=== PATIENT | female | born 2000 | race Two or more races ===

== ENCOUNTER 2024-04-24 22:55 | Emergency (ER) | payer OTHER, SELFPAY ==
[2024-04-24 23:00] VITALS: BMI 22.6
[2024-04-24 23:08] VITALS: BP 106/73; PULSE 102; RESP 16; TEMP 37.4; O2SAT 96
--- NOTE | 2024-04-24 23:41 | PD.EDRME ---
Rapid Medical Screening Exam COUNT INCLUDES THE [facility] Arrival date/time: 04/24/24 22:55 24F with history of SLE (on chronic oral steroids) presents to ED with 1 day of sudden GRAY. Patient had a brain MRI 3 weeks ago that showed sinusitis. A 7 day course of Augmentin did not relieve symptoms. Patient also has tender nodules on scalp. Separately, patient notes she had red/bloody stool today (patient took a picture). Patient denies dysuria, vaginal bleeding, and URI symptoms. Chief Complaint: Headache Vital signs: Vital Signs Temperature 99.4 F 04/24/24 23:08 Pulse Rate 102 H 04/24/24 23:08 Respiratory Rate 16 04/24/24 23:08 Blood Pressure 106/73 04/24/24 23:08 Pulse Oximetry (%) 96 04/24/24 23:08 Oxygen Delivery Method Room Air 04/24/24 23:08
--- NOTE | 2024-04-25 00:06 | PD.EDHA ---
ED Headache RME/HPI General Chief Complaint: Headache Stated Complaint: Headache, blurry vision, blood in stool, flank howard Arrival date/time: 04/24/24 22:55 RME / HPI RME / HPI Narrative: 04/24/24 22:55 24F with history of SLE (on chronic oral steroids) presents to ED with 1 day of sudden GRAY. Patient had a brain MRI 3 weeks ago that showed sinusitis. A 7 day course of Augmentin did not relieve symptoms. Patient also has tender nodules on scalp. Separately, patient notes she had red/bloody stool today (patient took a picture). Patient denies dysuria, vaginal bleeding, and URI symptoms. -------- Dr. Garcia?s Main ED Evaluation: 24yo female with a history of SLE presents to the ED for a chief complaint of a headache. Patient states she's had a headache for the last 4 months, reporting she's been seen by her PCP. She states she's been given medications for migraines without any alleviation of symptoms. She states she was given medication for a sinus infection 3 weeks ago that did improve her symptoms, but states her headache returned, so she came in for evaluation. She denies any N/V or any other associated symptoms. No known allergies. Related Data Home Medications ?Medication ?Instructions ?Recorded ?Confirmed prenat.vits,lolly,[id number]-absrv 1 tab PO QDAY 04/25/22 05/21/22 ferrous sulfate 325 mg (65 mg 325 mg PO QDAY 05/04/22 05/21/22 iron) tablet (iron) Previous Rx's ?Medication ?Instructions ?Recorded docusate sodium 100 mg capsule 100 mg PO BID #60 caps 05/22/22 (Colace) ibuprofen 600 mg tablet 600 mg PO Q6H PRN pain #90 tabs 05/22/22 lanolin 50 % topical ointment 1 applic topical TID PRN skin 05/22/22 irritation #15 tubes Allergies Allergy/AdvReac Type Severity Reaction Status Date / Time No Known Allergies Allergy Verified 05/21/22 23:17 Review of Systems Review of Systems Systems Reviewed: All systems reviewed, normal except as documented Past Medical History Past Medical History NEUROLOGIC: Negative Neurological Disorders or Seizures CARDIAC: Positive Cardiac Disorders and Angina; Negative Congestive Heart Failure RESPIRATORY: Negative Chronic Obstructive Pulmonary Disease (COPD), Tuberculosis or Sleep Apnea GASTROINTESTINAL: Negative Gastrointestinal Disorders or Hepatitis GENITOURINARY: Negative Genitourinary Disorders or Renal Disease REPRODUCTIVE: Positive Previous Pregnancies MUSCULOSKELETAL: Positive Musculoskeletal Disorders and Arthritis ENDOCRINE: Positive Endocrine Disorders and Systemic Lupus Erythematosus; Negative Diabetes Mellitus Type 1 or Diabetes Mellitus Type 2 HEMATOLOGIC: Positive Blood Disorders, Anemia and Clotting Problems OTHER HISTORY: Positive Hospitalization, Autoimmune Disease and Chicken Pox; Negative Shingles, Falls, Blood Transfusions, Blood Transfusion Reaction, Anesthesia Reactions, Chemotherapy, Radiation Therapy, MRSA, Measles, Mumps or Cancer Family History FAMILY HISTORY: Negative Family Neurologic Problems, Family Psychiatric Problems, Family Respiratory Disorders, Family Cardiac Disorders, Family Gastrointestinal Problems, Family Cancer, Family Surgery or Family Anesthesia Reaction Surgical History SURGICAL: Negative Section Social History SMOKING STATUS: Never smoker SUBSTANCE USE: does not use ED Exam Narrative Physical exam: GENERAL APPEARANCE: alert and oriented x 4, well-developed, well-nourished, no acute distress VITALS: All vitals were reviewed and the pulse ox is 96% on room air, which is normal according to my interpretation. HEENT: Normocephalic, atraumatic; pupils equal, round, reactive to light; EOMI; mucous membranes pink, moist; oropharynx clear; tenderness on palpation to the upper face NECK: Supple LUNGS: CTABL; no wheezes, no rales, no rhonchi HEART: Regular rate, regular rhythm; normal S1, S2; no murmurs ABDOMEN: non distended; normal BS; soft, no tenderness, no guarding, no rebound; no masses, no organomegaly, no hernia BACK: no CVA tenderness EXTREMITIES: atraumatic; no edema NEUROLOGIC: awake; alert and oriented x4; cranial nerves II-XII grossly intact; no focal sensory or motor deficits PSYCHIATRIC: appropriate mood and affect SKIN: warm, dry, normal color; no rashes Course Quality Measures none Orders Category Date Time Status Bedside COVID-19 Antigen Test NOW Care 04/24/24 23:10 Completed Bedside Influenza A&B Antigen Test NOW Care 04/24/24 23:10 Completed CBC Stat Lab 04/24/24 23:41 Completed CMP [Comprehensive Metabolic Panel] Stat Lab 04/24/24 23:41 Completed DiphenhydrAMINE [Benadryl] Med 04/25/24 00:06 Discontinued 25 mg PO X1 ONE Ketorolac Inj [Toradol Inj] Med 04/25/24 00:06 Discontinued 30 mg IM X1 ONE Metoclopramide [Reglan] Med 04/25/24 00:06 Discontinued 10 mg PO X1 ONE Reevaluation(s) Reevaluation #1: Patient states she feels significantly better and is requesting to be discharged home. Time: 01:45 Vital Signs Vital signs: Vital Signs Temperature 99.4 F 04/24/24 23:08 Pulse Rate 102 H 04/24/24 23:08 Respiratory Rate 16 04/24/24 23:08 Blood Pressure 106/73 04/24/24 23:08 Pulse Oximetry (%) 96 04/24/24 23:08 Oxygen Delivery Method Room Air 04/24/24 23:08 Headache MDM Narrative MDM Narrative:: Scribe Attestation: 04/25/24 Idalia Nix am scribing for and in the presence of Dr. Garcia. Patient data External records reviewed:: [facility] previous records (Per chart review, patient was seen here on 07/24/22 for palpitations.) Clinical information provided by:: patient Social determinants that could affect healthcare access:: none Patient has the following chronic illnesses:: lupus How is presenting disease/condition affected by chronic disease/condition?: uneffected by Evaluation data The following diagnostics were reviewed and interpreted by me:: lab results Lab and/or radiology exams considered but not ordered:: none Interpretation Summary: Bedside COVID and Influenza are negative. Medications / Prescriptions Medications or Prescriptions considered but not ordered:: none Medication administrations:: Medication Administration History Discontinued Medications Diphenhydramine HCl (Diphenhydramine 25 Mg Capsule) 25 mg PO X1 ONE Stop: 04/25/24 00:07 Last Admin: 04/25/24 00:13 Dose: 25 mg Documented By: CVL Ketorolac Tromethamine (Ketorolac Inj 60 Mg/2 Ml Vial) 30 mg IM X1 ONE Stop: 04/25/24 00:07 Last Admin: 04/25/24 00:14 Dose: 30 mg Documented By: CVL Metoclopramide HCl (Metoclopramide 5 Mg Tablet) 10 mg PO X1 ONE Stop: 04/25/24 00:07 Last Admin: 04/25/24 00:13 Dose: 10 mg Documented By: CVL see above Consultations Consultation(s) initiated? (list below): No Diagnosis Differential diagnosis headache: migraine, tension headache, sinusitis and other (cluster headache) Most likely diagnosis given after review of the tests above:: see below Admission Indicated Admission indicated?: not indicated Explain why admission is indicated or not indicated:: No criteria for admission. Admission Request Was there a request for admission?: No Disposition Plan Disposition Plan: Discharge Discharge Attestation Discharge Attestation: The patient and all family members were given an opportunity to ask questions and understood the discharge instructions. Discharge instructions specifically effects, indications for sooner follow up or return to the emergency department, and the expected course of current diagnosis. Patient condition: Stable Discharge Plan Plan Patient Disposition: HOME (Self Care) Disposition Comment: Stable for discharge Patient condition on transfer: Stable Prescriptions/Referrals Prescriptions/Med Rec: No Action prenat.vits,lolly,[id number]-invrr Tablet 1 tab PO QDAY ferrous sulfate [iron] 325 mg (65 mg iron) Tablet 325 mg PO QDAY docusate sodium [Colace] 100 mg capsule 100 mg PO BID Qty: 60 0RF ibuprofen 600 mg tablet 600 mg PO Q6H PRN (Reason: pain) Qty: 90 0RF lanolin 50 % ointment 1 applic topical TID PRN (Reason: skin irritation) Qty: 15 0RF Referrals: [facility] [Outside] - In 1 week Problem List Clinical Impression: Headache Patient/Caregiver Discharge Instructions Discharge Activity: activity as tolerated Education Materials: Self-Care for Headaches Additional Instructions: Please return to the emergency department if you have any worsening or any further medical problems. Otherwise you should follow-up with your primary care doctor within the next several days. Print Language: Ivorian Stand Alone Forms: Rizwana Award Info., Patient Portal Info Letter
[2024-04-25] MEDS: METOCLOPRAMIDE 5 MG TABLET 10 MG PO (00:13)
[2024-04-25] MEDS: DiphenhydrAMINE 25 MG CAPSULE PO (00:13)
[2024-04-25] MEDS: KETOROLAC INJ 60 MG/2 ML VIAL 30 MG IM (00:14)
[2024-04-25 00:40] LABS: Basophils % (Auto) 0 % (0-2.5); Eosinophils # (Auto) 0.1 Thou/mm3 (0.0-0.5); Eosinophils % (Auto) 2 % (0-10); Hematocrit 35.2 % (36.0-46.0); Hemoglobin 11.2 g/dL (12.0-16.0); Immature Granulocytes % (Auto) 1 % (0-0); Immature Granulocytes Auto 0.03 Thou/mm3 (0.00-0.00); Lymphocytes # (Auto) 0.5 Thou/mm3 (1.0-4.8); Lymphocytes % (Auto) 17 % (10-50); Mean Corpuscular HGB Conc 31.8 g/dl (31.0-37.0); Mean Corpuscular Hemoglobin 24.3 pg (25.0-35.0); Mean Corpuscular Volume 77 fL (80-100); Monocytes # (Auto) 0.1 Thou/mm3 (0.0-0.8); Monocytes % (Auto) 3 % (0-12); Neutrophils # (Auto) 2.2 Thou/mm3 (1.8-7.7); Neutrophils % (Auto) 78 % (37-80); Nucleated Red Blood Cell % 0 /100 WBC (0); Platelet Count 186 Thou/mm3 (140-440); RDW Standard Deviation 50.5 fL (36.4-46.3)
[2024-04-25 00:50] LABS: White Blood Count 2.9 Thou/mm3 (3.6-11.0)
[2024-04-25 00:56] LABS: Alanine Aminotransferase 40 U/L (10-49); Albumin, Serum 3.8 gm/dL (3.5-5.0); Albumin/Globulin Ratio 1.1 (1.2-2.2); Alkaline Phosphatase 73 U/L (46-116); Anion Gap 7 (7-16); Aspartate Amino Transferase 48 U/L (0-34); BUN/Creatinine Ratio 18 Ratio (12-20); Bilirubin,Total 0.3 mg/dL (0.3-1.2); Blood Urea Nitrogen 11 mg/dL (9-23); Calcium 9.1 mg/dL (8.3-10.6); Calcium (Corrected) 9.3 mg/dL (8.5-10.1); Chloride 109 mMol/L (98-107); Creatinine (Component) 0.6 mg/dL (0.6-1.3); Estimated Creatinine Clearance 99.5 mL/min (>60); Globulin 3.5 gm/dL (2.3-3.5); Glucose 83 mg/dL (74-106); Osmolality,Calculated 281 (275-295); Potassium 3.9 mMol/L (3.4-5.1); Sodium 142 mMol/L (136-145); Total Protein 7.3 gm/dL (5.7-8.2); eGFR > 60 See Note
[2024-04-25 01:16] VITALS: BP 110/70; PULSE 98; RESP 16; TEMP 37.4; O2SAT 96
== END 2024-04-25 01:57 | disposition home or self-care (01) ==
PROVIDERS: Physician Assistant; Emergency Provider Emergency Medicine
DX: R51.9 Headache, unspecified (principal)
CPT/HCPCS: 36415; 80053; 81001; 81025; 85025; 85610; 85730; 87400; 87811; 96372; 99283; 99284; J1885; A9270

== ENCOUNTER 2024-04-30 11:33 | Emergency (ER) | payer OTHER, SELFPAY ==
[2024-04-30 11:50] VITALS: BP 112/76; PULSE 115; RESP 16; TEMP 37.4; O2SAT 98; BMI 22.6
[2024-04-30] MEDS: DEXAMETHASONE SOD PHOS INJ 10 MG/ML VIAL IM (12:07)
[2024-04-30] MEDS: DiphenhydrAMINE 25 MG CAPSULE PO (12:08)
--- NOTE | 2024-04-30 13:38 | PD.EDRME ---
Rapid Medical Screening Exam RME Arrival date/time: 04/30/24 11:33 24 year-old female presents emergency department today with complaints of rash patient ports history of lupus reports rash ongoing x 1 week Chief Complaint: Allergic Reaction Time Seen by Provider: 04/30/24 11:35 Vital signs: Vital Signs Temperature 99.4 F 04/30/24 11:50 Pulse Rate 115 H 04/30/24 11:50 Respiratory Rate 16 04/30/24 11:50 Blood Pressure 112/76 04/30/24 11:50 Pulse Oximetry (%) 98 04/30/24 11:50 Oxygen Delivery Method Room Air 04/30/24 11:50
[2024-04-30 14:01] LABS: Basophils % (Auto) 0 % (0-2.5); Eosinophils # (Auto) 0.1 Thou/mm3 (0.0-0.5); Eosinophils % (Auto) 3 % (0-10); Hematocrit 33.7 % (36.0-46.0); Hemoglobin 10.4 g/dL (12.0-16.0); Immature Granulocytes % (Auto) 0 % (0-0); Immature Granulocytes Auto 0.01 Thou/mm3 (0.00-0.00); Lymphocytes # (Auto) 0.3 Thou/mm3 (1.0-4.8); Lymphocytes % (Auto) 8 % (10-50); Mean Corpuscular HGB Conc 30.9 g/dl (31.0-37.0); Mean Corpuscular Hemoglobin 24.1 pg (25.0-35.0); Mean Corpuscular Volume 78 fL (80-100); Monocytes # (Auto) 0.1 Thou/mm3 (0.0-0.8); Monocytes % (Auto) 3 % (0-12); Neutrophils # (Auto) 3.2 Thou/mm3 (1.8-7.7); Neutrophils % (Auto) 85 % (37-80); Nucleated Red Blood Cell % 0 /100 WBC (0); Platelet Count 148 Thou/mm3 (140-440); RDW Standard Deviation 53.1 fL (36.4-46.3); Red Blood Count 4.31 Miln/mm3 (4.00-5.20); White Blood Count 3.7 Thou/mm3 (3.6-11.0)
--- NOTE | 2024-04-30 14:12 | EKG_ITS ---
[facility] Test Date: 2024-04-30 Pat Name: MEHUL ZAMAN Department: Room: - Gender: Female Cereal Maker: : 2000 Requested By: Carloz Hargrove (CATHY) Order Number: [id number] Reading MD: Carloz Hargrove (BORING MACHINE OPERATOR VERTICAL) Measurements Intervals [place] Rate: 104 P: 58 MA: 139 QRS: 98 QRSD: 74 T: 69 QT: 306 QTc: 403 Interpretive Statements SINUS TACHYCARDIA BORDERLINE RIGHT AXIS DEVIATION [QRS AXIS > 90] LOW QRS VOLTAGE IN PRECORDIAL LEADS [QRS DEFLECTION < 1.0 mV IN CHEST LEADS] POSSIBLE RIGHT VENTRICULAR CONDUCTION DELAY [RSR (QR) IN V1/V2] ABNORMAL RHYTHM ECG Compared to ECG 07/23/2022 23:51:28 Low QRS voltage now present T-wave abnormality no longer present /store/S0/[id number]
[2024-04-30 14:20] LABS: Sed Rate (ESR) 48 mm/hr (0-20)
[2024-04-30 14:36] LABS: Alanine Aminotransferase 46 U/L (10-49); Albumin, Serum 3.6 gm/dL (3.5-5.0); Albumin/Globulin Ratio 1.1 (1.2-2.2); Anion Gap 7 (7-16); Aspartate Amino Transferase 71 U/L (0-34); BUN/Creatinine Ratio 17 Ratio (12-20); Bilirubin,Total 0.3 mg/dL (0.3-1.2); Blood Urea Nitrogen 10 mg/dL (9-23); C-Reactive Protein 4.1 mg/dL (0.0-0.9); Calcium 8.6 mg/dL (8.3-10.6); Calcium (Corrected) 8.9 mg/dL (8.5-10.1); Carbon Dioxide 26.1 mMol/L (20.0-31.0); Chloride 106 mMol/L (98-107); Creatinine (Component) 0.6 mg/dL (0.6-1.3); Estimated Creatinine Clearance 99.5 mL/min (>60); Globulin 3.3 gm/dL (2.3-3.5); Glucose 103 mg/dL (74-106); Osmolality,Calculated 276 (275-295); Potassium 3.8 mMol/L (3.4-5.1); Sodium 139 mMol/L (136-145); Total Protein 6.9 gm/dL (5.7-8.2); eGFR > 60 See Note
[2024-04-30 14:47] LABS: Alkaline Phosphatase 73 U/L (46-116)
[2024-04-30 14:54] LABS: Troponin I < 0.020 ng/mL (0.0-0.045)
[2024-04-30 15:04] LABS: HCG,Qualitative Serum Negative
[2024-04-30 15:16] VITALS: BP 113/88; PULSE 105; RESP 18; TEMP 37.4; O2SAT 100
[2024-04-30 15:43] LABS: Path Review Blood Smear Sent to Pathologist
--- NOTE | 2024-04-30 16:04 | PD.EDADULT ---
ED General RME/HPI General Chief complaint: Allergic Reaction Stated complaint: RASH, FACIAL SWELLING, CHEST PAIN Time Seen by Provider: 04/30/24 11:35 Arrival date/time: 04/30/24 11:33 CC: Rash HPI patient has an itchy rash going on for the last week it started in the upper anterior chest and spread to the back. Patient also stating of some mild fatigue but denies any shortness of breath difficulty breathing chest pain fever nausea vomiting or diarrhea. Patient has a significant history of lupus and Sjogrens syndrome. Patient is 8 months . Her child currently has RSV and is recovering. Patient has no other complaints patient takes steroids daily. RME / HPI RME / HPI narrative: 04/30/24 11:33 24 year-old female presents emergency department today with complaints of rash patient ports history of lupus reports rash ongoing x 1 week Related Data Home Medications ?Medication ?Instructions ?Recorded ?Confirmed prenat.vits,lolly,wya-bmzv-yrbel 1 tab PO QDAY 04/25/22 05/21/22 ferrous sulfate 325 mg (65 mg 325 mg PO QDAY 05/04/22 05/21/22 iron) tablet (iron) Previous Rx's ?Medication ?Instructions ?Recorded docusate sodium 100 mg capsule 100 mg PO BID #60 caps 05/22/22 (Colace) ibuprofen 600 mg tablet 600 mg PO Q6H PRN pain #90 tabs 05/22/22 lanolin 50 % topical ointment 1 applic topical TID PRN skin 05/22/22 irritation #15 tubes Allergies Allergy/AdvReac Type Severity Reaction Status Date / Time No Known Allergies Allergy Verified 05/21/22 23:17 Review of Systems Review of Systems Narrative Review of Systems: GEN: No fever, no chills, no weight loss EYES: No discharge, no visual changes, no pain HEENT: No ear pain, no congestion, no sore throat PULM: No shortness of breath, no cough, no congestion CV: No chest pain, no dyspnea on exertion, no palpitations GI: No nausea, no vomiting, no diarrhea, no pain, no constipation : No frequency, no urgency, no dysuria MUSC/SKEL: No joint pain, no back pain SKIN: + rash PSYCH: No hallucinations, no depression HEME/LYMPH: No easy bleeding or bruising tendencies NEURO: No weakness, no headache ED Exam Narrative Physical exam: [General: In mild discomfort but not in any acute distress Head normocephalic HEENT: Face, the patient has facial edema secondary to long-term steroid use, eyes pupils are PERRLA EOMs are within acceptable limits Neck is supple nontender Chest equal chest rise nontender to palpation Respiratory: Clear to auscultation no wheezes crackles or rubs CV: Rate rhythm is regular no murmurs rubs or clicks Abdomen is distended secondary to body habitus soft nontender no masses positive bowel sounds all 4 quadrants Back: No CVA tenderness no spinous process tenderness from cervical spine thoracic and lumbar spine Skin: Widespread irregular pattern of a macular rash no specific set pattern involving the anterior chest upper back and the upper arms no face or scalp involvement there was some dimpling of the skin on the fingertips of both hands. Patient also complained of mild tenderness with palpation of the fingertips. No papular hive or urticaria Type lesions. Extremities: Moving all extremity against resistance cap refill less than 2 seconds neurosensory intact Neuro: Awake alert oriented x3 Glascow coma 15 no focal deficits] Course Course Course Narrative: Patient's case, laboratory results and the patient itself was discussed with and observed by Dr. Goncalves, who agrees this is a noncritical rash however needs to follow-up aggressively with student financial services counselor Dr. Calabrese in [place]. Quality Measures none Orders Category Date Time Status EKG (ED ONLY) *Do not use* NOW Care 04/30/24 14:12 Completed EKG (ED Only) Stat Exams 04/30/24 14:12 Draft CBC Stat Lab 04/30/24 13:43 Completed CMP [Comprehensive Metabolic Panel] Stat Lab 04/30/24 13:43 Completed CRP [C-Reactive Protein] Stat Lab 04/30/24 13:43 Completed ESR [Sed Rate (ESR)] Stat Lab 04/30/24 13:43 Completed HCG,Qualitative Serum Stat Lab 04/30/24 13:43 Completed Path Review Blood Smear Stat Lab 04/30/24 13:43 Completed Troponin I Stat Lab 04/30/24 13:43 Completed Dexamethasone Inj [Decadron Inj] Med 04/30/24 12:01 Discontinued 10 mg IM X1 ONE DiphenhydrAMINE [Benadryl] Med 04/30/24 12:01 Discontinued 25 mg PO X1 ONE Vital Signs Vital signs: Vital Signs Temperature 99.4 F 04/30/24 11:50 Pulse Rate 115 H 04/30/24 11:50 Respiratory Rate 16 04/30/24 11:50 Blood Pressure 112/76 04/30/24 11:50 Pulse Oximetry (%) 98 04/30/24 11:50 Oxygen Delivery Method Room Air 04/30/24 11:50 MDM Patient data External records reviewed:: [facility] previous records Clinical information provided by:: patient Social determinants that could affect healthcare access:: none Patient has the following chronic illnesses:: Lupus, sjogrens syndrome How is presenting disease/condition affected by chronic disease/condition?: exacerbated by Evaluation data The following diagnostics were reviewed and interpreted by me:: lab results, radiology exam(s) and EKG tracing(s) Lab and/or radiology exams considered but not ordered:: CBC shows no leukocytosis and improving anemia of 10.4 and 33.7 platelets are normal CMP shows no significant electrolyte imbalances renal impairment transaminitis or T. bili elevation C-reactive protein of 4.1 hCG is negative EKG performed at 1417 shows ventricular rate of 104 MI interval 139 QRS of 74 QTc of 366 is sinus tachycardia. Interpretation Summary: There is no acute finding in the laboratory results that indicate an emergent or immediate intervention however however the rash may be a symptom of a rheumatologic event, the patient needs to follow-up promptly with Dr. Calabrese, her student financial services counselor, in [place]. Medications Medications considered but not ordered:: None Medication administrations:: Medication Administration History Discontinued Medications Dexamethasone Sodium Phosphate (Dexamethasone Sod Phos Inj 10 Mg/Ml Vial) 10 mg IM X1 ONE Stop: 04/30/24 12:02 Last Admin: 04/30/24 12:07 Dose: 10 mg Documented By: OA Diphenhydramine HCl (Diphenhydramine 25 Mg Capsule) 25 mg PO X1 ONE Stop: 04/30/24 12:02 Last Admin: 04/30/24 12:08 Dose: 25 mg Documented By: OA None Consultations Consultation(s) initiated? (list below): No Diagnosis Differential Diagnosis ED Complaint MDM: ITP, PPT, urticaria Most likely diagnosis given after review of the tests above:: Rash with itch Admission Indicated Admission indicated?: not indicated Explain why admission is indicated or not indicated:: Stable for outpatient follow-up Admission Request Was there a request for admission?: No Disposition Plan Disposition Plan: Discharge Discharge Attestation Discharge Attestation: The patient and all family members were given an opportunity to ask questions and understood the discharge instructions. Discharge instructions specifically effects, indications for sooner follow up or return to the emergency department, and the expected course of current diagnosis. Patient condition: Stable Medical Decision Making Differential Diagnosis Differential Diagnosis: ITP, PPT, urticaria Lab Data 04/30/24 13:43 04/30/24 13:43 Labs: Lab Results 04/30/24 Range/Units 13:43 WBC 3.7 (3.6-11.0) Thou/mm3 RBC 4.31 (4.00-5.20) Miln/mm3 Hgb 10.4 L (12.0-16.0) g/dL Hct 33.7 L (36.0-46.0) % MCV 78 L (80-100) fL MCH 24.1 L (25.0-35.0) pg MCHC 30.9 L (31.0-37.0) g/dl RDW Std Deviation 53.1 H (36.4-46.3) fL Plt Count 148 D (140-440) Thou/mm3 Neut % (Auto) 85 H (37-80) % Lymph % (Auto) 8 L (10-50) % [place] % (Auto) 3 (0-12) % Eos % (Auto) 3 (0-10) % Baso % (Auto) 0 (0-2.5) % Neut # (Auto) 3.2 (1.8-7.7) Thou/mm3 Lymph # (Auto) 0.3 L (1.0-4.8) Thou/mm3 [place] # (Auto) 0.1 (0.0-0.8) Thou/mm3 Eos # (Auto) 0.1 (0.0-0.5) Thou/mm3 Baso # (Auto) 0.0 (0.0-0.2) Thou/mm3 Immature Gran # (Auto) 0.01 H (0.00-0.00) Thou/mm3 Absolute Nucleated RBC 0.00 (0.00-0.00) Thou/mm3 Immature Gran % 0 (0-0) % Nucleated RBC % 0 (0) /100 WBC Smear Path Review Sent to Pathologist ESR 48 H (0-20) mm/hr Sodium 139 (136-145) mMol/L Potassium 3.8 (3.4-5.1) mMol/L Chloride 106 (98-107) mMol/L Carbon Dioxide 26.1 (20.0-31.0) mMol/L Anion Gap 7 (7-16) BUN 10 (9-23) mg/dL Creatinine 0.6 (0.6-1.3) mg/dL Estim Creat Clear Calc 99.5 (>60) mL/min eGFR > 60 (60 - ) See Note BUN/Creatinine Ratio 17 (12-20) Ratio Glucose 103 (74-106) mg/dL Calculated Osmolality 276 (275-295) Calcium 8.6 (8.3-10.6) mg/dL Corrected Calcium 8.9 (8.5-10.1) mg/dL Total Bilirubin 0.3 (0.3-1.2) mg/dL AST 71 H (0-34) U/L ALT 46 (10-49) U/L Alkaline Phosphatase 73 (46-116) U/L Troponin I < 0.020 (0.0-0.045) ng/mL C-Reactive Prot, Quant 4.1 H (0.0-0.9) mg/dL Total Protein 6.9 (5.7-8.2) gm/dL Albumin 3.6 (3.5-5.0) gm/dL Globulin 3.3 (2.3-3.5) gm/dL Albumin/Globulin Ratio 1.1 L (1.2-2.2) HCG, Qual Negative Discharge Plan Plan Patient Disposition: HOME (Self Care) Patient condition on transfer: Stable Prescriptions/Referrals Prescriptions/Med Rec: No Action prenat.vits,lolly,[id number]-pdoxs Tablet 1 tab PO QDAY ferrous sulfate [iron] 325 mg (65 mg iron) Tablet 325 mg PO QDAY docusate sodium [Colace] 100 mg capsule 100 mg PO BID Qty: 60 0RF ibuprofen 600 mg tablet 600 mg PO Q6H PRN (Reason: pain) Qty: 90 0RF lanolin 50 % ointment 1 applic topical TID PRN (Reason: skin irritation) Qty: 15 0RF Referrals: No Primary/Family,Physician [Primary Care Provider] - In 1 week Narinder Montgomery MD [Physician] - In 1 week Problem List Clinical Impression: Rash Patient/Caregiver Discharge Instructions Other Activity Instructions:: Follow-up with your student financial services counselor, Dr. Calabrese, in the next 48 hours if there is a progressive worsening and you are unable to get a hold of Dr. Calabrese please return to the emergency room for reevaluation. Education Materials: ED Viral Rash, Exanthem (Child) Print Language: Estonian Stand Alone Forms: Rizwana Award Info., Work/School Release, Patient Portal Info Letter PA/PLASTIC FIXTURE BUILDER Supervising Physician PA/PLASTIC FIXTURE BUILDER Supervising Physician: Aristides Bansal ENP
== END 2024-04-30 16:27 | disposition home or self-care (01) ==
PROVIDERS: Nurse Practitioner Primary Care; Emergency Provider Emergency Medicine
DX: R21 Rash and other nonspecific skin eruption (principal); M35.00 Sjogren syndrome, unspecified
CPT/HCPCS: 36415; 80053; 84484; 84703; 85025; 85652; 86140; 93005; 96372; 99283; J1100; A9270

== ENCOUNTER 2024-05-08 12:08 | Emergency (ER) | payer MEDICAID, SELFPAY ==
[2024-05-08] VITALS (10 sets, daily range): BP systolic 96–122; BP diastolic 64–84; PULSE 104–260; RESP 14–20; TEMP 36.8–38.4; O2SAT 98–100; BMI 22.8
--- NOTE | 2024-05-08 12:23 | EKG_ITS ---
[facility] Test Date: 2024-05-08 Pat Name: SAHARA CORMIER Department: Room: - Gender: Female Shaft Tender: : 2000 Requested By: Carloz Hargrove (CATHY) Order Number: [id number] Reading MD: Carloz Hargrove (SALMON GILLNET VESSEL OPERATOR) Measurements Intervals [place] Rate: 242 P: DE: QRS: 133 QRSD: 160 T: 0 QT: 158 QTc: 317 Interpretive Statements UNCERTAIN REGULAR RHYTHM INTRAVENTRICULAR CONDUCTION DELAY [130+ ms QRS DURATION] POSSIBLE RIGHT VENTRICULAR HYPERTROPHY [SOME/ALL OF: PROMINENT R IN V1, LATE TRANSITION, RAD, SHAUN, SSS] CRITICAL TEST RESULT Compared to ECG 08/23/2017 09:20:18 Intraventricular conduction delay now present Sinus bradycardia no longer present Incomplete right bundle-branch block no longer present T-wave abnormality no longer present /store/S0/[id number]
--- NOTE | 2024-05-08 12:33 | EDNOTE_ITS ---
ED General RME/HPI General Chief complaint: Arrhythmia/Palpitations Stated complaint: palpitations, fever, sob, left eye pain Time Seen by Provider: 05/08/24 12:32 Arrival date/time: 05/08/24 12:08 RME / HPI RME / HPI narrative: Patient comes in saying for 2 hours she had her heart going fast. She is from [place] visiting a portable. 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 She states she has lupus is had a fever in the last day also lanes of face or eye pain. She is followed by Dr. [place] swing manager in [place]. Related Data Previous Rx's ?Medication ?Instructions ?Recorded ibuprofen 400 mg tablet 400 mg PO QID PRN pain #30 t abs 08/23/17 Allergies Allergy/AdvReac Type Severity Reaction Status Date / Time No Known Allergies Allergy Verified 08/22/17 23:16 Review of Systems Review of Systems Narrative Review of Systems: Constitutional: see hpi, +fevers, facial pain. Eyes: DENIES; Loss of vision Head/Ear/Nose: DENIES; Loss of hearing Throat: DENIES; Dysphagia Cardiovascular: see hpi +palpitations DENIES; Chest pain, dyspnea or syncope Respiratory: DENIES; Shortness of breath Gastrointestinal: DENIES; Rectal bleeding or melena. Genitourinary: DENIES; Dysuria (painful or difficult urination) Musculoskeletal: DENIES; Arthralgia (pain in a joint),; Skin: DENIES; Rash Neurological: DENIES; Loss of function or movement Psychiatric: DENIES; recent major life stressor, emotional problem, illicit drug use or abuse Endocrinology: DENIES; Weight change Hematologic/Lymphatic: DENIES; Abnormal bruising Allergic/Immunologic: DENIES; Urticaria (hives) Past Medical History Past Medical History CARDIAC: Negative Congestive Heart Failure RESPIRATORY: Negative Chronic Obstructive Pulmonary Disease (COPD) GENITOURINARY: Negative Renal Disease ENDOCRINE: Negative Diabetes Mellitus Type 1 or Diabetes Mellitus Type 2 Social History SMOKING STATUS: Never smoker ED Exam Narrative Physical exam: Physical Exam: General: The vital signs were reviewed. Patient is put on the monitor soon after arrival her heart rate is 246 narrow complex tachycardia. The patient is non-toxic, in no apparent distress and appears healthy with a patent airway, no respiratory distress and has no apparent circulatory problems. Head & Scalp: Normocephalic, atraumatic. Face: Appears normal and is without lesions, deformity. Ears: Left external pinna appears normal. Right external pinna appears normal. Eyes: The sclera is anicteric. No obvious photophobia. The Left and Right Orbit/Lid/Conjunctiva appears normal without swelling, discoloration or injection. Nose: The nose is without deformity, discharge or tenderness; Throat: Appears normal. The mucous membranes are pink and moist without exudates, redness or mass seen. The tongue appears normal. Neck: The neck is supple and no apparent mass or adenopathy. Chest: The chest wall is normal in size and symmetry and has no chest wall tenderness or crepitus. The patient displays normal ventilator effort without retractions, accessory muscle use and has adequate air movement bilaterally with no wheezes and no rales. Cardiovascular: Patient has a rapid heart rate of 260 on the monitor narrow complex no murmurs heard. Gastrointestinal: The abdomen appears normal. No obvious hernias or mass. The abdomen is soft and benign, non-distended, with no pain, no guarding and no rebound tenderness. Bowel sounds are present and normal sounding. No CVA tenderness. Genitourinary: Back/Spine: Normal inspection nontender Extremities/Musculoskeletal/lymphatic: The bilateral upper and lower extremities are warm. There is no evidence of arterial insufficiency. There is no evidence of venous insufficiency/edema. The patient spontaneously moves bilateral upper and lower extremities with no pain and no limitation of movement. There is no apparent, injury or trauma. Skin: The skin is warm, dry and intact. No rashes. No petechia. No purpura. No abnormal bruising. The color is appropriate with no cyanosis. Mental status/Psychiatric: Mental status is appropriate for age. The patient has no apparent delusions, visual hallucinations, no apparent audible hallucinations. The patient has no apparent suicidal thoughts/ideation and no apparent homicidal thoughts/ideation. Neurological: The patient is awake, alert, interactive, cordial, cooperative and is oriented to name and situation. The patient follows commands and answers historical question with no impairment. There is no visual disturbance apparent. The pupils are equal and reactive bilaterally with normal eye movements and no diplopia The bilateral upper and lower extremities have normal strength, normal range of motion and normal functioning. The gait, station and balance patient got up from the [facility] and made the transfer to the bed with minimal assistance. Course Quality Measures none Orders Category Date Time Status Bedside COVID-19 Antigen Test NOW Care 05/08/24 12:50 Active Bedside Influenza A&B Antigen Test NOW Care 05/08/24 12:50 Completed Clipper Machine NOW Care 05/08/24 12:23 Active EKG (ED ONLY) *Do not use* NOW Care 05/08/24 12:23 Completed Insert IV NOW Care 05/08/24 12:24 Active Miscellaneous Nursing Order NOW Care 05/08/24 12:39 Active EKG (ED Only) Stat Exams 05/08/24 12:23 Draft XR chest 1V portable Stat Exams 05/08/24 12:38 Completed B-Type Natriuretic Peptide Stat Lab 05/08/24 12:35 Completed Blood Culture (Lab) Stat Lab 05/08/24 12:50 Received CBC Stat Lab 05/08/24 12:35 Completed CRP [C-Reactive Protein] Stat Lab 05/08/24 12:35 Completed Comprehensive Metabolic Panel Stat Lab 05/08/24 12:35 Completed Drug Screen,Urine Stat Lab 05/08/24 13:40 Completed ESR [Sed Rate (ESR)] Stat Lab 05/08/24 12:35 Completed Free T4 (Free Thyroxine) Stat Lab 05/08/24 12:35 Completed HCG,Qualitative Serum Stat Lab 05/08/24 12:35 Completed Magnesium Stat Lab 05/08/24 12:35 Completed Partial Thromboplastin Time Stat Lab 05/08/24 13:45 Completed Prothrombin Time with INR Stat Lab 05/08/24 13:45 Completed RSV [Respiratory Syncytial Virus Ag] Stat Lab 05/08/24 13:41 Completed Strep A Rapid Stat Lab 05/08/24 13:46 Completed TSH [Thyroid Stimulating Hormone] Stat Lab 05/08/24 12:35 Completed Troponin I Stat Lab 05/08/24 12:35 Completed UA [Urinalysis] Stat Lab 05/08/24 13:40 Completed Urinalysis Stat Lab 05/08/24 13:46 Ordered VBG [Venous Blood Gas] Stat Lab 05/08/24 12:35 Completed Acetaminophen Tab [Tylenol Tab] Med 05/08/24 13:20 Discontinued 1,000 mg PO X1 ONE Adenosine 6mg Inj [Adenocard Inj] Med 05/08/24 12:24 Discontinued 12 mg IVP X1 ONE Adenosine 6mg Inj [Adenocard Inj] Med 05/08/24 12:23 Discontinued 6 mg IVP X1 ONE Metoprolol Tartrate Inj [Lopressor Inj] Med 05/08/24 12:59 Discontinued 2 mg IVP X1 ONE Metoprolol Tartrate Inj [Lopressor Inj] Med 05/08/24 13:01 Discontinued 2.5 mg IVP X1 ONE Metoprolol Tartrate Inj [Lopressor Inj] Med 05/08/24 12:53 Discontinued 5 mg .ROUTE .STK-MED ONE Vital Signs Vital signs: Vital Signs Temperature 99.2 F 05/08/24 12:23 Pulse Rate 260 H 05/08/24 12:23 Respiratory Rate 20 05/08/24 12:23 Blood Pressure 122/84 05/08/24 12:23 Pulse Oximetry (%) 100 05/08/24 12:23 Oxygen Delivery Method Room Air 05/08/24 12:23 Pulse ox is 100% on room air which is adequate. [facility] Patient data External records reviewed:: [facility] previous records (I reviewed ED visit on 08/23/17) Clinical information provided by:: patient Social determinants that could affect healthcare access:: none Patient has the following chronic illnesses:: svt, lupus How is presenting disease/condition affected by chronic disease/condition?: e xacerbated by Evaluation data The following diagnostics were reviewed and interpreted by me:: lab results, radiology exam(s) and EKG tracing(s) Lab and/or radiology exams considered but not ordered:: none Interpretation Summary: Ordering Physician: Gokul Burton MD Date of Service: 05/08/24 Procedure(s): XR chest 1V portable Accession Number(s): [id number] cc: Gokul Burton MD; Bj Rebolledo MD~ Examination: AP chest single view Technique one AP portable semiupright chest single view Exam date and time: May 08, 2024 1300 hours Comparison August 23, 2017 INDICATIONS: Fever leukocytosis today. FINDINGS: Normal heart size Lungs are clear. The osseous structures are intact IMPRESSION: No active disease Dictated By: Bj Rebolledo MD Signed By: <Electronically signed by Bj Rebolledo MD in [place]> 05/08/24 1320 Medications Medications considered but not ordered:: none Medication administrations:: Medication Administration History Discontinued Medications Acetaminophen (Acetaminophen 325 Mg Tablet) 1,000 mg PO X1 ONE Stop: 05/08/24 13:21 Last Admin: 05/08/24 13:26 Dose: 1,000 mg Documented By: TM Adenosine (Adenosine Inj 3 Mg/Ml Vial) 6 mg IVP X1 ONE Stop: 05/08/24 12:24 Last Admin: 05/08/24 12:36 Dose: 6 mg Documented By: TM Adenosine (Adenosine Inj 3 Mg/Ml Vial) 12 mg IVP X1 ONE Stop: 05/08/24 12:25 Last Admin: 05/08/24 13:00 Dose: 6 mg Documented By: TM Comments: PER MD AT BEDSIDE Metoprolol Tartrate (Metoprolol Tartrate Inj 1 Mg/Ml Amp 5 Ml) 2 mg IVP X1 ONE Stop: 05/08/24 13:00 Metoprolol Tartrate (Metoprolol Tartrate Inj 1 Mg/Ml Amp 5 Ml) 2.5 mg IVP X1 ONE Stop: 05/08/24 13:02 Last Admin: 05/08/24 13:06 Dose: 2.5 mg Documented By: TM Metoprolol Tartrate (Metoprolol Tartrate Inj 1 Mg/Ml Amp 5 Ml) Confirm Administered Dose 5 mg .ROUTE .STK-MED ONE Stop: 05/08/24 12:54 Last Admin: 05/08/24 13:11 Dose: Not Given Documented By: TM Non-Admin Reason: Override Medication see above Consultations Consultation(s) initiated? (list below): No Diagnosis Differential Diagnosis ED Complaint MDM: svt, palpitations, afib, atrial flutter, wpw Most likely diagnosis given after review of the tests above:: Fever unknown origin SVT converted to sinus rhythm with adenosine and Lopressor. Admission Indicated Admission indicated?: not indicated Explain why admission is indicated or not indicated:: Patient's mental status and SVT are controlled Admission Request Was there a request for admission?: No Disposition Plan Disposition Plan: Discharge (Because patient has fever with unknown origin she is going of a close follow-up in 1 day with her swing manager in [place] where she lives. Her family will be taking her back today. She knows very clearly to return or see her doctor or go to her closest hospital if getting worse in any way Tylenol) Discharge Attestation Discharge Attestation: The patient and all family members were given an opportunity to ask questions and understood the discharge instructions. Discharge instructions specifically effects, indications for sooner follow up or return to the emergency department, and the expected course of current diagnosis. Patient condition: Stable Medical Decision Making MDM Narrative MDM Narrative: Patient is a 24-year-old with a history of SVT sees doctors in [place] also has lupus states she has a fever and some left orbit or face pain but no obvious swelling or redness. She also was here recently for allergic reaction but was registered under a different number evidently because her chart is not findable today. Today patient is in SVT at around 240 of 260 very narrow and rapid. She was verbally consented agreed to adenosine. We gave her 6 mg IV push in the left antecubital area and that she converted to sinus rhythm sinus tach of around 130 on the monitor post adenosine. Will work her up for her fever and rule out sepsis. EKG #1 twelve-lead reveals a heart rate of 242 narrow complex QRS there is no ST elevation [place]. EKG #2 reveals conversion of the SVT post adenosine 6 mg cardioversion to a sinus tach rate around 120 there is occasional PVC. There is no ST elevation [place]. Both these EKGs are interpreted by myself. About 1020 minutes after the first dose of adenosine the patient converted back into SVT again around 240. This time we gave another 6 mg adenosine followed by 2.5 mg of Lopressor note this patient is already on a beta-sven and did take her dose this morning. Patient been watched for the last 3 hours and her heart rate is been staying in a sinus tach trending around 105 at the latest recheck. Patient feels much better is tolerating this well. Patient was found to have a fever as she suspected. O2 sats have been in the 98 and 100%. Blood testing reveals a white count of 3.2 hemoglobin of 12.4 platelet count of 107,000. PT 11.6 INR 1.1 PTT 33.4 pH is 7.44 electrolytes are within normal limits BUN 10 creatinine 0.7 glucose was 100. Total bilirubin transaminase essentially negative troponin was negative C-reactive protein is elevated 2.8. Chest x-ray reveals no infiltrates no effusion normal heart size. Rechecked the patient for his patient is hungry she feels much better. Not certain what the source of her fever is. But her COVID and influenza were both negative. Patient feels better heart rates 103 fever and is unclear of the source. Urine came back negative. Patient ambulated the halls without difficulty. Vital signs are good she was advised at great length to follow-up with her swing manager tomorrow. She knows that we have a fever of unknown source. She is immunocompromise and clinically we did not find a source. It appears she has some viral illness that she is also complaining of some GI symptoms noted her abdomen is soft and benign. Differential Diagnosis Differential Diagnosis: svt, palpitations, afib, atrial flutter, wpw Lab Data 05/08/24 12:35 05/08/24 12:35 Labs: Lab Results 05/08/24 05/08/24 05/08/24 Range/Units 12:35 13:40 13:41 WBC 3.2 L (3.6-11.0) Thou/mm3 RBC 5.11 (4.00-5.20) Miln/mm3 Hgb 12.4 (12.0-16.0) g/dL Hct 38.8 (36.0-46.0) % MCV 76 L (80-100) fL MCH 24.3 L (25.0-35.0) pg MCHC 32.0 (31.0-37.0) g/dl RDW Std Deviation 54.7 H (36.4-46.3) fL Plt Count 107 L (140-440) Thou/mm3 Neut % (Auto) 71 (37-80) % Lymph % (Auto) 18 (10-50) % Sanders % (Auto) 3 (0-12) % Eos % (Auto) 7 (0-10) % Baso % (Auto) 0 (0-2.5) % Neut # (Auto) 2.3 (1.8-7.7) Thou/mm3 Lymph # (Auto) 0.6 L (1.0-4.8) Thou/mm3 Sanders # (Auto) 0.1 (0.0-0.8) Thou/mm3 Eos # (Auto) 0.2 (0.0-0.5) Thou/mm3 Baso # (Auto) 0.0 (0.0-0.2) Thou/mm3 Immature Gran # (Auto) 0.03 H (0.00-0.00) Thou/mm3 Absolute Nucleated RBC 0.00 (0.00-0.00) Thou/mm3 Immature Gran % 1 H (0-0) % Nucleated RBC % 0 (0) /100 WBC ESR 34 H (0-20) mm/hr PT (9.0-12.2) Seconds INR (0.9-1.3) APTT (22.0-36.0) Seconds VBG pH 7.44 (7.33-7.66) VBG pCO2 37 (36-56) mmHg VBG pO2 30 (15-58) mmHg VBG O2 Sat (Aung) 56 L (96-97) % VBG Base Excess 1 (-3-3) Sodium 137 (136-145) mMol/L Potassium 3.8 (3.4-5.1) mMol/L Chloride 106 (98-107) mMol/L Carbon Dioxide 22.6 (20.0-31.0) mMol/L Anion Gap 8 (7-16) BUN 10 (9-23) mg/dL Creatinine 0.7 (0.6-1.3) mg/dL Estim Creat Clear Calc 85.2 (>60) mL/min eGFR > 60 (60 - ) See Note BUN/Creatinine Ratio 14 (12-20) Ratio Glucose 100 (74-106) mg/dL Calculated Osmolality 272 L (275-295) Calcium 8.5 (8.3-10.6) mg/dL Corrected Calcium 8.7 (8.5-10.1) mg/dL Magnesium 1.9 (1.6-2.6) mg/dL Total Bilirubin 0.3 (0.3-1.2) mg/dL AST 54 H (0-34) U/L ALT 39 (10-49) U/L Alkaline Phosphatase 73 (46-116) U/L Troponin I < 0.020 (0.0-0.045) ng/mL C-Reactive Prot, Quant 2.8 H (0.0-0.9) mg/dL B-Natriuretic Peptide < 20 (0-100) pg/mL Total Protein 7.1 (5.7-8.2) gm/dL Albumin 3.7 (3.5-5.0) gm/dL Globulin 3.4 (2.3-3.5) gm/dL Albumin/Globulin Ratio 1.1 L (1.2-2.2) TSH 6.52 H (0.55-4.78) uIU/mL Free T4 1.21 (0.89-1.76) ng/dL HCG, Qual Negative Ur Collection Type Catheter Urine Color Lt-Yellow (Lt Yel-Yel) Urine Clarity Clear (Clear/Hazy) Urine pH 7.0 (5.0-7.0) Ur Specific [place] 1.008 (1.001-1.035) Urine Protein Negative (Neg - Trace) Urine Glucose (UA) Negative (Negative) Urine Ketones Negative (Negative) Urine Blood 1+ A (Negative) Urine Nitrite Negative (Negative) Urine Bilirubin Negative (Negative) Urine Urobilinogen (Auto) Negative (0.0-1.0) mg/dL Ur Leukocyte Esterase Negative (Negative) Urine RBC 5 H (0-3) /hpf Urine WBC 3 (0-5) /hpf Ur Squamous Epith Cells 3 (0-5) /hpf Urine Bacteria None (None) Urine Opiates Screen Negative (Negative) Urine Fentanyl Screen Negative (Negative) Ur Barbiturates Screen Negative (Negative) U Amphetamin/Meth Scrn Negative (Negative) U Benzodiazepines Scrn Negative (Negative) U Cocaine Metab Screen Negative (Negative) U Marijuana (THC) Screen Negative (Negative) RSV Rapid Negative (Negative) Group A Strep Rapid (Negative) 05/08/24 05/08/24 Range/Units 13:45 13:46 WBC (3.6-11.0) Thou/mm3 RBC (4.00-5.20) Miln/mm3 Hgb (12.0-16.0) g/dL Hct (36.0-46.0) % MCV (80-100) fL MCH (25.0-35.0) pg MCHC (31.0-37.0) g/dl RDW Std Deviation (36.4-46.3) fL Plt Count (140-440) Thou/mm3 Neut % (Auto) (37-80) % Lymph % (Auto) (10-50) % Sanders % (Auto) (0-12) % Eos % (Auto) (0-10) % Baso % (Auto) (0-2.5) % Neut # (Auto) (1.8-7.7) Thou/mm3 Lymph # (Auto) (1.0-4.8) Thou/mm3 Sanders # (Auto) (0.0-0.8) Thou/mm3 Eos # (Auto) (0.0-0.5) Thou/mm3 Baso # (Auto) (0.0-0.2) Thou/mm3 Immature Gran # (Auto) (0.00-0.00) Thou/mm3 Absolute Nucleated RBC (0.00-0.00) Thou/mm3 Immature Gran % (0-0) % Nucleated RBC % (0) /100 WBC ESR (0-20) mm/hr PT 11.6 (9.0-12.2) Seconds INR 1.1 (0.9-1.3) APTT 33.4 (22.0-36.0) Seconds VBG pH (7.33-7.66) VBG pCO2 (36-56) mmHg VBG pO2 (15-58) mmHg VBG O2 Sat (Aung) (96-97) % VBG Base Excess (-3-3) Sodium (136-145) mMol/L Potassium (3.4-5.1) mMol/L Chloride (98-107) mMol/L Carbon Dioxide (20.0-31.0) mMol/L Anion Gap (7-16) BUN (9-23) mg/dL Creatinine (0.6-1.3) mg/dL Estim Creat Clear Calc (>60) mL/min eGFR (60 - ) See Note BUN/Creatinine Ratio (12-20) Ratio Glucose (74-106) mg/dL Calculated Osmolality (275-295) Calcium (8.3-10.6) mg/dL Corrected Calcium (8.5-10.1) mg/dL Magnesium (1.6-2.6) mg/dL Total Bilirubin (0.3-1.2) mg/dL AST (0-34) U/L ALT (10-49) U/L Alkaline Phosphatase (46-116) U/L Troponin I (0.0-0.045) ng/mL C-Reactive Prot, Quant (0.0-0.9) mg/dL B-Natriuretic Peptide (0-100) pg/mL Total Protein (5.7-8.2) gm/dL Albumin (3.5-5.0) gm/dL Globulin (2.3-3.5) gm/dL Albumin/Globulin Ratio (1.2-2.2) TSH (0.55-4.78) uIU/mL Free T4 (0.89-1.76) ng/dL HCG, Qual Ur Collection Type Urine Color (Lt Yel-Yel) Urine Clarity (Clear/Hazy) Urine pH (5.0-7.0) Ur Specific [place] (1.001-1.035) Urine Protein (Neg - Trace) Urine Glucose (UA) (Negative) Urine Ketones (Negative) Urine Blood (Negative) Urine Nitrite (Negative) Urine Bilirubin (Negative) Urine Urobilinogen (Auto) (0.0-1.0) mg/dL Ur Leukocyte Esterase (Negative) Urine RBC (0-3) /hpf Urine WBC (0-5) /hpf Ur Squamous Epith Cells (0-5) /hpf Urine Bacteria (None) Urine Opiates Screen (Negative) Urine Fentanyl Screen (Negative) Ur Barbiturates Screen (Negative) U Amphetamin/Meth Scrn (Negative) U Benzodiazepines Scrn (Negative) U Cocaine Metab Screen (Negative) U Marijuana (THC) Screen (Negative) RSV Rapid (Negative) Group A Strep Rapid Negative (Negative) Discharge Plan Plan Patient Disposition: HOME (Self Care) Prescriptions/Referrals Prescriptions/Med Rec: No Action ibuprofen 400 mg tablet 400 mg PO QID PRN (Reason: pain) Qty: 30 0RF Problem List Clinical Impression: Sustained SVT, Fever, Lupus, FUO (fever of unknown origin) Patient/Caregiver Discharge Instructions Additional Instructions: As you know you presented to the emergency room with a supraventricular tachycardia with a heart rate of about 246. This converted with adenosine but unfortunately a second dose of adenosine was given and it converted again to a sinus tach and we followed this up with some Lopressor 2.5 mg and this seemed of controlled your heart rates we have not recurred in the last 4 to 6 hours. You also had a fever and we worked that up and did not find any source. We want you to see your swing manager tomorrow. Take the copies of the labs of your workup today. We know you live in [place] so if you are getting worse and you are in [place] go to your doctor's hospital to get reevaluated further. Today we found no bacterial source for your fever presume he have some virus. Your COVID and influenza both came back negative. You can use Tylenol for fever. No driving until you are cleared by your doctor. Print Language: Italian Stand Alone Forms: [employer] Award Info., Patient Portal Info Letter
[2024-05-08] MEDS: ADENOSINE INJ 3 MG/ML VIAL 6 MG IVP (12:36)
--- NOTE | 2024-05-08 12:38 | XR_ITS ---
Examination: AP chest single view Technique one AP portable semiupright chest single view Exam date and time: May 08, 2024 1300 hours Comparison August 23, 2017 INDICATIONS: Fever leukocytosis today. FINDINGS: Normal heart size Lungs are clear. The osseous structures are intact IMPRESSION: No active disease
[2024-05-08 12:48] LABS: Base Excess, Venous 1 (-3-3); O2 Saturation, Venous 56 % (96-97); PCO2, Venous 37 mmHg (36-56); PO2, Venous 30 mmHg (15-58); pH, Venous 7.44 (7.33-7.66)
[2024-05-08 12:52] LABS: Basophils % (Auto) 0 % (0-2.5); Eosinophils # (Auto) 0.2 Thou/mm3 (0.0-0.5); Eosinophils % (Auto) 7 % (0-10); Hematocrit 38.8 % (36.0-46.0); Hemoglobin 12.4 g/dL (12.0-16.0); Immature Granulocytes % (Auto) 1 % (0-0); Immature Granulocytes Auto 0.03 Thou/mm3 (0.00-0.00); Lymphocytes # (Auto) 0.6 Thou/mm3 (1.0-4.8); Lymphocytes % (Auto) 18 % (10-50); Mean Corpuscular Hemoglobin 24.3 pg (25.0-35.0); Mean Corpuscular Volume 76 fL (80-100); Monocytes # (Auto) 0.1 Thou/mm3 (0.0-0.8); Monocytes % (Auto) 3 % (0-12); Neutrophils # (Auto) 2.3 Thou/mm3 (1.8-7.7); Neutrophils % (Auto) 71 % (37-80); Nucleated Red Blood Cell % 0 /100 WBC (0); Platelet Count 107 Thou/mm3 (140-440); RDW Standard Deviation 54.7 fL (36.4-46.3); Red Blood Count 5.11 Miln/mm3 (4.00-5.20)
[2024-05-08] MEDS: ADENOSINE INJ 3 MG/ML VIAL 12 MG IVP (13:00)
[2024-05-08] MEDS: METOPROLOL TARTRATE INJ 1 MG/ML AMP 5 ML 2.5 MG IVP (13:06)
[2024-05-08 13:14] LABS: Alanine Aminotransferase 39 U/L (10-49); Albumin, Serum 3.7 gm/dL (3.5-5.0); Albumin/Globulin Ratio 1.1 (1.2-2.2); Alkaline Phosphatase 73 U/L (46-116); Anion Gap 8 (7-16); Aspartate Amino Transferase 54 U/L (0-34); B-Type Natriuretic Peptide < 20 pg/mL (0-100); BUN/Creatinine Ratio 14 Ratio (12-20); Bilirubin,Total 0.3 mg/dL (0.3-1.2); Blood Urea Nitrogen 10 mg/dL (9-23); C-Reactive Protein 2.8 mg/dL (0.0-0.9); Calcium 8.5 mg/dL (8.3-10.6); Calcium (Corrected) 8.7 mg/dL (8.5-10.1); Carbon Dioxide 22.6 mMol/L (20.0-31.0); Chloride 106 mMol/L (98-107); Creatinine (Component) 0.7 mg/dL (0.6-1.3); Estimated Creatinine Clearance 85.2 mL/min (>60); Free T4 (Free Thyroxine) 1.21 ng/dL (0.89-1.76); Globulin 3.4 gm/dL (2.3-3.5); Glucose 100 mg/dL (74-106); Magnesium 1.9 mg/dL (1.6-2.6); Osmolality,Calculated 272 (275-295); Potassium 3.8 mMol/L (3.4-5.1); Sodium 137 mMol/L (136-145); Thyroid Stimulating Hormone 6.52 uIU/mL (0.55-4.78); Total Protein 7.1 gm/dL (5.7-8.2); Troponin I < 0.020 ng/mL (0.0-0.045); White Blood Count 3.2 Thou/mm3 (3.6-11.0); eGFR > 60 See Note
[2024-05-08] MEDS: ACETAMINOPHEN 325 MG TABLET 1000 MG PO (13:26)
[2024-05-08 13:36] LABS: HCG,Qualitative Serum Negative
[2024-05-08 14:04] LABS: INR 1.1 (0.9-1.3); Partial Thromboplastin Time 33.4 Seconds (22.0-36.0); Prothrombin Time 11.6 Seconds (9.0-12.2)
[2024-05-08 14:10] LABS: Sed Rate (ESR) 34 mm/hr (0-20)
[2024-05-08 14:30] LABS: Respiratory Syncytial Virus Ag Negative (Negative)
[2024-05-08 14:30] LABS: Strep A Rapid Negative (Negative)
--- NOTE | 2024-05-08 17:25 | PC.NURSE ---
followed up w/lab regarding urine that was sent 4 hrs ago, per lab the order is under the account prior to the pts chart merge, they will attempt to run it under new chart/account number.
[2024-05-08 17:29] LABS: Collection Type, Urine Catheter
[2024-05-08 17:34] LABS: Bilirubin,Urine Negative (Negative); Blood,Urine 1+ (Negative); Clarity,Urine Clear (Clear/Hazy); Color,Urine Lt-Yellow (Lt Yel-Yel); Glucose, Urine Negative (Negative); Ketones,Urine Negative (Negative); Leukocyte Esterase,Urine Negative (Negative); Nitrite,Urine Negative (Negative); Protein,Urine Negative (Neg - Trace); RBC,Urine 5 /hpf (0-3); Specific Gravity,Urine 1.008 (1.001-1.035); Squamous Epithelial Cell,Urine 3 /hpf (0-5); Urobilinogen,Urine Negative mg/dL (0.0-1.0); WBC,Urine 3 /hpf (0-5)
--- NOTE | 2024-05-08 17:38 | PC.NURSE ---
Pt ambulated well w/steady gait, o2 remained unchanged.
[2024-05-08 17:41] LABS: Amphetamine/Methamp Scrn,U Negative (Negative); Barbiturate Screen,Urine Negative (Negative); Benzodiazepines Screen,Urine Negative (Negative); Benzoylecgonine Screen, Ur Negative (Negative); Fentanyl Screen,Urine Negative (Negative); Opiate Screen,Urine Negative (Negative); THC Screen,Urine Negative (Negative)
== END 2024-05-08 18:46 | disposition home or self-care (01) ==
PROVIDERS: Nurse Practitioner Primary Care; Emergency Provider Emergency Medicine
DX: I47.10 Supraventricular tachycardia, unspecified (principal); R50.9 Fever, unspecified
CPT/HCPCS: 36415; 71045; 80053; 80307; 81001; 82803; 83735; 83880; 84439; 84443; 84484; 84703; 85025; 85610; 85652; 85730; 86140; 87040; 87400; 87634; 87651; 87811; 93005; 96374; 96375; 99284; J0153; J3490; A9270

== ENCOUNTER 2024-05-30 | Emergency (ER) | payer MEDICAID, SELFPAY ==
[2024-05-30 00:02] VITALS: BMI 22.2
[2024-05-30 00:12] VITALS: BP 131/80; PULSE 89; RESP 18; TEMP 36.9; O2SAT 98
[2024-05-30] MEDS: cephALEXin 250 MG CAPSULE 500 MG PO (00:22)
[2024-05-30] MEDS: HYDROcodone/APAP 5/325 TABLET 1 TAB PO (01:00)
--- NOTE | 2024-05-30 03:35 | EDNOTE_ITS ---
ED Skin Abcess FB-RME/HPI General Chief complaint: Skin/Abscess/Foreign Body Stated complaint: LEFT THUMP PAIN Time Seen by Provider: 05/30/24 00:16 Arrival date/time: 05/30/24 00:00 24F with history of SLE presents to ED with L thumb pain and redness for 1 day w/o fall/trauma. Patient states she started on a new med called Benlysta. Limitations: no limitations Related Data Home Medications ?Medication ?Instructions ?Recorded ?Confirmed prenat.vits,lolly,[id number] 1 tab PO QDAY 04/25/22 05/21/22 ferrous sulfate 325 mg (65 mg 325 mg PO QDAY 05/04/22 05/21/22 iron) tablet (iron) Previous Rx's ?Medication ?Instructions ?Recorded ibuprofen 400 mg tablet 400 mg PO QID PRN pain #30 t abs 08/23/17 docusate sodium 100 mg capsule 100 mg PO BID #60 caps 05/22/22 (Colace) ibuprofen 600 mg tablet 600 mg PO Q6H PRN pain #90 t abs 05/22/22 lanolin 50 % topical ointment 1 applic topical TID PRN skin 05/22/22 irritation #15 tubes cephalexin 750 mg capsule 750 mg PO TID 7 days #21 cap s 05/30/24 Allergies Allergy/AdvReac Type Severity Reaction Status Date / Time No Known Allergies Allergy Verified 05/09/24 06:06 Review of Systems Review of Systems Systems Reviewed: All systems reviewed, normal except as documented Constitutional Constitutional: Reports system reviewed and no additional complaints, except as documented, Denies fever(s) and Denies headache(s) ENT Ears, Nose, Mouth, and Throat: Denies disequilibrium and Denies headache(s) Cardiovascular Cardiovascular: Reports system reviewed and no additional complaints, except as documented, Denies chest pain and Denies dyspnea Respiratory Respiratory: Reports system reviewed and no additional complaints, except as documented, Denies cough and Denies dyspnea Gastrointestinal Gastrointestinal: Reports system reviewed and no additional complaints, except as documented, Denies abdominal pain, Denies nausea and Denies vomiting Integumentary/Breasts Skin/Breast: Reports as per HPI and Reports skin pain Neurologic Neurologic: Reports system reviewed and no additional complaints, except as documented, Denies confusion, Denies disequilibrium and Denies headache(s) Psychiatric Psychiatric: Denies confusion Past Medical History Past Medical History NEUROLOGIC: Negative Neurological Disorders or Seizures CARDIAC: Positive Cardiac Disorders and Angina; Negative Congestive Heart Failure RESPIRATORY: Negative Chronic Obstructive Pulmonary Disease (COPD), Tuberculosis or Sleep Apnea GASTROINTESTINAL: Negative Gastrointestinal Disorders or Hepatitis GENITOURINARY: Negative Genitourinary Disorders or Renal Disease REPRODUCTIVE: Positive Previous Pregnancies MUSCULOSKELETAL: Positive Musculoskeletal Disorders and Arthritis ENDOCRINE: Positive Endocrine Disorders and Systemic Lupus Erythematosus; Negative Diabetes Mellitus Type 1 or Diabetes Mellitus Type 2 HEMATOLOGIC: Positive Blood Disorders, Anemia and Clotting Problems OTHER HISTORY: Positive Hospitalization, Autoimmune Disease and Chicken Pox; Negative Shingles, Falls, Blood Transfusions, Blood Transfusion Reaction, Anesthesia Reactions, Chemotherapy, Radiation Therapy, MRSA, Measles, Mumps or Cancer Family History FAMILY HISTORY: Negative Family Neurologic Problems, Family Psychiatric Problems, Family Respiratory Disorders, Family Cardiac Disorders, Family Gastrointestinal Problems, Family Cancer, Family Surgery or Family Anesthesia Reaction Surgical History SURGICAL: Negative Section Social History SMOKING STATUS: Never smoker ED Exam General Limitations: Present no limitations General appearance: Present alert and in no apparent distress Head Head exam: Present atraumatic Eye Eye exam: Present normal appearance, PERRL and EOMI ENT ENT exam: Present normal exam, normal oropharynx and mucous membranes moist Neck Neck exam: Present normal inspection, full ROM and trachea midline Chest Chest inspection: Present normal inspection and symmetric chest wall rise Respiratory Respiratory exam: Present normal lung sounds bilaterally Cardiovascular Cardiovascular exam: Present regular rate, normal rhythm and normal heart sounds Abdominal Exam Abdominal exam: Present soft and normal bowel sounds Extremities Exam Extremities exam: Present full ROM Expanded Upper Extremity Exam Hand exam: Present full ROM (L tip of thumb), tenderness and erythema Back Exam Back exam: Present normal inspection and full ROM Neurological Exam Neurological exam: Present alert, oriented X3 and CN II-XII intact Psychiatric Psychiatric exam: Present normal affect and normal mood Skin Skin exam: Present warm, dry, intact and normal color Course Quality Measures none Orders Category Date Time Status HYDROcodone*/APAP 5/325 [[place] 5/325] Med 05/30/24 00:26 Discontinued 1 tab PO X1 ONE cephALEXin [Keflex] Med 05/30/24 00:17 Discontinued 500 mg PO X1 ONE Vital Signs Vital signs: Vital Signs Temperature 98.5 F 05/30/24 00:12 Pulse Rate 89 05/30/24 00:12 Respiratory Rate 18 05/30/24 00:12 Blood Pressure 131/80 H 05/30/24 00:12 Pulse Oximetry (%) 98 05/30/24 00:12 Oxygen Delivery Method Room Air 05/30/24 00:12 O2 at 98% on RA and WNLs Skin / Abscess / Foreign Body MDM Narrative MDM Narrative:: 24F with history of SLE presents to ED with L thumb pain and redness for 1 day w/o fall/trauma. Patient states she started on a new med called Benlysta. Physical exam reveals small area of redness and tenderness on L tip of thumb. Patient also has a red on the rest of her hands, but patient states those have been there prior to starting this new med. No other rash on body. Patient is afebrile, calm, and alert. Likely cellulitis. Patient data External records reviewed:: [facility] previous records Clinical information provided by:: patient Social determinants that could affect healthcare access:: none Patient has the following chronic illnesses:: SLE How is presenting disease/condition affected by chronic disease/condition?: exacerbated by Evaluation data The following diagnostics were reviewed and interpreted by me:: other (specify) (none) Lab and/or radiology exams considered but not ordered:: not ordered Interpretation Summary: n/a Medications / Prescriptions Medications or Prescriptions considered but not ordered:: ordered Medication administrations:: Medication Administration History Discontinued Medications Hydrocodone Bitart/Acetaminophen (Hydrocodone/Apap 5/325 Tablet) 1 tab PO X1 ONE Stop: 05/30/24 00:27 Last Admin: 05/30/24 01:00 Dose: 1 tab Documented By: Cephalexin HCl (Cephalexin 250 Mg Capsule) 500 mg PO X1 ONE Stop: 05/30/24 00:18 Last Admin: 05/30/24 00:22 Dose: 500 mg Documented By: LISA above Consultations Consultation(s) initiated? (list below): No Diagnosis Skin/Abscess Differential Diagnosis: abscess of skin or subcutaneous tissue, viral exanthem, dermatophytosis, urticaria, herpes zoster, allergic reaction to drug, cellulitis, eczema, insect bites, impetigo, contact dermatitis and other (SJS/TENS) Most likely diagnosis given after review of the tests above:: cellulitis Admission Indicated Admission indicated?: not indicated Admission Request Was there a request for admission?: No Disposition Plan Disposition Plan: Discharge Discharge Attestation Discharge Attestation: The patient and all family members were given an opportunity to ask questions and understood the discharge instructions. Discharge instructions specifically effects, indications for sooner follow up or return to the emergency department, and the expected course of current diagnosis. Patient condition: Stable Discharge Plan Plan Patient Disposition: HOME (Self Care) Disposition Comment: Stable Prescriptions/Referrals Prescriptions/Med Rec: New cephalexin 750 mg capsule 750 mg PO TID 7 Days Qty: 21 0RF No Action ibuprofen 400 mg tablet 400 mg PO QID PRN (Reason: pain) Qty: 30 0RF prenat.vits,lolly,[id number] Tablet 1 tab PO QDAY ferrous sulfate [iron] 325 mg (65 mg iron) Tablet 325 mg PO QDAY docusate sodium [Colace] 100 mg capsule 100 mg PO BID Qty: 60 0RF ibuprofen 600 mg tablet 600 mg PO Q6H PRN (Reason: pain) Qty: 90 0RF lanolin 50 % ointment 1 applic topical TID PRN (Reason: skin irritation) Qty: 15 0RF Problem List Clinical Impression: Cellulitis Patient/Caregiver Discharge Instructions Education Materials: ED Cellulitis Additional Instructions: Please follow-up with PCP within 24-48 hours and return immediately if symptoms worsen. 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 Estrada
== END 2024-05-30 01:08 | disposition home or self-care (01) ==
LOC: SERX 00:59
PROVIDERS: Emergency Provider Emergency Medicine
DX: L03.012 Cellulitis of left finger (principal)
CPT/HCPCS: 99283; A9270

== ENCOUNTER 2024-05-31 20:21 | Emergency (ER) | payer MEDICAID, SELFPAY ==
[2024-05-31 20:32] VITALS: BP 106/74; PULSE 90; RESP 18; TEMP 36.8; O2SAT 100
--- NOTE | 2024-05-31 20:38 | EDNOTE_ITS ---
ED Skin Abcess FB-RME/HPI General Chief complaint: Skin/Abscess/Foreign Body Stated complaint: BUMPS ON BACK OF HEAD AND NECK Time Seen by Provider: 05/31/24 20:27 Arrival date/time: 05/31/24 20:21 24 year old female present to emergency room with c/o of bumps scalp and neck for a week. LOCATION: scalp, neck SEVERITY: Symptoms are described as being severe with limitations on activities of daily living QUALITY: Symptoms are described as being dull or achy CONTEXT: The patient is unable to identify any inciting events. DURATION/TIMING: The symptoms started approximately 7 day ago ASSOCIATED SYMPTOMS: The patient is unable to identify any other associated symptoms. MODIFYING FACTORS: The patient is unable to identify any alleviating or aggravating symptoms. PERTINENT ROS: denies IVDU, states no immunocompromising condition, denies any penetrating trauma, no fever, no unexplained nausea or vomiting, no headache, no chest pain REVIEW OF SYSTEMS: See History of Present Illness - with the exception of those mentioned in the history of present illness, all other systems reviewed and reported as negative GENERAL: In general the patient is awake, interactive, in an emergency department gurney. HEAD/EYES/EARS/NOSE/THROAT: + flanky, oil, tender, will fill abscess like lesion. no discharge. normo-cephalic, atraumatic, mucus membranes are moist, anicteric, palpebral conjunctiva is pink, trachea is midline. CARDIOVASCULAR: regular rate and regular rhythm, no murmurs, heart sounds are n ot distant, strong pulses in all four extremities that are equal and symmetric bilateral upper and lower extremities, normal capillary refill. CHEST/PULMONARY: normal chest rise and fall, good air movement, clear to auscultation bilaterally, normal inspiratory to expiratory ratios without evidence of respiratory distress. NECK: No midline/Paraspinal tenderness, no step off ROM/Strenght intact No K ernig and bruzinski sign. No trauma ABDOMEN: soft, not tender, no masses appreciated BACK: normal range of motion without pain. NEUROLOGICAL: cranio-facial features are symmetric, moves all four extremities equally without obvious limitations or weakness. EXTREMITY: no tenderness to palpation over the long bones or large joints of the bilateral upper and lower extremities, no joint swelling, no joint erythema, no signs of trauma, no unilateral leg swelling and no peripheral edema. SKIN: warm, dry, well-perfused, no jaundice, no rash, no telangiectasias or petechia. PSYCH: calm, cooperative, no evidence of psychosis or agitation Related Data Home Medications ?Medication ?Instructions ?Recorded ?Confirmed prenat.vits,lolly,[id number] 1 tab PO QDAY 04/25/22 05/21/22 ferrous sulfate 325 mg (65 mg 325 mg PO QDAY 05/04/22 05/21/22 iron) tablet (iron) Previous Rx's ?Medication ?Instructions ?Recorded ibuprofen 400 mg tablet 400 mg PO QID PRN pain #30 t abs 08/23/17 docusate sodium 100 mg capsule 100 mg PO BID #60 caps 05/22/22 (Colace) ibuprofen 600 mg tablet 600 mg PO Q6H PRN pain #90 t abs 05/22/22 lanolin 50 % topical ointment 1 applic topical TID PRN skin 05/22/22 irritation #15 tubes cephalexin 750 mg capsule 750 mg PO TID 7 days #21 cap s 05/30/24 cephalexin 500 mg capsule 500 mg PO Q8H 7 days #21 cap s 05/31/24 ketoconazole 2 % shampoo 1 applic topical Q14D #120 m L 05/31/24 Allergies Allergy/AdvReac Type Severity Reaction Status Date / Time No Known Allergies Allergy Verified 05/09/24 06:06 Course Course Course Narrative: exam consisted Scalp:?Dandruff, itching, redness, and greasy scales.?with secondary bacteria infection, pus filled tender abscess scattered in scalp, neck region rx: keflex 500mg tid for 7 days, ketoconazole daily for 14 days, then maintenance 1-2 times a week avoid scratching and rubbing area Quality Measures none Vital Signs Vital signs: Vital Signs Temperature 98.3 F 05/31/24 20:32 Pulse Rate 90 05/31/24 20:32 Respiratory Rate 18 05/31/24 20:32 Blood Pressure 106/74 05/31/24 20:32 Pulse Oximetry (%) 100 05/31/24 20:32 Oxygen Delivery Method Room Air 05/31/24 20:32 Skin / Abscess / Foreign Body Patient data External records reviewed:: [facility] previous records Clinical information provided by:: patient Social determinants that could affect healthcare access:: none Patient has the following chronic illnesses:: as stated in chart How is presenting disease/condition affected by chronic disease/condition?: exacerbated by Evaluation data The following diagnostics were reviewed and interpreted by me:: other (specify) (n/a ) Lab and/or radiology exams considered but not ordered:: n/a Interpretation Summary: n/a Medications / Prescriptions Medications or Prescriptions considered but not ordered:: n/a Medication administrations:: n/a Consultations Consultation(s) initiated? (list below): No Diagnosis Skin/Abscess Differential Diagnosis: abscess of skin or subcutaneous tissue, cellulitis, eczema, contact dermatitis and other (seborrheic dermatitis ) Most likely diagnosis given after review of the tests above:: seborrheic dermatitis secondary to abscess Admission Indicated Admission indicated?: not indicated Admission Request Was there a request for admission?: No Disposition Plan Disposition Plan: Discharge Discharge Attestation Discharge Attestation: The patient and all family members were given an opportunity to ask questions and understood the discharge instructions. Discharge instructions specifically effects, indications for sooner follow up or return to the emergency department, and the expected course of current diagnosis. Patient condition: Stable Discharge Plan Plan Patient Disposition: HOME (Self Care) Health Concerns: Follow with PMD as directed Return to ED if sx worsen Prescriptions/Referrals Prescriptions/Med Rec: New ketoconazole 2 % shampoo 1 applic topical Q14D Qty: 120 2RF cephalexin 500 mg capsule 500 mg PO Q8H 7 Days Qty: 21 0RF No Action ibuprofen 400 mg tablet 400 mg PO QID PRN (Reason: pain) Qty: 30 0RF prenat.vits,lolly,[id number] Tablet 1 tab PO QDAY cephalexin 750 mg capsule 750 mg PO TID 7 Days Qty: 21 0RF ferrous sulfate [iron] 325 mg (65 mg iron) Tablet 325 mg PO QDAY docusate sodium [Colace] 100 mg capsule 100 mg PO BID Qty: 60 0RF ibuprofen 600 mg tablet 600 mg PO Q6H PRN (Reason: pain) Qty: 90 0RF lanolin 50 % ointment 1 applic topical TID PRN (Reason: skin irritation) Qty: 15 0RF Problem List Clinical Impression: Acute seborrheic dermatitis Patient/Caregiver Discharge Instructions Education Materials: Understanding Seborrheic Dermatitis Print Language: Thai Stand Alone Forms: [employer] Award Info., Patient Portal Info Letter
[2024-05-31] MEDS: IBUPROFEN TAB 400 MG TABLET 800 MG PO (21:38)
== END 2024-05-31 21:59 | disposition home or self-care (01) ==
LOC: SERX 20:59
PROVIDERS: Emergency Provider Emergency Medicine
DX: L21.9 Seborrheic dermatitis, unspecified (principal)
CPT/HCPCS: 99282; A9270

== ENCOUNTER 2024-07-13 12:14 | Emergency (ER) | payer OTHER, SELFPAY ==
[2024-07-13 12:29] VITALS: BP 115/77; PULSE 89; RESP 17; TEMP 36.7; O2SAT 99
--- NOTE | 2024-07-13 12:29 | XR_ITS ---
Examination: CT brain head without contrast. 2-D sagittal coronal reconstructions Date and time of exam:July 13, 2024 1239 hrs. Indications: Onset right-sided facial numbness today CTDI: vol (mGy):42.5 DLP: (mGycm):774 Technique: Multiple CT axial sections of the brain have been obtained, 5 mm slice thickness. Contrast has not been administered. 2-D sagittal, coronal reconstructions have been obtained Low dose protocols were performed. One or more of the following dose reduction techniques were used; automated exposure control, adjustment of the mA and/or KV according to patient size, use of iterative reconstruction technique. Findings: No significant ventricular enlargement. Intra-axial or extra-axial hemorrhage density is not seen. No mass effect or midline shift Basal cisterns are not remarkable. Fourth ventricle is midline. Cranial vault intact. Impression: Negative for acute hemorrhage, mass effect or midline shift As clinically warranted, elective MRI brain without contrast follow-up would best assess for demyelinating disease
--- NOTE | 2024-07-13 12:29 | XR_ITS ---
Examination: CT abdomen and pelvis without contrast. Coronal 3-D reconstructions. Sagittal 2-D reconstructions. Date and time of exam:July 13, 2024 1347 hrs. Indications: Abdominal pain flank pain today CTDI: vol (mGy): 5.5 DLP: (mGycm): 270 Technique: Axial images of the abdomen have been obtained, 3 mm slice thickness Intravenous contrast material has not been administered. Low dose protocols were performed. One or more of the following dose reduction techniques were used; automated exposure control, adjustment of the mA and/or KV according to patient size, use of iterative reconstruction technique. Findings: Trace pericardial fluid Fatty infiltration throughout Mild splenomegaly the liver no focal liver or splenic lesions Absent gallbladder No extrahepatic biliary tract dilatation No pancreatic mass 2 mm right renal calculus No hydronephrosis or ureteral calculi Aorta normal size Absent appendix No bowel obstruction Urinary bladder wall thickening up to 8 mm No pelvic mass Osseous structures intact Impression: 2 mm nonobstructing right renal calculus Cystitis pattern
--- NOTE | 2024-07-13 12:31 | PD.EDRME ---
Rapid Medical Screening Exam RME Arrival date/time: 07/13/24 12:14 24-year-old female with a history of lupus presents to the emergency room with a chief complaint of right sided facial numbness that began this morning. Patient also states that she is having bilateral flank pain. I have greeted and performed a focused initial assessment of this patient. A comprehensive ED assessment and evaluation of the patient, analysis of all test results, and completion of the medical decision making process will be conducted by additional ED providers. Chief Complaint: Headache Time Seen by Provider: 07/13/24 12:22 Vital signs: Vital Signs Temperature 98.0 F 07/13/24 12:29 Pulse Rate 89 07/13/24 12:29 Respiratory Rate 17 07/13/24 12:29 Blood Pressure 115/77 07/13/24 12:29 Pulse Oximetry (%) 99 07/13/24 12:29 Oxygen Delivery Method Room Air 07/13/24 12:29 Vital signs reviewed by provider: Yes
--- NOTE | 2024-07-13 12:36 | PD.EDRME ---
Rapid Medical Screening Exam RME Arrival date/time: 07/13/24 12:14 07/13/24 12:14 24-year-old female with a history of lupus presents to the emergency room with a chief complaint of right sided facial numbness that began this morning. Patient also states that she is having bilateral flank pain. I have greeted and performed a focused initial assessment of this patient. A comprehensive ED assessment and evaluation of the patient, analysis of all test results, and completion of the medical decision making process will be conducted by additional ED providers. Chief Complaint: Headache Time Seen by Provider: 07/13/24 12:22 Vital signs: Vital Signs Temperature 98.0 F 07/13/24 12:29 Pulse Rate 89 07/13/24 12:29 Respiratory Rate 17 07/13/24 12:29 Blood Pressure 115/77 07/13/24 12:29 Pulse Oximetry (%) 99 07/13/24 12:29 Oxygen Delivery Method Room Air 07/13/24 12:29 RME Narrative: 07/13/24 12:14 24-year-old female with a history of lupus presents to the emergency room with a chief complaint of right sided facial numbness that began this morning. Patient also states that she is having bilateral flank pain. I have greeted and performed a focused initial assessment of this patient. A comprehensive ED assessment and evaluation of the patient, analysis of all test results, and completion of the medical decision making process will be conducted by additional ED providers.
[2024-07-13 13:12] LABS: Basophils % (Auto) 0 % (0-2.5); Eosinophils % (Auto) 0 % (0-10); Hematocrit 33.3 % (36.0-46.0); Hemoglobin 10.8 g/dL (12.0-16.0); Immature Granulocytes % (Auto) 1 % (0-0); Immature Granulocytes Auto 0.02 Thou/mm3 (0.00-0.00); Lymphocytes # (Auto) 0.5 Thou/mm3 (1.0-4.8); Lymphocytes % (Auto) 12 % (10-50); Mean Corpuscular HGB Conc 32.4 g/dl (31.0-37.0); Mean Corpuscular Hemoglobin 26.9 pg (25.0-35.0); Mean Corpuscular Volume 83 fL (80-100); Monocytes # (Auto) 0.2 Thou/mm3 (0.0-0.8); Monocytes % (Auto) 4 % (0-12); Neutrophils # (Auto) 3.3 Thou/mm3 (1.8-7.7); Neutrophils % (Auto) 83 % (37-80); Nucleated Red Blood Cell % 0 /100 WBC (0); Platelet Count 162 Thou/mm3 (140-440); RDW Standard Deviation 55.9 fL (36.4-46.3); Red Blood Count 4.02 Miln/mm3 (4.00-5.20); White Blood Count 3.9 Thou/mm3 (3.6-11.0)
--- NOTE | 2024-07-13 13:12 | EDNOTE_ITS ---
ED Headache RME/HPI General Chief Complaint: Headache Stated Complaint: HEADACHE X 4 DAYS, FACE FEELS SWOLLEN Time Seen by Provider: 07/13/24 12:22 Arrival date/time: 07/13/24 12:14 Limitations: no limitations RME / HPI RME / HPI Narrative: 07/13/24 12:14 24-year-old female with a history of lupus presents to the emergency room with a chief complaint of right sided facial numbness that began this morning. Patient also states that she is having bilateral flank pain. I have greeted and performed a focused initial assessment of this patient. A comprehensive ED assessment and evaluation of the patient, analysis of all test results, and completion of the medical decision making process will be conducted by additional ED providers. DR. ELMORE MAIN ED EVALUATION: 24 year old female with past medical history significant for lupus, on 20 mg of pregnisone for the last 3 years, presents to the Emergency Department with complaints of right sided headache, right eye pain, right ear congestion feel something in there , generalized weakness, and subjective fevers. Patient also reported bilateral flank pain. No cough or other symptoms reported at this time. She states she has history of prediabetes but is not taking any medications for that. No history of kidney stones. No dental problems. Denies any hypertension history. Family history is significant for diabetes, father. Patient denies any tobacco, alcohol, or substance use. Related Data Home Medications ?Medication ?Instructions ?Recorded ?Confirmed prenat.vits,lolly,[id number] 1 tab PO QDAY 04/25/22 05/21/22 ferrous sulfate 325 mg (65 mg 325 mg PO QDAY 05/04/22 05/21/22 iron) tablet (iron) Previous Rx's ?Medication ?Instructions ?Recorded ibuprofen 400 mg tablet 400 mg PO QID PRN pain #30 t abs 08/23/17 docusate sodium 100 mg capsule 100 mg PO BID #60 caps 05/22/22 (Colace) ibuprofen 600 mg tablet 600 mg PO Q6H PRN pain #90 t abs 05/22/22 lanolin 50 % topical ointment 1 applic topical TID PRN skin 05/22/22 irritation #15 tubes ketoconazole 2 % shampoo 1 applic topical Q14D #120 m L 05/31/24 Allergies Allergy/AdvReac Type Severity Reaction Status Date / Time No Known Allergies Allergy Verified 07/13/24 12:17 Review of Systems Review of Systems Systems Reviewed: All systems reviewed, normal except as documented Past Medical History Past Medical History CARDIAC: Positive Cardiac Disorders and Angina REPRODUCTIVE: Positive Previous Pregnancies MUSCULOSKELETAL: Positive Musculoskeletal Disorders and Arthritis ENDOCRINE: Positive Endocrine Disorders and Systemic Lupus Erythematosus HEMATOLOGIC: Positive Blood Disorders, Anemia and Clotting Problems OTHER HISTORY: Positive Hospitalization, Autoimmune Disease and Chicken Pox Social History SMOKING STATUS: Never smoker SUBSTANCE USE: does not use ALCOHOL: Never ED Exam General Limitations: Present no limitations General appearance: Present alert and in no apparent distress Head Head exam: Present atraumatic, normocephalic and other (cushingoid appearance, asymmetrical the right cheek has more edema then left cheek) Eye Eye exam: Present normal appearance, PERRL and EOMI ENT ENT exam: Present normal exam, normal oropharynx, mucous membranes moist, TM's normal bilaterally and normal external ear exam Neck Neck exam: Present normal inspection, full ROM and trachea midline Chest Chest inspection: Present normal inspection and symmetric chest wall rise Respiratory Respiratory exam: Present normal lung sounds bilaterally Cardiovascular Cardiovascular exam: Present regular rate, normal rhythm and normal heart sounds Abdominal Exam Abdominal exam: Present soft and normal bowel sounds Extremities Exam Extremities exam: Present normal inspection and full ROM Back Exam Back exam: Present normal inspection and full ROM Neurological Exam Neurological exam: Present alert, oriented X3 and CN II-XII intact Psychiatric Psychiatric exam: Present normal affect and normal mood Skin Skin exam: Present warm, dry, intact and normal color Course Quality Measures none Orders Category Date Time Status Bedside COVID-19 Antigen Test NOW Care 07/13/24 14:50 Active Bedside Influenza A&B Antigen Test NOW Care 07/13/24 13:[address] abdomen pelvis wo con Stat Exams 07/13/24 12:[address] head/brain wo con Stat Exams 07/13/24 12:29 Completed CBC Stat Lab 07/13/24 12:54 Completed CMP [Comprehensive Metabolic Panel] Stat Lab 07/13/24 12:54 Completed CRP [C-Reactive Protein] Stat Lab 07/13/24 12:54 Completed ESR [Sed Rate (ESR)] Stat Lab 07/13/24 12:54 Completed HCG Qualitative,Urine Stat Lab 07/13/24 13:03 Completed Lipase Stat Lab 07/13/24 12:54 Completed UA [Urinalysis] Stat Lab 07/13/24 13:03 Completed Urine Culture Stat Lab 07/13/24 13:03 Received Morphine Inj Med 07/13/24 13:17 Discontinued 4 mg IVP X1 ONE Ondansetron Inj [Zofran Inj] Med 07/13/24 13:17 Discontinued 4 mg IV X1 ONE Sodium Chloride 0.9% 500 ml [Ns] 500 ml Med 07/13/24 13:17 Discontinued IV 999 mls/hr Reevaluation(s) Reevaluation #1: Patient remains clinically stable throughout the emergency department visit. Re- assessment at the time of disposition demonstrates that the patient is in no acute distress. We reviewed all the results, analysis, and treatment plans. Patient is amenable to discharge. Strict return precautions were outlined. Patient was discharged in stable condition. Time: 15:14 Vital Signs Vital signs: Vital Signs Temperature 98.0 F 07/13/24 12:29 Pulse Rate 89 07/13/24 12:29 Respiratory Rate 17 07/13/24 12:29 Blood Pressure 115/77 07/13/24 12:29 Pulse Oximetry (%) 99 07/13/24 12:29 Oxygen Delivery Method Room Air 07/13/24 12:29 Headache MDM Narrative MDM Narrative:: I, Sindhu Farley, am scribing for and in the presence of Dr. Elmore. Patient has hematuria, but no infection. I discussed with patient and she is on her menstrual period. Patient data External records reviewed:: [facility] previous records (Reviewed last ED visit dated 05/31/24, discharged with the following: Acute seborrheic dermatitis) Clinical information provided by:: patient Social determinants that could affect healthcare access:: none Patient has the following chronic illnesses:: Lupus, on 20 mg of pregnisone for the last 3 years. She states she has history of prediabetes but is not taking any medications for that. No history of kidney stones. No dental problems. Denies any hypertension history. Family history is significant for diabetes, father. How is presenting disease/condition affected by chronic disease/condition?: exacerbated by Evaluation data The following diagnostics were reviewed and interpreted by me:: lab results and radiology exam(s) Lab and/or radiology exams considered but not ordered:: none Interpretation Summary: See above under MDM narrative. RADIOLOGY Procedure(s): CT head/brain wo con Accession Number(s): [id number] cc: Jean Marie Ahumada; Bj Rebolledo MD; NO PRIMARY/FAMILY,PHYSICIAN~ Examination: CT brain head without contrast. 2-D sagittal coronal reconstructions Date and time of exam:July 13, 2024 1239 hrs. Indications: Onset right-sided facial numbness today CTDI: vol (mGy):42.5 DLP: (mGycm):774 Technique: Multiple CT axial sections of the brain have been obtained, 5 mm slice thickness. Contrast has not been administered. 2-D sagittal, coronal reconstructions have been obtained Low dose protocols were performed. One or more of the following dose reduction techniques were used; automated exposure control, adjustment of the mA and/or KV according to patient size, use of iterative reconstruction technique. Findings: No significant ventricular enlargement. Intra-axial or extra-axial hemorrhage density is not seen. No mass effect or midline shift Basal cisterns are not remarkable. Fourth ventricle is midline. Cranial vault intact. Impression: Negative for acute hemorrhage, mass effect or midline shift As clinically warranted, elective MRI brain without contrast follow-up would best assess for demyelinating disease Dictated By: Bj Rebolledo MD Procedure(s): CT abdomen pelvis wo con Accession Number(s): [id number] cc: Jean Marie Ahumada; Bj Rebolledo MD; NO PRIMARY/FAMILY,PHYSICIAN~ Examination: CT abdomen and pelvis without contrast. Coronal 3-D reconstructions. Sagittal 2-D reconstructions. Date and time of exam:July 13, 2024 1347 hrs. Indications: Abdominal pain flank pain today CTDI: vol (mGy): 5.5 DLP: (mGycm): 270 Technique: Axial images of the abdomen have been obtained, 3 mm slice thickness Intravenous contrast material has not been administered. Low dose protocols were performed. One or more of the following dose reduction techniques were used; automated exposure control, adjustment of the mA and/or KV according to patient size, use of iterative reconstruction technique. Findings: Trace pericardial fluid Fatty infiltration throughout Mild splenomegaly the liver no focal liver or splenic lesions Absent gallbladder No extrahepatic biliary tract dilatation No pancreatic mass 2 mm right renal calculus No hydronephrosis or ureteral calculi Aorta normal size Absent appendix No bowel obstruction Urinary bladder wall thickening up to 8 mm No pelvic mass Osseous structures intact Impression: 2 mm nonobstructing right renal calculus Cystitis pattern Dictated By: Bj Rebolledo MD Medications / Prescriptions Medications or Prescriptions considered but not ordered:: none Medication administrations:: Medication Administration History Discontinued Medications Sodium Chloride (Ns) 500 mls @ 999 mls/hr IV .Q31M ONE Stop: 07/13/24 13:47 Last Admin: 07/13/24 14:01 Dose: 999 mls/hr Documented By: OLENA Morphine Sulfate (Morphine Sulf Inj 10 Mg/Ml Vial) 4 mg IVP X1 ONE Stop: 07/13/24 13:18 Last Admin: 07/13/24 13:59 Dose: 4 mg Documented By: OLENA Ondansetron HCl (Ondansetron Inj 2 Mg/Ml Inj 2 Ml) 4 mg IV X1 ONE; Protocol Stop: 07/13/24 13:18 Last Admin: 07/13/24 14:00 Dose: 4 mg Documented By: OLENA see above if any Consultations Consultation(s) initiated? (list below): No Diagnosis Differential diagnosis headache: migraine and other (lupus, kidney stone, UTI) Most likely diagnosis given after review of the tests above:: Headache Lupus Hematuria Admission Indicated Admission indicated?: not indicated Admission Request Was there a request for admission?: No Disposition Plan Disposition Plan: Discharge Discharge Attestation Discharge Attestation: The patient and all family members were given an opportunity to ask questions and understood the discharge instructions. Discharge instructions specifically effects, indications for sooner follow up or return to the emergency department, and the expected course of current diagnosis. Patient condition: Stable Discharge Plan Plan Patient Disposition: HOME (Self Care) Patient condition on transfer: Stable Prescriptions/Referrals Prescriptions/Med Rec: No Action ibuprofen 400 mg tablet 400 mg PO QID PRN (Reason: pain) Qty: 30 0RF prenat.vits,lolly,[id number] Tablet 1 tab PO QDAY ferrous sulfate [iron] 325 mg (65 mg iron) Tablet 325 mg PO QDAY docusate sodium [Colace] 100 mg capsule 100 mg PO BID Qty: 60 0RF ibuprofen 600 mg tablet 600 mg PO Q6H PRN (Reason: pain) Qty: 90 0RF lanolin 50 % ointment 1 applic topical TID PRN (Reason: skin irritation) Qty: 15 0RF ketoconazole 2 % shampoo 1 applic topical Q14D Qty: 120 2RF Referrals: No Primary/Family,Physician [Primary Care Provider] - In 1 week Problem List Clinical Impression: Headache, Lupus, Hematuria Patient/Caregiver Discharge Instructions Print Language: Georgian Stand Alone Forms: [employer] Award Info., Patient Portal Info Letter
[2024-07-13 13:17] LABS: Collection Type, Urine Clean Catch
[2024-07-13 13:22] LABS: Bilirubin,Urine Negative (Negative); Blood,Urine 2+ (Negative); Color,Urine Lt-Yellow (Lt Yel-Yel); Glucose, Urine Negative (Negative); Ketones,Urine Negative (Negative); Leukocyte Esterase,Urine Negative (Negative); Nitrite,Urine Negative (Negative); PH,Urine 6.5 (5.0-7.0); Protein,Urine Trace (Neg - Trace); RBC,Urine 282 /hpf (0-3); Specific Gravity,Urine 1.019 (1.001-1.035); Squamous Epithelial Cell,Urine 2 /hpf (0-5); Urobilinogen,Urine Negative mg/dL (0.0-1.0); WBC,Urine 4 /hpf (0-5)
[2024-07-13 13:24] LABS: HCG Qualitative,Urine Negative
[2024-07-13 13:25] LABS: Alanine Aminotransferase 109 U/L (10-49); Albumin/Globulin Ratio 1.4 (1.2-2.2); Alkaline Phosphatase 100 U/L (46-116); Anion Gap 7 (7-16); Aspartate Amino Transferase 117 U/L (0-34); BUN/Creatinine Ratio 32 Ratio (12-20); Bilirubin,Total 0.3 mg/dL (0.3-1.2); Blood Urea Nitrogen 19 mg/dL (9-23); C-Reactive Protein < 0.5 mg/dL (0.0-0.9); Calcium 8.5 mg/dL (8.3-10.6); Calcium (Corrected) 8.5 mg/dL (8.5-10.1); Carbon Dioxide 27.1 mMol/L (20.0-31.0); Chloride 110 mMol/L (98-107); Creatinine (Component) 0.6 mg/dL (0.6-1.3); Globulin 2.9 gm/dL (2.3-3.5); Glucose 88 mg/dL (74-106); Lipase 30 U/L (12-53); Osmolality,Calculated 288 (275-295); Potassium 3.1 mMol/L (3.4-5.1); Sodium 144 mMol/L (136-145); Total Protein 6.9 gm/dL (5.7-8.2); eGFR > 60 See Note
[2024-07-13 13:26] LABS: Clarity,Urine Hazy (Clear/Hazy)
[2024-07-13 13:35] LABS: Sed Rate (ESR) 28 mm/hr (0-20)
[2024-07-13] MEDS: MORPHINE SULF INJ 10 MG/ML VIAL 4 MG IVP (13:59)
[2024-07-13] MEDS: ONDANSETRON INJ 2 MG/ML INJ 2 ML 4 MG IV (14:00)
[2024-07-13] MEDS: SODIUM CHLORIDE 0.9% 500 ML 500 ML 999 ML IV (14:01)
[2024-07-13 14:15] VITALS: BP 114/83; PULSE 98; RESP 19; TEMP 36.8; O2SAT 98
[2024-07-13] MEDS: POTASSIUM CHLORIDE 20 mEq TABCR 40 MEQ PO (15:21)
[2024-07-13 15:39] VITALS: BP 116/72; PULSE 89; RESP 16; TEMP 37; O2SAT 100
[2024-07-13 16:00] VITALS: BP 112/76; PULSE 97; RESP 17; TEMP 36.7; O2SAT 99
== END 2024-07-13 15:39 | disposition home or self-care (01) ==
PROVIDERS: Nurse Practitioner Family; Emergency Provider Family Medicine
DX: R51.9 Headache, unspecified (principal); M32.9 Systemic lupus erythematosus, unspecified; R31.9 Hematuria, unspecified
CPT/HCPCS: 36415; 70450; 74176; 80053; 81001; 81025; 83690; 85025; 85652; 86140; 87086; 87400; 87811; 96361; 96374; 96375; 99284; J2270; J2405; J7040; A9270

== ENCOUNTER 2024-07-13 23:52 | Emergency (ER) | payer OTHER, SELFPAY ==
[2024-07-13 23:54] VITALS: PULSE 263; RESP 22; O2SAT 81
[2024-07-13 23:57] VITALS: BP 137/80; PULSE 143; RESP 20; TEMP 37.9; O2SAT 99
--- NOTE | 2024-07-13 23:58 | PC.NURSE ---
UPON ARRIVAL TO ER PATIENT WENT BACK INTO SVT 270'S, PT DID VAGAL MANEUVERS AND WAS ABLE TO SELF CONVERT.
--- NOTE | 2024-07-13 23:59 | XR_ITS ---
Examination: AP chest single view TECHNIQUE: AP portable upright chest single view. Examination time: July 14, 2024 0009 hours INDICATIONS: Shortness of breath today. FINDINGS: Normal heart size. Lungs are clear. Osseous structures are intact. IMPRESSION: No active disease
--- NOTE | 2024-07-13 23:59 | EDNOTE_ITS ---
ED Arrhythmia Palp. RME/HPI General Chief Complaint: Chest Pain Stated Complaint: CHEST PAIN Time Seen by Provider: 07/14/24 00:05 Arrival date/time: 07/13/24 23:52 RME / HPI RME / HPI narrative: This section includes all my notes and documentations, including HPI, PE, and ED course. Rolando Lozada MD HPI: 24 y/o female with Hx of SVT and Lupus Erythematosus BIBA from home presents to ED c/o SVT x approximately 1 hour ago. No chest pain. History of SVT. Takes propranolol 20 mg every morning. SVT converted by EMS with adenosine 6 mg. No other complaints. ROS: All negative except as documented in HPI. Physical Exam: General: Alert and oriented. 100.2 ?F temperature noted. Eyes: Conjunctivae and lids clear. ENT: No nasal congestion. Pharynx normal. TM normal bilaterally. Neck: Supple. Heart: Severe tachycardia noted (~200 bpm). Lungs: No respiratory distress. Good air movement. No rhonchi, wheezing, rales. Abdomen: Soft and nontender. Normal bowel sounds. No distension. No rebound or guarding. Back: No CVA tenderness. Skin: Warm and dry. Neuro: Alert and oriented X 3. I reviewed EMS notes. I reviewed all diagnostic test results. My interpretation of the EKG: SVT (298 bpm) with no ST-T changes. Rolando Lozada MD My interpretation of the chest x-ray is NAD. My review of the Chest CTA report is no PE. Blood tests and urine tests unremarkable except D-dimer 1180. COVID/influenza/strep/RSV negative. At this point, diagnoses include SVT. Treatment here included adenosine 12 mg IV. SVT converted to sinus rhythm. Metoprolol 2.5 mg IV given to prevent more SVT. For possible sepsis, IV fluid and Tylenol and Toradol and Rocephin given. When patient complained of severe headache, she was given two Tylenol #3. Significant improvement noted. I discussed the case with our hospitalist. About the presentation and exam and diagnostics and treatments here. And need of further care in the hospital. Declined to accept the patient, saying converted SVT does not meet criteria for admission. Based on my best medical judgment, made decision no further evaluation or treatment indicated at this time. Patient understands and agrees to the discharge instructions customized and printed, see below. Discharge Instructions from Dr. Lozada printed for you: 1. Fortunately, we were able to convert your SVT. 2. And after extensive evaluation, there is no other life-threatening condition. Such as heart attack or pulmonary embolism (blood clots in your lungs). 3. And your initial temperature was 100.2 ?F. After extensive evaluation, we did not find any infection. 4. To help prevent future SVT, increase your propranolol from 20 mg once daily to 20 mg twice daily (about 12 hours apart). Until cleared by a doctor taking care of you. Hold propranolol if SBP (higher BP number) < 110 or heart rate < 65. 5. See a private doctor on 07/15/2024 for recheck and further care. Ask to review all test results and official radiology reports, to make sure you receive all necessary follow-ups and monitoring. To make sure there is no serious underlying heart condition, ask to help you get more tests for your heart that cannot be done here in the ER. Such as Holter Mo nitor (cardiac monitoring at home from a day to even a month), heart stress test (on treadmill or with medication), echocardiogram (imaging of your heart structures), heart catherization (checking for blockages in your heart arteries), and a referral to see a Asset Protection Professional. 6. Seek immediate medical care with worsening or with any concerns. Rolando Lozada MD Related Data Home Medications ?Medication ?Instructions ?Recorded ?Confirmed prenat.vits,lolly,[id number]-nuoh-frheo 1 tab PO QDAY 04/25/22 05/21/22 ferrous sulfate 325 mg (65 mg 325 mg PO QDAY 05/04/22 05/21/22 iron) tablet (iron) Previous Rx's ?Medication ?Instructions ?Recorded ibuprofen 400 mg tablet 400 mg PO QID PRN pain #30 t abs 08/23/17 docusate sodium 100 mg capsule 100 mg PO BID #60 caps 05/22/22 (Colace) ibuprofen 600 mg tablet 600 mg PO Q6H PRN pain #90 t abs 05/22/22 lanolin 50 % topical ointment 1 applic topical TID PRN skin 05/22/22 irritation #15 tubes ketoconazole 2 % shampoo 1 applic topical Q14D #120 m L 05/31/24 Allergies Allergy/AdvReac Type Severity Reaction Status Date / Time No Known Allergies Allergy Verified 07/13/24 12:17 Review of Systems Review of Systems Systems Reviewed: All systems reviewed, normal except as documented Past Medical History Past Medical History CARDIAC: Positive Cardiac Disorders (SVT), Cardiac Arrhythmia and Angina REPRODUCTIVE: Positive Previous Pregnancies MUSCULOSKELETAL: Positive Musculoskeletal Disorders and Arthritis ENDOCRINE: Positive Endocrine Disorders and Systemic Lupus Erythematosus HEMATOLOGIC: Positive Blood Disorders, Anemia and Clotting Problems OTHER HISTORY: Positive Hospitalization, Autoimmune Disease (LUPUS) and Chicken Pox ED Exam Narrative Physical exam: Refer to HPI above Course Course Course Narrative: CXR is ordered for determining the etiology of shortness of breath. Quality Measures none Orders Category Date Time Status Bedside COVID-19 Antigen Test NOW Care 07/13/24 23:59 Active Bedside Influenza A&B Antigen Test NOW Care 07/13/24 23:59 Active Saline [Insert IV] NOW Care 07/13/24 23:59 Active Straight [In and Out Catheter] X1 Care 07/13/24 23:59 Active Metoprolol Tartrate Inj [Lopressor Inj] Med 07/13/24 23:58 Once 2.5 mg IVP X1 ONE Vital Signs Vital signs: Vital Signs Temperature 100.2 F 07/13/24 23:57 Pulse Rate 143 H 07/13/24 23:57 Respiratory Rate 20 07/13/24 23:57 Blood Pressure 137/80 H 07/13/24 23:57 Pulse Oximetry (%) 99 07/13/24 23:57 Oxygen Delivery Method Room Air 07/13/24 23:57 Arrhythmia/Palpitations MDM Narrative MDM Narrative:: Scribe Attestation: Taniya Morelos am scribing for and in the presence of Dr. Lozada. Provider Notation: Although this document has been carefully reviewed, there may still be some phonetic and other typographical errors.? These errors are purely grammatical due to imperfections in the software program and should not be construed in any way to? compromise the substance of the patient's medical care during this visit. 24 y/o female with Hx of SVT and Lupus Erythematosus BIBA from home presents to Ed c/o SVT x approximately 1 hour ago. Patient data External records reviewed:: [facility] previous records (Prior ED records reviewed from 07/13/24. Patient was seen for Headache.) and EMS form Clinical information provided by:: patient and EMS Social determinants that could affect healthcare access:: none Patient has the following chronic illnesses:: SVT, Cardiac Arrhythmia, Angina, Arthritis, Systemic Lupus Erythematosus, Anemia and Clotting Problems How is presenting disease/condition affected by chronic disease/condition?: exacerbated by Evaluation data The following diagnostics were reviewed and interpreted by me:: lab results, radiology exam(s) and EKG tracing(s) (My interpretation of the EKG: SVT (298 bpm) with no ST-T changes. Rolando Lozada MD) Lab and/or radiology exams considered but not ordered:: None Interpretation Summary: I reviewed all diagnostic test results. My interpretation of the EKG: SVT (298 bpm) with no ST-T changes. Rolando Lozada MD My interpretation of the chest x-ray is NAD. My review of the Chest CTA report is no PE. Blood tests and urine tests unremarkable except D-dimer 1180. COVID/influenza/strep/RSV negative. Medications / Prescriptions Medications or Prescriptions considered but not ordered:: None Medication administrations:: Treatment here included adenosine 12 mg IV. SVT converted to sinus rhythm. Metoprolol 2.5 mg IV given to prevent more SVT. For possible sepsis, IV fluid and Tylenol and Toradol and Rocephin given. When patient complained of severe headache, she was given two Tylenol #3. Consultations Consultation(s) initiated? (list below): Yes Consultation #1 (Physician, Specialty, Details): I discussed the case with our hospitalist (Dr. Monsivais). About the presentation and exam and diagnostics and treatments here. And need of further care in the hospital. Declined to accept the patient, saying converted SVT does not meet criteria for admission. Diagnosis Differential diagnosis arrhythmia/palpitations: palpitations, anxiety, sinus tachycardia, artial fibrillation, artial flutter, ventricular premature beats, supraventricular tachycardia, ventricular tachycardia and WPW Most likely diagnosis given after review of the tests above:: SVT Admission Indicated Admission indicated?: not indicated Explain why admission is indicated or not indicated:: I discussed the case with our hospitalist (Dr. Monsivais). About the presentation and exam and diagnostics and treatments here. And need of further care in the hospital. Declined to accept the patient, saying converted SVT does not meet criteria for admission. Admission Request Was there a request for admission?: No Disposition Plan Disposition Plan: Discharge Discharge Attestation Discharge Attestation: The patient and all family members were given an opportunity to ask questions and understood the discharge instructions. Discharge instructions specifically effects, indications for sooner follow up or return to the emergency department, and the expected course of current diagnosis. Patient condition: Stable Discharge Plan Plan Patient Disposition: HOME (Self Care) Prescriptions/Referrals Prescriptions/Med Rec: No Action ibuprofen 400 mg tablet 400 mg PO QID PRN (Reason: pain) Qty: 30 0RF prenat.vits,lolly,[id number]-fufyg Tablet 1 tab PO QDAY ferrous sulfate [iron] 325 mg (65 mg iron) Tablet 325 mg PO QDAY docusate sodium [Colace] 100 mg capsule 100 mg PO BID Qty: 60 0RF ibuprofen 600 mg tablet 600 mg PO Q6H PRN (Reason: pain) Qty: 90 0RF lanolin 50 % ointment 1 applic topical TID PRN (Reason: skin irritation) Qty: 15 0RF ketoconazole 2 % shampoo 1 applic topical Q14D Qty: 120 2RF Referrals: No Primary/Family,Physician [Primary Care Provider] - In 1 week Problem List Clinical Impression: SVT (supraventricular tachycardia) Patient/Caregiver Discharge Instructions Discharge Activity: activity as tolerated Education Materials: ED About Arrhythmias Additional Instructions: Discharge Instructions from Dr. Lozada printed for you: 1. Fortunately, we were able to convert your SVT. 2. And after extensive evaluation, there is no other life-threatening condition. Such as heart attack or pulmonary embolism (blood clots in your lungs). 3. And your initial temperature was 100.2 ?F. After extensive evaluation, we did not find any infection. 4. To help prevent future SVT, increase your propranolol from 20 mg once daily to 20 mg twice daily (about 12 hours apart). Until cleared by a doctor taking care of you. Hold propranolol if SBP (higher BP number) < 110 or heart rate < 65. 5. See a private doctor on 07/15/2024 for recheck and further care. Ask to review all test results and official radiology reports, to make sure you receive all necessary follow-ups and monitoring. To make sure there is no serious underlying heart condition, ask to help you get more tests for your heart that cannot be done here in the ER. Such as Holter Monitor (cardiac monitoring at home from a day to even a month), heart stress test (on treadmill or with medication), echocardiogram (imaging of your heart structures), heart catherization (checking for blockages in your heart arteries), and a referral to see a Asset Protection Professional. 6. Seek immediate medical care with worsening or with any concerns. Print Language: Frisian Stand Alone Forms: [employer]iz[employer] Award Info., Patient Portal Info Letter
[2024-07-14] VITALS (8 sets, daily range): BP systolic 93–130; BP diastolic 64–71; PULSE 85–273; RESP 16–18; TEMP 36–37.1; O2SAT 98–100; BMI 21.6
--- NOTE | 2024-07-14 00:03 | PC.NURSE ---
PT WENT BACK INTO SVT, 12MG OF ADENOSINE GIVEN WITH POSITIVE EFFECT
[2024-07-14] MEDS: ADENOSINE INJ 3 MG/ML VIAL 12 MG IVP (00:04)
[2024-07-14] MEDS: SODIUM CHLORIDE 0.9% 1000 ML 1,000 ML 999 ML IV ×2 (00:09→03:40)
[2024-07-14] MEDS: METOPROLOL TARTRATE INJ 1 MG/ML AMP 5 ML 2.5 MG IVP (00:14)
[2024-07-14] MEDS: ACETAMINOPHEN IVPB 1,000 MG/100 ML VIAL 250 MG IV (00:17)
[2024-07-14] MEDS: cefTRIAXone/D5w 1gm IV premix 1 GM/50 ML BAG IV (00:21)
[2024-07-14 00:42] LABS: Basophils % (Auto) 0 % (0-2.5); Eosinophils % (Auto) 0 % (0-10); Hematocrit 35.7 % (36.0-46.0); Hemoglobin 11.8 g/dL (12.0-16.0); Immature Granulocytes % (Auto) 0 % (0-0); Immature Granulocytes Auto 0.01 Thou/mm3 (0.00-0.00); Lymphocytes # (Auto) 0.4 Thou/mm3 (1.0-4.8); Lymphocytes % (Auto) 8 % (10-50); Mean Corpuscular HGB Conc 33.1 g/dl (31.0-37.0); Mean Corpuscular Hemoglobin 26.9 pg (25.0-35.0); Mean Corpuscular Volume 82 fL (80-100); Monocytes # (Auto) 0.1 Thou/mm3 (0.0-0.8); Monocytes % (Auto) 3 % (0-12); Neutrophils # (Auto) 4.4 Thou/mm3 (1.8-7.7); Neutrophils % (Auto) 89 % (37-80); Nucleated Red Blood Cell % 0 /100 WBC (0); Platelet Count 177 Thou/mm3 (140-440); RDW Standard Deviation 55.2 fL (36.4-46.3); Red Blood Count 4.38 Miln/mm3 (4.00-5.20); White Blood Count 4.9 Thou/mm3 (3.6-11.0)
[2024-07-14 00:48] LABS: HCG,Qualitative Serum Negative
[2024-07-14 00:49] LABS: Partial Thromboplastin Time 23.9 Seconds (22.0-36.0); Prothrombin Time 10.8 Seconds (9.0-12.2)
[2024-07-14 00:50] LABS: Strep A Rapid Negative (Negative)
[2024-07-14 01:00] LABS: Sed Rate (ESR) 42 mm/hr (0-20)
[2024-07-14 01:09] LABS: Alanine Aminotransferase 135 U/L (10-49); Albumin, Serum 4.2 gm/dL (3.5-5.0); Albumin/Globulin Ratio 1.4 (1.2-2.2); Alcohol, Blood Medical < 3.0 mg/dL (0-10.0); Alkaline Phosphatase 108 U/L (46-116); Anion Gap 10 (7-16); Aspartate Amino Transferase 130 U/L (0-34); BUN/Creatinine Ratio 20 Ratio (12-20); Bilirubin,Direct 0.1 mg/dL (0.0-0.3); Bilirubin,Total 0.3 mg/dL (0.3-1.2); Blood Urea Nitrogen 14 mg/dL (9-23); C-Reactive Protein 1.2 mg/dL (0.0-0.9); Calcium 8.6 mg/dL (8.3-10.6); Calcium (Corrected) 8.6 mg/dL (8.5-10.1); Chloride 109 mMol/L (98-107); Creatinine (Component) 0.7 mg/dL (0.6-1.3); Estimated Creatinine Clearance 85.2 mL/min (>60); Free T4 (Free Thyroxine) 1.13 ng/dL (0.89-1.76); Globulin 3.1 gm/dL (2.3-3.5); Glucose 121 mg/dL (74-106); Magnesium 1.7 mg/dL (1.6-2.6); Osmolality,Calculated 284 (275-295); Potassium 4.1 mMol/L (3.4-5.1); Procalcitonin 0.09 ng/ml (0.0-0.49); Sodium 142 mMol/L (136-145); Thyroid Stimulating Hormone 5.68 uIU/mL (0.55-4.78); Total Protein 7.3 gm/dL (5.7-8.2); Troponin I < 0.020 ng/mL (0.0-0.045); eGFR > 60 See Note
[2024-07-14 01:10] LABS: Collection Type, Urine Clean Catch
[2024-07-14 01:15] LABS: Bilirubin,Urine Negative (Negative); Blood,Urine 1+ (Negative); Clarity,Urine Clear (Clear/Hazy); Color,Urine Colorless (Lt Yel-Yel); Culture Indicated,Urine Not Indicated; Glucose, Urine Negative (Negative); Ketones,Urine Negative (Negative); Leukocyte Esterase,Urine Negative (Negative); Nitrite,Urine Negative (Negative); PH,Urine 6.5 (5.0-7.0); Protein,Urine Negative (Neg - Trace); RBC,Urine 1 /hpf (0-3); Specific Gravity,Urine 1.008 (1.001-1.035); Squamous Epithelial Cell,Urine < 1 /hpf (0-5); Urobilinogen,Urine Negative mg/dL (0.0-1.0); WBC,Urine 1 /hpf (0-5)
[2024-07-14 01:20] LABS: B-Type Natriuretic Peptide < 20 pg/mL (0-100)
[2024-07-14 01:24] LABS: D-Dimer 1180 ng/mL (<600)
[2024-07-14 01:25] LABS: HCG Qualitative,Urine Negative
[2024-07-14 02:15] LABS: Amphetamine/Methamp Scrn,U Negative (Negative); Barbiturate Screen,Urine Negative (Negative); Benzodiazepines Screen,Urine Negative (Negative); Benzoylecgonine Screen, Ur Negative (Negative); Fentanyl Screen,Urine Negative (Negative); Opiate Screen,Urine Negative (Negative); THC Screen,Urine Negative (Negative)
--- NOTE | 2024-07-14 02:42 | XR_ITS ---
Examination: CTA chest with intravenous contrast 2-D reconstructions 3-D reconstructions, vascular Date and time of exam: July 14, 2024 0329 hours INDICATIONS: Onset chest pain shortness of breath today, supraventricular tachycardia CTDI: vol (mGy) 6.5 DLP: (mGycm) 197 Technique: Multiple axial sections of the thorax have been obtained. 3 mm slice thickness, from below the hemidiaphragms to above the apices of the lungs. Mediastinal and lung density settings have been obtained. 2-D sagittal and coronal reconstructions. 3-D angiographic renderings, 3-D volume renderings, 3D post processing, vascular maximum intensity projections obtained. Contrast administered is 100 cc Isovue 370. Low dose protocols were performed. One or more of the following dose reduction techniques were used; automated exposure control, adjustment of the mA and/or KV according to patient size, use of iterative reconstruction technique. Findings: No thoracic aortic aneurysm dilatation or dissection No pulmonary artery filling defects No paratracheal tracheobronchial or bronchopulmonary adenopathy No pneumonia or pulmonary edema or pleural disease No visualized liver or splenic lesion Absent gallbladder No pancreatic mass Kidneys partially visualized no hydronephrosis IMPRESSION: Negative for pulmonary artery emboli No pneumonia or pulmonary edema or pleural disease
[2024-07-14] MEDS: ACETAMINOPHEN w/COD 300-30 TABLET 2 TAB PO (03:40)
--- NOTE | 2024-07-14 04:04 | PRELIM_ITS ---
CT angiogram of the chest with intravenous contrast (axial sections with sagittal and coronal reformats) July 14, 2024 0329 hours Clinical History: SOB SVT Technique:Helical axial sections with sagittal and coronal reformats of the chest were obtained with intravenous contrast. Iterative reconstruction technique was employed to reduce patient radiation exposure. 3D/MIP reconstructed images were also provided. Findings: There is no filling defect within the pulmonary artery divisions to suggest pulmonary thromboembolism. The mediastinum demonstrates no evidence of mass or lymphadenopathy. The thoracic aorta is unremarkable. There is a small pericardial effusion. The lungs are clear. No evidence of pleural effusion or pneumothorax. The osseous structures are unremarkable. The gallbladder is surgically absent. There is thickening versus underdistention. Impression: No CT evidence of pulmonary thromboembolism or other acute intrathoracic pathology. Report Electronically Signed By: Guerda Dave 07/14/2024 4:03:16 AM [EST]
[2024-07-14 04:51] LABS: Troponin I < 0.020 ng/mL (0.0-0.045)
[2024-07-14] MEDS: LIDOCAINE/PRILOCAINE CR 5GM 5 GM TUBE TOP (05:36)
== END 2024-07-14 05:38 | disposition home or self-care (01) ==
PROVIDERS: Emergency Provider Emergency Medicine
DX: I47.10 Supraventricular tachycardia, unspecified (principal)
CPT/HCPCS: 36415; 36600; 71045; 71275; 80053; 80307; 80320; 81001; 81025; 82248; 82803; 83605; 83735; 83880; 84145; 84439; 84443; 84484; 84703; 85025; 85379; 85610; 85652; 85730; 86140; 87040; 87400; 87651; 87811; 93005; 96361; 96365; 96374; 99285; A4649; J0131; J0153; J0696; J3490; J7030; Q9967; A9270; G0480

== ENCOUNTER 2024-08-07 00:42 | Emergency (ER) | payer OTHER, SELFPAY ==
[2024-08-07 02:12] VITALS: BP 116/79; PULSE 82; RESP 16; TEMP 37.3; O2SAT 100
[2024-08-07 02:16] VITALS: BMI 21.9
--- NOTE | 2024-08-07 02:33 | XR_ITS ---
Examination: CT brain head without contrast. 2-D sagittal coronal reconstructions Date and time of exam:August 07, 2024 0400 hours INDICATIONS: Headaches nausea paresthesias in the toes beginning one week ago CTDI: vol (mGy):42.3 DLP: (mGycm):759 Technique: Multiple CT axial sections of the brain have been obtained, 5 mm slice thickness. Contrast has not been administered. 2-D sagittal, coronal reconstructions have been obtained Low dose protocols were performed. One or more of the following dose reduction techniques were used; automated exposure control, adjustment of the mA and/or KV according to patient size, use of iterative reconstruction technique. Findings: No significant ventricular enlargement. Intra-axial or extra-axial hemorrhage density is not seen. No mass effect or midline shift Basal cisterns are not remarkable. Fourth ventricle is midline. Cranial vault intact. Impression: Negative for acute hemorrhage, mass effect or midline shift
[2024-08-07] MEDS: METOCLOPRAMIDE 5 MG TABLET 10 MG PO (03:08)
[2024-08-07] MEDS: SUMAtriptan INJ 6 MG/0.5 ML VIAL SC (03:08)
[2024-08-07 03:19] LABS: Basophils % (Auto) 0 % (0-2.5); Eosinophils % (Auto) 0 % (0-10); Hematocrit 31.3 % (36.0-46.0); Hemoglobin 10.2 g/dL (12.0-16.0); Immature Granulocytes % (Auto) 1 % (0-0); Immature Granulocytes Auto 0.03 Thou/mm3 (0.00-0.00); Lymphocytes # (Auto) 0.5 Thou/mm3 (1.0-4.8); Lymphocytes % (Auto) 12 % (10-50); Mean Corpuscular HGB Conc 32.6 g/dl (31.0-37.0); Mean Corpuscular Volume 83 fL (80-100); Monocytes # (Auto) 0.4 Thou/mm3 (0.0-0.8); Monocytes % (Auto) 9 % (0-12); Neutrophils # (Auto) 3.4 Thou/mm3 (1.8-7.7); Neutrophils % (Auto) 79 % (37-80); Nucleated Red Blood Cell % 0 /100 WBC (0); Platelet Count 206 Thou/mm3 (140-440); RDW Standard Deviation 49.1 fL (36.4-46.3); Red Blood Count 3.78 Miln/mm3 (4.00-5.20); White Blood Count 4.3 Thou/mm3 (3.6-11.0)
[2024-08-07 03:46] LABS: Sed Rate (ESR) 21 mm/hr (0-20)
[2024-08-07 03:52] LABS: Alanine Aminotransferase 39 U/L (10-49); Albumin, Serum 3.9 gm/dL (3.5-5.0); Albumin/Globulin Ratio 1.6 (1.2-2.2); Alkaline Phosphatase 59 U/L (46-116); Anion Gap 9 (7-16); Aspartate Amino Transferase 30 U/L (0-34); BUN/Creatinine Ratio 32 Ratio (12-20); Bilirubin,Total 0.3 mg/dL (0.3-1.2); Blood Urea Nitrogen 19 mg/dL (9-23); C-Reactive Protein 0.6 mg/dL (0.0-0.9); Calcium 8.5 mg/dL (8.3-10.6); Calcium (Corrected) 8.6 mg/dL (8.5-10.1); Carbon Dioxide 27.1 mMol/L (20.0-31.0); Chloride 109 mMol/L (98-107); Creatinine (Component) 0.6 mg/dL (0.6-1.3); Estimated Creatinine Clearance 104.7 mL/min (>60); Globulin 2.4 gm/dL (2.3-3.5); Glucose 86 mg/dL (74-106); Osmolality,Calculated 289 (275-295); Potassium 3.6 mMol/L (3.4-5.1); Sodium 145 mMol/L (136-145); Total Protein 6.3 gm/dL (5.7-8.2); eGFR > 60 See Note
--- NOTE | 2024-08-07 04:58 | PD.EDRME ---
Rapid Medical Screening Exam FORMERLY [facility], [facility] Arrival date/time: 08/07/24 00:42 24F with history of SLE presents to ED with 2 days of GRAY and 1 week of peripheral paresthesia. Patient takes 20-40 mg prednisone every day per weight loss physician instructions. Chief Complaint: Headache Time Seen by Provider: 08/07/24 02:33 Vital signs: Vital Signs Temperature 99.1 F 08/07/24 02:12 Pulse Rate 82 08/07/24 02:12 Respiratory Rate 16 08/07/24 02:12 Blood Pressure 116/79 08/07/24 02:12 Pulse Oximetry (%) 100 08/07/24 02:12 Oxygen Delivery Method Room Air 08/07/24 02:12
--- NOTE | 2024-08-07 05:26 | PC.NURSE ---
THIS NURSE SAW PATIENT WALK OUT OF ED LOBBY, ENTER PASSENGER SIDE OF CAR AND DRIVE OFF.
[2024-08-07 05:32] LABS: Collection Type, Urine Clean Catch; RBC,Urine 0 /hpf (0-3); WBC,Urine 0 /hpf (0-5)
[2024-08-07 06:07] LABS: Amphetamine/Methamp Scrn,U Negative (Negative); Barbiturate Screen,Urine Negative (Negative); Benzodiazepines Screen,Urine Negative (Negative); Benzoylecgonine Screen, Ur Negative (Negative); Fentanyl Screen,Urine Negative (Negative); Opiate Screen,Urine Negative (Negative); THC Screen,Urine Negative (Negative)
[2024-08-07 06:09] LABS: Bilirubin,Urine Negative (Negative); Blood,Urine Negative (Negative); Clarity,Urine Turbid (Clear/Hazy); Color,Urine Lt-Yellow (Lt Yel-Yel); Culture Indicated,Urine Not Indicated; Glucose, Urine Negative (Negative); Ketones,Urine Negative (Negative); Leukocyte Esterase,Urine Negative (Negative); Nitrite,Urine Negative (Negative); PH,Urine 6.5 (5.0-7.0); Protein,Urine Negative (Neg - Trace); Specific Gravity,Urine 1.023 (1.001-1.035); Squamous Epithelial Cell,Urine 4 /hpf (0-5); Urobilinogen,Urine Negative mg/dL (0.0-1.0)
[2024-08-07 06:10] LABS: HCG Qualitative,Urine Negative
== END 2024-08-07 05:22 | disposition left against medical advice (07) ==
LOC: SERX 04:32
PROVIDERS: Physician Assistant; Emergency Provider Emergency Medicine
DX: R51.9 Headache, unspecified (principal); Z53.29 Procedure and treatment not carried out because of patient's decision for other reasons; R20.2 Paresthesia of skin; M32.9 Systemic lupus erythematosus, unspecified
CPT/HCPCS: 36415; 70450; 80053; 80307; 81001; 81025; 85025; 85652; 86140; 96372; 99281; J3030; A9270

== ENCOUNTER 2024-08-29 01:09 | Emergency (ER) | payer OTHER, SELFPAY ==
[2024-08-29] VITALS (7 sets, daily range): BP systolic 101–131; BP diastolic 67–89; PULSE 104–130; RESP 18–22; TEMP 37.3–38.5; O2SAT 98–99; BMI 20.4
--- NOTE | 2024-08-29 02:14 | EKG_ITS ---
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
--- NOTE | 2024-08-29 02:14 | XR_ITS ---
Examination: AP chest single view TECHNIQUE: AP portable upright chest single view. Date and time: August 29, 2024, 0224 hours Comparison July 14, 2024 INDICATIONS: Chest pain fever today. FINDINGS: Normal heart size. Lungs are clear. Intact osseous structures. IMPRESSION: No active disease.
--- NOTE | 2024-08-29 02:25 | EDNOTE_ITS ---
ED General RME/HPI General Chief complaint: General Adult/Misc Complain Stated complaint: BODYACHES, FEVER Time Seen by Provider: 08/29/24 01:24 Arrival date/time: 08/29/24 01:09 RME / HPI RME / HPI narrative: Dr. Omer?s Main ED Evaluation: 24yo female with a history of lupus presents to the ED for a chief complaint of generalized body aches for the last 3 days. Patient reports associated nausea, headache, and sweating. She has been taking ibuprofen at home without relief. Patient denies any cough, V/D, constipation or any other associated symptoms. She denies being on any steroids. PSH includes appendectomy, cholecystectomy, and . NKA. Related Data Home Medications ?Medication ?Instructions ?Recorded ?Confirmed prenat.vits,lolly,ifs-hfce-vtdae 1 tab PO QDAY 04/25/22 05/21/22 ferrous sulfate 325 mg (65 mg 325 mg PO QDAY 05/04/22 05/21/22 iron) tablet (iron) Previous Rx's ?Medication ?Instructions ?Recorded ibuprofen 400 mg tablet 400 mg PO QID PRN pain #30 t abs 08/23/17 docusate sodium 100 mg capsule 100 mg PO BID #60 caps 05/22/22 (Colace) ibuprofen 600 mg tablet 600 mg PO Q6H PRN pain #90 t abs 05/22/22 lanolin 50 % topical ointment 1 applic topical TID PRN skin 05/22/22 irritation #15 tubes ketoconazole 2 % shampoo 1 applic topical Q14D #120 m L 05/31/24 Allergies Allergy/AdvReac Type Severity Reaction Status Date / Time No Known Allergies Allergy Verified 08/07/24 00:43 Review of Systems Review of Systems Systems Reviewed: All systems reviewed, normal except as documented ED Exam Narrative Physical exam: GENERAL APPEARANCE: alert and oriented x 4, well-developed, well-nourished, no acute distress VITALS: All vitals were reviewed and the pulse ox is 98% on room air, which is normal according to my interpretation. HEENT: Normocephalic, atraumatic; hi facies; pupils equal, round, reactive to light; EOMI; mucous membranes pink, moist; oropharynx clear NECK: Supple LUNGS: CTABL; no wheezes, no rales, no rhonchi HEART: Tachycardic, regular rhythm; normal S1, S2; no murmurs ABDOMEN: non distended; normal BS; soft, epigastric tenderness, no guarding, no rebound; no masses, no organomegaly, no hernia BACK: no CVA tenderness EXTREMITIES: atraumatic; no edema NEUROLOGIC: awake; alert and oriented x4; cranial nerves II-XII grossly intact; no focal sensory or motor deficits PSYCHIATRIC: appropriate mood and affect SKIN: warm, dry, normal color; no rashes Course Course Course Narrative: 0245: Sepsis alert initiated. Orders made at this time are congruent with ED Adult Sepsis Order List. Re-evaluation is to be completed. NS IVF started at 0235. 0412: Sepsis reassessment performed consisting of lab review, vitals, physical exam including auscultation of heart, lungs, and visual evaluation of capillary refills, mucosal membranes and extremities. Patient met SIRS criteria however lactic, WBC, and pro lolly are all within normal range. Reassessment complete, patient is not septic. Quality Measures Current suspected stage: ruled out Possible source: unknown Blood cultures ordered: yes Antibiotic ordered: No Pertinent labs: 08/29/24 02:35 Lactic Acid 1.3 mMol/L (0.4-2.0) Procalcitonin 0.05 ng/ml (0.0-0.49) sepsis Orders Category Date Time Status Bedside Influenza A&B Antigen Test NOW Care 08/29/24 02:13 Completed Supervisor Cigar Processing NOW Care 08/29/24 02:14 Active EKG (ED ONLY) *Do not use* NOW Care 08/29/24 02:14 Completed EKG (ED Only) Stat Exams 08/29/24 02:14 Draft XR chest 1V portable Stat Exams 08/29/24 02:14 Taken B-Type Natriuretic Peptide Stat Lab 08/29/24 02:35 Completed Blood Culture (Lab) Stat Lab 08/29/24 02:25 Received CBC Stat Lab 08/29/24 02:35 Completed COVID-19 Antigen (In-House) Stat Lab 08/29/24 02:44 Completed Comprehensive Metabolic Panel Stat Lab 08/29/24 02:35 Completed Lactate (Lactic Acid) Stat Lab 08/29/24 02:35 Completed Lipase Stat Lab 08/29/24 02:35 Completed Magnesium Stat Lab 08/29/24 02:35 Completed Procalcitonin Stat Lab 08/29/24 02:35 Completed Troponin I Stat Lab 08/29/24 02:35 Completed Urinalysis Stat Lab 08/29/24 03:38 Completed Urine Culture Stat Lab 08/29/24 03:38 Received Acetaminophen Tab [Tylenol ES Tab] Med 08/29/24 02:15 Discontinued 1,000 mg PO X1 ONE KCL 10% Liq UDC 15 ML Med 08/29/24 04:51 Discontinued 40 meq PO X1 ONE Sodium Chloride 0.9% 1000 ml [Ns] 1,000 ml Med 08/29/24 02:13 Discontinued IV 999 mls/hr Vital Signs Vital signs: Vital Signs Temperature 101 F H 08/29/24 02:05 Pulse Rate 130 H 08/29/24 02:05 Respiratory Rate 18 08/29/24 02:05 Blood Pressure 116/84 08/29/24 02:05 Pulse Oximetry (%) 98 08/29/24 02:05 Oxygen Delivery Method Room Air 08/29/24 02:05 Discharge Plan Plan Patient Disposition: HOME (Self Care) Prescriptions/Referrals Prescriptions/Med Rec: No Action ibuprofen 400 mg tablet 400 mg PO QID PRN (Reason: pain) Qty: 30 0RF prenat.vits,lolly,lkd-caed-lafon Tablet 1 tab PO QDAY ferrous sulfate [iron] 325 mg (65 mg iron) Tablet 325 mg PO QDAY docusate sodium [Colace] 100 mg capsule 100 mg PO BID Qty: 60 0RF ibuprofen 600 mg tablet 600 mg PO Q6H PRN (Reason: pain) Qty: 90 0RF lanolin 50 % ointment 1 applic topical TID PRN (Reason: skin irritation) Qty: 15 0RF ketoconazole 2 % shampoo 1 applic topical Q14D Qty: 120 2RF Referrals: No Primary/Family,Physician [Primary Care Provider] - In 1 week Problem List Clinical Impression: Fever, Body aches Patient/Caregiver Discharge Instructions Education Materials: ED Viral Syndrome (Adult) Print Language: Taiwanese Stand Alone Forms: [employer] Award Info., Patient Portal Info Letter MDM Narrative [facility] hospital course: Scribe Attestation: 08/29/24 - Idalia Morelos am scribing for and in the presence of Dr. Omer. Clinical Information Provided by patient Medical Records Reviewed [facility] (Per chart review, patient was seen here 5/11/25 for SVT.) Meds/Rx Considered, not Ordered None Labs/Rad/Tests considered, not Ordered None Chronic Illness/Social Conditions Add or document further as needed: History of lupus EKG EKG Interpretation narrative: EKG done at 0237, sinus tachycardia, rate of 126, normal axis, normal intervals, no acute ST or T wave changes, according to my interpretation. Lab Interpretation Labs: interpreted by me Lab(s) interpretation(s): CBC normal, Potassium 3.1, Lactic Acid normal, Troponin normal, BNP normal, Procalcitonin normal, UA negative for UTI, COVID/Influenza negative. Imaging Imaging interpretation: interpreted by me Provider imaging interpretation(s): CXR is negative for cardiomegaly, infiltrates, or pleural effusions, according to my interpretation. Medication Administration(s) Medication Administration History Discontinued Medications Acetaminophen (Acetaminophen 500 Mg Tablet) 1,000 mg PO X1 ONE Stop: 08/29/24 02:16 Last Admin: 08/29/24 02:38 Dose: 1,000 mg Documented By: SUMAN Sodium Chloride (Ns) 1,000 mls @ 999 mls/hr IV .Q1H1M ONE Stop: 08/29/24 03:13 Last Infusion: 08/29/24 03:42 Dose: Infused Documented By: Admin: 08/29/24 02:35 Dose: 999 mls/hr Documented By: SUMAN Potassium Chloride (Potassium Chloride 10% 20 Meq/15 Ml Udc) 40 meq PO X1 ONE Stop: 08/29/24 04:52 see above Diagnosis Differential diagnosis: viral syndrome, sepsis, bacteremia Most likely dx, and/or detailed dx discussion: fever, body aches Dispositon Disposition: Discharge Home
[2024-08-29] MEDS: SODIUM CHLORIDE 0.9% 1000 ML 1,000 ML 999 ML IV (02:35)
[2024-08-29] MEDS: ACETAMINOPHEN 500 MG TABLET 1000 MG PO (02:38)
[2024-08-29 02:43] LABS: Lactate (Lactic Acid) 1.3 mMol/L (0.4-2.0)
[2024-08-29 02:45] LABS: Basophils % (Auto) 0 % (0-2.5); Eosinophils % (Auto) 0 % (0-10); Hematocrit 34.9 % (36.0-46.0); Hemoglobin 11.6 g/dL (12.0-16.0); Immature Granulocytes % (Auto) 1 % (0-0); Immature Granulocytes Auto 0.02 Thou/mm3 (0.00-0.00); Lymphocytes # (Auto) 0.5 Thou/mm3 (1.0-4.8); Lymphocytes % (Auto) 12 % (10-50); Mean Corpuscular HGB Conc 33.2 g/dl (31.0-37.0); Mean Corpuscular Hemoglobin 27.2 pg (25.0-35.0); Mean Corpuscular Volume 82 fL (80-100); Monocytes # (Auto) 0.2 Thou/mm3 (0.0-0.8); Monocytes % (Auto) 4 % (0-12); Neutrophils # (Auto) 3.4 Thou/mm3 (1.8-7.7); Neutrophils % (Auto) 83 % (37-80); Nucleated Red Blood Cell % 0 /100 WBC (0); Platelet Count 197 Thou/mm3 (140-440); RDW Standard Deviation 46.2 fL (36.4-46.3); Red Blood Count 4.26 Miln/mm3 (4.00-5.20)
[2024-08-29 03:09] LABS: B-Type Natriuretic Peptide < 20 pg/mL (0-100)
[2024-08-29 03:14] LABS: Alanine Aminotransferase 36 U/L (10-49); Albumin, Serum 4.2 gm/dL (3.5-5.0); Albumin/Globulin Ratio 1.6 (1.2-2.2); Alkaline Phosphatase 59 U/L (46-116); Anion Gap 10 (7-16); Aspartate Amino Transferase 36 U/L (0-34); BUN/Creatinine Ratio 11 Ratio (12-20); Bilirubin,Total 0.3 mg/dL (0.3-1.2); Blood Urea Nitrogen 9 mg/dL (9-23); Calcium 8.8 mg/dL (8.3-10.6); Calcium (Corrected) 8.8 mg/dL (8.5-10.1); Carbon Dioxide 24.1 mMol/L (20.0-31.0); Chloride 105 mMol/L (98-107); Creatinine (Component) 0.8 mg/dL (0.6-1.3); Estimated Creatinine Clearance 74.6 mL/min (>60); Globulin 2.6 gm/dL (2.3-3.5); Glucose 94 mg/dL (74-106); Lipase 36 U/L (12-53); Osmolality,Calculated 276 (275-295); Potassium 3.1 mMol/L (3.4-5.1); Procalcitonin 0.05 ng/ml (0.0-0.49); Sodium 139 mMol/L (136-145); Total Protein 6.8 gm/dL (5.7-8.2); Troponin I < 0.020 ng/mL (0.0-0.045); eGFR > 60 See Note
[2024-08-29 03:32] LABS: COVID-19 Antigen (In-House) Negative (Negative)
[2024-08-29 03:46] LABS: Collection Type, Urine Clean Catch
[2024-08-29 03:50] LABS: Bilirubin,Urine Negative (Negative); Blood,Urine Negative (Negative); Clarity,Urine Clear (Clear/Hazy); Color,Urine Colorless (Lt Yel-Yel); Glucose, Urine Negative (Negative); Ketones,Urine Negative (Negative); Leukocyte Esterase,Urine Positive (Negative); Nitrite,Urine Negative (Negative); PH,Urine 6.5 (5.0-7.0); Protein,Urine Negative (Neg - Trace); RBC,Urine 2 /hpf (0-3); Specific Gravity,Urine 1.006 (1.001-1.035); Squamous Epithelial Cell,Urine 2 /hpf (0-5); Urobilinogen,Urine Negative mg/dL (0.0-1.0); WBC,Urine 5 /hpf (0-5)
[2024-08-29] MEDS: POTASSIUM CHLORIDE 10% 20 MEQ/15 ML UDC 40 MEQ PO (04:57)
== END 2024-08-29 05:10 | disposition home or self-care (01) ==
PROVIDERS: Emergency Provider Emergency Medicine
DX: R07.9 Chest pain, unspecified (principal); R50.9 Fever, unspecified
CPT/HCPCS: 36415; 71045; 80053; 81001; 83605; 83690; 83735; 83880; 84145; 84484; 85025; 87040; 87086; 87400; 87811; 93005; 96360; 99284; J7030; A9270

== ENCOUNTER 2024-09-30 14:34 | Inpatient (IN) | payer OTHER, SELFPAY ==
[2024-09-30] VITALS (13 sets, daily range): BP systolic 92–118; BP diastolic 60–76; PULSE 87–250; RESP 15–98; TEMP 36.5–39; O2SAT 97–99; BMI 22.6
--- NOTE | 2024-09-30 14:50 | EKG_ITS ---
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: : 2000 Requested By: ED Temporary Provider Order Number: [id number] Reading MD: ED Temporary Provider Measurements Intervals [place] Rate: 250 P: CT: QRS: 142 QRSD: 258 T: 0 QT: 253 QTc: 516 Interpretive Statements UNCERTAIN REGULAR RHYTHM RIGHT AXIS DEVIATION [QRS AXIS > 100] RIGHT BUNDLE BRANCH BLOCK [120+ ms QRS DURATION, UPRIGHT V1, 40+ ms S IN I/aVL/V4/V5/V6] CRITICAL TEST RESULT Compared to ECG 08/29/2024 02:37:20 Right-axis deviation now present Right bundle-branch block now present Sinus tachycardia no longer present Ventricular premature complex(es) no longer present /store/S0/[id number]/[id number].pdf
[2024-09-30] MEDS: ADENOSINE INJ 3 MG/ML VIAL 6 MG IVP ×2 (15:00→16:22)
--- NOTE | 2024-09-30 15:09 | EDNOTE_ITS ---
ED Arrhythmia Palp. RME/HPI General Chief Complaint: General Adult/Misc Complain Stated Complaint: PT FEELS LIKE HEART IS RACING; O2 SAT 94, HR 65 Time Seen by Provider: 09/30/24 14:51 Arrival date/time: 09/30/24 14:34 RME / HPI RME / HPI narrative: DR. OJEDA MAIN ED EVALUATION: 24-year-old female with past medical history of lupus, on prednisone 20 mg daily for the past 3 years, and history of prediabetes, presents to the Emergency Department with complaint of palpitations and chest pain. Patient was found to be in supraventricular tachycardia (SVT) with heart rate of 250 on arrival. She reports having had similar symptoms in the past. Denies tobacco, alcohol, or substance use. Family history is notable for diabetes (father). No other complaints at this time. Related Data Home Medications ?Medication ?Instructions ?Recorded ?Confirmed prenat.vits,lolly,zcn-[id number] 1 tab PO QDAY 04/25/22 05/21/22 ferrous sulfate 325 mg (65 mg 325 mg PO QDAY 05/04/22 05/21/22 iron) tablet (iron) Previous Rx's ?Medication ?Instructions ?Recorded ibuprofen 400 mg tablet 400 mg PO QID PRN pain #30 t abs 08/23/17 docusate sodium 100 mg capsule 100 mg PO BID #60 caps 05/22/22 (Colace) ibuprofen 600 mg tablet 600 mg PO Q6H PRN pain #90 t abs 05/22/22 lanolin 50 % topical ointment 1 applic topical TID PRN skin 05/22/22 irritation #15 tubes ketoconazole 2 % shampoo 1 applic topical Q14D #120 m L 05/31/24 Allergies Allergy/AdvReac Type Severity Reaction Status Date / Time No Known Allergies Allergy Verified 09/30/24 14:37 Review of Systems Review of Systems Systems Reviewed: All systems reviewed, normal except as documented Past Medical History Past Medical History CARDIAC: Positive Cardiac Arrhythmia (SVT) and Angina RESPIRATORY: Positive Asthma (SOB at baseline) REPRODUCTIVE: Positive Previous Pregnancies MUSCULOSKELETAL: Positive Musculoskeletal Disorders and Arthritis ENDOCRINE: Positive Endocrine Disorders and Systemic Lupus Erythematosus HEMATOLOGIC: Positive Blood Disorders, Anemia and Clotting Problems OTHER HISTORY: Positive Hospitalization, Autoimmune Disease (LUPUS, SJORENS) and Chicken Pox Surgical History SURGICAL: Positive Section Social History SMOKING STATUS: Never smoker SUBSTANCE USE: does not use ALCOHOL: Never ED Exam Narrative Physical exam: GENERAL APPEARANCE: alert and oriented x 4, well-developed, well-nourished VITALS: All vitals were reviewed and the pulse ox is 97% on room air, which is normal according to my interpretation. HEENT: Normocephalic, atraumatic; pupils equal, round, reactive to light; EOMI; mucous membranes pink, moist; oropharynx clear NECK: Supple LUNGS: CTABL; no wheezes, no rales, no rhonchi HEART: Fast rate, HR 250, regular rhythm; normal S1, S2; no murmurs ABDOMEN: non distended; normal BS; soft, no tenderness, no guarding, no rebound; no masses, no organomegaly, no hernia BACK: no CVA tenderness EXTREMITIES: atraumatic; no edema NEUROLOGIC: awake; alert and oriented x4; cranial nerves II-XII grossly intact; no focal sensory or motor deficits PSYCHIATRIC: appropriate mood and affectN: warm, dry, normal color; no rashes Course Course Course Narrative: Patient states a few days ago she had a syncopal episode and fell and hit her head on the ground. She did not seek medical evaluation at that time. 1800: Patient now complaining of increased headache and blurry vision. CT brain ordered. Quality Measures Current suspected stage: sepsis Possible source: unknown Blood cultures ordered: yes Antibiotic ordered: No Pertinent labs: 09/30/24 09/30/24 14:41 16:25 Lactic Acid 1.1 mMol/L (0.4-2.0) Procalcitonin Pending 1626: Sepsis alert initiated. Orders made at this time are congruent with ED Adult Sepsis Order List. Re-evaluation is to be completed. 1657: Fluids started. 1727: Sepsis reassessment performed consisting of lab review, vitals, physical exam including auscultation of heart, lungs, and visual evaluation of capillary refills, mucosal membranes and extremities. sepsis Orders Category Date Time Status EKG (ED ONLY) *Do not use* NOW Care 09/30/24 14:50 Completed EKG (ED Only) Stat Exams 09/30/24 14:50 Draft Adenosine 6mg Inj [Adenocard Inj] Med 09/30/24 14:51 Discontinued 12 mg IVP X1 ONE Adenosine 6mg Inj [Adenocard Inj] Med 09/30/24 14:51 Discontinued 6 mg IVP X1 ONE Vital Signs Vital signs: Vital Signs Temperature 99.6 F 09/30/24 14:56 Pulse Rate 248 H 09/30/24 14:56 Respiratory Rate 22 H 09/30/24 14:56 Pulse Oximetry (%) 97 09/30/24 14:56 Oxygen Delivery Method Room Air 09/30/24 14:56 PROCEDURES: Procedure Comment SVT Conversion Procedure Note #1 Time: 1501 hours Procedure: Adenosine administration for SVT conversion Indication: SVT with heart rate of 250 bpm, symptomatic with palpitations and chest pain Consent: Informed verbal consent obtained Pre-procedure status: Patient alert, oriented, in stable condition but tachycardic Medication: 6 mg adenosine IV push administered rapidly followed by 10 mL saline flush Response: Patient converted to normal sinus rhythm with heart rate in the 135, sinus tachycardia Complications: None SVT Conversion Procedure Note #2 Time: 1612 hours Procedure: Adenosine administration for SVT conversion Indication: SVT with heart rate in the 232 bpm, symptomatic with palpitations and chest pain Consent: Informed verbal consent obtained Pre-procedure status: Patient alert, oriented, in stable condition but tachycardic Medication: 12 mg adenosine IV push administered rapidly followed by 10 mL saline flush Response: Patient converted to normal sinus rhythm with heart rate in the 138, sinus tachycardia Complications: None SVT Conversion Procedure Note #3 Time: 1632 hours Procedure: Beta-sven (Metoprolol) administration for SVT conversion Indication: Recurrence of SVT with heart rate of 240 bpm, symptomatic Consent: Informed verbal consent obtained Pre-procedure status: Patient alert, oriented, tachycardic Medication: 5 mg metoprolol IV push Response: Heart rate decreased to 130s?140s with improvement in symptoms Complications: None SVT Conversion Procedure Note #4 Time: 1655 hours Procedure: Beta-sven (Metoprolol) administration for SVT conversion Indication: Recurrence of SVT with heart rate of 200's bpm, symptomatic Consent: Informed verbal consent obtained Pre-procedure status: Patient alert, oriented, tachycardic Medication: 5 mg metoprolol IV push Response: Heart rate decreased to 130s?140s with improvement in symptoms Complications: None Arrhythmia/Palpitations MDM Narrative MDM Narrative:: Sindhu Morelos am scribing for and in the presence of Dr. Ojeda. Patient data External records reviewed:: [facility] previous records Clinical information provided by:: patient Social determinants that could affect healthcare access:: none Patient has the following chronic illnesses:: PMHx of lupus, on prednisone 20 mg daily for the past 3 years, and history of prediabetes. Family history is notable for diabetes (father). How is presenting disease/condition affected by chronic disease/condition?: exacerbated by Evaluation data The following diagnostics were reviewed and interpreted by me:: lab results, radiology exam(s) and EKG tracing(s) Lab and/or radiology exams considered but not ordered:: none Interpretation Summary: EKG #1 My interpretation: EKG performed at 1451 hours, SVT, rate 250, no acute ischemic changes EKG #2 My interpretation: EKG performed at 1502 hours, sinus tachycardia, rate 135, occasional PVC's, no acute ischemic changes EKG #3 My interpretation: EKG performed at 1611 hours, SVT, rate 232, no acute ischemic changes EKG #4 My interpretation: EKG performed at 1615 hours, sinus tachycardia, rate 138, occasional PVC's, no acute ischemic changes EKG #5 My interpretation: EKG performed at 1616 hours, SVT, rate 248, no acute ischemic changes EKG #6 My interpretation: EKG performed at 1619 hours, sinus tachycardia, rate 134, occasional PVC's, no acute ischemic changes Medications / Prescriptions Medications or Prescriptions considered but not ordered:: none Medication administrations:: Medication Administration History Discontinued Medications Adenosine (Adenosine Inj 3 Mg/Ml Vial) 6 mg IVP X1 ONE Stop: 09/30/24 14:52 Last Admin: 09/30/24 15:00 Dose: 6 mg Documented By: GLENIS Adenosine (Adenosine Inj 3 Mg/Ml Vial) 12 mg IVP X1 ONE Stop: 09/30/24 14:52 Consultations Consultation(s) initiated? (list below): Yes Consultation #1 (Physician, Specialty, Details): Discussed test HPI, PMHx, lab, radiology results and/or management with resident working with the hospitalist. Will admit for further evaluation and management. Accepts patient for admission. Time: 17:20 Diagnosis Differential diagnosis arrhythmia/palpitations: palpitations, anxiety and other (paroxysmal supraventricular tachycardia, thyroid dysfunction, medication- induced arrhythmia) Most likely diagnosis given after review of the tests above:: SVT Fever Admission Indicated Admission indicated?: indicated Admission Request Was there a request for admission?: Yes Admission Attestation Admission request attestation: Discussed case with [] from Hospitalist service regarding admission. Discussed patients ED course, exam findings, labs, and radiology results. The Hospitalist [agrees,declines] to accept the patient for admission. Disposition Plan Disposition Plan: Admit Critical Care Time Critical Care Time Critical Care Time: Yes Total Critical Care Time (min.): 60 Attestation: The high probability of sudden, clinically significant deterioration in the patient?s condition required the highest level of my preparedness to intervene urgently. The services I provided to this patient were to treat and/or prevent clinically significant deterioration. Services included the following: chart data review, reviewing nursing notes and/or old charts, documentation time, healthcare economics consultant collaboration regarding findings and treatment options, medication orders and management, direct patient care, vital sign assessments and ordering, interpreting and reviewing diagnostic studies and lab tests. Aggregate critical care time includes only time during which I was engaged in work directly related to the patient?s care, as described above, whether at bedside or elsewhere in the Emergency Department. It did not include time spent performing other reported procedures or the services of residents, students, nurses or physician assistants. Discharge Plan Plan Patient Disposition: Admit Acute Care w/in Hospital Prescriptions/Referrals Prescriptions/Med Rec: No Action ibuprofen 400 mg tablet 400 mg PO QID PRN (Reason: pain) Qty: 30 0RF prenat.vits,lolly,aje-[id number] Tablet 1 tab PO QDAY ferrous sulfate [iron] 325 mg (65 mg iron) Tablet 325 mg PO QDAY docusate sodium [Colace] 100 mg capsule 100 mg PO BID Qty: 60 0RF ibuprofen 600 mg tablet 600 mg PO Q6H PRN (Reason: pain) Qty: 90 0RF lanolin 50 % ointment 1 applic topical TID PRN (Reason: skin irritation) Qty: 15 0RF ketoconazole 2 % shampoo 1 applic topical Q14D Qty: 120 2RF Referrals: No Primary/Family,Physician [Primary Care Provider] - In 1 week Problem List Clinical Impression: SVT (supraventricular tachycardia), Fever Patient/Caregiver Discharge Instructions Print Language: Barbadian Stand Alone Forms: [employer] Award Info., Patient Portal Info Letter
--- NOTE | 2024-09-30 15:38 | XR_ITS ---
Examination: AP chest single view TECHNIQUE: AP portable upright chest single view Date and time: September 30, 2024, 1604 hours, comparison August 29, 2024 INDICATIONS: Chest pain and weakness today. FINDINGS: Mild prominence left ventricle. Mild vascular congestion. No lobar pneumonia or pulmonary edema IMPRESSION: Mild prominence left ventricle. Mild vascular congestion
--- NOTE | 2024-09-30 16:10 | EKG_ITS ---
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: : 2000 Requested By: Lyndsey Azul Order Number: [id number] Reading MD: Lyndsey Azul Measurements Intervals [place] Rate: 232 P: ID: QRS: 51 QRSD: 101 T: 19 QT: 172 QTc: 338 Interpretive Statements SUPRAVENTRICULAR TACHYCARDIA INCOMPLETE RIGHT BUNDLE BRANCH BLOCK [90+ ms QRS DURATION, TERMINAL R IN V1/V2, 40+ ms S IN I/aVL/V4/V5/V6] NONSPECIFIC ST & T-WAVE ABNORMALITY CRITICAL TEST RESULT Compared to ECG 09/30/2024 14:51:35 Incomplete right bundle-branch block now present T-wave abnormality now present Right-axis deviation no longer present Right bundle-branch block no longer present /store/S0/[id number].pdf
[2024-09-30 16:13] LABS: Basophils # (Auto) 0.0 Thou/mm3 (0.0-0.2); Basophils % (Auto) 0 % (0-2.5); Eosinophils # (Auto) 0.1 Thou/mm3 (0.0-0.5); Eosinophils % (Auto) 1 % (0-10); Hematocrit 38.7 % (36.0-46.0); Hemoglobin 12.1 g/dL (12.0-16.0); Immature Granulocytes Auto 0.05 Thou/mm3 (0.00-0.00); Lymphocytes # (Auto) 1.1 Thou/mm3 (1.0-4.8); Lymphocytes % (Auto) 12 % (10-50); Mean Corpuscular HGB Conc 31.3 g/dl (31.0-37.0); Mean Corpuscular Hemoglobin 26.5 pg (25.0-35.0); Mean Corpuscular Volume 85 fL (80-100); Monocytes # (Auto) 0.5 Thou/mm3 (0.0-0.8); Monocytes % (Auto) 5 % (0-12); Neutrophils # (Auto) 7.9 Thou/mm3 (1.8-7.7); Neutrophils % (Auto) 82 % (37-80); Nucleated Red Blood Cell # 0.00 Thou/mm3 (0.00-0.00); Nucleated Red Blood Cell % 0 /100 WBC (0); Platelet Count 340 Thou/mm3 (140-440); RDW Standard Deviation 45.3 fL (36.4-46.3); Red Blood Count 4.57 Miln/mm3 (4.00-5.20); White Blood Count 9.6 Thou/mm3 (3.6-11.0)
[2024-09-30] MEDS: HYDROcodone/APAP 5/325 TABLET 1 TAB PO (16:23)
[2024-09-30] MEDS: ADENOSINE INJ 3 MG/ML VIAL 12 MG IVP (16:25)
--- NOTE | 2024-09-30 16:26 | EKG_ITS ---
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: : 2000 Requested By: Lyndsey Azul Order Number: [id number] Reading MD: Lyndsey Azul Measurements Intervals [place] Rate: 138 P: 68 MN: 139 QRS: 87 QRSD: 92 T: 35 QT: 275 QTc: 417 Interpretive Statements SINUS TACHYCARDIA WITH OCCASIONAL VENTRICULAR PREMATURE COMPLEXES WITH OCCASIONAL SUPRAVENTRICULAR PREMATURE COMPLEXES INDETERMINATE AXIS INCOMPLETE RIGHT BUNDLE BRANCH BLOCK [90+ ms QRS DURATION, TERMINAL R IN V1/V2, 40+ ms S IN I/aVL/V4/V5/V6] ABNORMAL RHYTHM ECG Compared to ECG 09/30/2024 16:11:54 Ventricular premature complex(es) now present Indeterminate axis now present Supraventricular tachycardia no longer present T-wave abnormality no longer present /store/S0/[id number]/[id number].pdf
--- NOTE | 2024-09-30 16:27 | EKG_ITS ---
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 Support Associate: : 2000 Requested By: Lyndsey Azul Order Number: [id number] Reading MD: Lyndsey Azul Measurements Intervals [place] Rate: 248 P: AR: QRS: 131 QRSD: 239 T: 0 QT: 234 QTc: 476 Interpretive Statements UNCERTAIN REGULAR RHYTHM RIGHT AXIS DEVIATION [QRS AXIS > 100] RIGHT BUNDLE BRANCH BLOCK [120+ ms QRS DURATION, UPRIGHT V1, 40+ ms S IN I/aVL/V4/V5/V6] SEPTAL MYOCARDIAL INFARCTION , PROBABLY OLD [40+ ms Q WAVE IN V1/V2] CRITICAL TEST RESULT Compared to ECG 09/30/2024 16:15:16 Right-axis deviation now present Right bundle-branch block now present Myocardial infarct finding now present Sinus tachycardia no longer present Ventricular premature complex(es) no longer present Indeterminate axis no longer present Incomplete right bundle-branch block no longer present /store/S0/[id number]/[id number].pdf
--- NOTE | 2024-09-30 16:27 | EKG_ITS ---
[facility] Test Date: 2024-09-30 Pat Name: MEHUL ZAMAN Department: Room: - Gender: Female Neon Glass Blower: : 2000 Requested By: Lyndsey Azul Order Number: [id number] Reading MD: Lnydsey Azul Measurements Intervals [place] Rate: 134 P: 66 [place]: 141 QRS: 52 QRSD: 94 T: 19 QT: 272 QTc: 407 Interpretive Statements SINUS TACHYCARDIA WITH OCCASIONAL ECTOPIC PREMATURE COMPLEXES INDETERMINATE AXIS LOW QRS VOLTAGE IN PRECORDIAL LEADS [QRS DEFLECTION < 1.0 mV IN CHEST LEADS] INCOMPLETE RIGHT BUNDLE BRANCH BLOCK [90+ ms QRS DURATION, TERMINAL R IN V1/V2, 40+ ms S IN I/aVL/V4/V5/V6] ABNORMAL RHYTHM ECG Compared to ECG 09/30/2024 16:16:23 Indeterminate axis now present Low QRS voltage now present Incomplete right bundle-branch block now present Right-axis deviation no longer present Right bundle-branch block no longer present Myocardial infarct finding no longer present /store/S0/[id number].pdf
[2024-09-30 16:32] LABS: Alanine Aminotransferase 13 U/L (10-49); Albumin, Serum 4.0 gm/dL (3.5-5.0); Albumin/Globulin Ratio 1.4 (1.2-2.2); Alkaline Phosphatase 63 U/L (46-116); Anion Gap 9 (7-16); Aspartate Amino Transferase 19 U/L (0-34); BUN/Creatinine Ratio 18 Ratio (12-20); Bilirubin,Total 0.4 mg/dL (0.3-1.2); Blood Urea Nitrogen 14 mg/dL (9-23); Calcium 8.9 mg/dL (8.3-10.6); Calcium (Corrected) 8.9 mg/dL (8.5-10.1); Carbon Dioxide 25.5 mMol/L (20.0-31.0); Chloride 106 mMol/L (98-107); Creatinine (Component) 0.8 mg/dL (0.6-1.3); Estimated Creatinine Clearance 74.6 mL/min (>60); Globulin 2.9 gm/dL (2.3-3.5); Glucose 116 mg/dL (74-106); Magnesium 1.6 mg/dL (1.6-2.6); Osmolality,Calculated 280 (275-295); Potassium 3.3 mMol/L (3.4-5.1); Sodium 140 mMol/L (136-145); Total Protein 6.9 gm/dL (5.7-8.2); Troponin I < 0.020 ng/mL (0.0-0.045); eGFR > 60 See Note
[2024-09-30] MEDS: METOPROLOL TARTRATE INJ 1 MG/ML AMP 5 ML 5 MG IVP ×2 (16:36→16:54)
[2024-09-30 16:38] LABS: B-Type Natriuretic Peptide 24 pg/mL (0-100)
[2024-09-30] MEDS: ACETAMINOPHEN 325 MG TABLET 650 MG PO (16:43)
[2024-09-30 16:45] LABS: Lactate (Lactic Acid) 1.1 mMol/L (0.4-2.0)
[2024-09-30 16:56] LABS: Collection Type, Urine Clean Catch
[2024-09-30] MEDS: SODIUM CHLORIDE 0.9% 1000 ML 1,000 ML 999 ML IV (16:57)
[2024-09-30 17:02] LABS: Bilirubin,Urine Negative (Negative); Blood,Urine Negative (Negative); Clarity,Urine Clear (Clear/Hazy); Color,Urine Colorless (Lt Yel-Yel); Glucose, Urine Negative (Negative); Ketones,Urine Negative (Negative); Leukocyte Esterase,Urine Negative (Negative); Nitrite,Urine Negative (Negative); PH,Urine 6.5 (5.0-7.0); Protein,Urine Negative (Neg - Trace); RBC,Urine 1 /hpf (0-3); Specific Gravity,Urine 1.008 (1.001-1.035); Squamous Epithelial Cell,Urine 5 /hpf (0-5); Urobilinogen,Urine Negative mg/dL (0.0-1.0); WBC,Urine 2 /hpf (0-5)
[2024-09-30] MEDS: POTASSIUM CHL 10 mEq IVPB 10 MEQ/100 ML BAG 100 MEQ IV ×3 (17:08→20:29)
[2024-09-30] MEDS: Magnesium Sulfate 2 GM Ivpb 2 GM/50 ML BAG IV (17:08)
[2024-09-30 17:15] LABS: Procalcitonin 0.07 ng/ml (0.0-0.49)
[2024-09-30 17:32] LABS: Sed Rate (ESR) 45 mm/hr (0-20)
[2024-09-30 17:34] LABS: C-Reactive Protein 2.0 mg/dL (0.0-0.9)
[2024-09-30 17:43] LABS: Alcohol, Urine Negative (Negative); Amphetamine/Methamp Scrn,U Negative (Negative); Barbiturate Screen,Urine Negative (Negative); Benzodiazepines Screen,Urine Negative (Negative); Benzoylecgonine Screen, Ur Negative (Negative); Fentanyl Screen,Urine Negative (Negative); Opiate Screen,Urine Negative (Negative); THC Screen,Urine Negative (Negative)
--- NOTE | 2024-09-30 17:59 | XR_ITS ---
Examination: CT brain head without contrast. 2-D sagittal coronal reconstructions Date and time of exam:September 30, 2024, 1818 hours Comparison August 07, 2024 INDICATIONS: Patient fell 2 days ago with injury to the head, head pain CTDI: vol (mGy):42.8 DLP: (mGycm):817 Technique: Multiple CT axial sections of the brain have been obtained, 5 mm slice thickness. Contrast has not been administered. 2-D sagittal, coronal reconstructions have been obtained Low dose protocols were performed. One or more of the following dose reduction techniques were used; automated exposure control, adjustment of the mA and/or KV according to patient size, use of iterative reconstruction technique. Findings: No significant ventricular enlargement. Intra-axial or extra-axial hemorrhage density is not seen. No mass effect or midline shift Basal cisterns are not remarkable. Fourth ventricle is midline. Cranial vault intact. Impression: Negative for acute hemorrhage, mass effect or midline shift
--- NOTE | 2024-09-30 18:04 | ECHO_ITS ---
Transthoracic Echo Report Ht (in): 59 Wt (lb): 112 Exam Location: Echo Lab Status: Emergency Control Analyst: Loly Medina Indications: Procedure Performed: BP: 108 / 67 HR: 68 MEASUREMENTS (Male / Female) Normal Values 2D ECHO LV Diastolic Diameter PLAX 4.9 cm 4.2 - 5.9 / 3.9 - 5.3 cm LV Systolic Diameter PLAX 3.3 cm IVS Diastolic Thickness 0.7 cm 0.6 - 1.0 / 0.6 - 0.9 cm LVPW Diastolic Thickness 0.8 cm 0.6 - 1.0 / 0.6 - 0.9 cm LV Relative Wall Thickness 0.3 LVOT Diameter 2.0 cm Aortic Root Diameter 2.2 cm LA Volume Index 29.3 cm?/m? 16 - 28 cm?/m? Ascending Aorta Diameter 2.6 cm M-MODE Aortic Root Diameter MM 2.3 cm LA Systolic Diameter MM 3.3 cm LA Ao Ratio MM 1.4 AV Cusp Separation MM 1.9 cm DOPPLER AV Peak Velocity 115.0 cm/s AV Peak Gradient 5.3 mmHg AV Mean Gradient 3.0 mmHg AV Velocity Time Integral 24.7 cm LVOT Peak Velocity 86.5 cm/s LVOT Peak Gradient 3.0 mmHg LVOT Velocity Time Integral 14.0 cm LVOT Cardiac Index 2046.2 cm?/min?m? AV Area Cont Eq vti 1.8 cm? AV Area Cont Eq pk 2.4 cm? MV Area PHT 7.9 cm? MR Peak Velocity 457.5 cm/s MR Peak Gradient 83.7 mmHg Mitral E Point Velocity 88.8 cm/s Mitral A Point Velocity 71.8 cm/s Mitral E to A Ratio 1.2 LV E' Lateral Velocity 11.0 cm/s Mitral E to LV E' Lateral Ratio 8.1 LV E' Septal Velocity 9.5 cm/s Mitral E to LV E' Septal Ratio 9.4 TR Peak Velocity 193.5 cm/s TR Peak Gradient 15.0 mmHg PV Peak Velocity 77.4 cm/s PV Peak Gradient 2.4 mmHg FINDINGS Left Ventricle Normal left ventricular size, wall thickness, systolic function with no obvious regional wall motion abnormalities. Normal left ventricular diastolic filling pattern for age. The ejection fraction is visually estimated at 55-60 %. Right Ventricle The right ventricle is normal in size and systolic function. Left Atrium The left atrium is normal by two-dimensional, color flow and Doppler imaging with no structural abnormalities, no thrombus formation present. Right Atrium The right atrium is normal by two-dimensional imaging, color flow and Doppler imaging with no structural abnormalities, no thrombus formation present. Atrial Septum The interatrial septum appears normal with no evidence of a shunt. Aorta The aorta is normal by two-dimensional, color flow and Doppler interrogation. Mitral Valve The mitral valve is normal by two-dimensional, color flow and Doppler interrogation. Moderate mitral regurgitation. Aortic Valve The aortic valve is trileaflet and normal by two-dimensional, color flow and Doppler interrogation. There is no significant aortic valve regurgitation. Tricuspid Valve The tricuspid valve is normal by two-dimensional, color flow and Doppler interrogation. There is mild tricuspid valve regurgitation. Pulmonic Valve The pulmonic valve is not well visualized. There is no significant pulmonic valve regurgitation. Vessels Inferior vena cava not well visualized. Pericardium The pericardium is normal by two-dimensional imaging. There is no significant pericardial effusion. CONCLUSIONS Indication: SVT Normal LV size and function. Normal LV diastolic function. Estimated EF at 55- 60 %. The RV is normal in size and systolic function. Mild TR and TR. IVC not well visualized. No pericadfial effusion. Landry Pickard (Electronically Signed) Final Date: 01 October 2024 23:29
--- NOTE | 2024-09-30 18:30 | ESHP_ITS ---
Documentation for date of: 09/30/24 Patient is a 24 year old female with a past medical history of previous SVTs, Lupus, and Sjrogens -follows with a shearing machine feeder in [facility], history of normocytic anemia, who presented to the emgerncy department with chief complain of chest palpiations which patient has had previous episodes requiring ER visit. Saturting well on room. Paitnet experienced shortness of breath, denied chest pain, or pressure. Denied sensation of skipped beats. Paitent previous DVT/PE. Denied alochol or drug use. Utox obtained, negative. Given SVT was presistant for 2 rounds of Adenoside and previous autoimmune disease, patinet would benefit from symptomatic SVT. K replaced by ER. Magnesium replaced. Given C-reactive protien and elevated ESR, concern for Lupus flare up. Reach out to rheumatoligst. SVT, consider Adenosine or Metoprolol Succinate scheudled starting 10/01/2024. Elevated Lactic Acid, bolusX 1. Pending echo. Cardiology consulted. If condition worsens, consider repeat cxr and or CTA given low suspicion of PE. HPI History of Present Illness History of present illness: Patient is a 24-year-old female with past medical history of lupus and Sjrogen's who presented to the ED on 09/30/2024 with fever and palpitations. Found to be in SVT, s/p adenosine and metoprolol. Endorses fever, chills, palpitations, and generalized pain throughout her whole body. Has chest pain but tender on palpation. Also reports diarrhea 2 weeks ago, now resolved. Denies sick contacts. Patient reports that she felt dizzy and fell in her shower yesterday, endorses loss of consciousness and hit her head. Regained consciousness within 5 minutes. Just started new infusion for lupus Saphnelo 4 weeks ago. Follows shearing machine feeder Dr. Calabrese in [place]. 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 Denies history of heart disease, renal disease, lung disease, and clots. ED Course: -Initial vitals were BP 114/74, HR 248, RR 22, temp 99.6 F, 97% on room air -Labs significant for WBC 9.6, Hgb 12.1, platelets 340, potassium 3.3, glucose 116, total CK 20, CRP 2.0, procal 0.07, Utox negative, UA negative. EKGs show SVT with HR 250, last EKG shows HR 134. BUN and creatinine within normal limits. -Imaging included CXR shows mild prominence of left ventricle and mild vascular congestion. -In the ED, patient was given tylenol x1, adenosine 6 mg x3, 1L NS, Ravenden 5 x1, metoprolol tart 5mg x2, magnesium 2g x1. -Patient was admitted for management of SVT, currently controlled with metoprolol. Review of Systems Review of systems otherwise negative except what is mentioned above. Past Medical History: as above Family History: not pertinent Surgical History: cholecystectomy, appendectomy, Social History: Denies history of smoking, denies current alcohol use, denies recreational drug use. Current Medications: prednisone 10 mg daily, gabapentin, hydrochloroquine, metoprolol, Saphnelo infusion; pending official med rec (Source: patient) Allergies: No known drug allergies Exam Vital Signs Temp Pulse Resp BP Pulse Ox O2 Del Method 100.1 F 105 H 24 H 92/60 98 Room Air 09/30/24 17:43 09/30/24 17:42 09/30/24 17:42 09/30/24 17:42 09/30/24 17:42 09/30/24 17:42 Narrative Exam Physical Exam General: Awake, in acute distress due to generalized pain. Conversational. Young female laying in position in bed. HEENT: Normocephalic, atraumatic, mucous membranes moist. Heart: Tachycardic. Regular rate and rhythm, normal S1 and S2, no murmurs appreciated. Lungs: Clear to auscultation with no wheezing or crackles. Abdomen: Soft, nondistended, positive bowel sounds. Diffusely tender. No guarding or rebound tenderness. Neurologic: Alert and oriented x3, no gross neurological deficit, and patient able to move all 4 extremities. Extremities: No edema. Diffuse tenderness in arms and legs. Skin: No rash or ecchymoses. Results: Labs 10/01/24 04:01 10/01/24 05:23 Labs: Short CBC 09/30/24 Range/Units 15:50 WBC 9.6 (3.6-11.0) Thou/mm3 Hgb 12.1 (12.0-16.0) g/dL Hct 38.7 (36.0-46.0) % Plt Count 340 D (140-440) Thou/mm3 BMP 09/30/24 15:50 Sodium 140 Potassium 3.3 L Chloride 106 Carbon Dioxide 25.5 BUN 14 Creatinine 0.8 Glucose 116 H Calcium 8.9 Cardiac Enzymes 09/30/24 Range/Units 15:50 Troponin I < 0.020 (0.0-0.045) ng/mL Liver Function 09/30/24 Range/Units 15:50 Total Bilirubin 0.4 (0.3-1.2) mg/dL AST 19 (0-34) U/L ALT 13 (10-49) U/L Alkaline Phosphatase 63 (46-116) U/L Albumin 4.0 (3.5-5.0) gm/dL Urine 09/30/24 Range/Units 16:50 Urine Color Colorless A (Lt Yel-Yel) Urine Clarity Clear (Clear/Hazy) Urine pH 6.5 (5.0-7.0) Ur Specific [place] 1.008 (1.001-1.035) Urine Protein Negative (Neg - Trace) Urine Glucose (UA) Negative (Negative) Quality Measures Quality Measures sepsis Current suspected stage: ruled out (does not meet sepsis criteria) Possible source: unknown Blood cultures ordered: yes Antibiotic ordered: Yes Medications Home Medications and Allergies Home Medications ?Medication ?Instructions ?Recorded ?Confirmed ?Type anifrolumab-fnia 300 mg/2 mL (150 300 mg IV .every 4 w eeks 10/01/24 10/01/24 History mg/mL) intravenous solution (Saphnelo) baclofen 10 mg tablet 10 mg PO TID 10/01/24 History hydroxychloroquine 200 mg tablet 200 mg PO .once daily 10/01/24 10/01/24 History prednisone 10 mg tablet 20 mg PO .once 10/01/2409/04 History Allergies Allergy/AdvReac Type Severity Reaction Status Date / Time No Known Allergies Allergy Verified 09/30/24 14:37 Visit Medications Acetaminophen (Acetaminophen 325 Mg Tablet) 650 mg PO Q6H PRN PRN Reason: Mild Pain 1-3 or Fever >100.3 Stop: 10/30/24 17:58 Hydrocodone Bitart/Acetaminophen (Hydrocodone/Apap 5/325 Tablet) 1 tab PO Q4HR PRN PRN Reason: PAIN SCALE 4-10(Mod-Sev Stop: 10/05/24 17:58 Heparin Sodium (Porcine) (Heparin Sod Inj 5000 Unit/Ml Vial) 5,000 unit SC Q12HR COUNT INCLUDES THE [facility] Stop: 10/14/24 20:59 Potassium Chloride (Kcl Ivpb) 10 meq in 100 mls @ 100 mls/hr IV Q1H YADIRA Stop: 09/30/24 21:01 Last Admin: 09/30/24 17:08 Dose: 100 mls/hr Magnesium Sulfate (Magnesium Sulfate Ivpb) 2 gm in 50 mls @ 25 mls/hr IV X1 ONE Stop: 09/30/24 19:02 Last Admin: 09/30/24 17:08 Dose: 25 mls/hr Metoprolol Succinate (Metoprolol Succinate Xl 25 Mg Tabcr) 25 mg PO QDAY COUNT INCLUDES THE [facility] Stop: 10/31/24 08:59 Metoprolol Tartrate (Metoprolol Tartrate Inj 1 Mg/Ml Amp 5 Ml) 5 mg IVP Q5M PRN PRN Reason: SUPRAVENTRICULAR TACHYCARDIA Ondansetron HCl (Ondansetron Inj 2 Mg/Ml Inj 2 Ml) 4 mg IVP Q6H PRN; Protocol PRN Reason: NAUSEA OR VOMITING Stop: 10/30/24 17:58 Pantoprazole Sodium (Pantoprazole Inj 40 Mg Vial) 40 mg IVP QDAY COUNT INCLUDES THE [facility] Stop: 10/30/24 18:14 Sennosides (Senna Tablet) 1 tab PO QDAY COUNT INCLUDES THE [facility]; Protocol Stop: 10/30/24 18:14 Discontinued Medications Acetaminophen (Acetaminophen 325 Mg Tablet) 650 mg PO X1 ONE Stop: 09/30/24 16:27 Last Admin: 09/30/24 16:43 Dose: 650 mg Hydrocodone Bitart/Acetaminophen (Hydrocodone/Apap 5/325 Tablet) 1 tab PO X1 ONE Stop: 09/30/24 15:40 Last Admin: 09/30/24 16:23 Dose: 1 tab Adenosine (Adenosine Inj 3 Mg/Ml Vial) 6 mg IVP X1 ONE Stop: 09/30/24 14:52 Last Admin: 09/30/24 15:00 Dose: 6 mg Adenosine (Adenosine Inj 3 Mg/Ml Vial) 12 mg IVP X1 ONE Stop: 09/30/24 14:52 Last Admin: 09/30/24 16:25 Dose: 12 mg Adenosine (Adenosine Inj 3 Mg/Ml Vial) 6 mg IVP X1 ONE Stop: 09/30/24 16:12 Last Admin: 09/30/24 16:22 Dose: 6 mg Sodium Chloride (Ns) 1,000 mls @ 999 mls/hr IV .Q1H1M ONE Stop: 09/30/24 17:55 Last Admin: 09/30/24 16:57 Dose: 999 mls/hr Metoprolol Tartrate (Metoprolol Tartrate Inj 1 Mg/Ml Amp 5 Ml) 5 mg IVP X1 ONE Stop: 09/30/24 16:33 Last Admin: 09/30/24 16:36 Dose: 5 mg Metoprolol Tartrate (Metoprolol Tartrate Inj 1 Mg/Ml Amp 5 Ml) 5 mg IVP X1 ONE Stop: 09/30/24 16:53 Last Admin: 09/30/24 16:54 Dose: 5 mg Assessment & Plan Plan Patient is a 24 year old female for past medical history of lupus and Sjrogen's who presented on 09/30 for fever and palpitations, admitted for SVT (now resolved, controlled on metoprolol). #SVT, improving #Symptomatic cardiac arrhythmia History of SVTs per patient, has palpitations but only lasts no more than an hour. Likely secondary to lupus. DDx: drug induced/toxin, pericarditis, rheumatoid heart disease S/p adenosine x3, rate now controlled on metoprolol XL 25mg. CXR 09/30 shows mild prominence of left ventricle with mild vascular congestion. Utox negative. Plan: - Continue metoprolol XL 25 mg daily -Adenosine first, but given it failed in ED to convert patient to sinus, consider metoprolol tartrate first. - IV metoprolol tartrate prn for sinus tachycardia - Pending home med rec - Will reach out to patient's punch machine operator tomorrow #Generalized pain #Fever #History of lupus Likely secondary to lupus flare. Of note, patient started new drug Sephlano, first infusion 4 weeks ago. No immediate allergic reaction during infusion. Utox negative. UA negative. CXR shows mild prominence of left ventricle with mild vascular congestion. No suspected source of infection at this time however will start antibiotics empirically. Meets 3/4 SIRS criteria (temp as high as 102, tachycardic, tachypnic), no end organ failure so does not meet sepsis criteria. Plan: - S/p Prednisone 40mg IVP X 1 - Consider restarting home dose methylprednisone 10 mg daily - Pending med rec - Started IV ceftriaxone 1g empirically - Ravenden 5 prn - Tylenol for pain and fever prn - Ordered echo to rule out pericarditis - Will reach out to patient's shearing machine feeder tomorrow #Presyncope #Dizziness #s/p unwitnessed fall Patient reports dizziness, followed by brief loss of consciousness and head trauma in her shower on 09/29. CT head negative for acute intracranial bleed. Possibly related to lupus or cardiac etiology as patient reported palpitations prior to episode. No history of seizures, less likely neurologic etiology. Plan: - Pending echo - Consider consulting cardiology depending on echo results - Consider consulting neurology for seizure work up #Hypotension Unclear etiology. No cardiac history. Concern for pericarditis or cardiac tamponade. - Started 1L LR - Pending echo as above #Electrolyte Abnormalities #Hypokalemia #Hypomagnesemia, improved Mg 1.6 on admission. - s/p Mg infusion in ED - recheck and replete as needed Health Maintenance Disposition: Further management of SVT, concern for lupus flare DVT prophylaxis: Heparin GI prophylaxis: Senna Diet: Cardiac CODE STATUS: FULL Patient plan of care was discussed with the resident, Dr. Ness, and attending physician, Dr. Cerda. Palak Black, PGY-1 - The patient's plan was discussed with attending Dr. Zaida Ness MD PGY2 Internal Medicine Attending Provider Attestation/Addendum I attest that I was physically present for the evaluation, physical examination, lab and imaging review of the patient with the residents. I discussed the case with the residents and agree with the findings and plans of care as documented above. After examination of the patient and review of the clinical data I feel that this patient needs admission to the hospital for further treatment/evaluation. Patient is a 24 years old female with past medical history of SLE and Sjogren syndrome who presented to the ED with complaint of palpitations. In the ED, patient was found to be in SVT, received multiple doses of adenosine, metoprolol. Despite medication, patient continued to go in and out of SVT's. She also had episode of fever in the ED. Rest of the vitals were within normal limits, saturating well on room air. Lab results showed potassium of 3.3, CRP 2.0, ESR 45. EKG showed SVT with heart rate of 250. Chest x-ray showed mild vascular congestion, urinalysis was negative for pyuria. Urine toxicology was also negative. We will admit the patient for management of recurrent SVT, we will continue with as needed IV metoprolol, metoprolol 25 p.o. daily. We will obtain cardiology consult and echocardiogram. Patient also complained of generalized pain throughout the body, which is different from her pain from SLE, she also had a elevated temperature, ESR and CRP is elevated, concerning for lupus flare. Patient received IV steroid, we will also start empiric antibiotic. Patient was also found to have soft blood pressure in the ED, received IV fluid bolus, we will continue with gentle IV hydration. She also received potassium and magnesium repletion, we will continue to monitor her electrolyte levels closely. Andra Cerda MD
[2024-09-30 18:57] LABS: Creatine Kinase 20 U/L (34-171)
[2024-09-30] MEDS: RINGERS LACTATED 1000 ML 1,000 ML 999 ML IV (19:07)
[2024-09-30] MEDS: cefTRIAXone/D5w 1gm IV premix 1 GM/50 ML BAG IV (19:35)
[2024-09-30] MEDS: RINGERS LACTATED 1000 ML 1,000 ML 80 ML IV (20:33)
[2024-09-30] MEDS: HEPARIN SOD INJ 5000 UNIT/ML VIAL SC (20:39)
[2024-09-30] MEDS: POTASSIUM CHL 10 mEq IVPB 10 MEQ/100 ML BAG 75 MEQ IV (22:12)
[2024-10-01] VITALS (10 sets, daily range): BP systolic 87–115; BP diastolic 55–68; PULSE 66–89; RESP 13–99; TEMP 36.2–36.7; O2SAT 97–100; BMI 24.0
[2024-10-01 04:55] LABS: Basophils # (Auto) 0.0 Thou/mm3 (0.0-0.2); Basophils % (Auto) 0 % (0-2.5); Eosinophils # (Auto) 0.0 Thou/mm3 (0.0-0.5); Eosinophils % (Auto) 0 % (0-10); Hematocrit 34.5 % (36.0-46.0); Hemoglobin 11.2 g/dL (12.0-16.0); Immature Granulocytes Auto 0.09 Thou/mm3 (0.00-0.00); Lymphocytes # (Auto) 0.7 Thou/mm3 (1.0-4.8); Lymphocytes % (Auto) 8 % (10-50); Mean Corpuscular HGB Conc 32.5 g/dl (31.0-37.0); Mean Corpuscular Hemoglobin 27.1 pg (25.0-35.0); Mean Corpuscular Volume 84 fL (80-100); Monocytes # (Auto) 0.2 Thou/mm3 (0.0-0.8); Monocytes % (Auto) 2 % (0-12); Neutrophils # (Auto) 6.8 Thou/mm3 (1.8-7.7); Neutrophils % (Auto) 88 % (37-80); Nucleated Red Blood Cell # 0.00 Thou/mm3 (0.00-0.00); Nucleated Red Blood Cell % 0 /100 WBC (0); Platelet Count 233 Thou/mm3 (140-440); RDW Standard Deviation 44.4 fL (36.4-46.3); Red Blood Count 4.13 Miln/mm3 (4.00-5.20); White Blood Count 7.7 Thou/mm3 (3.6-11.0)
[2024-10-01 05:54] LABS: Alanine Aminotransferase 12 U/L (10-49); Albumin, Serum 3.7 gm/dL (3.5-5.0); Albumin/Globulin Ratio 1.3 (1.2-2.2); Alkaline Phosphatase 58 U/L (46-116); Anion Gap 12 (7-16); Aspartate Amino Transferase 15 U/L (0-34); BUN/Creatinine Ratio 13 Ratio (12-20); Bilirubin,Total 0.3 mg/dL (0.3-1.2); Blood Urea Nitrogen 8 mg/dL (9-23); Calcium 8.9 mg/dL (8.3-10.6); Calcium (Corrected) 9.1 mg/dL (8.5-10.1); Carbon Dioxide 21.9 mMol/L (20.0-31.0); Cardiac Risk Estimate 3.0 RATIO (3.7-5.6); Chloride 107 mMol/L (98-107); Cholesterol 154 mg/dL (132-200); Creatinine (Component) 0.6 mg/dL (0.6-1.3); Estimated Creatinine Clearance 109.3 mL/min (>60); Globulin 2.9 gm/dL (2.3-3.5); Glucose 121 mg/dL (74-106); HDL Cholesterol 52 mg/dL (40-60); LDL Cholesterol,Calculated 88 mg/dL (0-130); Magnesium 2.0 mg/dL (1.6-2.6); Osmolality,Calculated 280 (275-295); Phosphorous 4.6 mg/dL (2.4-5.1); Potassium 4.6 mMol/L (3.4-5.1); Sodium 141 mMol/L (136-145); Thyroid Stimulating Hormone 1.83 uIU/mL (0.55-4.78); Total Protein 6.6 gm/dL (5.7-8.2); Triglycerides 69 mg/dL (30-150); eGFR > 60 See Note
[2024-10-01] MEDS: HEPARIN SOD INJ 5000 UNIT/ML VIAL SC ×2 (08:08→21:26)
[2024-10-01] MEDS: HYDROcodone/APAP 5/325 TABLET 1 TAB PO ×3 (08:22→23:01)
[2024-10-01] MEDS: METOPROLOL SUCCINATE XL 25 MG TABCR PO (08:22)
--- NOTE | 2024-10-01 09:42 | ESPR_ITS ---
Documentation for date of: 10/01/24 No overnight events. Patient continues to be rate controlled on Metoprolol 25 mg qday and currently rate controlled. Patient's MAP between 65-75. HR 66-89. Patient denied chest pain or shortness of breath. Primary team reached out to Dr. Calabrese patient's reumatologist, suggested ordering C3, C4, DNS ds antibody. Per [employer] sigma black belt engineer resume home medication of Mycophenolate 500 mg PO BID and Prednisone 5 mg once daily (patient currently being titrated down from 10 mg Prednisone). Tappering may have triggered flare up from Lupus. Follow up on lupus labs. Echo taken but not read, pending pericarditis rule out. Emilie Ness PGY-2 Subjective Subjective Interval history: No acute events overnight. Patient seen and examined at bedside this AM. Continues to have generalized pain below hips. Also endorses joint pains and chest pain, however does not radiate and is tender on palpation. Troponins were negative on admission. Labs and vitals were reviewed. Systolics were in the 90s to 100s overnight however maps are above 65. Afebrile and saturating well on room air. Heart rate 75 on metoprolol. WBC within normal limits, hemoglobin at baseline 11-12. Total CK is 20, CRP 2.0, BNP 24, TSH within normal limits, Pro-Enrique 0.07, low suspicion for infection. Head CT negative for acute bleed. Spoke to patient's [employer] black belt engineer Dr. Madera with continued health in [place]. Recommended restarting mycophenolate 500 mg twice daily, hydroxychloroquine 200 mg daily, and prednisone 10 mg. Also requested complement C3 and C4, urine protein creatinine ratio, dsDNA, ESR, and CRP. Patient has upcoming appointment on 10/16. Patient reports next infusion is scheduled for 10/03. Review of systems otherwise negative except what is mentioned above. Exam Vital Signs Temp Pulse Resp BP Pulse Ox O2 Del Method O2 Flow Rate 98.0 F 77 18 95/68 98 Room Air 0 10/01/24 08:00 10/01/24 08:50 10/01/24 08:50 10/01/24 08:22 10/01/24 08:00 10/01/24 08:00 09/30/24 19:38 Narrative Exam Physical Exam General: Awake, in mild acute distress due to pain in her legs. Conversational. Young female sitting up in bed. HEENT: Normocephalic, atraumatic, mucous membranes moist. Heart: Tachycardic. Regular rate and rhythm, normal S1 and S2, no murmurs appreciated. Lungs: Clear to auscultation with no wheezing or crackles. Abdomen: Soft, nondistended, positive bowel sounds. Tenderness in RUQ and lower quadrants. No guarding or rebound tenderness. Neurologic: Alert and oriented x3, no gross neurological deficit, and patient able to move all 4 extremities. Extremities: No edema. Diffuse tenderness in upper extremity joints and legs. Skin: No rash or ecchymoses. Objective Labs 10/02/24 04:06 10/02/24 04:06 Labs: Laboratory Results - last 24 hr 09/30/24 09/30/24 09/30/24 14:41 15:50 16:25 WBC 9.6 RBC 4.57 Hgb 12.1 Hct 38.7 MCV 85 MCH 26.5 MCHC 31.3 RDW Std Deviation 45.3 Plt Count 340 D Neut % (Auto) 82 H Lymph % (Auto) 12 [place] % (Auto) 5 Eos % (Auto) 1 Baso % (Auto) 0 Neut # (Auto) 7.9 H Lymph # (Auto) 1.1 [place] # (Auto) 0.5 Eos # (Auto) 0.1 Baso # (Auto) 0.0 Immature Gran # (Auto) 0.05 H Absolute Nucleated RBC 0.00 Immature Gran % 1 H Nucleated RBC % 0 ESR 45 H Sodium 140 Potassium 3.3 L Chloride 106 Carbon Dioxide 25.5 Anion Gap 9 BUN 14 Creatinine 0.8 Estim Creat Clear Calc 74.6 eGFR > 60 BUN/Creatinine Ratio 18 Glucose 116 H Calculated Osmolality 280 Lactic Acid 1.1 Calcium 8.9 Corrected Calcium 8.9 Phosphorus Magnesium 1.6 Total Bilirubin 0.4 AST 19 ALT 13 Alkaline Phosphatase 63 Total Creatine Kinase 20 L Troponin I < 0.020 C-Reactive Prot, Quant 2.0 H B-Natriuretic Peptide 24 Total Protein 6.9 Albumin 4.0 Globulin 2.9 Albumin/Globulin Ratio 1.4 Triglycerides Cholesterol LDL Cholesterol, Calc HDL Cholesterol Cholesterol/HDL Ratio Procalcitonin 0.07 TSH Ur Collection Type Urine Color Urine Clarity Urine pH Ur Specific [place] Urine Protein Urine Glucose (UA) Urine Ketones Urine Blood Urine Nitrite Urine Bilirubin Urine Urobilinogen (Auto) Ur Leukocyte Esterase Urine RBC Urine WBC Ur Squamous Epith Cells Urine Bacteria Urine Opiates Screen Urine Fentanyl Screen Ur Barbiturates Screen U Amphetamin/Meth Scrn U Benzodiazepines Scrn U Cocaine Metab Screen U Marijuana (THC) Screen Urine Alcohol 09/30/24 09/30/24 10/01/24 16:50 16:54 04:01 WBC 7.7 RBC 4.13 Hgb 11.2 L Hct 34.5 L MCV 84 MCH 27.1 MCHC 32.5 RDW Std Deviation 44.4 Plt Count 233 D Neut % (Auto) 88 H Lymph % (Auto) 8 L [place] % (Auto) 2 Eos % (Auto) 0 Baso % (Auto) 0 Neut # (Auto) 6.8 Lymph # (Auto) 0.7 L [place] # (Auto) 0.2 Eos # (Auto) 0.0 Baso # (Auto) 0.0 Immature Gran # (Auto) 0.09 H Absolute Nucleated RBC 0.00 Immature Gran % 1 H Nucleated RBC % 0 ESR Sodium Potassium Chloride Carbon Dioxide Anion Gap BUN Creatinine Estim Creat Clear Calc eGFR BUN/Creatinine Ratio Glucose Calculated Osmolality Lactic Acid Calcium Corrected Calcium Phosphorus Magnesium Total Bilirubin AST ALT Alkaline Phosphatase Total Creatine Kinase Troponin I C-Reactive Prot, Quant B-Natriuretic Peptide Total Protein Albumin Globulin Albumin/Globulin Ratio Triglycerides Cholesterol LDL Cholesterol, Calc HDL Cholesterol Cholesterol/HDL Ratio Procalcitonin TSH Ur Collection Type Clean Catch Urine Color Colorless A Urine Clarity Clear Urine pH 6.5 Ur Specific [place] 1.008 Urine Protein Negative Urine Glucose (UA) Negative Urine Ketones Negative Urine Blood Negative Urine Nitrite Negative Urine Bilirubin Negative Urine Urobilinogen (Auto) Negative Ur Leukocyte Esterase Negative Urine RBC 1 Urine WBC 2 Ur Squamous Epith Cells 5 Urine Bacteria None Urine Opiates Screen Negative Urine Fentanyl Screen Negative Ur Barbiturates Screen Negative U Amphetamin/Meth Scrn Negative U Benzodiazepines Scrn Negative U Cocaine Metab Screen Negative U Marijuana (THC) Screen Negative Urine Alcohol Negative 10/01/24 05:23 WBC RBC Hgb Hct MCV MCH MCHC RDW Std Deviation Plt Count Neut % (Auto) Lymph % (Auto) [place] % (Auto) Eos % (Auto) Baso % (Auto) Neut # (Auto) Lymph # (Auto) [place] # (Auto) Eos # (Auto) Baso # (Auto) Immature Gran # (Auto) Absolute Nucleated RBC Immature Gran % Nucleated RBC % ESR Sodium 141 Potassium 4.6 D Chloride 107 Carbon Dioxide 21.9 Anion Gap 12 BUN 8 L Creatinine 0.6 Estim Creat Clear Calc 109.3 eGFR > 60 BUN/Creatinine Ratio 13 Glucose 121 H Calculated Osmolality 280 Lactic Acid Calcium 8.9 Corrected Calcium 9.1 Phosphorus 4.6 Magnesium 2.0 Total Bilirubin 0.3 AST 15 ALT 12 Alkaline Phosphatase 58 Total Creatine Kinase Troponin I C-Reactive Prot, Quant B-Natriuretic Peptide Total Protein 6.6 Albumin 3.7 Globulin 2.9 Albumin/Globulin Ratio 1.3 Triglycerides 69 Cholesterol 154 LDL Cholesterol, Calc 88 HDL Cholesterol 52 Cholesterol/HDL Ratio 3.0 L Procalcitonin TSH 1.83 Ur Collection Type Urine Color Urine Clarity Urine pH Ur Specific [place] Urine Protein Urine Glucose (UA) Urine Ketones Urine Blood Urine Nitrite Urine Bilirubin Urine Urobilinogen (Auto) Ur Leukocyte Esterase Urine RBC Urine WBC Ur Squamous Epith Cells Urine Bacteria Urine Opiates Screen Urine Fentanyl Screen Ur Barbiturates Screen U Amphetamin/Meth Scrn U Benzodiazepines Scrn U Cocaine Metab Screen U Marijuana (THC) Screen Urine Alcohol Quality Measures Quality Measures sepsis Current suspected stage: ruled out Possible source: unknown Blood cultures ordered: yes Antibiotic ordered: No Assessment & Plan Assessment Current Active Medications: Generic Name Dose Route Start Last Admin Trade Name Freq PRN Reason Stop Dose Admin Acetaminophen 650 mg 09/30/24 17:59 Acetaminophen 325 Mg Tablet PO 10/30/24 17:58 Q6H PRN Mild Pain 1-3 or Fever >100.3 Hydrocodone Bitart/Acetaminophen 1 tab 09/30/24 17:59 10/01/24 08:22 Hydrocodone/Apap 5/325 Tablet PO 10/05/24 17:58 1 tab Q4HR PRN Administration PAIN SCALE 4-10(Mod-Sev Heparin Sodium (Porcine) 5,000 unit 09/30/24 21:00 10/01/24 08:08 Heparin Sod Inj 5000 Unit/Ml Vial SC 10/14/24 20:59 5,000 unit Q12HR YADIRA Administration Metoprolol Succinate 25 mg 10/01/24 09:00 Metoprolol Succinate Xl 25 Mg Tabcr PO 10/31/24 08:59 QDAY YADIRA Metoprolol Tartrate 5 mg 09/30/24 18:06 Metoprolol Tartrate Inj 1 Mg/Ml Amp 5 Ml IVP Q5M PRN SUPRAVENTRICULAR TACHYCARDIA Ondansetron HCl 4 mg 09/30/24 17:59 Ondansetron Inj 2 Mg/Ml Inj 2 Ml IVP 10/30/24 17:58 Q6H PRN NAUSEA OR VOMITING Protocol Pantoprazole Sodium 40 mg 09/30/24 18:15 10/01/24 08:07 Pantoprazole Inj 40 Mg Vial IVP 10/30/24 18:14 40 mg QDAY YADIRA Administration Sennosides 1 tab 09/30/24 18:15 10/01/24 08:08 Senna Tablet PO 10/30/24 18:14 1 tab QDAY YADIRA Administration Protocol Plan Patient is a 24 year old female for past medical history of lupus and Sjrogen's who presented on 09/30 for fever and palpitations, admitted for SVT (now resolved, controlled on metoprolol). #Lupus #Generalized pain #Fever Likely secondary to lupus flare. Of note, patient started new drug Sephlano, first infusion 4 weeks ago. No immediate allergic reaction during infusion. Utox negative. UA negative. CXR shows mild prominence of left ventricle with mild vascular congestion. No suspected source of infection at this time, no antibiotics needed at this time. Meets 3/4 SIRS criteria (temp as high as 102, tachycardic, tachypnic), no end organ failure so does not meet sepsis criteria. 10/01: Spoke to patient's [employer] sigma black belt engineer Dr. Madera at [facility] in [place], recommended restarting home medications and starting on baclofen for pain. Requested tests for complement C3, C4, dsDNA, urine protein creatinine ratio, ESR, and CRP. Has appointment coming up on 10/16. Plan: - S/p Prednisone 40mg IVP X 1 - Restart home dose methylprednisone 10 mg tomorrow - Restart home dose mycophenolate and hydrochloroquine - Start on gabapentin and baclofen per [employer] black belt engineer Dr. Madera's recommendation - Pending complement C3 and C4, dsDNA, and urine creatinine - [place] 5 prn - Tylenol for pain and fever prn - Pending echo to rule out pericarditis - Will reach out to patient's six sigma black belt engineer tomorrow #SVT, improved. #Symptomatic cardiac arrhythmia - improving History of SVTs per patient, has palpitations but only lasts no more than an hour. Likely secondary to lupus. DDx: drug induced/toxin, pericarditis, rheumatoid heart disease S/p adenosine x3, rate now controlled on metoprolol XL 25mg. CXR 09/30 shows mild prominence of left ventricle with mild vascular congestion. Utox negative. Plan: - Continue metoprolol XL 25 mg daily - IV metoprolol tartrate prn for sinus tachycardia - Will reach out to patient's calender let off operator #Presyncope #Dizziness #s/p unwitnessed fall Patient reports dizziness, followed by brief loss of consciousness and head trauma in her shower on 09/29. CT head negative for acute intracranial bleed. Possibly related to lupus or cardiac etiology as patient reported palpitations prior to episode. No history of seizures, less likely neurologic etiology. Plan: - Pending echo - Cardiology Dr. Pickard consulted, appreciate recommendation - Consider consulting neurology for seizure work up #Hypotension - improving Unclear etiology. No cardiac history. Concern for pericarditis or cardiac tamponade, however low concern due to lack of murmur/rub on exam. - Pending echo as above #Electrolyte Abnormalities #Hypokalemia #Hypomagnesemia, improved Mg 1.6 on admission. - s/p Mg infusion in ED - recheck and replete as needed Health Maintenance Disposition: Further management of SVT, concern for lupus flare DVT prophylaxis: Heparin GI prophylaxis: Senna Diet: Cardiac CODE STATUS: FULL Patient plan of care was discussed with the resident, Dr. Ness, and attending physician, Dr. Cerda. Palak Black, PGY-1 - The patient's plan was discussed with attending Dr. Zaida Ness MD PGY2 Internal Medicine Attending Provider Attestation/Addendum I attest that I was physically present for the evaluation, physical examination, lab and imaging review of the patient with the residents. I discussed the case with the residents and agree with the findings and plans of care as documented above. Andra Cerda MD
--- NOTE | 2024-10-01 12:10 | PC.SS ---
Follow up note: Pending Cardio recommendations. Pt will return home upon dc.
[2024-10-01 14:58] LABS: Band Neutrophils (Manual) 8 % (0-6); Lymphocytes (Manual) 8 % (20-44); Monocytes (Manual) 1 % (2-9); Neutrophils (Manual) 83 % (50-70)
[2024-10-01 15:00] LABS: Atypical Lymphs 2+
[2024-10-01] MEDS: BACLOFEN 10 MG TABLET PO ×2 (16:35→21:26)
[2024-10-01] MEDS: HYDROXYCHLOROQUINE 200 MG TABLET PO (17:22)
--- NOTE | 2024-10-01 20:02 | PD.RESCONSUL ---
HPI Data of Consult Requesting Physician: Andra Cerda MD Admitting Provider: Andra Cerda MD Attending Provider: Andra Cerda MD Primary Care Provider: Physician No Primary/Family Consult Narrative History of present illness: The patient is a 24-year-old female with significant past medical history of SLE (diagnosed at the age of 15 at [facility]) on saphnelo infusion once a month, Sjogren's syndrome, and SVT (1st episode at age 16) on metoprolol presented to ED on 09/30/2024 with chief complaint of palpitations. She admitted fever, chills, generalized body ache during the presentation, and superficial chest pain. She admitted diarrhea about 2 weeks ago, and has been having abdominal bloating but denied any sick contacts. 1 day before presentation, she had dizziness, and syncope and postural consciousness for about 5 minutes. She also hit her head. She denied any headache, SOB, orthopnea or PND, or leg swelling. She follows up with eligibility services representative Dr. Calabrese and entry tech at [place] for SVTs. She denied any history of hypertension, diabetes mellitus, hyperlipidemia, or CHF. During my evaluation, her vitals were stable, hemoglobin 11 point MCV 84, white count WNL, potassium 4.6, BUN 8, creatinine 0.6, magnesium 2.0, liver enzymes WNL, TG 69, total cholesterol 154, LDL 88, HDL 52, TSH 1.83, initial EKG revealed SVT with ventricular rate 250, followed by repeat EKG revealing sinus tachycardia with incomplete RBBB and low voltage in precordial leads. Head CT was negative for acute hemorrhage, midline shift or mass effect. Chest x-ray was significant for mild vascular congestion. In the ED, patient received adenosine 6 mg x 2, followed by 12 mg x 1, without cardioversion, after which metoprolol tartrate 5 mg IV x 2 was given, with conversion to sinus rhythm. PMH: As mentioned above SHX: Cholecystectomy, appendectomy, , Family history: Unremarkable Social history: Lives with her mother at [place], along with 3 children, is well supported by her boyfriend, denies tobacco, recreational drug or alcohol use. Medications: Prednisone 20 mg daily, gabapentin 300 mg 3 times daily, hydroxychloroquine 200 Mg daily, Saphnelo 300 Mg IV every 4 weeks, baclofen 10 Mg p.o. 3 times daily. Allergies: No known allergies Cardiology consultation was done for further management of SVT. cc:: cc: Andra Cerda MD Review of Systems Review of Systems Systems Reviewed: All systems reviewed, normal except as documented (Above) Exam Vital Signs Temp Pulse Resp BP Pulse Ox O2 Del Method O2 Flow Rate 97.5 F 72 14 94/66 97 Room Air 0 10/01/24 16:00 10/01/24 16:00 10/01/24 16:00 10/01/24 16:00 10/01/24 16:00 10/01/24 16:00 10/01/24 16:00 Narrative Exam General: No acute distress, Alert and Oriented x 3, hi faced HEENT: Moist mucous membranes, oropharynx clear Neck: Supple, No masses, No JVD CVS: S1S2 Regular rate and rhythm, No murmurs, rubs or gallops Lungs: Clear to auscultation with no accessory use, no wheeze no rhonchi Abd: Soft, NT/ND, +BS, no organomegaly Ext: No edema, warm and well perfused Skin: No rash Psych: Appropriate mood and affect Results Labs 10/01/24 04:01 10/01/24 05:23 Labs: Short CBC 10/01/24 Range/Units 04:01 WBC 7.7 (3.6-11.0) Thou/mm3 Hgb 11.2 L (12.0-16.0) g/dL Hct 34.5 L (36.0-46.0) % Plt Count 233 D (140-440) Thou/mm3 BMP 10/01/24 05:23 Sodium 141 Potassium 4.6 D Chloride 107 Carbon Dioxide 21.9 BUN 8 L Creatinine 0.6 Glucose 121 H Calcium 8.9 Liver Function 10/01/24 Range/Units 05:23 Total Bilirubin 0.3 (0.3-1.2) mg/dL AST 15 (0-34) U/L ALT 12 (10-49) U/L Alkaline Phosphatase 58 (46-116) U/L Albumin 3.7 (3.5-5.0) gm/dL Quality Measures Quality Measures sepsis Current suspected stage: ruled out Possible source: unknown Blood cultures ordered: yes Antibiotic ordered: No Medications Home Medications and Allergies Home Medications ?Medication ?Instructions ?Recorded ?Confirmed ?Type anifrolumab-fnia 300 mg/2 mL (150 300 mg IV .every 4 weeks 10/01/24 10/01/24 History mg/mL) intravenous solution (Saphnelo) baclofen 10 mg tablet 10 mg PO TID 10/01/24 10/01/24 History gabapentin 300 mg capsule 300 mg PO TID 10/01/24 10/01/24 History hydroxychloroquine 200 mg tablet 200 mg PO .once daily 10/01/24 10/01/24 History prednisone 10 mg tablet 20 mg PO .once 10/01/24 10/01/24 History Allergies Allergy/AdvReac Type Severity Reaction Status Date / Time No Known Allergies Allergy Verified 09/30/24 14:37 Visit Medications Acetaminophen (Acetaminophen 325 Mg Tablet) 650 mg PO Q6H PRN PRN Reason: Mild Pain 1-3 or Fever >100.3 Stop: 10/30/24 17:58 Hydrocodone Bitart/Acetaminophen (Hydrocodone/Apap 5/325 Tablet) 1 tab PO Q4HR PRN PRN Reason: PAIN SCALE 4-10(Mod-Sev Stop: 10/05/24 17:58 Last Admin: 10/01/24 16:35 Dose: 1 tab Baclofen (Baclofen 10 Mg Tablet) 10 mg PO TID [facility] Stop: 10/31/24 16:14 Last Admin: 10/01/24 16:35 Dose: 10 mg Gabapentin (Gabapentin 300 Mg Capsule) 300 mg PO TID [facility] Stop: 10/31/24 21:59 Heparin Sodium (Porcine) (Heparin Sod Inj 5000 Unit/Ml Vial) 5,000 unit SC Q12HR [facility] Stop: 10/14/24 20:59 Last Admin: 10/01/24 08:08 Dose: 5,000 unit Hydroxychloroquine Sulfate (Hydroxychloroquine 200 Mg Tablet) 200 mg PO QDAY [facility] Stop: 10/08/24 15:59 Last Admin: 10/01/24 17:22 Dose: 200 mg Metoprolol Succinate (Metoprolol Succinate Xl 25 Mg Tabcr) 25 mg PO QDAY [facility] Stop: 11/01/24 08:59 Metoprolol Tartrate (Metoprolol Tartrate Inj 1 Mg/Ml Amp 5 Ml) 5 mg IVP Q5M PRN PRN Reason: SUPRAVENTRICULAR TACHYCARDIA Mycophenolate Mofetil (Mycophenolate 250 Mg Capsule (Non-Formulary)) 500 mg PO BID [facility] Stop: 10/31/24 20:59 Ondansetron HCl (Ondansetron Inj 2 Mg/Ml Inj 2 Ml) 4 mg IVP Q6H PRN; Protocol PRN Reason: NAUSEA OR VOMITING Stop: 10/30/24 17:58 Pantoprazole Sodium (Pantoprazole Inj 40 Mg Vial) 40 mg IVP QDAY YADIRA Stop: 10/30/24 18:14 Last Admin: 10/01/24 08:07 Dose: 40 mg Prednisone (Prednisone 5 Mg Tablet) 5 mg PO QDAY [facility] Stop: 11/01/24 08:59 Sennosides (Senna Tablet) 1 tab PO QDAY [facility]; Protocol Stop: 10/30/24 18:14 Last Admin: 10/01/24 08:08 Dose: 1 tab Discontinued Medications Acetaminophen (Acetaminophen 325 Mg Tablet) 650 mg PO X1 ONE Stop: 09/30/24 16:27 Last Admin: 09/30/24 16:43 Dose: 650 mg Hydrocodone Bitart/Acetaminophen (Hydrocodone/Apap 5/325 Tablet) 1 tab PO X1 ONE Stop: 09/30/24 15:40 Last Admin: 09/30/24 16:23 Dose: 1 tab Adenosine (Adenosine Inj 3 Mg/Ml Vial) 6 mg IVP X1 ONE Stop: 09/30/24 14:52 Last Admin: 09/30/24 15:00 Dose: 6 mg Adenosine (Adenosine Inj 3 Mg/Ml Vial) 12 mg IVP X1 ONE Stop: 09/30/24 14:52 Last Admin: 09/30/24 16:25 Dose: 12 mg Adenosine (Adenosine Inj 3 Mg/Ml Vial) 6 mg IVP X1 ONE Stop: 09/30/24 16:12 Last Admin: 09/30/24 16:22 Dose: 6 mg Ferrous Sulfate (Ferrous Sulf 325 Mg Tablet) 325 mg PO QOD [facility] Stop: 10/31/24 16:29 Sodium Chloride (Ns) 1,000 mls @ 999 mls/hr IV .Q1H1M ONE Stop: 09/30/24 17:55 Last Infusion: 09/30/24 18:42 Dose: Infused Potassium Chloride (Kcl Ivpb) 10 meq in 100 mls @ 100 mls/hr IV Q1H YADIRA Stop: 09/30/24 21:01 Last Infusion: 09/30/24 23:34 Dose: Infused Magnesium Sulfate (Magnesium Sulfate Ivpb) 2 gm in 50 mls @ 25 mls/hr IV X1 ONE Stop: 09/30/24 19:02 Last Infusion: 09/30/24 19:32 Dose: Infused Ceftriaxone Sodium/Dextrose (Rocephin/D5w 1gm Iv Premix) 1 gm in 50 mls @ 100 mls/hr IV QDAY [facility] Stop: 10/07/24 18:54 Last Infusion: 09/30/24 20:26 Dose: Infused Lactated Ringer's (Lactated Ringers) 1,000 mls @ 999 mls/hr IV .Q1H1M ONE Stop: 09/30/24 19:56 Last Infusion: 09/30/24 20:42 Dose: Infused Lactated Ringer's (Lactated Ringers) 1,000 mls @ 80 mls/hr IV .[id number] ONE Stop: 10/01/24 07:29 Last Admin: 09/30/24 20:33 Dose: 80 mls/hr Methylprednisolone Sodium Succinate (Methylprednisolone Sod Succ 40 Mg Vial) 40 mg IVP X1 ONE Stop: 09/30/24 18:59 Last Admin: 09/30/24 19:28 Dose: 40 mg Metoprolol Succinate (Metoprolol Succinate Xl 25 Mg Tabcr) 25 mg PO QDAY [facility] Stop: 10/31/24 08:59 Last Admin: 10/01/24 08:22 Dose: 25 mg Metoprolol Succinate (Metoprolol Succinate Xl 25 Mg Tabcr) 25 mg PO QDAY [facility] Stop: 10/31/24 08:59 Last Admin: 10/01/24 11:44 Dose: Not Given Metoprolol Tartrate (Metoprolol Tartrate Inj 1 Mg/Ml Amp 5 Ml) 5 mg IVP X1 ONE Stop: 09/30/24 16:33 Last Admin: 09/30/24 16:36 Dose: 5 mg Metoprolol Tartrate (Metoprolol Tartrate Inj 1 Mg/Ml Amp 5 Ml) 5 mg IVP X1 ONE Stop: 09/30/24 16:53 Last Admin: 09/30/24 16:54 Dose: 5 mg Assessment & Plan Plan The patient is a 24-year-old female with significant past medical history of SLE on saphnelo infusion once a month,, Sjogren's syndrome, and SVT on metoprolol presented to ED on 09/30/2024 with chief complaint of palpitations. Cardiology consultation done for further management of SVT. #Syncope 2/2 #SVT, resolved Likely secondary to #SLE flareup #Unwitnessed fall 2/2 syncope The patient presented with palpitation, and was found to have SVT in EKG, and reported recently having diarrhea, presented with fever. The patient was being tapered down on a steroid by her eligibility services representative, and was currently getting 5 mg of daily prednisone. The patient is due for next Saphnelo infusion on October 03, 2024. Hemoglobin 11 point MCV 84, white count WNL, potassium 4.6, BUN 8, creatinine 0.6, magnesium 2.0, liver enzymes WNL, TG 69, total cholesterol 154, LDL 88, HDL 52, TSH 1.83, initial EKG revealed SVT with ventricular rate 250, followed by repeat EKG revealing sinus tachycardia with incomplete RBBB and low voltage in precordial leads. Head CT was negative for acute hemorrhage, midline shift or mass effect. Chest x-ray was significant for mild vascular congestion. - Telemetry monitoring to rule out any arrhythmias. - Metoprolol succinate 25 Mg daily, may titrate up as needed for rate control - Primary team ordered C3, C4 and double-stranded DNA, as recommended by patient's eligibility services representative - Recommended to keep magnesium and potassium greater than 2 and 4 at all the time respectively - TTE ordered, pending report. 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 Due to director long term care steroid use for more than 5 years. -Motor Grader Rough Grade is tappering down steroid -Recommended Dexa scan as outpt Rest of the management deferred to primary team. Thank you for cardiology consultation. We appreciate the opportunity to participate in this patient's care. Will continue to follow-up on this patient care. The patient's management plan was discussed with my attending physician MD Yevgeniy Mustafa MD, PGY3 Attending Provider Attestation/Addendum I have personally seen and examined the patient separately on the above date of service and discussed the plan of care with the resident. I reviewed the resident Dr. Yevgeniy Landeros consultation progress note and agree with the resident findings and plan in the note above and have also edited the documentation to reflect my findings and plan. Patient presented with SVT and possible syncope with the last fall. Patient with history of SVT previously and is on metoprolol XL at home. Patient diagnosed with a history of SLE at the age of 16 and has been in multiple medications including steroids for the last 5 years and also saphnelo injections. Patient does follow-up with her doctors in [place] as she was initially diagnosed with [facility]. She does have a eligibility services representative in [place] along with a entry tech. Patient had apparently has been having worsening abdominal pain and diarrhea initially after which she started feeling palpitations or SVT. Patient also has been taking low-dose prednisone as per the recommendations of her eligibility services representative. She already has wound VAC secondary to the prolonged prednisone use. Overall presentation appears to be possible COPD flare with unclear etiology could be a GI infection versus decreased prednisone dose. SVT mostly secondary to the inflammation from an SLE flare as indicated by the ESR and CRP. Primary team working up for SLE flareup. Patient will need aggressive treatment of the SLE for better control of the SVT. Patient already on metoprolol XL to 50 mg once daily and recommend to continue the same and keep potassium greater than 4 magnesium above 2.0 at all times. If required time patient blood pressure stable then metoprolol XL can be uptitrated as needed. Continue telemetry monitoring to rule out any Arrhythmias given history of syncope. Differentials include pericarditis secondary to the SLE and to rule out any Pericardial effusion and echo has been ordered to evaluate LV function fraction as well as diastolic function and regional wall motion abnormalities. Patient states that she had extensive workup performed by her entry tech in [place] and the patient recommended to follow-up with her entry tech and eligibility services representative as soon as she is discharged from the hospital. Landry Pickard M.D. Interventional Cardiology
[2024-10-01] MEDS: MYCOPHENOLATE 250 MG CAPSULE (NON-FORMULARY) 500 MG PO (21:26)
[2024-10-01] MEDS: GABAPENTIN 300 MG CAPSULE PO (21:26)
[2024-10-02] VITALS (9 sets, daily range): BP systolic 91–110; BP diastolic 64–76; PULSE 62–95; RESP 12–99; TEMP 35.9–36.9; O2SAT 94–98; BMI 23.4; BMI 23.3
[2024-10-02] MEDS: HYDROcodone/APAP 5/325 TABLET 1 TAB PO ×4 (03:52→23:32)
[2024-10-02 04:58] LABS: Basophils # (Auto) 0.0 Thou/mm3 (0.0-0.2); Basophils % (Auto) 0 % (0-2.5); Eosinophils # (Auto) 0.1 Thou/mm3 (0.0-0.5); Eosinophils % (Auto) 1 % (0-10); Hematocrit 36.2 % (36.0-46.0); Hemoglobin 11.1 g/dL (12.0-16.0); Immature Granulocytes Auto 0.03 Thou/mm3 (0.00-0.00); Lymphocytes # (Auto) 0.9 Thou/mm3 (1.0-4.8); Lymphocytes % (Auto) 15 % (10-50); Mean Corpuscular HGB Conc 30.7 g/dl (31.0-37.0); Mean Corpuscular Hemoglobin 26.3 pg (25.0-35.0); Mean Corpuscular Volume 86 fL (80-100); Monocytes # (Auto) 0.3 Thou/mm3 (0.0-0.8); Monocytes % (Auto) 4 % (0-12); Neutrophils # (Auto) 4.5 Thou/mm3 (1.8-7.7); Neutrophils % (Auto) 78 % (37-80); Nucleated Red Blood Cell # 0.00 Thou/mm3 (0.00-0.00); Nucleated Red Blood Cell % 0 /100 WBC (0); Platelet Count 232 Thou/mm3 (140-440); RDW Standard Deviation 45.6 fL (36.4-46.3); Red Blood Count 4.22 Miln/mm3 (4.00-5.20); White Blood Count 5.8 Thou/mm3 (3.6-11.0)
[2024-10-02] MEDS: GABAPENTIN 300 MG CAPSULE PO ×3 (05:41→21:12)
[2024-10-02] MEDS: BACLOFEN 10 MG TABLET PO ×3 (05:41→21:12)
[2024-10-02 05:54] LABS: Alanine Aminotransferase 10 U/L (10-49); Albumin, Serum 3.5 gm/dL (3.5-5.0); Albumin/Globulin Ratio 1.2 (1.2-2.2); Alkaline Phosphatase 52 U/L (46-116); Anion Gap 10 (7-16); Aspartate Amino Transferase 15 U/L (0-34); BUN/Creatinine Ratio 19 Ratio (12-20); Bilirubin,Total 0.2 mg/dL (0.3-1.2); Blood Urea Nitrogen 13 mg/dL (9-23); Calcium 8.7 mg/dL (8.3-10.6); Calcium (Corrected) 9.1 mg/dL (8.5-10.1); Carbon Dioxide 24.8 mMol/L (20.0-31.0); Chloride 106 mMol/L (98-107); Creatinine (Component) 0.7 mg/dL (0.6-1.3); Estimated Creatinine Clearance 93.7 mL/min (>60); Globulin 2.9 gm/dL (2.3-3.5); Glucose 82 mg/dL (74-106); Magnesium 1.6 mg/dL (1.6-2.6); Osmolality,Calculated 280 (275-295); Phosphorous 4.2 mg/dL (2.4-5.1); Potassium 4.0 mMol/L (3.4-5.1); Sodium 141 mMol/L (136-145); Total Protein 6.4 gm/dL (5.7-8.2); eGFR > 60 See Note
[2024-10-02] MEDS: PANTOPRAZOLE 40 MG TABLET PO (08:14)
[2024-10-02] MEDS: METOPROLOL SUCCINATE XL 25 MG TABCR PO (08:14)
[2024-10-02] MEDS: HYDROXYCHLOROQUINE 200 MG TABLET PO (08:14)
[2024-10-02] MEDS: MYCOPHENOLATE 250 MG CAPSULE (NON-FORMULARY) 500 MG PO ×2 (08:14→21:11)
[2024-10-02] MEDS: HEPARIN SOD INJ 5000 UNIT/ML VIAL SC ×2 (08:14→21:12)
[2024-10-02] MEDS: MAGNESIUM OXIDE 400 MG TABLET PO (08:14)
[2024-10-02] MEDS: Magnesium Sulfate 2 GM Ivpb 2 GM/50 ML BAG IV ×2 (08:15→10:05)
[2024-10-02 08:49] LABS: HCG Qualitative,Urine Negative
[2024-10-02 08:53] LABS: Creatinine,Random Urine 169 mg/dL (30-125)
--- NOTE | 2024-10-02 09:03 | PC.SS ---
Late note 10-02-24: SS met with patient regarding her d/c plan. Pt is alert/oriented. Pt was admitted for SVT. Pt confirmed demographic and contact information is correct on facesheet. Pt resides with her life partner. Pt ambulates independently without assistance or DME. Pt is ok with all ADLs. Patient?s pharmacy of choice is [facility] [address] Pt named her nailing machine feeder partner, Bobo Arango medical decision maker if she is unable. Patient?s choice is to return home upon d/c. Pt states she followed up with PCP 1 month ago. Pt states not diabetic and is not on dialysis. Life partner will provide transportation. D/C plan: Return home Next of Kin: Bobo Nba, lifer partner, phone# [phone] PCP: Dr. Roland Vega from [facility] Address: Correct on facesheet
--- NOTE | 2024-10-02 09:11 | PD.RESDS ---
Planned Discharge Date 10/02/24 DS: Providers Provider Date of admission: 09/30/24 18:08 Primary care physician: Physician No Primary/Family Admitting Provider: Andra Cerda MD Attending Provider on Admission: Landry Pickard MD Consults: 09/30/24 19:01 Consult to Cardiology Routine Comment: Consulting Provider: Landry Pickard Instructions: SVT (history of Lupus) Attending Provider on DC: RESIDENT Ludivina Discharging Provider: RESIDENT Ludivina Hospital Course Hospital Course Hospital course: The patient is a 24-year-old female with significant past medical history of SLE (diagnosed at the age of 15 at [facility]) on saphnelo infusion once a month, Sjogren's syndrome, and SVT (1st episode at age 16) on metoprolol presented to ED on 09/30/2024 with chief complaint of palpitations. She admitted fever, chills, generalized body ache during the presentation, and superficial chest pain. She admitted diarrhea about 2 weeks ago, and has been having abdominal bloating but denied any sick contacts. 1 day before presentation, she had dizziness, and syncope and postural consciousness for about 5 minutes. She also hit her head. She denied any headache, SOB, orthopnea or PND, or leg swelling. She follows up with winder contort operator Dr. Calabrese and oil developer at [place] for SVTs. She denied any history of hypertension, diabetes mellitus, hyperlipidemia, or CHF. During my evaluation, her vitals were stable, hemoglobin 11 point MCV 84, white count WNL, potassium 4.6, BUN 8, creatinine 0.6, magnesium 2.0, liver enzymes WNL, TG 69, total cholesterol 154, LDL 88, HDL 52, TSH 1.83, initial EKG revealed SVT with ventricular rate 250, followed by repeat EKG revealing sinus tachycardia with incomplete RBBB and low voltage in precordial leads. Head CT was negative for acute hemorrhage, midline shift or mass effect. Chest x-ray was significant for mild vascular congestion. In the ED, patient received adenosine 6 mg x 2, followed by 12 mg x 1, without cardioversion, after which metoprolol tartrate 5 mg IV x 2 was given, with conversion to sinus rhythm. PMH: As mentioned above SHX: Cholecystectomy, appendectomy, , Family history: Unremarkable Social history: Lives with her mother at [place], along with 3 children, is well supported by her boyfriend, denies tobacco, recreational drug or alcohol use. Medications: Prednisone 20 mg daily, gabapentin 300 mg 3 times daily, hydroxychloroquine 200 Mg daily, Saphnelo 300 Mg IV every 4 weeks, baclofen 10 Mg p.o. 3 times daily. Allergies: No known allergies Cardiology consultation was done for further management of SVT. Time Spent with Patient Time attestation: Total time spent providing and/or coordinating discharge services: Exam Vital Signs Temp Pulse Resp BP Pulse Ox O2 Del Method O2 Flow Rate 98.4 F 62 16 93/68 94 L Room Air 0 10/02/24 08:00 10/02/24 08:14 10/02/24 08:00 10/02/24 08:14 10/02/24 08:00 10/02/24 08:00 10/02/24 08:00 Discharge Plan Plan Patient Disposition: HOME (Self Care) Patient condition on transfer: Stable Care Plan Goals: Instructions: -Please continue to take Metoprolol XL 25 mg once daily for SVT -Please follow up with your oil developer in [place] within one week of discharge -Please follow up with your winder contort operator or primary care physician for your Double Strand DNA, C3, and C4 level ordered inpatient -Please have your primary physician order a DEXA scan given long standing history of steroid use. -Please continue your 10 mg prednisone once daily as recommended by your winder contort operator. -Please follow up with your winder contort operator, Dr. Calabrese, on 10/16/2024 for your Lupus -Please follow up with your primary care provider within one week of discharge -If your symptoms worsen,please seek immediate medical attention and return to your nearest emergency room -If you do not have a primary care provider, you may follow up at the [facility] at [address], [place] [address], Prescriptions/Referrals Prescriptions/Med Rec: New mycophenolate mofetil 250 mg Capsule 500 mg PO BID 30 Days Qty: 120 0RF metoprolol succinate 25 mg Tablet Extended Release 24 Hr 25 mg PO QDAY 30 Days Qty: 30 0RF prednisone 10 mg tablet 10 mg PO QDAY 30 Days Qty: 30 0RF Continued Saphnelo 300 mg/2 mL (150 mg/mL) solution 300 mg IV .every 4 weeks hydroxychloroquine 200 mg tablet 200 mg PO .once daily Patient Comments: TAKE 1 TABLET BY MOUTH EVERY DAY baclofen 10 mg tablet 10 mg PO TID gabapentin 300 mg capsule 300 mg PO TID Patient Comments: TAKE 1 CAPSULE BY MOUTH 3 TIMES A DAY. Discontinued prednisone 10 mg tablet 20 mg PO .once Patient Comments: TAKE 1 TABLET BY MOUTH EVERY DAY Referrals: Landry Pickard MD [Physician] - Patient/Caregiver Discharge Instructions Print Language: Peruvian Stand Alone Forms: [employer] Award Info., Patient Portal Info Letter
--- NOTE | 2024-10-02 11:13 | XR_ITS ---
Examination: Abdomen sonogram, complete Date and time of exam: October 02, 2024 1303 hours INDICATIONS: Generalized abdominal pain beginning one year ago. Technique: Multiple real-time grayscale transabdominal sonographic images of the abdomen have been obtained. Findings: Absent gallbladder Normal common bile duct 0.3 cm Pancreatic head 2.9 cm Aorta not enlarged. Liver 15.3 cm smooth contour no focal liver lesions Normal hepatopedal portal venous flow Patent IVC Right kidney 10.4 cm cortex 1.6 cm Left kidney 10.8 cm cortex 1.6 cm Spleen 8.8 cm IMPRESSION: Absent gallbladder Normal common bile duct Liver normal size no focal liver lesions
--- NOTE | 2024-10-02 11:15 | XR_ITS ---
Examination: Pelvic ultrasound, transabdominal, complete Technique: Transabdominal ultrasound of the pelvis performed using grayscale imaging Date and time of exam: October 02, 2024 1313 hours INDICATIONS: Pelvic pain beginning one year ago post FINDINGS: Uterus 7.7 cm endometrial stripe 0.6 cm Echogenic structure which may represent calcification in the cervix, 16 x 6 x 7 mm Right ovary 2.6 cm arterial flow Left ovary 2.5 cm arterial flow 19 mm follicular cyst IMPRESSION: Recommend transvaginal pelvic sonography follow-up to further assess calcified mass in the cervix 16 x 6 x 7 mm
[2024-10-02] MEDS: KETOROLAC INJ 30 MG/ML VIAL 15 MG IVP (13:32)
--- NOTE | 2024-10-02 14:36 | PD.RESPRO ---
Documentation for date of: 10/02/24 No overnight events. Patient examined at bedside. Metoprolol XL 25 mg qday rate controlled. STV resolved. Complaining of diffuse abdominal tenderness. Concern for menstrual cycle. BHCG Negative. Pelvic US noted calcified mass in the cervix 16 X 6 X 7 mm. Attempt made to contact OBGYN, possible consult. Paitnet may benefit form COMPUTER SYSTEMS ANALYST follow up. Keterolac X 1 administered. Emilie Ness PGY-2 Internal Medicine Subjective Subjective Interval history: No acute events overnight. Patient seen and examined at bedside this AM. Endorsing chills and worsening generalized pain. On exam had tenderness in her abdomen, ordered abdominal and pelvic ultrasound. Patient reports that she uses leftover oxycodone when she has similar pain. Gave ketorolac x 1 for pain. Reports that she noticed blood when she wipes, LMP 08/24, is likely from menstruation. Reports dysuria but UA was negative on admission and urine culture was negative, low concern for UTI. Pelvic ultrasound showed calcified mass in the cervix 16 x 6 x 7 mm and fibroid cyst on left ovary. Attempted to reach out to OB Dr. Naidu for consult, left voicemail and text message but did not receive reply. Will attempt again tomorrow, consult regarding transfer versus outpatient workup. Consider getting transvaginal ultrasound. Review of systems otherwise negative except what is mentioned above. Exam Vital Signs Temp Pulse Resp BP Pulse Ox O2 Del Method O2 Flow Rate 97.5 F 79 27 H 94/64 95 Room Air 0 10/02/24 12:10/02/24 12:10/02/24 12:10/02/24 12:10/02/24 12:10/02/24 12:10/02/24 12:00 Narrative Exam Physical Exam General: Awake, in mild acute distress due to pain in her legs and chills. Conversational. Young female sitting up in bed. HEENT: Normocephalic, atraumatic, mucous membranes moist. Heart: Tachycardic. Regular rate and rhythm, normal S1 and S2, no murmurs appreciated. Lungs: Clear to auscultation with no wheezing or crackles. Abdomen: Soft, nondistended, positive bowel sounds. Generalized tenderness across abdomen. No guarding or rebound tenderness. Neurologic: Alert and oriented x3, no gross neurological deficit, and patient able to move all 4 extremities. Extremities: No edema. Diffuse tenderness in upper extremity joints and legs. Skin: No rash or ecchymoses. Objective Labs 10/03/24 05:10 10/03/24 05:10 Labs: Laboratory Results - last 24 hr 10/01/24 10/01/24 10/02/24 04:01 05:23 04:06 WBC 5.8 RBC 4.22 Hgb 11.1 L Hct 36.2 MCV 86 MCH 26.3 MCHC 30.7 L RDW Std Deviation 45.6 Plt Count 232 Neut % (Auto) 78 Lymph % (Auto) 15 [place] % (Auto) 4 Eos % (Auto) 1 Baso % (Auto) 0 Neut # (Auto) 4.5 Lymph # (Auto) 0.9 L [place] # (Auto) 0.3 Eos # (Auto) 0.1 Baso # (Auto) 0.0 Immature Gran # (Auto) 0.03 H Absolute Nucleated RBC 0.00 Immature Gran % 1 H Neutrophils % (Manual) 83 H Monocytes % (Manual) 1 L Nucleated RBC % 0 Band Neutrophils 8 H Lymphocytes (Manual) 8 L Atypical Lymphocytes 2+ Sodium 141 141 Potassium 4.6 D 4.0 D Chloride 107 106 Carbon Dioxide 21.9 24.8 Anion Gap 12 10 BUN 8 L 13 Creatinine 0.6 0.7 Estim Creat Clear Calc 109.3 93.7 eGFR > 60 > 60 BUN/Creatinine Ratio 13 19 Glucose 121 H 82 Calculated Osmolality 280 280 Calcium 8.9 8.7 Corrected Calcium 9.1 9.1 Phosphorus 4.6 4.2 Magnesium 2.0 1.6 Total Bilirubin 0.3 0.2 L AST 15 15 ALT 12 10 Alkaline Phosphatase 58 52 Total Protein 6.6 6.4 Albumin 3.7 3.5 Globulin 2.9 2.9 Albumin/Globulin Ratio 1.3 1.2 Triglycerides 69 Cholesterol 154 LDL Cholesterol, Calc 88 HDL Cholesterol 52 Cholesterol/HDL Ratio 3.0 L TSH 1.83 Ur Random Creatinine Urine HCG, Qual 10/02/24 08:02 WBC RBC Hgb Hct MCV MCH MCHC RDW Std Deviation Plt Count Neut % (Auto) Lymph % (Auto) [place] % (Auto) Eos % (Auto) Baso % (Auto) Neut # (Auto) Lymph # (Auto) [place] # (Auto) Eos # (Auto) Baso # (Auto) Immature Gran # (Auto) Absolute Nucleated RBC Immature Gran % Neutrophils % (Manual) Monocytes % (Manual) Nucleated RBC % Band Neutrophils Lymphocytes (Manual) Atypical Lymphocytes Sodium Potassium Chloride Carbon Dioxide Anion Gap BUN Creatinine Estim Creat Clear Calc eGFR BUN/Creatinine Ratio Glucose Calculated Osmolality Calcium Corrected Calcium Phosphorus Magnesium Total Bilirubin AST ALT Alkaline Phosphatase Total Protein Albumin Globulin Albumin/Globulin Ratio Triglycerides Cholesterol LDL Cholesterol, Calc HDL Cholesterol Cholesterol/HDL Ratio TSH Ur Random Creatinine 169 H Urine HCG, Qual Negative Quality Measures Quality Measures sepsis Current suspected stage: ruled out Possible source: unknown Blood cultures ordered: yes Antibiotic ordered: No Assessment & Plan Assessment Current Active Medications: Generic Name Dose Route Start Last Admin Trade Name Freq PRN Reason Stop Dose Admin Acetaminophen 650 mg 09/30/24 17:59 Acetaminophen 325 Mg Tablet PO 10/30/24 17:58 Q6H PRN Mild Pain 1-3 or Fever >100.3 Hydrocodone Bitart/Acetaminophen 1 tab 09/30/24 17:59 10/02/24 08:14 Hydrocodone/Apap 5/325 Tablet PO 10/05/24 17:58 1 tab Q4HR PRN Administration PAIN SCALE 4-10(Mod-Sev Baclofen 10 mg 10/01/24 16:15 10/02/24 13:33 Baclofen 10 Mg Tablet PO 10/31/24 16:14 10 mg TID YADIRA Administration Gabapentin 300 mg 10/01/24 22:00 10/02/24 13:33 Gabapentin 300 Mg Capsule PO 10/31/24 21:59 300 mg TID YADIRA Administration Heparin Sodium (Porcine) 5,000 unit 09/30/24 21:00 10/02/24 08:14 Heparin Sod Inj 5000 Unit/Ml Vial SC 10/14/24 20:59 5,000 unit Q12HR YADIRA Administration Hydroxychloroquine Sulfate 200 mg 10/01/24 16:00 10/02/24 08:14 Hydroxychloroquine 200 Mg Tablet PO 10/08/24 15:59 200 mg QDAY YADIRA Administration Metoprolol Succinate 25 mg 10/02/24 09:00 10/02/24 08:14 Metoprolol Succinate Xl 25 Mg Tabcr PO 11/01/24 08:59 25 mg QDAY YADIRA Administration Metoprolol Tartrate 5 mg 09/30/24 18:06 Metoprolol Tartrate Inj 1 Mg/Ml Amp 5 Ml IVP Q5M PRN SUPRAVENTRICULAR TACHYCARDIA Mycophenolate Mofetil 500 mg 10/01/24 21:00 10/02/24 08:14 Mycophenolate 250 Mg Capsule (Non-Formulary) PO 10/31/24 20:59 500 mg BID YADIRA Administration Ondansetron HCl 4 mg 09/30/24 17:59 Ondansetron Inj 2 Mg/Ml Inj 2 Ml IVP 10/30/24 17:58 Q6H PRN NAUSEA OR VOMITING Protocol Pantoprazole Sodium 40 mg 10/02/24 09:00 10/02/24 08:14 Pantoprazole 40 Mg Tablet PO 11/01/24 08:59 40 mg QDAY YADIRA Administration Prednisone 10 mg 10/03/24 09:00 Prednisone 5 Mg Tablet PO 11/02/24 08:59 QDAY YADIRA Sennosides 1 tab 09/30/24 18:15 10/02/24 08:07 Senna Tablet PO 10/30/24 18:14 Not Given QDAY YADIRA Protocol Plan Patient is a 24 year old female for past medical history of lupus and Sjrogen's who presented on 09/30 for fever and palpitations, admitted for SVT (now resolved, controlled on metoprolol). #Cervical mass #Fibrotic cyst on left ovary Calcified cervical mass and left ovarian fibrotic cyst noted on pelvic US. DDX include teratoma versus calcified uterine fibroids versus osseous metaplasia. Reached out to OB Dr. Naidu regional company flatbed truck driver, left voice message and text message regarding possible consult. - Consider reaching out again to OB for outpatient management versus transfer #Lupus #Generalized pain #Fever Likely secondary to lupus flare. Of note, patient started new drug Sephlano, first infusion 4 weeks ago. No immediate allergic reaction during infusion. Utox negative. UA negative. CXR shows mild prominence of left ventricle with mild vascular congestion. No suspected source of infection at this time, no antibiotics needed at this time. Meets 3/4 SIRS criteria (temp as high as 102, tachycardic, tachypnic), no end organ failure so does not meet sepsis criteria. 10/01: Spoke to patient's cuff turner machine operator Dr. Madera at [facility] in [place], recommended restarting home medications and starting on baclofen for pain. Requested tests for complement C3, C4, dsDNA, urine protein creatinine ratio, ESR, and CRP. Has appointment coming up on 10/16. Echo 09/30 negative for pericarditis, EF 55 to 60%. No dysfunction noted. Plan: - Continue home dose methylprednisone 10 mg - Continue home dose mycophenolate and hydrochloroquine - Continue gabapentin and baclofen per cuff turner machine operator Dr. Madera's recommendation - Pending complement C3 and C4, dsDNA, and urine creatinine - [place] 5 prn - Tylenol for pain and fever prn #SVT, improved. #Symptomatic cardiac arrhythmia - improving History of SVTs per patient, has palpitations but only lasts no more than an hour. Likely secondary to lupus. DDx: drug induced/toxin, pericarditis, rheumatoid heart disease S/p adenosine x3, rate now controlled on metoprolol XL 25mg. CXR 09/30 shows mild prominence of left ventricle with mild vascular congestion. Utox negative. Plan: - Continue metoprolol XL 25 mg daily - IV metoprolol tartrate prn for sinus tachycardia - Will reach out to patient's sludge control operator #Presyncope #Dizziness #s/p unwitnessed fall Patient reports dizziness, followed by brief loss of consciousness and head trauma in her shower on 09/29. CT head negative for acute intracranial bleed. Possibly related to lupus or cardiac etiology as patient reported palpitations prior to episode. No history of seizures, less likely neurologic etiology. Echo 10/01 negative for pericarditis. Plan: - Cardiology Dr. Pickard consulted, appreciate recommendation - Consider consulting neurology for seizure work up #Hypotension - improving Unclear etiology. No cardiac history. Concern for pericarditis or cardiac tamponade, however low concern due to lack of murmur/rub on exam. Echo 10/01 negative for pericarditis. #Electrolyte Abnormalities #Hypokalemia #Hypomagnesemia, improved Mg 1.6 on admission. - s/p Mg infusion in ED - recheck and replete as needed Health Maintenance Disposition: Further management of SVT, concern for lupus flare DVT prophylaxis: Heparin GI prophylaxis: Senna Diet: Cardiac CODE STATUS: FULL Patient plan of care was discussed with the resident, Dr. Ness, and attending physician, Dr. Cerda. Palak Black, PGY-1 Attending Provider Attestation/Addendum I attest that I was physically present for the evaluation, physical examination, lab and imaging review of the patient with the residents. I discussed the case with the residents and agree with the findings and plans of care as documented above. Andra Cerda MD
--- NOTE | 2024-10-02 16:12 | PD.RESPRO ---
Documentation for date of: 10/02/24 Subjective Subjective Interval history: The patient was seen and examined at the bedside this morning. She reported doing well and was talking to her music cataloguer. She denied any palpitation or chest pain. monitoring engineer was revealing sinus rhythm Vitals stable with soft BP of 90's/60's HR in 70's CBC and CMP at baseline, with K fo 4.2 and Mg of 1.6. Was given 4g of MgSO4. Give additional 4 gm Magnesium sulfate. TTE revealed: Normal LV size and function. Normal LV diastolic function. Estimated EF at 55-60 %. The RV is normal in size and systolic function. Mild TR and TR. IVC not well visualized. No pericadfial effusion Recommended to continue on Metoprolol succinate 25mg daily and uptitrate it based on BP.. Pending complement C3 and C4, including dsDNA level. Continue treating underlying SLE. Exam Vital Signs Temp Pulse Resp BP Pulse Ox O2 Del Method O2 Flow Rate 97.5 F 79 27 H 94/64 95 Room Air 0 10/02/24 12:00 10/02/24 12:00 10/02/24 12:00 10/02/24 12:00 10/02/24 12:00 10/02/24 12:00 10/02/24 12:00 Narrative Exam General: No acute distress, Alert and Oriented x 3, hi faced HEENT: Moist mucous membranes, oropharynx clear Neck: Supple, No masses, No JVD CVS: S1S2 Regular rate and rhythm, No murmurs, rubs or gallops Lungs: Clear to auscultation with no accessory use, no wheeze no rhonchi Abd: Soft, NT/ND, +BS, no organomegaly Ext: No edema, warm and well perfused Skin: No rash Psych: Appropriate mood and affect Objective Labs 10/02/24 04:06 10/02/24 04:06 Labs: Laboratory Results - last 24 hr 10/02/24 10/02/24 04:06 08:02 WBC 5.8 RBC 4.22 Hgb 11.1 L Hct 36.2 MCV 86 MCH 26.3 MCHC 30.7 L RDW Std Deviation 45.6 Plt Count 232 Neut % (Auto) 78 Lymph % (Auto) 15 [place] % (Auto) 4 Eos % (Auto) 1 Baso % (Auto) 0 Neut # (Auto) 4.5 Lymph # (Auto) 0.9 L [place] # (Auto) 0.3 Eos # (Auto) 0.1 Baso # (Auto) 0.0 Immature Gran # (Auto) 0.03 H Absolute Nucleated RBC 0.00 Immature Gran % 1 H Nucleated RBC % 0 Sodium 141 Potassium 4.0 D Chloride 106 Carbon Dioxide 24.8 Anion Gap 10 BUN 13 Creatinine 0.7 Estim Creat Clear Calc 93.7 eGFR > 60 BUN/Creatinine Ratio 19 Glucose 82 Calculated Osmolality 280 Calcium 8.7 Corrected Calcium 9.1 Phosphorus 4.2 Magnesium 1.6 Total Bilirubin 0.2 L AST 15 ALT 10 Alkaline Phosphatase 52 Total Protein 6.4 Albumin 3.5 Globulin 2.9 Albumin/Globulin Ratio 1.2 Ur Random Creatinine 169 H Urine HCG, Qual Negative Quality Measures Quality Measures sepsis Current suspected stage: ruled out Possible source: unknown Blood cultures ordered: yes Antibiotic ordered: No Assessment & Plan Assessment Current Active Medications: Generic Name Dose Route Start Last Admin Trade Name Freq PRN Reason Stop Dose Admin Acetaminophen 650 mg 09/30/24 17:59 Acetaminophen 325 Mg Tablet PO 10/30/24 17:58 Q6H PRN Mild Pain 1-3 or Fever >100.3 Hydrocodone Bitart/Acetaminophen 1 tab 09/30/24 17:59 10/02/24 08:14 Hydrocodone/Apap 5/325 Tablet PO 10/05/24 17:58 1 tab Q4HR PRN Administration PAIN SCALE 4-10(Mod-Sev Baclofen 10 mg 10/01/24 16:15 10/02/24 13:33 Baclofen 10 Mg Tablet PO 10/31/24 16:14 10 mg TID YADIRA Administration Gabapentin 300 mg 10/01/24 22:00 10/02/24 13:33 Gabapentin 300 Mg Capsule PO 10/31/24 21:59 300 mg TID YADIRA Administration Heparin Sodium (Porcine) 5,000 unit 09/30/24 21:00 10/02/24 08:14 Heparin Sod Inj 5000 Unit/Ml Vial SC 10/14/24 20:59 5,000 unit Q12HR YADIRA Administration Hydroxychloroquine Sulfate 200 mg 10/01/24 16:00 10/02/24 08:14 Hydroxychloroquine 200 Mg Tablet PO 10/08/24 15:59 200 mg QDAY YADIRA Administration Metoprolol Succinate 25 mg 10/02/24 09:00 10/02/24 08:14 Metoprolol Succinate Xl 25 Mg Tabcr PO 11/01/24 08:59 25 mg QDAY YADIRA Administration Metoprolol Tartrate 5 mg 09/30/24 18:06 Metoprolol Tartrate Inj 1 Mg/Ml Amp 5 Ml IVP Q5M PRN SUPRAVENTRICULAR TACHYCARDIA Mycophenolate Mofetil 500 mg 10/01/24 21:00 10/02/24 08:14 Mycophenolate 250 Mg Capsule (Non-Formulary) PO 10/31/24 20:59 500 mg BID YADIRA Administration Ondansetron HCl 4 mg 09/30/24 17:59 Ondansetron Inj 2 Mg/Ml Inj 2 Ml IVP 10/30/24 17:58 Q6H PRN NAUSEA OR VOMITING Protocol Pantoprazole Sodium 40 mg 10/02/24 09:00 10/02/24 08:14 Pantoprazole 40 Mg Tablet PO 11/01/24 08:59 40 mg QDAY YADIRA Administration Prednisone 10 mg 10/03/24 09:00 Prednisone 5 Mg Tablet PO 11/02/24 08:59 QDAY YADIRA Sennosides 1 tab 09/30/24 18:15 10/02/24 08:07 Senna Tablet PO 10/30/24 18:14 Not Given QDAY YADIRA Protocol Plan The patient is a 24-year-old female with significant past medical history of SLE on saphnelo infusion once a month,, Sjogren's syndrome, and SVT on metoprolol presented to ED on 09/30/2024 with chief complaint of palpitations. Cardiology consultation done for further management of SVT. #Syncope 2/2 #SVT, resolved Likely secondary to #SLE flareup #Unwitnessed fall 2/2 syncope #Ruled out pericarditis/ pericardial effusion The patient presented with palpitation, and was found to have SVT in EKG, and reported recently having diarrhea, presented with fever. The patient was being tapered down on a steroid by her music cataloguer, and was currently getting 5 mg of daily prednisone. The patient is due for next Saphnelo infusion on October 03, 2024. Hemoglobin 11 point MCV 84, white count WNL, potassium 4.6, BUN 8, creatinine 0.6, magnesium 2.0, liver enzymes WNL, TG 69, total cholesterol 154, LDL 88, HDL 52, TSH 1.83, initial EKG revealed SVT with ventricular rate 250, followed by repeat EKG revealing sinus tachycardia with incomplete RBBB and low voltage in precordial leads. Head CT was negative for acute hemorrhage, midline shift or mass effect. Chest x-ray was significant for mild vascular congestion. TTE reaveled: Normal LV size and function. Normal LV diastolic function. Estimated EF at 55-60 %. The RV is normal in size and systolic function. Mild TR and TR. IVC not well visualized. No pericadial effusion - Telemetry monitoring to rule out any arrhythmias. 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 Due to jail steroid use for more than 5 years. -Bottle Washing Machine Operator is tappering down steroid -Recommended Dexa scan as outpt Rest of the management deferred to primary team. Thank you for cardiology consultation. We appreciate the opportunity to participate in this patient's care. Will continue to follow-up on this patient care. The patient's management plan was discussed with my attending physician MD Yevgeniy Mustafa MD, PGY3 Attending Provider Attestation/Addendum I have personally seen and examined the patient separately on the above date of service and discussed the plan of care with the resident. I reviewed the resident Dr. Yevgeniy Landeros consultation progress note and agree with the resident findings and plan in the note above and have also edited the documentation to reflect my findings and plan. Patient presented with SVT and possible syncope with the last fall. Patient with history of SVT previously and is on metoprolol XL at home. Patient diagnosed with a history of SLE at the age of 16 and has been in multiple medications including steroids for the last 5 years and also saphnelo injections. Patient does follow-up with her doctors in [place] as she was initially diagnosed at [facility]. She does have a music cataloguer in [place] along with a oiling machine operator. Patient had apparently has been having worsening abdominal pain and diarrhea initially after which she started feeling palpitations or SVT. Patient also has been taking low-dose prednisone as per the recommendations of her music cataloguer. She already has possible hi facies secondary to the prolonged prednisone use. Overall presentation appears to be possible COPD flare with unclear etiology could be a GI infection versus decreased prednisone dose. SVT mostly secondary to the inflammation from an SLE flare as indicated by the ESR and CRP. Primary team working up for SLE flareup. Patient will need aggressive treatment of the SLE for better control of the SVT. Patient already on metoprolol XL to 25 mg once daily and recommend to continue the same and keep potassium greater than 4 magnesium above 2.0 at all times. If patient blood pressure stable then metoprolol XL can be uptitrated as needed. Continue telemetry monitoring to rule out any Arrhythmias given history of syncope. Differentials include pericarditis secondary to the SLE and to rule out any Pericardial effusion and echo has been ordered to evaluate LV function fraction as well as diastolic function and regional wall motion abnormalities. Patient states that she had extensive workup performed by her oiling machine operator in [place] and the patient recommended to follow-up with her oiling machine operator and music cataloguer as soon as she is discharged from the hospital. 10/02/2024- Patient denies any symptoms today and no new episodes of any arrhythmias or SVT since arrival. Lab work showed mild anemia at 11.1, BUN/creatinine normal at 13 and 0.7. Potassium was 4.0 and magnesium was low at 1.6. ESR was elevated at 45 and CRP was elevated at 2.0. Patient was given magnesium sulfate 4 g IV and will give another magnesium sulfate 4 g IV x 1. Recommend to keep potassium greater than 4 and magnesium greater than 2.0 at all times. Echocardiogram was completed on 10/01/2024 showed normal LV size and function, normal RV size and function. Estimated LVEF is 55 to 60%. There was no evidence of any pericardial effusions. Trace MR and TR. EKG reviewed again and there is no evidence of any acute pericarditis. It was difficult to distinguish from the EKG the patient had AVNRT or AVRT. Patient will need a possible EP study for recurrent SVT and the patient has regular oiling machine operator which she has been following for more than 5 years and recommended to follow-up with him. Recommended to definitely follow-up with regrind mill operator for further evaluation. Management of rest of the medical conditions as per primary team and other consultants. Thank you for the consult and allowing me to participate in the care of the patient. Cardiology will continue to follow. Landry Pickard M.D. Interventional Cardiology
[2024-10-02] MEDS: ACETAMINOPHEN 325 MG TABLET 650 MG PO (21:19)
[2024-10-03] VITALS (10 sets, daily range): BP systolic 95–127; BP diastolic 58–88; PULSE 74–105; RESP 13–99; TEMP 36.4–36.8; O2SAT 95–99; BMI 23.8
[2024-10-03] MEDS: BACLOFEN 10 MG TABLET PO (05:04)
[2024-10-03] MEDS: GABAPENTIN 300 MG CAPSULE PO ×3 (05:04→22:06)
[2024-10-03] MEDS: KETOROLAC INJ 30 MG/ML VIAL 15 MG IVP ×3 (05:19→20:09)
[2024-10-03 06:14] LABS: Basophils # (Auto) 0.0 Thou/mm3 (0.0-0.2); Basophils % (Auto) 0 % (0-2.5); Eosinophils # (Auto) 0.1 Thou/mm3 (0.0-0.5); Eosinophils % (Auto) 1 % (0-10); Hematocrit 34.0 % (36.0-46.0); Hemoglobin 10.6 g/dL (12.0-16.0); Immature Granulocytes Auto 0.03 Thou/mm3 (0.00-0.00); Lymphocytes # (Auto) 0.8 Thou/mm3 (1.0-4.8); Lymphocytes % (Auto) 12 % (10-50); Mean Corpuscular HGB Conc 31.2 g/dl (31.0-37.0); Mean Corpuscular Hemoglobin 26.6 pg (25.0-35.0); Mean Corpuscular Volume 85 fL (80-100); Monocytes # (Auto) 0.3 Thou/mm3 (0.0-0.8); Monocytes % (Auto) 4 % (0-12); Neutrophils # (Auto) 5.2 Thou/mm3 (1.8-7.7); Neutrophils % (Auto) 82 % (37-80); Nucleated Red Blood Cell # 0.00 Thou/mm3 (0.00-0.00); Nucleated Red Blood Cell % 0 /100 WBC (0); Platelet Count 237 Thou/mm3 (140-440); RDW Standard Deviation 45.0 fL (36.4-46.3); Red Blood Count 3.98 Miln/mm3 (4.00-5.20); White Blood Count 6.4 Thou/mm3 (3.6-11.0)
[2024-10-03 06:44] LABS: Alanine Aminotransferase 11 U/L (10-49); Albumin, Serum 3.6 gm/dL (3.5-5.0); Albumin/Globulin Ratio 1.3 (1.2-2.2); Alkaline Phosphatase 57 U/L (46-116); Anion Gap 10 (7-16); Aspartate Amino Transferase 16 U/L (0-34); BUN/Creatinine Ratio 27 Ratio (12-20); Bilirubin,Total 0.2 mg/dL (0.3-1.2); Blood Urea Nitrogen 19 mg/dL (9-23); Calcium 8.7 mg/dL (8.3-10.6); Calcium (Corrected) 9.0 mg/dL (8.5-10.1); Carbon Dioxide 28.8 mMol/L (20.0-31.0); Chloride 104 mMol/L (98-107); Creatinine (Component) 0.7 mg/dL (0.6-1.3); Estimated Creatinine Clearance 93.4 mL/min (>60); Globulin 2.8 gm/dL (2.3-3.5); Glucose 84 mg/dL (74-106); Magnesium 2.2 mg/dL (1.6-2.6); Osmolality,Calculated 286 (275-295); Phosphorous 5.0 mg/dL (2.4-5.1); Potassium 4.0 mMol/L (3.4-5.1); Sodium 143 mMol/L (136-145); Total Protein 6.4 gm/dL (5.7-8.2); eGFR > 60 See Note
[2024-10-03] MEDS: ONDANSETRON INJ 2 MG/ML INJ 2 ML 4 MG IVP (07:30)
[2024-10-03] MEDS: HYDROcodone/APAP 5/325 TABLET 1 TAB PO (08:17)
[2024-10-03] MEDS: METOPROLOL SUCCINATE XL 25 MG TABCR PO (08:18)
[2024-10-03] MEDS: PANTOPRAZOLE 40 MG TABLET PO (08:18)
[2024-10-03] MEDS: MYCOPHENOLATE 250 MG CAPSULE (NON-FORMULARY) 500 MG PO ×2 (08:18→20:09)
[2024-10-03] MEDS: HYDROXYCHLOROQUINE 200 MG TABLET PO (08:19)
[2024-10-03] MEDS: HEPARIN SOD INJ 5000 UNIT/ML VIAL SC ×2 (08:20→22:06)
--- NOTE | 2024-10-03 10:15 | ESPR_ITS ---
<Statement entered by Lyle Macario MD - 10/04/24 06:31> Patient was seen and examined at bedside. I agree on the assessment and plan on this note as documented by resident Chantal Black PGY1. Patient is complaining of pain, we will discontinue baclofen and started patient on Flexeril, patient has poor response to baclofen. Patient started on Toradol 15 mg every 6 hours as needed, is on PPI for GI prophylaxis considering patient is also on steroids. Case was discussed with Dr. Gaona OFFICE COPY SELECTOR, patient will be seen by PASTRY ARTIST today. Otherwise we will continue pain management, patient's flareup symptoms from SLE have improved, patient does have allodynia, significant pain to touch. If there is no improvement with the pain regimen, will consider starting on gabapentin/duloxetine for neuropathic pain. Patient needs close outpatient follow-up with rheumatology, disposition is telemetry, will optimize pain regimen, consider discharge in a.m. pending improvement in symptoms. Case discussed with attending Dr. Zaida Macario MD PGY-2 Documentation for date of: 10/03/24 Subjective Subjective Interval history: No acute overnight events. Patient seen and examined at bedside. Complains of skin pain and sensitivity, generalized achiness and pain, worse at lower abdomen which is constant and crampy that radiates to R flank. Patient reports that she does not think it is her period because there has been no blood on her pad. The only blood she noticed was yesterday when she urinated, no blood since then. Denies burning on urination, increased frequency or urgency. Reports nausea due to pain, and cannot tolerate solid foods due to vomiting, and endorses diarrhea. Complains of dry itchy eyes and blurry vision that has been there since her fall in the shower. Complains of the feeling of itchiness in inner ear and watery discharge from ear, but per nurse, no discharge seen. Pain regimen adjusted: removed Teasdale, started Flexeril 10 mg BID, ketorolac 15 mg IV q6h prn, with reported improvement. OBGYN Dr. Gaona consulted for lower abdominal pain and cervical mass, recommendations appreciated. Full liquid diet ordered. Saline drops ordered for dry eyes. Exam Vital Signs Temp Pulse Resp BP Pulse Ox O2 Del Method O2 Flow Rate 97.5 F 75 13 104/68 95 Room Air 0 10/03/24 08:00 10/03/24 08:18 10/03/24 08:00 10/03/24 08:18 10/03/24 08:00 10/03/24 08:00 10/03/24 08:00 Narrative Exam GENERAL: AOx3, no acute distress HEENT: NC/AT, mucous membranes moist, bilateral sclera anicteric CARDIOVASCULAR: regular rate and rhythm, S1/S2 present, no murmurs appreciated PULMONARY: clear to auscultation bilaterally, no rales/rhonchi/wheezes ABDOMINAL: soft, non-distended, no rebound/guarding, bowel sounds present +mild abdominal tenderness worst suprapubic EXTREMITIES: no peripheral edema MSK: diffuse tenderness at upper extremity joints SKIN: warm and dry, intact, no rashes, pain with light touch to global skin worst at legs NEURO: CN II-XII grossly intact, no focal deficits, alert, following commands Objective Labs 10/04/24 05:31 10/04/24 05:31 Labs: Laboratory Results - last 24 hr 10/03/24 05:10 WBC 6.4 RBC 3.98 L Hgb 10.6 L Hct 34.0 L MCV 85 MCH 26.6 MCHC 31.2 RDW Std Deviation 45.0 Plt Count 237 Neut % (Auto) 82 H Lymph % (Auto) 12 [place] % (Auto) 4 Eos % (Auto) 1 Baso % (Auto) 0 Neut # (Auto) 5.2 Lymph # (Auto) 0.8 L [place] # (Auto) 0.3 Eos # (Auto) 0.1 Baso # (Auto) 0.0 Immature Gran # (Auto) 0.03 H Absolute Nucleated RBC 0.00 Immature Gran % 1 H Nucleated RBC % 0 Sodium 143 Potassium 4.0 Chloride 104 Carbon Dioxide 28.8 Anion Gap 10 BUN 19 Creatinine 0.7 Estim Creat Clear Calc 93.4 eGFR > 60 BUN/Creatinine Ratio 27 H Glucose 84 Calculated Osmolality 286 Calcium 8.7 Corrected Calcium 9.0 Phosphorus 5.0 Magnesium 2.2 Total Bilirubin 0.2 L AST 16 ALT 11 Alkaline Phosphatase 57 Total Protein 6.4 Albumin 3.6 Globulin 2.8 Albumin/Globulin Ratio 1.3 Quality Measures Quality Measures sepsis Current suspected stage: ruled out Possible source: unknown Blood cultures ordered: yes Antibiotic ordered: No Assessment & Plan Assessment Current Active Medications: Generic Name Dose Route Start Last Admin Trade Name Freq PRN Reason Stop Dose Admin Acetaminophen 650 mg 09/30/24 17:59 10/02/24 21:19 Acetaminophen 325 Mg Tablet PO 10/30/24 17:58 650 mg Q6H PRN Administration Mild Pain 1-3 or Fever >100.3 Artificial Tears 0 drop 10/03/24 10:04 Artificial Tears 225 Drop/15 Ml Btl BOTH EYES 11/02/24 10:03 PRN PRN TO KEEP EYES MOIST Cyclobenzaprine HCl 10 mg 10/03/24 10:15 Cyclobenzaprine 5 Mg Tablet PO 11/02/24 10:14 BID YADIRA Gabapentin 300 mg 10/01/24 22:00 10/03/24 05:04 Gabapentin 300 Mg Capsule PO 10/31/24 21:59 300 mg TID YADIRA Administration Heparin Sodium (Porcine) 5,000 unit 09/30/24 21:00 10/03/24 08:20 Heparin Sod Inj 5000 Unit/Ml Vial SC 10/14/24 20:59 5,000 unit Q12HR YADIRA Administration Hydroxychloroquine Sulfate 200 mg 10/01/24 16:00 10/03/24 08:19 Hydroxychloroquine 200 Mg Tablet PO 10/08/24 15:59 200 mg QDAY YADIRA Administration Ketorolac Tromethamine 15 mg 10/03/24 10:04 Ketorolac Inj 30 Mg/Ml Vial IVP 10/08/24 10:03 Q6HR PRN PAIN SCALE 4-10(Mod-Sev Metoprolol Succinate 25 mg 10/02/24 09:00 10/03/24 08:18 Metoprolol Succinate Xl 25 Mg Tabcr PO 11/01/24 08:59 25 mg QDAY YADIRA Administration Metoprolol Tartrate 5 mg 09/30/24 18:06 Metoprolol Tartrate Inj 1 Mg/Ml Amp 5 Ml IVP Q5M PRN SUPRAVENTRICULAR TACHYCARDIA Mycophenolate Mofetil 500 mg 10/01/24 21:00 10/03/24 08:18 Mycophenolate 250 Mg Capsule (Non-Formulary) PO 10/31/24 20:59 500 mg BID YADIRA Administration Ondansetron HCl 4 mg 09/30/24 17:59 10/03/24 07:30 Ondansetron Inj 2 Mg/Ml Inj 2 Ml IVP 10/30/24 17:58 4 mg Q6H PRN Administration NAUSEA OR VOMITING Protocol Pantoprazole Sodium 40 mg 10/02/24 09:00 10/03/24 08:18 Pantoprazole 40 Mg Tablet PO 11/01/24 08:59 40 mg QDAY YADIRA Administration Prednisone 10 mg 10/03/24 09:00 10/03/24 08:18 Prednisone 5 Mg Tablet PO 11/02/24 08:59 10 mg QDAY YADIRA Administration Sennosides 1 tab 09/30/24 18:15 10/03/24 08:18 Senna Tablet PO 10/30/24 18:14 1 tab QDAY YADIRA Administration Protocol Plan Susana Clark is a 24 year old female for past medical history of lupus and Sjrogen's who presented on 09/30 for fever and palpitations, admitted for SVT, controlled on metoprolol, found to have cervical calcified mass. #SLE Acute Flare #Sjogrens #Generalized pain #Allodynia #Fever, resolved Likely secondary to lupus flare. Of note, patient started new drug Sephlano, first infusion 4 weeks ago. No immediate allergic reaction during infusion. Utox and UA negative. CXR shows mild prominence of left ventricle with mild vascular congestion. No suspected source of infection at this time, thus no antibiotics needed for now. Met 3/4 SIRS criteria on admission (temp as high as 102, tachycardic, tachypnic), no end organ failure so does not meet sepsis criteria. 10/01: Spoke to patient's journeyman powerhouse operator Dr. Madera at [facility] in [place], recommended restarting home medications and starting on baclofen for pain. Requested tests for complement C3, C4, dsDNA, urine protein creatinine ratio, ESR, and CRP. Has appointment coming up on 10/16. Next infusion scheduled for 10/03, but per patient she rescheduled. UCr high 169, test neg, UCx neg, BCx NGTD New complaint of dry eyes and blurry vision, per patient was diagnosed with Sjogren's but not educated about symptoms nor offered any treatments in the past. Plan: - Continue home doses of prednisone 10 mg, mycophenolate 500 mg BID, and hydroxychloroquinine 200 mg QD - Gabapentin 300 mg TID per journeyman powerhouse operator Dr. Madera's recommendation - Discontinued baclofen due to ineffectiveness and Teasdale 5 - Switch pain management to PO Flexeril 10 mg BID and IV ketorolac 15 mg q6h prn - F/u complement C3 and C4, dsDNA - Tylenol for pain and fever prn - Trial of saline drops, reassess vision tomorrow #SVT, resolved. #Presyncope 2/2 SVT #s/p unwitnessed fall Patient reports dizziness, followed by brief loss of consciousness and head trauma in her shower on 09/29. CT head negative for acute intracranial bleed. Possibly related to lupus or cardiac etiology as patient reported palpitations prior to episode. No history of seizures, less likely neurologic etiology. History of SVTs per patient, has palpitations but only lasts no more than an hour. Likely secondary to lupus. DDx: drug induced/toxin, pericarditis, rheumatoid heart disease S/p adenosine x3, rate now controlled on metoprolol XL 25mg. CXR 09/30 shows mild prominence of left ventricle with mild vascular congestion. Utox negative. Echo 09/30 negative for pericarditis, EF 55 to 60%. No dysfunction noted. Plan: - Cardiology Dr. De La Fuente consulted, recs appreciated as below - Metoprolol XL 25 mg QD, may up titrate as needed - Keep K and Mg >4 and >2 respectively - AVNRT vs AVRT on EKG - Will possibly need EP study for recurrent SVT, recommend to f/u with EP for further evaluation - IV metoprolol tartrate prn for sinus tachycardia - Consider consulting neurology for seizure work up if patient continues to have presyncopal episodes without abnormalities on telemetry #Cervical mass #Fibrotic cyst on left ovary Calcified cervical mass measuring 16x6x7 mm and left ovarian fibrotic cyst noted on pelvic US. DDX for former include teratoma vs calcified uterine fibroids vs osseous metaplasia. Patient complains of lower abdominal crampy pain with one episode of blood in urine on 10/02. No further bleeding noted on pads. LMP 08/24 with irregular cycles. Plan: - OB Dr. Gould consulted, recs appreciated - Spoke to Dr. Gaona, likely incidental finding of Nabothian cyst - F/u repeat UA #Electrolyte Abnormalities #Hypokalemia #Hypomagnesemia, improved Mg 1.6 on admission. - s/p Mg infusion in ED - recheck and replete as needed Health Maintenance Disposition: Further management of lupus flare, pending OB-Consult DVT prophylaxis: Heparin q12 GI prophylaxis: Protonix Diet: Full liquid diet CODE STATUS: FULL Patient plan of care was discussed with the resident, Dr. Macario, and attending physician, Dr. Cerda. Chantal Black DO Internal Medicine PGY-1 Attending Provider Attestation/Addendum I attest that I was physically present for the evaluation, physical examination, lab and imaging review of the patient with the residents. I discussed the case with the residents and agree with the findings and plans of care as documented above. Andra Cerda MD
--- NOTE | 2024-10-03 10:53 | PC.SS ---
Follow up note: OB consult is pending. Pt will return home upon dc.
--- NOTE | 2024-10-03 16:12 | ESCONSULT_ITS ---
DIRECTOR CALL C[employer] SALES HPI Data of Consult Patient: new to practice Consult date: 10/03/24 Requesting Physician: Andra Cerda MD Primary Care Provider: Physician No Primary/Family Consult Narrative History of present illness: 24-year-old female with a complex medical history including systemic lupus erythematosus (SLE) and Sj?gren?s syndrome, currently admitted for a lupus flare and previously resolved SVT, now evaluated by OB-DIRECTOR CALL CENTER SALES for a calcified cervical mass found on transabdominal pelvic ultrasound performed 10/02/2024. Patient reports chronic lower abdominal cramping and one episode of hematuria on 10/02. Last menstrual period was 08/24, but cycles are reported as irregular. She underwent a delivery one year ago. Pelvic Ultrasound (TAUS, 10/02/24 @ 13:13): * Uterus: 7.7 cm with endometrial stripe 0.6 cm * Cervix: Echogenic structure measuring 16 x 6 x 7 mm, possibly calcified * Right ovary: 2.6 cm with arterial flow * Left ovary: 2.5 cm with 19 mm follicular cyst * No free fluid cc:: cc: Andra Cerda MD Meds Home Medications and Allergies Home Medications ?Medication ?Instructions ?Recorded ?Confirmed ?Type anifrolumab-fnia 300 mg/2 mL (150 300 mg IV .every 4 w eeks 10/01/24 10/01/24 History mg/mL) intravenous solution (Saphnelo) baclofen 10 mg tablet 10 mg PO TID 10/01/24 History gabapentin 300 mg capsule 300 mg PO TID 10/01/2410/01 History hydroxychloroquine 200 mg tablet 200 mg PO .once daily 10/01/24 10/01/24 History Allergies Allergy/AdvReac Type Severity Reaction Status Date / Time No Known Allergies Allergy Verified 09/30/24 14:37 Exam - [employer] Vital Signs Temp Pulse Resp BP Pulse Ox O2 Del Method O2 Flow Rate 97.5 F 79 18 99/69 99 Room Air 0 10/03/24 12:00 10/03/24 12:00 10/03/24 12:00 10/03/24 12:00 10/03/24 12:00 10/03/24 12:00 10/03/24 12:00 Narrative Exam Deferred [employer] - Results Labs 10/03/24 05:10 10/03/24 05:10 Labs: Short CBC 10/03/24 Range/Units 05:10 WBC 6.4 (3.6-11.0) Thou/mm3 Hgb 10.6 L (12.0-16.0) g/dL Hct 34.0 L (36.0-46.0) % Plt Count 237 (140-440) Thou/mm3 BMP 10/03/24 05:10 Sodium 143 Potassium 4.0 Chloride 104 Carbon Dioxide 28.8 BUN 19 Creatinine 0.7 Glucose 84 Calcium 8.7 Liver Function 10/03/24 Range/Units 05:10 Total Bilirubin 0.2 L (0.3-1.2) mg/dL AST 16 (0-34) U/L ALT 11 (10-49) U/L Alkaline Phosphatase 57 (46-116) U/L Albumin 3.6 (3.5-5.0) gm/dL Assessment and Plan Assessment and plan (1) Cervicitis with nabothian cyst: Status: Acute Assessment and plan: //A: Assessment 1. Calcified cervical mass (likely Nabothian cyst) * The ultrasound finding is most consistent with a benign Nabothian cyst, which may become calcified over time. * No clinical signs of infection, mass effect, or malignancy at this time. 2. Incidental ovarian follicular cyst (left ovary, 19 mm) * Likely physiologic, no intervention indicated. //P: Plan * No inpatient gynecologic intervention required. * Cervical calcification appears benign; most likely a calcified Nabothian cyst. * Recommend follow-up pelvic exam and possible transvaginal ultrasound as outpatient, either with her established OB-[employer] provider or through [facility]. * No further imaging or gynecologic labs required during this admission unless symptoms evolve. * Follow-up for ovarian cyst is not required unless symptomatic. Differential Diagnosis ? Cervical Mass * Nabothian cyst (most likely, especially if calcified) * Cervical fibroid (rare and often vascular) * Osseous metaplasia (rare post-inflammatory finding) * Retained suture granuloma or calcified debris post * Cervical neoplasm (unlikely in absence of risk factors or suspicious findings) Please feel free to reach out with any further gynecologic concerns. Thank you for the consult.
--- NOTE | 2024-10-03 16:12 | PD.GYNCONS ---
WEIGHT REDUCING TECHNICIAN HPI Data of Consult Patient: new to practice Consult date: 10/03/24 Requesting Physician: Andra Cerda MD Primary Care Provider: Physician No Primary/Family Consult Narrative History of present illness: 24-year-old female with a complex medical history including systemic lupus erythematosus (SLE) and Sj?gren?s syndrome, currently admitted for a lupus flare and previously resolved SVT, now evaluated by OB-WEIGHT REDUCING TECHNICIAN for a calcified cervical mass found on transabdominal pelvic ultrasound performed 10/02/2024. Patient reports chronic lower abdominal cramping and one episode of hematuria on 10/02. Last menstrual period was 08/24, but cycles are reported as irregular. She underwent a delivery one year ago. Pelvic Ultrasound (TAUS, 10/02/24 @ 13:13): Uterus: 7.7 cm with endometrial stripe 0.6 cm Cervix: Echogenic structure measuring 16 x 6 x 7 mm, possibly calcified Right ovary: 2.6 cm with arterial flow Left ovary: 2.5 cm with 19 mm follicular cyst No free fluid cc:: cc: Andra Cerda MD Meds Home Medications and Allergies Home Medications ?Medication ?Instructions ?Recorded ?Confirmed ?Type anifrolumab-fnia 300 mg/2 mL (150 300 mg IV .every 4 weeks 10/01/24 10/01/24 History mg/mL) intravenous solution (Saphnelo) baclofen 10 mg tablet 10 mg PO TID 10/01/24 10/01/24 History gabapentin 300 mg capsule 300 mg PO TID 10/01/24 10/01/24 History hydroxychloroquine 200 mg tablet 200 mg PO .once daily 10/01/24 10/01/24 History Allergies Allergy/AdvReac Type Severity Reaction Status Date / Time No Known Allergies Allergy Verified 09/30/24 14:37 Exam - WEIGHT REDUCING TECHNICIAN Vital Signs Temp Pulse Resp BP Pulse Ox O2 Del Method O2 Flow Rate 97.5 F 79 18 99/69 99 Room Air 0 10/03/24 12:00 10/03/24 12:00 10/03/24 12:00 10/03/24 12:00 10/03/24 12:00 10/03/24 12:00 10/03/24 12:00 Narrative Exam Deferred WEIGHT REDUCING TECHNICIAN - Results Labs 10/03/24 05:10 10/03/24 05:10 Labs: Short CBC 10/03/24 Range/Units 05:10 WBC 6.4 (3.6-11.0) Thou/mm3 Hgb 10.6 L (12.0-16.0) g/dL Hct 34.0 L (36.0-46.0) % Plt Count 237 (140-440) Thou/mm3 BMP 10/03/24 05:10 Sodium 143 Potassium 4.0 Chloride 104 Carbon Dioxide 28.8 BUN 19 Creatinine 0.7 Glucose 84 Calcium 8.7 Liver Function 10/03/24 Range/Units 05:10 Total Bilirubin 0.2 L (0.3-1.2) mg/dL AST 16 (0-34) U/L ALT 11 (10-49) U/L Alkaline Phosphatase 57 (46-116) U/L Albumin 3.6 (3.5-5.0) gm/dL Assessment and Plan Assessment and plan (1) Cervicitis with nabothian cyst: Status: Acute Assessment and plan: //A: Assessment 1. Calcified cervical mass (likely Nabothian cyst) The ultrasound finding is most consistent with a benign Nabothian cyst, which may become calcified over time. No clinical signs of infection, mass effect, or malignancy at this time. 2. Incidental ovarian follicular cyst (left ovary, 19 mm) Likely physiologic, no intervention indicated. //P: Plan No inpatient gynecologic intervention required. Cervical calcification appears benign; most likely a calcified Nabothian cyst. Recommend follow-up pelvic exam and possible transvaginal ultrasound as outpatient, either with her established OB-WEIGHT REDUCING TECHNICIAN provider or through [facility]. No further imaging or gynecologic labs required during this admission unless symptoms evolve. Follow-up for ovarian cyst is not required unless symptomatic. Differential Diagnosis ? Cervical Mass Nabothian cyst (most likely, especially if calcified) Cervical fibroid (rare and often vascular) Osseous metaplasia (rare post-inflammatory finding) Retained suture granuloma or calcified debris post Cervical neoplasm (unlikely in absence of risk factors or suspicious findings) Please feel free to reach out with any further gynecologic concerns. Thank you for the consult.
--- NOTE | 2024-10-03 17:56 | PD.CARDCATH ---
Cardiac Cath Procedure Procedure Narrative PROCEDURE PERFORMED: 1. Left heart cardiac catheterization including right, left coronary angiograms and left ventriculogram 2. Successful complex PCI of the ostial RCA with a 3.5 x 16 mm Synergy DIGNA stent [MegaLinea] with excellent results and no residual stenosis or complications 2. Ultrasound-guided access of the right radial artery 3. Conscious sedation for 30 minutes FRONT DESK PERSON: Landry Pickard MD Procedure Narrative HISTORY AND INDICATIONS: All the risk benefits and alternatives of left heart cardiac attrition were explained in detail including the risk of bleeding, heart attack, stroke and in detail. Patient agreeable for the procedure and provided the consent. H&P updated. DESCRIPTION OF PROCEDURE: The patient was brought to the cardiac catheterization lab analysis the precautions were followed. Patient was given 1 Mg of Versed and 50 mcg of fentanyl for moderate conscious sedation. 2 mL of lidocaine was given in the right wrist. The right radial artery was accessed via the ultrasound guidance as well as micropuncture technique. A 6 [place] glide sheath was introduced. We then used a 6 [place] TIG 4 catheter to perform the left coronary angiogram as well as a left ventriculogram which showed the following findings. A JR 3.5 SH sidehole catheter was used for right coronary angiogram as well as performing the PCI of the ostial RCA. 1. Right dominant circulation 2. Left main artery is a large artery without any Significant disease 2. LAD arises artery with mild to moderate stenosis in the proximal LAD of 40 to 50%, patent stents in the mid as well as the distal LAD. Small diagonals without any significant disease. 3. LCx is a large size artery with mild disease in the proximal and mid segments. OM1 is a medium artery with moderate 40 to 50% stenosis as well as OM 2 is a medium sized artery with moderate 60 to 70% stenosis in the proximal segment. 4. RCA is large size artery with severe 95% stenosis of the ostial RCA and mild to moderate diffuse disease in the mid as well as the distal RCA. 5. LVEF is normal at 60 to 65% with normal LVEDP. There was no significant transvalvular aortic gradient INTERVENTION: A 6 [place] JL 3.5 SH guide was used to engage the right coronary artery. Patient was given weight-based heparin and ACT was greater than 250 although the procedure. Run-through guidewire was used to cross the lesion in the ostial RCA without any complications. We then use a second run-through wire as sentinel wire to adjust the position of the balloon or the stent of the ostial RCA lesion. A 3.0 x 12 mm semicompliant balloon was used for predilatation and was predilated multiple times at 6, 8 and 10 and 12 slueman respectively. We then used 3.5 x 16 mm Megatron Synergy DIGNA stent and carefully positioned in the ostium and multiple images were taken to make sure that ostium was covered with couple of cells extending into the aorta. The Megatron stent was deployed at 12 and 14 suleman for a total of 45 seconds and then post dilation was performed with partial length of the balloon outside the stent into the aorta at almost 20 suleman to flare up distal edge of the stent into the aorta. Excellent results achieved with LEIA-3 flow and no other complications. Final angiographic pictures were taken and all interventional equipment was removed. ACC data: Preprocedure:-Ostial RCA with 90 to 95% stenosis with LEIA-3 flow Post procedure: Ostial RCA with 0% residual stenosis with LEIA-3 flow Patient was already on aspirin and Brilinta which were continued. A radial band was used to achieve the hemostasis of the right radial artery access. Patient will be monitored in the cardiac [employer] for the next 2 to 3 hours and will be discharged home later if hemodynamically stable. Complications: None Specimens: None Blood loss: Estimated 10 ML Summary/findings: 1. LHC showed patent stents in the mid as well as distal LAD without any significant stenosis replacing #2024. Rest of the LHC showed severe residual 90 to 95% stenosis of the ostial RCA, moderate disease proximal LAD, rest of the RCA, OM1 and OM 2 as described above. 2. LVEF was normal at 55 to 60% with normal LVEDP. No significant transvalvular aortic gradient noted. 3. Successful complex PCI performed of the ostial RCA with 3.5 x 16 mm Synergy DIGNA stent [Megatron] with excellent results and no complications. Recommendations: 1. Recommended dual antiplatelet therapy with aspirin 81 mg once daily lifetime and Brilinta 90 mg twice daily for at least 1 year. High intensity statin and beta-blockers to be continued 2. Recommend aggressive risk factor modification 3. Patient recommended not to lift any weight more than 5 to 10 pounds for the next 7 days and follow-up with me in the office in 7 days. Landry Pickard MD Interventional Cardiology.
--- NOTE | 2024-10-03 22:14 | PD.RESPRO ---
Documentation for date of: 10/03/24 Subjective Subjective Interval history: The patient was seen and examined at the bedside this morning. Patient admitted to lower abdominal pain, dysuria, frequency, and urgency. Patient states that her lower extremities are exquisitely tender, and that she has developed new rash on her thighs . She denied any palpitation or chest pain. monitoring coordinator was revealing sinus rhythm , Vital signs stable, afebrile. CBC and CMP at baseline, with K of 4.0 and Mg of 2.2 Recommended to continue on Metoprolol succinate 25mg daily and uptitrate it based on BP.. Pending complement C3 and C4, including dsDNA level. Continue treating underlying SLE. Exam Vital Signs Temp Pulse Resp BP Pulse Ox O2 Del Method O2 Flow Rate 98.3 F 89 17 127/88 H 98 Room Air 0 10/03/24 20:00 10/03/24 22:04 10/03/24 22:04 10/03/24 22:04 10/03/24 20:00 10/03/24 20:00 10/03/24 16:00 Narrative Exam General: No acute distress, Alert and Oriented x 3, hi faced HEENT: Moist mucous membranes, oropharynx clear Neck: Supple, No masses, No JVD CVS: S1S2 Regular rate and rhythm, No murmurs, rubs or gallops Lungs: Clear to auscultation with no accessory use, no wheeze no rhonchi Abd: Soft, NT/ND, +BS, no organomegaly Ext: No edema, warm and well perfused. Noted tenderness to palpation, erythema of bilateral lower extremities. round, Poorly demarked, Erythematous macules 2-3 cm in diameter noted spread Over bilateral thighs. Skin: No rash Psych: Appropriate mood and affect Objective Labs 10/06/24 04:45 10/06/24 04:45 Labs: Laboratory Results - last 24 hr 10/03/24 05:10 WBC 6.4 RBC 3.98 L Hgb 10.6 L Hct 34.0 L MCV 85 MCH 26.6 MCHC 31.2 RDW Std Deviation 45.0 Plt Count 237 Neut % (Auto) 82 H Lymph % (Auto) 12 [place] % (Auto) 4 Eos % (Auto) 1 Baso % (Auto) 0 Neut # (Auto) 5.2 Lymph # (Auto) 0.8 L [place] # (Auto) 0.3 Eos # (Auto) 0.1 Baso # (Auto) 0.0 Immature Gran # (Auto) 0.03 H Absolute Nucleated RBC 0.00 Immature Gran % 1 H Nucleated RBC % 0 Sodium 143 Potassium 4.0 Chloride 104 Carbon Dioxide 28.8 Anion Gap 10 BUN 19 Creatinine 0.7 Estim Creat Clear Calc 93.4 eGFR > 60 BUN/Creatinine Ratio 27 H Glucose 84 Calculated Osmolality 286 Calcium 8.7 Corrected Calcium 9.0 Phosphorus 5.0 Magnesium 2.2 Total Bilirubin 0.2 L AST 16 ALT 11 Alkaline Phosphatase 57 Total Protein 6.4 Albumin 3.6 Globulin 2.8 Albumin/Globulin Ratio 1.3 Quality Measures Quality Measures sepsis Current suspected stage: ruled out Possible source: unknown Blood cultures ordered: yes Antibiotic ordered: No Assessment & Plan Assessment Current Active Medications: Generic Name Dose Route Start Last Admin Trade Name Freq PRN Reason Stop Dose Admin Acetaminophen 650 mg 09/30/24 17:59 10/02/24 21:19 Acetaminophen 325 Mg Tablet PO 10/30/24 17:58 650 mg Q6H PRN Administration Mild Pain 1-3 or Fever >100.3 Artificial Tears 0 drop 10/03/24 10:04 Artificial Tears 225 Drop/15 Ml Btl BOTH EYES 11/02/24 10:03 PRN PRN TO KEEP EYES MOIST Cyclobenzaprine HCl 10 mg 10/03/24 10:15 10/03/24 20:09 Cyclobenzaprine 5 Mg Tablet PO 11/02/24 10:14 10 mg BID YADIRA Administration Gabapentin 300 mg 10/01/24 22:00 10/03/24 22:06 Gabapentin 300 Mg Capsule PO 10/31/24 21:59 300 mg TID YADIRA Administration Heparin Sodium (Porcine) 5,000 unit 09/30/24 21:00 10/03/24 22:06 Heparin Sod Inj 5000 Unit/Ml Vial SC 10/14/24 20:59 5,000 unit Q12HR YADIRA Administration Hydroxychloroquine Sulfate 200 mg 10/01/24 16:00 10/03/24 08:19 Hydroxychloroquine 200 Mg Tablet PO 10/08/24 15:59 200 mg QDAY YADIRA Administration Ketorolac Tromethamine 15 mg 10/03/24 10:04 10/03/24 20:09 Ketorolac Inj 30 Mg/Ml Vial IVP 10/08/24 10:03 15 mg Q6HR PRN Administration PAIN SCALE 4-10(Mod-Sev Metoprolol Succinate 25 mg 10/02/24 09:00 10/03/24 08:18 Metoprolol Succinate Xl 25 Mg Tabcr PO 11/01/24 08:59 25 mg QDAY YADIRA Administration Metoprolol Tartrate 5 mg 09/30/24 18:06 Metoprolol Tartrate Inj 1 Mg/Ml Amp 5 Ml IVP Q5M PRN SUPRAVENTRICULAR TACHYCARDIA Mycophenolate Mofetil 500 mg 10/01/24 21:00 10/03/24 20:09 Mycophenolate 250 Mg Capsule (Non-Formulary) PO 10/31/24 20:59 500 mg BID YADIRA Administration Ondansetron HCl 4 mg 09/30/24 17:59 10/03/24 07:30 Ondansetron Inj 2 Mg/Ml Inj 2 Ml IVP 10/30/24 17:58 4 mg Q6H PRN Administration NAUSEA OR VOMITING Protocol Pantoprazole Sodium 40 mg 10/02/24 09:00 10/03/24 08:18 Pantoprazole 40 Mg Tablet PO 11/01/24 08:59 40 mg QDAY YADIRA Administration Prednisone 10 mg 10/03/24 09:00 10/03/24 08:18 Prednisone 5 Mg Tablet PO 11/02/24 08:59 10 mg QDAY YADIRA Administration Sennosides 1 tab 09/30/24 18:15 10/03/24 08:18 Senna Tablet PO 10/30/24 18:14 1 tab QDAY YADIRA Administration Protocol Plan The patient is a 24-year-old female with significant past medical history of SLE on saphnelo infusion once a month,, Sjogren's syndrome, and SVT on metoprolol presented to ED on 09/30/2024 with chief complaint of palpitations. Cardiology consultation done for further management of SVT. #Syncope 2/2 #SVT, resolved Likely secondary to #SLE flareup #Unwitnessed fall 2/2 syncope #Ruled out pericarditis/ pericardial effusion The patient presented with palpitation, and was found to have SVT in EKG, and reported recently having diarrhea, presented with fever. The patient was being tapered down on a steroid by her floral merchandiser, and was currently getting 5 mg of daily prednisone. The patient is due for next Saphnelo infusion on October 03, 2024. Hemoglobin 11 point MCV 84, white count WNL, potassium 4.6, BUN 8, creatinine 0.6, magnesium 2.0, liver enzymes WNL, TG 69, total cholesterol 154, LDL 88, HDL 52, TSH 1.83, initial EKG revealed SVT with ventricular rate 250, followed by repeat EKG revealing sinus tachycardia with incomplete RBBB and low voltage in precordial leads. Head CT was negative for acute hemorrhage, midline shift or mass effect. Chest x-ray was significant for mild vascular congestion. TTE reaveled: Normal LV size and function. Normal LV diastolic function. Estimated EF at 55-60 %. The RV is normal in size and systolic function. Mild TR and TR. IVC not well visualized. Plan: - Telemetry monitoring to rule out any arrhythmias. 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 -Tape Calender is tappering down steroid -Recommended Dexa scan as outpt Rest of the management deferred to primary team. Thank you for cardiology consultation. We appreciate the opportunity to participate in this patient's care. Will continue to follow-up on this patient This case was discussed with my attending physician, Dr. Pickard. Kassie Frazier DO PGY I Attending Provider Attestation/Addendum I have personally seen and examined the patient separately on the above date of service and discussed the plan of care with the resident. I reviewed the resident Dr. Fernando consultation progress note and agree with the resident findings and plan in the note above and have also edited the documentation to reflect my findings and plan. Landry Pickard M.D. Interventional Cardiology
[2024-10-04] VITALS (8 sets, daily range): BP systolic 93–109; BP diastolic 58–72; PULSE 72–113; RESP 14–100; TEMP 36.1–36.6; O2SAT 97–99; BMI 23.8
[2024-10-04] MEDS: KETOROLAC INJ 30 MG/ML VIAL 15 MG IVP ×3 (05:26→21:35)
[2024-10-04] MEDS: GABAPENTIN 300 MG CAPSULE PO ×3 (05:26→22:24)
[2024-10-04 05:59] LABS: Basophils # (Auto) 0.0 Thou/mm3 (0.0-0.2); Basophils % (Auto) 0 % (0-2.5); Eosinophils # (Auto) 0.1 Thou/mm3 (0.0-0.5); Eosinophils % (Auto) 1 % (0-10); Hematocrit 32.9 % (36.0-46.0); Hemoglobin 10.3 g/dL (12.0-16.0); Immature Granulocytes Auto 0.03 Thou/mm3 (0.00-0.00); Lymphocytes # (Auto) 0.7 Thou/mm3 (1.0-4.8); Lymphocytes % (Auto) 14 % (10-50); Mean Corpuscular HGB Conc 31.3 g/dl (31.0-37.0); Mean Corpuscular Hemoglobin 26.8 pg (25.0-35.0); Mean Corpuscular Volume 86 fL (80-100); Monocytes # (Auto) 0.2 Thou/mm3 (0.0-0.8); Monocytes % (Auto) 4 % (0-12); Neutrophils # (Auto) 4.3 Thou/mm3 (1.8-7.7); Neutrophils % (Auto) 80 % (37-80); Nucleated Red Blood Cell # 0.00 Thou/mm3 (0.00-0.00); Nucleated Red Blood Cell % 0 /100 WBC (0); Platelet Count 226 Thou/mm3 (140-440); RDW Standard Deviation 46.0 fL (36.4-46.3); Red Blood Count 3.85 Miln/mm3 (4.00-5.20); White Blood Count 5.4 Thou/mm3 (3.6-11.0)
[2024-10-04 06:39] LABS: Alanine Aminotransferase 16 U/L (10-49); Albumin, Serum 3.4 gm/dL (3.5-5.0); Albumin/Globulin Ratio 1.3 (1.2-2.2); Alkaline Phosphatase 57 U/L (46-116); Anion Gap 9 (7-16); Aspartate Amino Transferase 18 U/L (0-34); BUN/Creatinine Ratio 26 Ratio (12-20); Bilirubin,Total 0.2 mg/dL (0.3-1.2); Blood Urea Nitrogen 18 mg/dL (9-23); Calcium 8.7 mg/dL (8.3-10.6); Calcium (Corrected) 9.2 mg/dL (8.5-10.1); Carbon Dioxide 27.9 mMol/L (20.0-31.0); Chloride 106 mMol/L (98-107); Creatinine (Component) 0.7 mg/dL (0.6-1.3); Estimated Creatinine Clearance 93.5 mL/min (>60); Globulin 2.6 gm/dL (2.3-3.5); Glucose 93 mg/dL (74-106); Magnesium 1.5 mg/dL (1.6-2.6); Osmolality,Calculated 286 (275-295); Potassium 4.1 mMol/L (3.4-5.1); Sodium 143 mMol/L (136-145); Total Protein 6.0 gm/dL (5.7-8.2); eGFR > 60 See Note
[2024-10-04] MEDS: MYCOPHENOLATE 250 MG CAPSULE (NON-FORMULARY) 500 MG PO ×2 (08:33→21:35)
[2024-10-04] MEDS: METOPROLOL SUCCINATE XL 25 MG TABCR PO (08:33)
[2024-10-04] MEDS: Magnesium Sulfate 4 GM Ivpb 4 GM/50 ML BAG IV ×2 (08:33→21:36)
[2024-10-04] MEDS: PANTOPRAZOLE 40 MG TABLET PO (08:33)
[2024-10-04] MEDS: HEPARIN SOD INJ 5000 UNIT/ML VIAL SC (08:34)
[2024-10-04] MEDS: HYDROXYCHLOROQUINE 200 MG TABLET PO (08:34)
[2024-10-04 14:49] LABS: Collection Type, Urine Clean Catch
--- NOTE | 2024-10-04 14:50 | PD.RESDS ---
Planned Discharge Date 10/04/24 DS: Providers Provider Date of admission: 09/30/24 18:08 Primary care physician: Physician No Primary/Family Admitting Provider: Andra Cerda MD Attending Provider on Admission: Andra Cerda MD Consults: 09/30/24 19:01 Consult to Cardiology Routine Comment: Consulting Provider: Landry Pickard Instructions: SVT (history of Lupus) 10/03/24 10:01 Consult to Gynecology Routine Comment: Calcified mass in the cervix 16 x 6 x 7 mm Consulting Provider: Davi Gaona Attending Provider on DC: Andra Cerda MD Discharging Provider: Andra Cerda MD DS: Diagnosis Problem List Completed Was Problem List Reviewed/Reconciled?: Yes Hospital Course Hospital Course Hospital course: Summary: Susana Clark is a 24 year old female for past medical history of lupus and Sjrogen's who presented on 09/30 for fever, generalized pain and palpitations, admitted for acute SLE flare and SVT HR 240s, incidentally found to have cervical calcified mass. Patient endorses starting a new infusion for her SLE called [facility] 4 weeks ago [address]. Calabrese soda dialyzer in [place]. She also follows a fire and safety helper at [facility] in [place] for her SVTs. With collaboration of patient's soda dialyzer, patient was treated with prednisone, mycophenolate, hydroxychloroquine, and gabapentin. Pain managed with Flexeril and ketorolac. Cardiology was consulted and patient's SVT controlled with metoprolol 25 mg. Cardiology recommended possible EP study for recurrent SVT follow-up with an EP for further evaluation. Hospital course prolonged by a new cervical mass measuring 16 x 6 x 7 mm found on pelvic ultrasound. MAKING MACHINE CATCHER was consulted, and determined the cyst to be a nabothian cyst with no current interventions required and to follow-up with outpatient MAKING MACHINE CATCHER. Pain has improved and patient is feeling ready to be discharged. Imaging: Echocardiogram: Normal LV size and function. Estimated EF 55 to 60%. Normal LV diastolic function. RV normal in size and systolic function. No pericardial effusion Abdominal ultrasound: absent gallbladder, normal common bile duct, liver normal size Pelvic ultrasound: Echogenic structure may represent calcification in the cervix 16x6x7 mm, 1.9cm left ovarian cyst Discharge Recommendations: - Please take all medications as prescribed - START Ketorolac 10 mg three times a day as needed, Flexeril 10 mg twice a day and gabapentin 300 mg three times daily - START Protonix 40 mg daily for at least 2 weeks - START Metoprolol 25 mg XL daily - Continue prednisone 10 mg daily, mycophenolate 500 mg twice a day, hydroxychloroquine 200 mg daily - Please follow up with your PCP within one week of discharge - Please follow up with your soda dialyzer, OBGYN and fire and safety helper within 1-2 weeks of discharge - If your symptoms worsen, please seek immediate medical attention and return to your nearest emergency room. - If you do not have a PCP, you may follow up at the [facility] at [address] [place] [address] [address], [facility] [id number], Hospital Diagnoses: #SLE Acute Flare #Sjogrens #Generalized pain #Allodynia #Fever, resolved #SVT, resolved. #Presyncope 2/2 SVT #s/p unwitnessed fall #Cervical mass #Fibrotic cyst on left ovary #Electrolyte Abnormalities #Hypokalemia #Hypomagnesemia, improved Status at Discharge Cognitive/behavioral status at discharge: Stable Functional status at discharge: independent ambulation Overall status at discharge: patient is progressing back to baseline Time Spent with Patient Time attestation: Total time spent providing and/or coordinating discharge services: Time spent: Greater than 30 minutes Exam Vital Signs Temp Pulse Resp BP Pulse Ox O2 Del Method O2 Flow Rate 97.0 F 101 H 24 H 107/72 97 Room Air 0 10/04/24 12:10/04/24 12:10/04/24 12:10/04/24 12:10/04/24 12:10/04/24 12:10/04/24 12:00 Narrative Exam GENERAL: AOx3, no acute distress HEENT: NC/AT, mucous membranes moist, bilateral sclera anicteric CARDIOVASCULAR: regular rate and rhythm, S1/S2 present, no murmurs appreciated PULMONARY: clear to auscultation bilaterally, no rales/rhonchi/wheezes ABDOMINAL: soft, non-distended, no rebound/guarding, bowel sounds present +mild abdominal tenderness most suprapubic EXTREMITIES: no peripheral edema MSK: mild tenderness at upper extremity joints SKIN: warm and dry, intact, no rashes, mild skin sensitivity to light touch NEURO: CN II-XII grossly intact, no focal deficits, alert, following commands Discharge Plan Plan Patient Disposition: HOME (Self Care) Patient condition on transfer: Stable Care Plan Goals: Instructions: -Please continue to take Metoprolol XL 25 mg once daily for SVT -Please follow up with your fire and safety helper in [place] within one week of discharge -Please follow up with your soda dialyzer or primary care physician for your Double Strand DNA, C3, and C4 level ordered inpatient -Please have your primary physician order a DEXA scan given long standing history of steroid use. -Please continue your 10 mg prednisone once daily as recommended by your soda dialyzer. -Please follow up with your soda dialyzer, Dr. Calabrese, on 10/16/2024 for your Lupus -Please follow up with your primary care provider within one week of discharge -If your symptoms worsen,please seek immediate medical attention and return to your nearest emergency room -If you do not have a primary care provider, you may follow up at the [facility] at [address] [place] [address] [address], [place] [address], Prescriptions/Referrals Prescriptions/Med Rec: New mycophenolate mofetil 250 mg Capsule 500 mg PO BID 30 Days Qty: 120 0RF metoprolol succinate 25 mg Tablet Extended Release 24 Hr 25 mg PO QDAY 30 Days Qty: 30 0RF prednisone 10 mg tablet 10 mg PO QDAY 30 Days Qty: 30 0RF Continued Saphnelo 300 mg/2 mL (150 mg/mL) solution 300 mg IV .every 4 weeks hydroxychloroquine 200 mg tablet 200 mg PO .once daily Patient Comments: TAKE 1 TABLET BY MOUTH EVERY DAY baclofen 10 mg tablet 10 mg PO TID gabapentin 300 mg capsule 300 mg PO TID Patient Comments: TAKE 1 CAPSULE BY MOUTH 3 TIMES A DAY. Discontinued prednisone 10 mg tablet 20 mg PO .once Patient Comments: TAKE 1 TABLET BY MOUTH EVERY DAY Referrals: Landry Pickard MD [Physician] - Patient/Caregiver Discharge Instructions Discharge Activity: activity as tolerated Print Language: Welsh Stand Alone Forms: [employer] Award Info., Patient Portal Info Letter Quality Discharge Quality Measures VTE prophylaxis Attestestation Attestation I attest that I was physically present for the evaluation, physical examination, lab and imaging review of the patient with the residents. I discussed the case with the residents and agree with the findings and plans of care as documented above. Andra Cerda MD
[2024-10-04 15:30] LABS: Bilirubin,Urine Negative (Negative); Blood,Urine 3+ (Negative); Clarity,Urine Turbid (Clear/Hazy); Glucose, Urine Negative (Negative); Ketones,Urine Negative (Negative); Leukocyte Esterase,Urine Positive (Negative); Nitrite,Urine Negative (Negative); PH,Urine 6.5 (5.0-7.0); Protein,Urine Negative (Neg - Trace); RBC,Urine 2660 /hpf (0-3); Specific Gravity,Urine 1.008 (1.001-1.035); Squamous Epithelial Cell,Urine 6 /hpf (0-5); Urobilinogen,Urine Negative mg/dL (0.0-1.0); WBC,Urine 4 /hpf (0-5)
[2024-10-04 15:32] LABS: Color,Urine Lt-Red (Lt Yel-Yel)
[2024-10-04] MEDS: Artificial Tears 225 DROP/15 ML BTL BOTH EYES ×2 (15:37→22:24)
--- NOTE | 2024-10-04 16:14 | XR_ITS ---
Examination: CT abdomen and pelvis without contrast. Coronal 3-D reconstructions. Sagittal 2-D reconstructions. Date and time of exam:October 04, 2024 1813 hours COMPARISON: July 13, 2024 INDICATIONS: Lower abdominal pain today, history kidney stones, diagnosis lupus CTDI: vol (mGy): 5.98 DLP: (mGycm): 270 Technique: Axial images of the abdomen have been obtained, 3 mm slice thickness Intravenous contrast material has not been administered. Low dose protocols were performed. One or more of the following dose reduction techniques were used; automated exposure control, adjustment of the mA and/or KV according to patient size, use of iterative reconstruction technique. Findings: No focal liver or splenic lesion Absent gallbladder No pancreatic or adrenal mass 3 mm right renal calculus, no hydronephrosis or ureteral calculi 8 mm fat-containing umbilical hernia Absent appendix No bowel obstruction No diverticulitis Anteverted uterus No adnexal mass Urinary bladder intact The osseous structures are intact IMPRESSION: 3 mm nonobstructing right renal calculus, no hydronephrosis or ureteral calculi Absent appendix No bowel obstruction diverticulitis or free air
--- NOTE | 2024-10-04 16:15 | ESPR_ITS ---
<Statement entered by Lyle Macario MD - 10/04/24 17:40> Patient was seen and examined at bedside. I agree on the assessment and plan on this note as documented by resident Chantal Black PGY1. Patient continues to complain of generalized body pain with hypersensitivity of the skin reported that it has somewhat improved compared to yesterday, does complain of persistent blurry vision, was started on saline drops considering patient does have a competent of Sjogren syndrome along with underlying SLE, patient's urine analysis significant for gross hematuria, we will order CT abdomen pelvis?ultrasound abdomen and pelvis have been inconclusive in the past, not menstruating currently, we will also order STD panel, folate and B12 levels pending, ordered B12 intramuscular injection x 1, hold heparin. Follow-up CT abdomen pelvis, disposition telemetry we will continue to monitor. Case discussed with attending Dr. Cerda. Lyle Macario MD PGY-2 Documentation for date of: 10/04/24 Subjective Subjective Interval history: Night events. Patient was seen and examined at bedside. Patient is complaining of persistent generalized body pains with sensitive skin, however improved from yesterday. Still having lower abdominal pain but mild. Complaining of new weakness in her hands on and off, hand tingling and leg tingling, and occasional hand tremors. No hand tremors noted on physical exam. Endorses persistent blurry vision since yesterday however but did not receive eyedrops. Still having blood in urine. Patient seen again in the afternoon complaining of worsening lower abdominal pain. Denies having. As there is no blood on pad, only in urine. Denies possibility of STIs, has not been recently sexually active. Continue same pain regimen. Pending B12 and folate levels. Injection of B12 100 mcg ordered. Repeat UA collected. Ordered CTAP for hematuria. Hold heparin. Follow-up STI panel. Pending C3/C4, dsDNA. Exam Vital Signs Temp Pulse Resp BP Pulse Ox O2 Del Method O2 Flow Rate 97.0 F 101 H 24 H 107/72 97 Room Air 0 10/04/24 12:10/04/24 12:10/04/24 12:10/04/24 12:10/04/24 12:00 10/04/24 12:10/04/24 12:00 Narrative Exam GENERAL: AOx3, no acute distress HEENT: NC/AT, mucous membranes moist, bilateral sclera anicteric CARDIOVASCULAR: regular rate and rhythm, S1/S2 present, no murmurs appreciated PULMONARY: clear to auscultation bilaterally, no rales/rhonchi/wheezes ABDOMINAL: soft, non-distended, no rebound/guarding, bowel sounds present +mild abdominal tenderness greatest at suprapubic EXTREMITIES: no peripheral edema MSK: mild tenderness at upper extremity joints SKIN: warm and dry, intact, no rashes, mild skin sensitivity to light touch NEURO: CN II-XII grossly intact, no focal deficits, alert, following commands Objective Labs 10/07/24 05:24 10/07/24 05:24 Labs: Laboratory Results - last 24 hr 10/04/24 10/04/24 05:31 14:41 WBC 5.4 RBC 3.85 L Hgb 10.3 L Hct 32.9 L MCV 86 MCH 26.8 MCHC 31.3 RDW Std Deviation 46.0 Plt Count 226 Neut % (Auto) 80 Lymph % (Auto) 14 [place] % (Auto) 4 Eos % (Auto) 1 Baso % (Auto) 0 Neut # (Auto) 4.3 Lymph # (Auto) 0.7 L [place] # (Auto) 0.2 Eos # (Auto) 0.1 Baso # (Auto) 0.0 Immature Gran # (Auto) 0.03 H Absolute Nucleated RBC 0.00 Immature Gran % 1 H Nucleated RBC % 0 Sodium 143 Potassium 4.1 Chloride 106 Carbon Dioxide 27.9 Anion Gap 9 BUN 18 Creatinine 0.7 Estim Creat Clear Calc 93.5 eGFR > 60 BUN/Creatinine Ratio 26 H Glucose 93 Calculated Osmolality 286 Calcium 8.7 Corrected Calcium 9.2 Magnesium 1.5 L Total Bilirubin 0.2 L AST 18 ALT 16 Alkaline Phosphatase 57 Total Protein 6.0 Albumin 3.4 L Globulin 2.6 Albumin/Globulin Ratio 1.3 Ur Collection Type Clean Catch Urine Color Lt-Red A Urine Clarity Turbid A Urine pH 6.5 Ur Specific [place] 1.008 Urine Protein Negative Urine Glucose (UA) Negative Urine Ketones Negative Urine Blood 3+ A Urine Nitrite Negative Urine Bilirubin Negative Urine Urobilinogen (Auto) Negative Ur Leukocyte Esterase Positive Urine RBC 2660 H Urine WBC 4 Ur Squamous Epith Cells 6 H Urine Bacteria None Quality Measures Quality Measures VTE prophylaxis Assessment & Plan Assessment Current Active Medications: Generic Name Dose Route Start Last Admin Trade Name Freq PRN Reason Stop Dose Admin Acetaminophen 650 mg 09/30/24 17:59 10/02/24 21:19 Acetaminophen 325 Mg Tablet PO 10/30/24 17:58 650 mg Q6H PRN Administration Mild Pain 1-3 or Fever >100.3 Cyclobenzaprine HCl 10 mg 10/03/24 10:15 10/04/24 08:33 Cyclobenzaprine 5 Mg Tablet PO 11/02/24 10:14 10 mg BID YADIRA Administration Gabapentin 300 mg 10/01/24 22:00 10/04/24 13:56 Gabapentin 300 Mg Capsule PO 10/31/24 21:59 300 mg TID YADIRA Administration Heparin Sodium (Porcine) 5,000 unit 09/30/24 21:00 10/04/24 08:34 Heparin Sod Inj 5000 Unit/Ml Vial SC 10/14/24 20:59 5,000 unit Q12HR YADIRA Administration Hydroxychloroquine Sulfate 200 mg 10/01/24 16:00 10/04/24 08:34 Hydroxychloroquine 200 Mg Tablet PO 10/08/24 15:59 200 mg QDAY YADIRA Administration Ketorolac Tromethamine 15 mg 10/03/24 10:04 10/04/24 15:36 Ketorolac Inj 30 Mg/Ml Vial IVP 10/08/24 10:03 15 mg Q6HR PRN Administration PAIN SCALE 4-10(Mod-Sev Metoprolol Succinate 25 mg 10/02/24 09:00 10/04/24 08:33 Metoprolol Succinate Xl 25 Mg Tabcr PO 11/01/24 08:59 25 mg QDAY YADIRA Administration Metoprolol Tartrate 5 mg 09/30/24 18:06 Metoprolol Tartrate Inj 1 Mg/Ml Amp 5 Ml IVP Q5M PRN SUPRAVENTRICULAR TACHYCARDIA Mycophenolate Mofetil 500 mg 10/01/24 21:00 10/04/24 08:33 Mycophenolate 250 Mg Capsule (Non-Formulary) PO 10/31/24 20:59 500 mg BID YADIRA Administration Ondansetron HCl 4 mg 09/30/24 17:59 10/03/24 07:30 Ondansetron Inj 2 Mg/Ml Inj 2 Ml IVP 10/30/24 17:58 4 mg Q6H PRN Administration NAUSEA OR VOMITING Protocol Pantoprazole Sodium 40 mg 10/02/24 09:00 10/04/24 08:33 Pantoprazole 40 Mg Tablet PO 11/01/24 08:59 40 mg QDAY YADIRA Administration Prednisone 10 mg 10/03/24 09:00 10/04/24 08:33 Prednisone 5 Mg Tablet PO 11/02/24 08:59 10 mg QDAY YADIRA Administration Sennosides 1 tab 09/30/24 18:15 10/04/24 08:33 Senna Tablet PO 10/30/24 18:14 1 tab QDAY YADIRA Administration Protocol Plan Susana Clark is a 24 year old female for past medical history of lupus and Sjrogen's who presented on 09/30 for fever and palpitations, admitted for SVT, controlled on metoprolol, found to have cervical calcified mass, course complicated by developing hematuria. #Hematuria Patient initially started complaining of blood in the urine on 10/02, initially attributed to her period has LMP 622. However patient complained of persistent blood only in the urine and on her pad. Initial UA on 09/30 showed no blood, however, repeat UA showed 3+ blood and 2660 RBCs, positive leukocyte esterase but no nitrites or bacteria. Patient reported chance of STI is unlikely and is not currently sexually active. Reports no hx of kidney stones. Ddx includes possible delayed Saphnelo infusion reaction vs autoimmune nephritis from SLE or Sjogren's vs kidney stone (has had R flank pain previously but resolved). Nephritis less likely as no protein loss or any creatinine increase. Plan: - F/u chlamydia, gonorrhea and trich PCR, HIV and hep panel - F/u CTAP - Heparin held #Blurry vision Patient complained of slightly bilateral blurry vision and gritty eyes on 10/03, which did not improve with artificial eye drops. 10/04 endorses being unable to read the patient information board when she was able to on admission. Patient did present with a presyncopal episode where headstrike was reported. Ddx includes concussion from headstrike vs dry eyes 2/2 Sjogren vs increased intracranial pressure. CT head 09/30 showed no acute hemorrhage, midline shift or mass effect Plan: - Low threshold for repeat CT head - Artificial eye drops TID #SLE Acute Flare #Sjogren's #Generalized pain #Allodynia, improving #Fever, resolved Likely secondary to lupus flare. Of note, patient started new drug Sephlano, first infusion 4 weeks ago. No immediate allergic reaction during infusion. Utox negative and UA shows no infection. CXR shows mild prominence of left ventricle with mild vascular congestion. No suspected source of infection at this time, thus no antibiotics needed for now. Met 3/4 SIRS criteria on admission (temp as high as 102, tachycardic, tachypnic), no end organ failure so does not meet sepsis criteria. 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 Madera at [facility], recommended restarting home medications and starting on baclofen for pain. Requested tests for complement C3, C4, dsDNA, urine protein creatinine ratio, ESR, and CRP. Has appointment coming up on 10/16. Next infusion scheduled for 10/03, but per patient she rescheduled. UCr high 169, test neg, UCx neg, BCx NGTD New complaint of dry eyes and blurry vision, per patient was diagnosed with Sjogren's but not educated about symptoms nor offered any treatments in the past. Plan: - Continue home doses of prednisone 10 mg, mycophenolate 500 mg BID, and hydroxychloroquinine 200 mg QD - Gabapentin 300 mg TID per rainbow trout farm manager Dr. Madera's recommendation - Discontinued baclofen due to ineffectiveness and [place] 5 - Switch pain management to PO Flexeril 10 mg BID and IV ketorolac 15 mg q6h prn - F/u complement C3 and C4, dsDNA - Tylenol for pain and fever prn - Trial of saline drops, reassess vision #SVT, resolved. #Presyncope 2/2 SVT #s/p unwitnessed fall Patient reports dizziness, followed by brief loss of consciousness and head trauma in her shower on 09/29. CT head negative for acute intracranial bleed. Possibly related to lupus or cardiac etiology as patient reported palpitations prior to episode. No history of seizures, less likely neurologic etiology. History of SVTs per patient, has palpitations but only lasts no more than an hour. Likely secondary to lupus. DDx: drug induced/toxin, pericarditis, rheumatoid heart disease S/p adenosine x3, rate now controlled on metoprolol XL 25mg. CXR 09/30 shows mild prominence of left ventricle with mild vascular congestion. Utox negative. Echo 09/30 negative for pericarditis, EF 55 to 60%. No dysfunction noted. Plan: - Cardiology Dr. De La Fuente consulted, recs appreciated as below - Metoprolol XL 25 mg QD, may up titrate as needed - Keep K and Mg >4 and >2 respectively - AVNRT vs AVRT on EKG - Will possibly need EP study for recurrent SVT, recommend to f/u with EP for further evaluation - IV metoprolol tartrate prn for sinus tachycardia - Consider consulting neurology for seizure work up if patient continues to have presyncopal episodes without abnormalities on telemetry #Cervical mass #Fibrotic cyst on left ovary Calcified cervical mass measuring 16x6x7 mm and left ovarian fibrotic cyst noted on pelvic US. DDX for former include teratoma vs calcified uterine fibroids vs osseous metaplasia. Patient complains of lower abdominal crampy pain with one episode of blood in urine on 10/02. No further bleeding noted on pads. LMP 08/24 with irregular cycles. Plan: - OBGYN Dr. Gould consulted, recs appreciated - Spoke to Dr. Gaona, likely incidental finding of Nabothian cyst, no inpatient intervention required - Recommend to follow up with outpatient OBGYN #Electrolyte Abnormalities #Hypokalemia #Hypomagnesemia, improved Mg 1.6 on admission. - s/p Mg infusion in ED - recheck and replete as needed Health Maintenance Disposition: Further management of lupus flare, pending OB-Consult DVT prophylaxis: None. Heparin q12 held due to hematuria. No SCDs due to allodynia GI prophylaxis: Protonix Diet: Full liquid diet CODE STATUS: FULL Patient plan of care was discussed with the resident, Dr. Macario, and attending physician, Dr. Cerda. Chantal Black DO Internal Medicine PGY-1 Attending Provider Attestation/Addendum I attest that I was physically present for the evaluation, physical examination, lab and imaging review of the patient with the residents. I discussed the case with the residents and agree with the findings and plans of care as documented above. Andra Cerda MD
[2024-10-04 19:20] LABS: Syphilis Nonreactive (Nonreactive)
[2024-10-04 20:00] LABS: HIV (1&2) Antibody Rapid Non-Reactive
--- NOTE | 2024-10-04 20:39 | PD.RESPRO ---
Documentation for date of: 10/04/24 Subjective Subjective Interval history: The patient was seen and examined at the bedside this morning. No acute events overnight. Patient states that her lower extremities are exquisitely tender, and that her newly developed rash persists. Says that her eyes hurt and requests eye drop. Admits to blurry vision and complains of sparkling spots in her visual field. Additionally, complains of tingling in her BUE, in her own words, they want to go to sleep . Admits to mild SOB, no chest pain, or palpitations. laboratory monitor was revealing sinus rhythm , Vital signs stable, afebrile. CBC and CMP at baseline, with K of 4.1 and Mg of 1.5 Recommended to continue on Metoprolol succinate 25mg daily and uptitrate it based on BP.. Pending complement C3 and C4, including Anti-dsDNA Ab level as of 10/04/2024 Continue treating underlying SLE. Exam Vital Signs Temp Pulse Resp BP Pulse Ox O2 Del Method O2 Flow Rate 97.8 F 113 H 29 H 109/69 97 Room Air 0 10/04/24 16:00 10/04/24 16:00 10/04/24 16:00 10/04/24 16:00 10/04/24 16:00 10/04/24 16:10/04/24 16:00 Narrative Exam General: No acute distress, Alert and Oriented x 3, hi faced HEENT: Moist mucous membranes, oropharynx clear Neck: Supple, No masses, No JVD CVS: S1S2 Regular rate and rhythm, No murmurs, rubs or gallops Lungs: Clear to auscultation with no accessory use, no wheeze no rhonchi Abd: Soft, NT/ND, +BS, no organomegaly Ext: No edema, warm and well perfused. Noted tenderness to palpation, erythema of bilateral lower extremities. round, Poorly demarked, Erythematous macules 2-3 cm in diameter noted spread Over bilateral thighs. Skin: No rash Psych: Appropriate mood and affect Objective Labs 10/06/24 04:45 10/06/24 04:45 Labs: Laboratory Results - last 24 hr 10/04/24 10/04/24 10/04/24 05:31 14:41 17:20 WBC 5.4 RBC 3.85 L Hgb 10.3 L Hct 32.9 L MCV 86 MCH 26.8 MCHC 31.3 RDW Std Deviation 46.0 Plt Count 226 Neut % (Auto) 80 Lymph % (Auto) 14 [place] % (Auto) 4 Eos % (Auto) 1 Baso % (Auto) 0 Neut # (Auto) 4.3 Lymph # (Auto) 0.7 L [place] # (Auto) 0.2 Eos # (Auto) 0.1 Baso # (Auto) 0.0 Immature Gran # (Auto) 0.03 H Absolute Nucleated RBC 0.00 Immature Gran % 1 H Nucleated RBC % 0 Sodium 143 Potassium 4.1 Chloride 106 Carbon Dioxide 27.9 Anion Gap 9 BUN 18 Creatinine 0.7 Estim Creat Clear Calc 93.5 eGFR > 60 BUN/Creatinine Ratio 26 H Glucose 93 Calculated Osmolality 286 Calcium 8.7 Corrected Calcium 9.2 Magnesium 1.5 L Total Bilirubin 0.2 L AST 18 ALT 16 Alkaline Phosphatase 57 Total Protein 6.0 Albumin 3.4 L Globulin 2.6 Albumin/Globulin Ratio 1.3 Ur Collection Type Clean Catch Urine Color Lt-Red A Urine Clarity Turbid A Urine pH 6.5 Ur Specific [place] 1.008 Urine Protein Negative Urine Glucose (UA) Negative Urine Ketones Negative Urine Blood 3+ A Urine Nitrite Negative Urine Bilirubin Negative Urine Urobilinogen (Auto) Negative Ur Leukocyte Esterase Positive Urine RBC 2660 H Urine WBC 4 Ur Squamous Epith Cells 6 H Urine Bacteria None Syphilis Serology Nonreactive HIV 1&2 Antibody Rapid Non-Reactive Quality Measures Quality Measures VTE prophylaxis Assessment & Plan Assessment Current Active Medications: Generic Name Dose Route Start Last Admin Trade Name Freq PRN Reason Stop Dose Admin Acetaminophen 650 mg 09/30/24 17:59 10/02/24 21:19 Acetaminophen 325 Mg Tablet PO 10/30/24 17:58 650 mg Q6H PRN Administration Mild Pain 1-3 or Fever >100.3 Artificial Tears 0 drop 10/04/24 22:00 Artificial Tears 225 Drop/15 Ml Btl BOTH EYES 11/03/24 21:59 TID YADIRA Cyclobenzaprine HCl 10 mg 10/03/24 10:15 10/04/24 08:33 Cyclobenzaprine 5 Mg Tablet PO 11/02/24 10:14 10 mg BID YADIRA Administration Gabapentin 300 mg 10/01/24 22:00 10/04/24 13:56 Gabapentin 300 Mg Capsule PO 10/31/24 21:59 300 mg TID YADIRA Administration Heparin Sodium (Porcine) 5,000 unit 09/30/24 21:00 10/04/24 08:34 Heparin Sod Inj 5000 Unit/Ml Vial SC 10/14/24 20:59 5,000 unit Q12HR YADIRA Administration Hydroxychloroquine Sulfate 200 mg 10/01/24 16:00 10/04/24 08:34 Hydroxychloroquine 200 Mg Tablet PO 10/08/24 15:59 200 mg QDAY YADIRA Administration Ketorolac Tromethamine 15 mg 10/03/24 10:04 10/04/24 15:36 Ketorolac Inj 30 Mg/Ml Vial IVP 10/08/24 10:03 15 mg Q6HR PRN Administration PAIN SCALE 4-10(Mod-Sev Metoprolol Succinate 25 mg 10/02/24 09:00 10/04/24 08:33 Metoprolol Succinate Xl 25 Mg Tabcr PO 11/01/24 08:59 25 mg QDAY YADIRA Administration Metoprolol Tartrate 5 mg 09/30/24 18:06 Metoprolol Tartrate Inj 1 Mg/Ml Amp 5 Ml IVP Q5M PRN SUPRAVENTRICULAR TACHYCARDIA Mycophenolate Mofetil 500 mg 10/01/24 21:00 10/04/24 08:33 Mycophenolate 250 Mg Capsule (Non-Formulary) PO 10/31/24 20:59 500 mg BID YADIRA Administration Ondansetron HCl 4 mg 09/30/24 17:59 10/03/24 07:30 Ondansetron Inj 2 Mg/Ml Inj 2 Ml IVP 10/30/24 17:58 4 mg Q6H PRN Administration NAUSEA OR VOMITING Protocol Pantoprazole Sodium 40 mg 10/02/24 09:00 10/04/24 08:33 Pantoprazole 40 Mg Tablet PO 11/01/24 08:59 40 mg QDAY YADIRA Administration Prednisone 10 mg 10/03/24 09:00 10/04/24 08:33 Prednisone 5 Mg Tablet PO 11/02/24 08:59 10 mg QDAY YADIRA Administration Sennosides 1 tab 09/30/24 18:15 10/04/24 08:33 Senna Tablet PO 10/30/24 18:14 1 tab QDAY YADIRA Administration Protocol Plan The patient is a 24-year-old female with significant past medical history of SLE on saphnelo infusion once a month,, Sjogren's syndrome, and SVT on metoprolol presented to ED on 09/30/2024 with chief complaint of palpitations. Cardiology consultation done for further management of SVT. #Syncope 2/2 #SVT, resolved Likely secondary to #SLE flareup #Unwitnessed fall 2/2 syncope #Ruled out pericarditis/ pericardial effusion The patient presented with palpitation, and was found to have SVT in EKG, and reported recently having diarrhea, presented with fever. The patient was being tapered down on a steroid by her photostat operator helper, and was currently getting 5 mg of daily prednisone. Patient on Salpheno infusions. Hemoglobin 10.6 MCV 86, white count WNL, potassium 4.1, BUN 18, creatinine 0.7, magnesium 1.5, liver enzymes WNL, TG 69, total cholesterol 154, LDL 88, HDL 52, TSH 1.83, EKG revealed SVT with ventricular rate 250 on presentation, followed by repeat EKG revealing sinus tachycardia with incomplete RBBB, PVC's, and low voltage in precordial leads. Heart monitor on telemetry floor demonstrates NSR today. Head CT was negative for acute hemorrhage, midline shift or mass effect. CXR was significant for mild vascular congestion. TTE reaveled: Normal LV size and function. Normal LV diastolic function. Estimated EF at 55-60 %. The RV is normal in size and systolic function. Mild TR and TR. IVC not well visualized. Plan: - Telemetry monitoring to rule out any arrhythmias. 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 -Infrastructure Design Engineer is tappering down steroid -Recommended Dexa scan as outpt Rest of the management deferred to primary team. Thank you for cardiology consultation. We appreciate the opportunity to participate in this patient's care. Will continue to follow-up on this patient This case was discussed with my attending physician, Dr. Pickard. Kassie Frazier, PGY I Attending Provider Attestation/Addendum I have personally seen and examined the patient separately on the above date of service and discussed the plan of care with the resident. I reviewed the resident Dr. Fernando consultation progress note and agree with the resident findings and plan in the note above and have also edited the documentation to reflect my findings and plan. Landry Pickard M.D. Interventional Cardiology
[2024-10-05] VITALS (7 sets, daily range): BP systolic 95–111; BP diastolic 60–68; PULSE 82–96; RESP 16–20; TEMP 36.1–36.8; O2SAT 97–99; BMI 24.0
[2024-10-05] MEDS: ACETAMINOPHEN 325 MG TABLET 650 MG PO (00:39)
[2024-10-05] MEDS: KETOROLAC INJ 30 MG/ML VIAL 15 MG IVP ×3 (04:31→21:27)
[2024-10-05] MEDS: Artificial Tears 225 DROP/15 ML BTL BOTH EYES ×3 (05:01→22:00)
[2024-10-05] MEDS: GABAPENTIN 300 MG CAPSULE PO ×3 (05:01→21:28)
[2024-10-05 05:45] LABS: Basophils # (Auto) 0.0 Thou/mm3 (0.0-0.2); Basophils % (Auto) 0 % (0-2.5); Eosinophils # (Auto) 0.1 Thou/mm3 (0.0-0.5); Eosinophils % (Auto) 1 % (0-10); Hematocrit 32.7 % (36.0-46.0); Hemoglobin 10.0 g/dL (12.0-16.0); Immature Granulocytes Auto 0.03 Thou/mm3 (0.00-0.00); Lymphocytes # (Auto) 0.7 Thou/mm3 (1.0-4.8); Lymphocytes % (Auto) 13 % (10-50); Mean Corpuscular HGB Conc 30.6 g/dl (31.0-37.0); Mean Corpuscular Hemoglobin 26.2 pg (25.0-35.0); Mean Corpuscular Volume 86 fL (80-100); Monocytes # (Auto) 0.3 Thou/mm3 (0.0-0.8); Monocytes % (Auto) 5 % (0-12); Neutrophils # (Auto) 4.2 Thou/mm3 (1.8-7.7); Neutrophils % (Auto) 80 % (37-80); Nucleated Red Blood Cell # 0.00 Thou/mm3 (0.00-0.00); Nucleated Red Blood Cell % 0 /100 WBC (0); Platelet Count 232 Thou/mm3 (140-440); RDW Standard Deviation 45.4 fL (36.4-46.3); Red Blood Count 3.81 Miln/mm3 (4.00-5.20); White Blood Count 5.2 Thou/mm3 (3.6-11.0)
[2024-10-05 06:35] LABS: Alanine Aminotransferase 15 U/L (10-49); Albumin, Serum 3.6 gm/dL (3.5-5.0); Albumin/Globulin Ratio 1.5 (1.2-2.2); Alkaline Phosphatase 63 U/L (46-116); Anion Gap 7 (7-16); Aspartate Amino Transferase 16 U/L (0-34); BUN/Creatinine Ratio 26 Ratio (12-20); Bilirubin,Total < 0.2 mg/dL (0.3-1.2); Blood Urea Nitrogen 21 mg/dL (9-23); Calcium 8.3 mg/dL (8.3-10.6); Calcium (Corrected) 8.6 mg/dL (8.5-10.1); Carbon Dioxide 27.6 mMol/L (20.0-31.0); Chloride 107 mMol/L (98-107); Creatinine (Component) 0.8 mg/dL (0.6-1.3); Estimated Creatinine Clearance 82.1 mL/min (>60); Globulin 2.4 gm/dL (2.3-3.5); Glucose 98 mg/dL (74-106); Magnesium 3.0 mg/dL (1.6-2.6); Osmolality,Calculated 286 (275-295); Potassium 3.7 mMol/L (3.4-5.1); Sodium 142 mMol/L (136-145); Total Protein 6.0 gm/dL (5.7-8.2); eGFR > 60 See Note
[2024-10-05] MEDS: HYDROXYCHLOROQUINE 200 MG TABLET PO (08:13)
[2024-10-05] MEDS: METOPROLOL SUCCINATE XL 25 MG TABCR PO (08:13)
[2024-10-05] MEDS: PANTOPRAZOLE 40 MG TABLET PO (08:13)
[2024-10-05] MEDS: MYCOPHENOLATE 250 MG CAPSULE (NON-FORMULARY) 500 MG PO ×2 (08:13→21:28)
--- NOTE | 2024-10-05 09:58 | XR_ITS ---
Examination: CT brain head without contrast. 2-D sagittal coronal reconstructions Date and time of exam:October 05, 2024, 1047 hrs. Indications: Onset of blurred vision weakness in the leg beginning yesterday CTDI: vol (mGy):44.1 DLP: (mGycm):770 Technique: Multiple CT axial sections of the brain have been obtained, 5 mm slice thickness. Contrast has not been administered. 2-D sagittal, coronal reconstructions have been obtained Low dose protocols were performed. One or more of the following dose reduction techniques were used; automated exposure control, adjustment of the mA and/or KV according to patient size, use of iterative reconstruction technique. Findings: No significant ventricular enlargement. Intra-axial or extra-axial hemorrhage density is not seen. No mass effect or midline shift Basal cisterns are not remarkable. Fourth ventricle is midline. Cranial vault intact. Impression: Negative for acute hemorrhage, mass effect or midline shift As clinically warranted, brain MRI follow-up would best assess for demyelinating disease, acute ischemic change
--- NOTE | 2024-10-05 10:58 | ESPR_ITS ---
Documentation for date of: 10/05/24 Subjective Subjective Interval history: The patient is evaluated at bedside, reported no chest discomfort or palpitations. But did report weakness and numbness in bilateral lower extremities. Primary team placed a teleneurology consult, And CT head was ordered which was negative for acute hemorrhage or mass effect or midline shift. Patient's vitals today, blood pressure 97/61, heart rate 89, no acute overnight events reported. Continued on metoprolol succinate 25 mg daily. Per teleneurology concern for inflammatory etiology of patient's symptoms including lupus associated with demyelinating event or transverse myelitis is considered, also noted inconsistencies in symptom reporting. Teleneurology recommended MRI cervical and thoracic spine. Exam Vital Signs Temp Pulse Resp BP Pulse Ox O2 Del Method O2 Flow Rate 98.2 F 90 16 111/68 98 Room Air 0 10/05/24 08:00 10/05/24 08:13 10/05/24 08:00 10/05/24 08:13 10/05/24 08:00 10/05/24 08:00 10/05/24 08:00 Narrative Exam General: No acute distress, Alert and Oriented x 3, HEENT: Moist mucous membranes, oropharynx clear Neck: Supple, No masses, No JVD CVS: S1S2 Regular rate and rhythm, No murmurs, rubs or gallops Lungs: Clear to auscultation with no accessory use, no wheeze no rhonchi Abd: Soft, NT/ND, +BS, no organomegaly Ext: No edema, warm and well perfused. Noted tenderness to palpation, no fasciculations noted, clonus negative, patient unable to move bilateral lower extremities on command. Skin: No rash Psych: Appropriate mood and affect Objective Labs 10/06/24 04:45 10/06/24 04:45 Labs: Laboratory Results - last 24 hr 10/04/24 10/04/24 10/05/24 14:41 17:20 05:19 WBC 5.2 RBC 3.81 L Hgb 10.0 L Hct 32.7 L MCV 86 MCH 26.2 MCHC 30.6 L RDW Std Deviation 45.4 Plt Count 232 Neut % (Auto) 80 Lymph % (Auto) 13 [place] % (Auto) 5 Eos % (Auto) 1 Baso % (Auto) 0 Neut # (Auto) 4.2 Lymph # (Auto) 0.7 L [place] # (Auto) 0.3 Eos # (Auto) 0.1 Baso # (Auto) 0.0 Immature Gran # (Auto) 0.03 H Absolute Nucleated RBC 0.00 Immature Gran % 1 H Nucleated RBC % 0 Sodium 142 Potassium 3.7 Chloride 107 Carbon Dioxide 27.6 Anion Gap 7 BUN 21 Creatinine 0.8 Estim Creat Clear Calc 82.1 eGFR > 60 BUN/Creatinine Ratio 26 H Glucose 98 Calculated Osmolality 286 Calcium 8.3 Corrected Calcium 8.6 Magnesium 3.0 H Total Bilirubin < 0.2 L AST 16 ALT 15 Alkaline Phosphatase 63 Total Protein 6.0 Albumin 3.6 Globulin 2.4 Albumin/Globulin Ratio 1.5 Ur Collection Type Clean Catch Urine Color Lt-Red A Urine Clarity Turbid A Urine pH 6.5 Ur Specific [place] 1.008 Urine Protein Negative Urine Glucose (UA) Negative Urine Ketones Negative Urine Blood 3+ A Urine Nitrite Negative Urine Bilirubin Negative Urine Urobilinogen (Auto) Negative Ur Leukocyte Esterase Positive Urine RBC 2660 H Urine WBC 4 Ur Squamous Epith Cells 6 H Urine Bacteria None Syphilis Serology Nonreactive HIV 1&2 Antibody Rapid Non-Reactive Quality Measures Quality Measures VTE prophylaxis Assessment & Plan Assessment Current Active Medications: Generic Name Dose Route Start Last Admin Trade Name Freq PRN Reason Stop Dose Admin Acetaminophen 650 mg 09/30/24 17:59 10/05/24 00:39 Acetaminophen 325 Mg Tablet PO 10/30/24 17:58 650 mg Q6H PRN Administration Mild Pain 1-3 or Fever >100.3 Artificial Tears 0 drop 10/04/24 22:00 10/05/24 05:01 Artificial Tears 225 Drop/15 Ml Btl BOTH EYES 11/03/24 21:59 2 drop TID YADIRA Administration Cyclobenzaprine HCl 10 mg 10/03/24 10:15 10/05/24 08:12 Cyclobenzaprine 5 Mg Tablet PO 11/02/24 10:14 10 mg BID YADIRA Administration Gabapentin 300 mg 10/01/24 22:00 10/05/24 05:01 Gabapentin 300 Mg Capsule PO 10/31/24 21:59 300 mg TID YADIRA Administration Heparin Sodium (Porcine) 5,000 unit 09/30/24 21:00 10/04/24 08:34 Heparin Sod Inj 5000 Unit/Ml Vial SC 10/14/24 20:59 5,000 unit Q12HR YADIRA Administration Hydroxychloroquine Sulfate 200 mg 10/01/24 16:00 10/05/24 08:13 Hydroxychloroquine 200 Mg Tablet PO 10/08/24 15:59 200 mg QDAY YADIRA Administration Ketorolac Tromethamine 15 mg 10/03/24 10:04 10/05/24 04:31 Ketorolac Inj 30 Mg/Ml Vial IVP 10/08/24 10:03 15 mg Q6HR PRN Administration PAIN SCALE 4-10(Mod-Sev Metoprolol Succinate 25 mg 10/02/24 09:00 10/05/24 08:13 Metoprolol Succinate Xl 25 Mg Tabcr PO 11/01/24 08:59 25 mg QDAY YADIRA Administration Metoprolol Tartrate 5 mg 09/30/24 18:06 Metoprolol Tartrate Inj 1 Mg/Ml Amp 5 Ml IVP Q5M PRN SUPRAVENTRICULAR TACHYCARDIA Mycophenolate Mofetil 500 mg 10/01/24 21:00 10/05/24 08:13 Mycophenolate 250 Mg Capsule (Non-Formulary) PO 10/31/24 20:59 500 mg BID YADIRA Administration Ondansetron HCl 4 mg 09/30/24 17:59 10/03/24 07:30 Ondansetron Inj 2 Mg/Ml Inj 2 Ml IVP 10/30/24 17:58 4 mg Q6H PRN Administration NAUSEA OR VOMITING Protocol Pantoprazole Sodium 40 mg 10/02/24 09:00 10/05/24 08:13 Pantoprazole 40 Mg Tablet PO 11/01/24 08:59 40 mg QDAY YADIRA Administration Prednisone 10 mg 10/03/24 09:00 10/05/24 08:13 Prednisone 5 Mg Tablet PO 11/02/24 08:59 10 mg QDAY YADIRA Administration Sennosides 1 tab 09/30/24 18:15 10/05/24 08:13 Senna Tablet PO 10/30/24 18:14 1 tab QDAY YADIRA Administration Protocol Plan The patient is a 24-year-old female with significant past medical history of SLE on saphnelo infusion once a month, Sjogren's syndrome, and SVT on metoprolol presented to ED on 09/30/2024 with chief complaint of palpitations. Cardiology consultation done for further management of SVT. 1 Supraventricular tachycardia?resolved 2 syncope 3 ruled out pericardial effusion 4 concern for SLE acute flare 5 concern for iatrogenic [place] syndrome The patient presented following a syncopal episode, reportedly fell and hit her head on the ground, on arrival to EKG she was found to have tachycardia, SVT, ventricular rate in the~240s, she was given adenosine 6 mg, converted to sinus rhythm, but later converted to SVT, followed by additional dose of 12 mg adenosine IV push, converted to sinus rhythm, heart rate in the 130s, sinus tachycardia, but converted to SVT again, received metoprolol IV push 5 mg x 2, after which patient maintained sinus rhythm. Cardiology was consulted for further evaluation and workup. Echocardiogram was ordered which showed EF 55 to 60%, no wall motion abnormalities, normal LV and LA size, SVT likely precipitated by acute SLE flareup. Primary team reached out to patient's carbon furnace operator helper in [place], who recommended additional workup including ALEJANDRO, anti- dsDNA, complement levels, to evaluate for acute SLE flare. The patient is currently on biologic/Saphnelo infusions and prednisone 5 mg daily. The patient continues to stay in normal sinus rhythm. Initial Head CT was negative for acute hemorrhage, midline shift or mass effect. CXR was significant for mild vascular congestion. Initial CT head negative for ? Metoprolol XL 25 mg, uptitrate as tolerated ? Continue telemetry monitoring ? Maintain potassium greater than 4 and magnesium more than 2 at all times. ? Patient might benefit from outpatient endocrinology evaluation and DEXA scan ? Patient might benefit from outpatient electrophysiology studies #Nabothian cyst Recommended follow-up pelvic exam and possible transvaginal ultrasound as outpatient with her established [employer]. Rest of the management deferred to primary team. Thank you for cardiology consultation. We appreciate the opportunity to participate in this patient's care. Will continue to follow-up on this patient This case was discussed with my attending physician, Dr. Pickard. Servando Tuttle MD PG3 Attending Provider Attestation/Addendum I have personally seen and examined the patient separately on the above date of service and discussed the plan of care with the resident. I reviewed the resident Dr. Fernando consultation progress note and agree with the resident findings and plan in the note above and have also edited the documentation to reflect my findings and plan. Landry Pickard M.D. Interventional Cardiology
--- NOTE | 2024-10-05 12:46 | ESPR_ITS ---
<Statement entered by Shayan Hill MD - 10/15/24 14:32> I reviewed above note and agree with findings and plans. I have also personally examined the patient with medicine team and went over assessment and plan with medical team including marketing operations intern and resident physician. <Statement entered by Yuliet Noel MD - 10/05/24 17:35> Patient is seen at bedside is currently complaining of acute bilateral leg weakness and blurry vision. CT of head is negative. Telemetry neuro is consulted recommended MRI cervical and thoracic spine with and without contrast. Otherwise neuroexam is found to be within normal limits. Will continue to monitor pending MRI tomorrow. Patient was seen and examined by me personally. I have directly supervised and reviewed documentation by the team resident and agree with its findings with the above exceptions/and additional findings. ------- Plan of care was discussed with the attending, Dr. Liz Noel, PGY-2 Documentation for date of: 10/05/24 Subjective Subjective Interval history: Overnight events. Patient was seen and examined at bedside. Patient complains of inability to move legs and walk since last night. Blurry vision still persistent, and still unable to read the patient information board. Still having tingling sensations throughout skin, pain and sensitivity with light touch. Persistent lower abdominal pain, but better. Has not urinated since last night, so unknown if hematuria is still persistent. Due to acute leg weakness, telemetry neuroconsulted. PT consulted. Continue same medication regimen. CTAP showed a 3 mm nonobstructing renal calculus, no appendix, no bowel obstruction. CT head showed no acute pathology. Bladder scan 172 mL. Thorough neuro exam performed, peripheral vision intact, EOMI, visual paris intact, Johnson test positive and all reflexes 2+ as documented below. Achilles reflex difficult to assess due to patient positioning and reported pain on movement with legs. Exam Vital Signs Temp Pulse Resp BP Pulse Ox O2 Del Method O2 Flow Rate 98.0 F 87 20 97/61 98 Room Air 0 10/05/24 12:10/05/24 12:10/05/24 12:10/05/24 12:10/05/24 12:10/05/24 12:10/05/24 12:00 Narrative Exam GENERAL: no acute distress HEENT: NC/AT, mucous membranes moist, bilateral sclera anicteric CARDIOVASCULAR: regular rate and rhythm, S1/S2 present, no murmurs appreciated PULMONARY: clear to auscultation bilaterally, no rales/rhonchi/wheezes ABDOMINAL: soft, non-distended, no rebound/guarding, bowel sounds present +mild abdominal tenderness greatest at suprapubic EXTREMITIES: no peripheral edema MSK: mild tenderness at upper extremity joints SKIN: warm and dry, intact, no rashes, mild skin sensitivity to light touch NEURO: Orientation: AO x 3 Communication: Patient is cooperative and can follow simple instructions Language: Speech fluent, normal rate and volume, comprehension intact Cranial nerves: CN II: Visual paris intact CN III: Pupils equal, round, and reactive to light CN III, IV, : No gaze deviation, no nystagmus Horizontal pursuit: intact Vertical pursuit: intact Ptosis: none CN V: Facial sensation to light touch intact bilaterally at the forehead, cheeks, and jaw line CN VII: Face symmetric, no facial droop appreciated CN VIII: Able to hear and respond to conversation at normal volume, intact to finger rub CN IX, X: Palate elevation symmetric, uvula midline CN XI: Head turn and shoulder shrug strong, symmetric bilaterally CN XII: Normal tongue protrusion without deviation, no fasciculations Motor: Normal bulk and tone No atrophy No abnormal movements or fasciculations Muscle strength: 5/5 in bilateral elbow flexion and extension 5/5 shoulder abduction 3/5 L hip flexion 1/5 R hip flexion Sensory: RUE: Light touch intact LUE: Light touch intact RLE: Light touch intact LLE: Light touch intact Reflexes: Biceps (C5-6): R 2+ L 2+ Triceps (C7-8): R 2+ L 2+ Patellae (L3-4): R 2+ L 2+ Cerebellum and gait not tested Objective Labs 10/05/24 05:19 10/05/24 05:19 Labs: Laboratory Results - last 24 hr 10/04/24 10/04/24 10/05/24 14:41 17:20 05:19 WBC 5.2 RBC 3.81 L Hgb 10.0 L Hct 32.7 L MCV 86 MCH 26.2 MCHC 30.6 L RDW Std Deviation 45.4 Plt Count 232 Neut % (Auto) 80 Lymph % (Auto) 13 [place] % (Auto) 5 Eos % (Auto) 1 Baso % (Auto) 0 Neut # (Auto) 4.2 Lymph # (Auto) 0.7 L [place] # (Auto) 0.3 Eos # (Auto) 0.1 Baso # (Auto) 0.0 Immature Gran # (Auto) 0.03 H Absolute Nucleated RBC 0.00 Immature Gran % 1 H Nucleated RBC % 0 Sodium 142 Potassium 3.7 Chloride 107 Carbon Dioxide 27.6 Anion Gap 7 BUN 21 Creatinine 0.8 Estim Creat Clear Calc 82.1 eGFR > 60 BUN/Creatinine Ratio 26 H Glucose 98 Calculated Osmolality 286 Calcium 8.3 Corrected Calcium 8.6 Magnesium 3.0 H Total Bilirubin < 0.2 L AST 16 ALT 15 Alkaline Phosphatase 63 Total Protein 6.0 Albumin 3.6 Globulin 2.4 Albumin/Globulin Ratio 1.5 Ur Collection Type Clean Catch Urine Color Lt-Red A Urine Clarity Turbid A Urine pH 6.5 Ur Specific [place] 1.008 Urine Protein Negative Urine Glucose (UA) Negative Urine Ketones Negative Urine Blood 3+ A Urine Nitrite Negative Urine Bilirubin Negative Urine Urobilinogen (Auto) Negative Ur Leukocyte Esterase Positive Urine RBC 2660 H Urine WBC 4 Ur Squamous Epith Cells 6 H Urine Bacteria None Syphilis Serology Nonreactive HIV 1&2 Antibody Rapid Non-Reactive Quality Measures Quality Measures VTE prophylaxis Assessment & Plan Assessment Current Active Medications: Generic Name Dose Route Start Last Admin Trade Name Tita PRN Reason Stop Dose Admin Acetaminophen 650 mg 09/30/24 17:59 10/05/24 00:39 Acetaminophen 325 Mg Tablet PO 10/30/24 17:58 650 mg Q6H PRN Administration Mild Pain 1-3 or Fever >100.3 Artificial Tears 0 drop 10/04/24 22:00 10/05/24 05:01 Artificial Tears 225 Drop/15 Ml Btl BOTH EYES 11/03/24 21:59 2 drop TID YADIRA Administration Cyclobenzaprine HCl 10 mg 10/03/24 10:15 10/05/24 08:12 Cyclobenzaprine 5 Mg Tablet PO 11/02/24 10:14 10 mg BID YADIRA Administration Gabapentin 300 mg 10/01/24 22:00 10/05/24 05:01 Gabapentin 300 Mg Capsule PO 10/31/24 21:59 300 mg TID YADIRA Administration Heparin Sodium (Porcine) 5,000 unit 09/30/24 21:00 10/04/24 08:34 Heparin Sod Inj 5000 Unit/Ml Vial SC 10/14/24 20:59 5,000 unit Q12HR YADIRA Administration Hydroxychloroquine Sulfate 200 mg 10/01/24 16:00 10/05/24 08:13 Hydroxychloroquine 200 Mg Tablet PO 10/08/24 15:59 200 mg QDAY YADIRA Administration Ketorolac Tromethamine 15 mg 10/03/24 10:04 10/05/24 11:28 Ketorolac Inj 30 Mg/Ml Vial IVP 10/08/24 10:03 15 mg Q6HR PRN Administration PAIN SCALE 4-10(Mod-Sev Metoprolol Succinate 25 mg 10/02/24 09:00 10/05/24 08:13 Metoprolol Succinate Xl 25 Mg Tabcr PO 11/01/24 08:59 25 mg QDAY YADIRA Administration Metoprolol Tartrate 5 mg 09/30/24 18:06 Metoprolol Tartrate Inj 1 Mg/Ml Amp 5 Ml IVP Q5M PRN SUPRAVENTRICULAR TACHYCARDIA Mycophenolate Mofetil 500 mg 10/01/24 21:00 10/05/24 08:13 Mycophenolate 250 Mg Capsule (Non-Formulary) PO 10/31/24 20:59 500 mg BID YADIRA Administration Ondansetron HCl 4 mg 09/30/24 17:59 10/03/24 07:30 Ondansetron Inj 2 Mg/Ml Inj 2 Ml IVP 10/30/24 17:58 4 mg Q6H PRN Administration NAUSEA OR VOMITING Protocol Pantoprazole Sodium 40 mg 10/02/24 09:00 10/05/24 08:13 Pantoprazole 40 Mg Tablet PO 11/01/24 08:59 40 mg QDAY YADIRA Administration Prednisone 10 mg 10/03/24 09:00 10/05/24 08:13 Prednisone 5 Mg Tablet PO 11/02/24 08:59 10 mg QDAY YADIRA Administration Sennosides 1 tab 09/30/24 18:15 10/05/24 08:13 Senna Tablet PO 10/30/24 18:14 1 tab QDAY YADIRA Administration Protocol Plan Ingedevi Amber is a 24 year old female for past medical history of lupus and Sjrogen's who presented on 09/30 for fever and palpitations, admitted for SVT, controlled on metoprolol, found to have cervical calcified mass, course complicated by developing hematuria. #Acute bilateral blurry vision Patient complained of slightly bilateral blurry vision and gritty eyes on 10/03, which did not improve with artificial eye drops. 10/04 endorses being unable to read the patient information board when she was able to on admission. Patient did present with a presyncopal episode where headstrike was reported. Blurry vision continues to be persistent, as well has inconsistent history telling to different providers. Ddx includes concussion from headstrike vs dry eyes 2/2 Sjogren vs increased intracranial pressure vs SLE cerebritis. CT head 09/30 showed no acute hemorrhage, midline shift or mass effect On exam, peripheral vision intact and EOMI, only vision is affected. Repeat CT head 10/05 negative for acute hemorrhage, mass effect or midline shift. Plan: - Low threshold for MRI brain if blurry vision persists or worsens - Stat tele neuro consulted - Artificial eye drops TID #Acute BLE weakness Patient complains of new onset bilateral lower extremity weakness, unable to lift her legs off the bed starting morning of 10/05. Initially started out as skin tingling and leg [id number] however, developed sudden weakness and inability to get out of bed. Night of 10/04 she was able to walk to the restroom. MSK exam as above. Ddx: - Transverse myelitis: given SLE dx. Symptoms of allodynia, weakness in lower legs support transverse myelitis however acuity status is questionable. Denies back pain and difficulty urinating however does have new hematuria. Consider antiphospholipid antibodies outpatient. - B12 deficiency: B12 and folate levels pending. Is on mycophenolate and hydroxychloroquine which can cause vitamin deficiencies. B12 injection x 1 given 10/04. - Conversion/malingering/factitious disorder: Johnson test positive, iso acute unexplained neurologic symptoms - Low concern for stroke: heparin was discontinued 10/[address] head 10/05 negative for acute hemorrhage, mass effect or midline shift. Plan: - Stat tele neuro consulted - F/u MRI cervical and thoracic spine - F/u folate and B12 #Hematuria Patient initially started complaining of blood in the urine on 10/02, initially attributed to her period has LMP 08/24. However patient complained of persistent blood only in the urine and on her pad. Initial UA on 09/30 showed no blood, however, repeat UA showed 3+ blood and 2660 RBCs, positive leukocyte esterase but no nitrites or bacteria. Patient reported chance of STI is unlikely and is not currently sexually active. Reports no hx of kidney stones. Ddx includes possible delayed Saphnelo infusion reaction vs autoimmune nephritis from SLE or Sjogren's vs kidney stone (has had R flank pain previously but resolved). Nephritis less likely as no protein loss or any creatinine increase. 10/05 CTAP: 3 mm nonobstructing right renal calculus, no hydronephrosis or renal calculi, absent appendix, no bowel obstruction Syphilis serology not reactive, HIV negative Plan: - F/u chlamydia, gonorrhea and trich PCR and hep panel - Heparin held 10/04 - Recommend outpatient urology follow-up #SLE Acute Flare #Sjogren's #Generalized pain #Allodynia, improving #Fever, resolved Likely secondary to lupus flare. Of note, patient started new drug Sephlano, first infusion 4 weeks ago. No immediate allergic reaction during infusion. Utox negative and UA shows no infection. CXR shows mild prominence of left ventricle with mild vascular congestion. No suspected source of infection at this time, thus no antibiotics needed for now. Met 3/4 SIRS criteria on admission (temp as high as 102, tachycardic, tachypnic), no end organ failure so does not meet sepsis criteria. 10/01: Spoke to patient's gas leak tester Dr. Madera at [facility] [place], recommended restarting home medications and starting on baclofen for pain. Requested tests for complement C3, C4, dsDNA, urine protein creatinine ratio, ESR, and CRP. Has appointment coming up on 10/16. Next infusion scheduled for 10/03, but per patient she rescheduled. UCr high 169, test neg, UCx neg, BCx NGTD New complaint of dry eyes and blurry vision, per patient was diagnosed with Sjogren's but not educated about symptoms nor offered any treatments in the past. Plan: - Continue home doses of prednisone 10 mg, mycophenolate 500 mg BID, and hydroxychloroquinine 200 mg QD - Gabapentin 300 mg TID per gas leak tester Dr. Madera's recommendation - Discontinued baclofen due to ineffectiveness and [place] 5 - Pain management to PO Flexeril 10 mg BID and IV ketorolac 15 mg q6h prn - F/u complement C3 and C4, dsDNA - Tylenol for pain and fever prn - Trial of saline drops, reassess vision #SVT, resolved. #Presyncope 2/2 SVT #s/p unwitnessed fall Patient reports dizziness, followed by brief loss of consciousness and head trauma in her shower on 09/29. CT head negative for acute intracranial bleed. Possibly related to lupus or cardiac etiology as patient reported palpitations prior to episode. No history of seizures, less likely neurologic etiology. History of SVTs per patient, has palpitations but only lasts no more than an hour. Likely secondary to lupus. DDx: drug induced/toxin, pericarditis, rheumatoid heart disease S/p adenosine x3, rate now controlled on metoprolol XL 25mg. CXR 09/30 shows mild prominence of left ventricle with mild vascular congestion. Utox negative. Echo 09/30 negative for pericarditis, EF 55 to 60%. No dysfunction noted. Plan: - Cardiology Dr. 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 DDX for former include teratoma vs calcified uterine fibroids vs osseous metaplasia. Patient complains of lower abdominal crampy pain with one episode of blood in urine on 10/02. No further bleeding noted on pads. LMP 08/24 with irregular cycles. Plan: - OBGYN Dr. Gould consulted, recs appreciated - Spoke to Dr. Gaona, likely incidental finding of Nabothian cyst, no inpatient intervention required - Recommend to follow up with outpatient OBGYN #Electrolyte Abnormalities #Hypokalemia #Hypomagnesemia, improved Mg 1.6 on admission. 8/2 Mg 1.5. - s/p Mg infusion in ED - Repleted 4 g - recheck and replete as needed Health Maintenance Disposition: acute BLE weakness, pending teleneuro consult DVT prophylaxis: None. Heparin q12 held due to hematuria. No SCDs due to allodynia GI prophylaxis: Protonix Diet: Full liquid diet CODE STATUS: FULL Patient plan of care was discussed with the resident, Dr. Noel, and attending physician, Dr. Hill. Chantal Black, DO Internal Medicine PGY-1
--- NOTE | 2024-10-05 14:16 | PD.TNEURO ---
Tele Neuro Consultation Consultation Date 10/05/24 Most Recent Vital Signs Last Vital Signs Temp 98.0 F 10/05/24 12:00 Pulse 87 10/05/24 12:00 Resp 20 10/05/24 12:00 BP 97/61 10/05/24 12:00 Pulse Ox 98 10/05/24 12:00 O2 Del Method Room Air 10/05/24 12:00 O2 Flow Rate 0 10/05/24 12:00 Consultation Narrative [facility] TeleNeurology Consult Services Stat Consult Patient Name:???Susana Allen Date of :???2000 Identification Number:??? Date of Service:???10/05/2024 13:12:23 Diagnosis:?R53.1 - Weakness Impression The subacute nature of her sensory and motor complaints raises concern for an inflammatory etiology such as transverse myelitis or a lupus-associated demyelinating event. There also appears to have a functional neurologic disorder, particularly in light of some inconsistencies in symptom reporting. I recommend MRI of the cervical and thoracic spine with and without contrast to evaluate for transverse myelitis or other inflammatory/demyelinating lesions. If the MRI is unrevealing and symptoms persist, lumbar puncture to be considered to assess for albuminocytologic dissociation (suggestive of GBS) or other inflammatory markers. Recommendations: Our recommendations are outlined below. Laboratory Studies :Lipid panel I orderedHemoglobin A1c Nursing Recommendations :IV Fluids, avoid dextrose containing fluids, Maintain euglycemia Neuro checks q4 hrs x 24 hrs and then per shift Head of bed 30 degrees Continue with Telemetry Consultations :Recommend Speech therapy if failed dysphagia screen Physical therapy/Occupational therapy Advanced Imaging: Advanced Imaging Deferred because: Non-disabling symptoms as verified by the patient; no cortical signs so not consistent with LVO Metrics: Dispatch Time: 10/05/2024 13:12:23 Callback Response Time: 10/05/2024 13:16:50 Primary Provider Notified of Diagnostic Impression and Management Plan on: 10/05/2024 14:14:28 CT HEAD: I personally reviewed all the CT images that were available to me and it showed:?no acute changes Chief Complaint: numbness History of Present Illness:Patient is a 24 year old Female. The patient is a 24-year-old female with a known history of systemic lupus erythematosus (SLE), presenting with subacute, intermittent bilateral lower extremity numbness and weakness, most recently onset at 10:30 AM on the day of admission. She describes persistent tingling in both arms without associated weakness, but reports her legs feel numb, crawling, and weak. She denies any bowel or bladder dysfunction. Her symptoms appear to fluctuate and are without clear precipitating events. Of note, she is concurrently experiencing abdominal pain and reports gross hematuria. There is no prior history of similar neurologic episodes. Neurologically, upper extremities are preserved in strength, while lower extremities exhibit subjective weakness and paresthesias. Past Medical History: ?There is no history of Hypertension ?There is no history of Diabetes Mellitus ?There is no history of Hyperlipidemia ?There is no history of Atrial Fibrillation ?There is no history of Coronary Artery Disease ?There is no history of Stroke ?There is no history of Covid-19 Medications: No Anticoagulant use? No Antiplatelet use Reviewed EMR for current medications Allergies:? Reviewed Social History: Patient Is: Single Smoking: No Alcohol Use: No Drug Use: No Family History: There is no family history of premature cerebrovascular disease pertinent to this consultation ROS : 14 Points Review of Systems was performed and was negative except mentioned in HPI. Past Surgical History: There Is No Surgical History Contributory To Today?s Visit Examination: BP(125/78),?Pulse(85), 1A: Level of Consciousness - Alert; keenly responsive?+ 0 1B: Ask Month and Age - Both Questions Right?+ 0 1C: Blink Eyes & Squeeze Hands - Performs Both Tasks?+ 0 2: Test Horizontal Extraocular Movements - Normal?+ 0 3: Test Visual Nicholson - No Visual Loss?+ 0 4: Test Facial Palsy (Use Grimace if Obtunded) - Normal symmetry?+ 0 5A: Test Left Arm Motor Drift - No Drift for 10 Seconds?+ 0 5B: Test Right Arm Motor Drift - No Drift for 10 Seconds?+ 0 6A: Test Left Leg Motor Drift - Some Effort Against [place]?+ 2 6B: Test Right Leg Motor Drift - Some Effort Against [place]?+ 2 7: Test Limb Ataxia (FNF/Heel-Reardon) - No Ataxia?+ 0 8: Test Sensation - Mild-Moderate Loss: Less Sharp/More Dull?+ 1 9: Test Language/Aphasia - Normal; No aphasia?+ 0 10: Test Dysarthria - Normal?+ 0 11: Test Extinction/Inattention - No abnormality?+ 0 NIHSS Score:?5 Spoke with :?Dr Hutchison This consult was conducted in real time using interactive audio and video technology. Patient was informed of the technology being used for this visit and agreed to proceed. Patient located in hospital and provider located at home/office setting. Patient is being evaluated for possible acute neurologic impairment and high probability of imminent or life - threatening deterioration.I spent total of 35 minutes providing care to this patient, including time for face to face visit via telemedicine, review of medical records, imaging studies and discussion of findings with providers, the patient and / or family. Dr Berny Dubois [facility] For Inpatient follow-up with [facility] physician please call [facility] at . As we are not an outpatient service for any post hospital discharge needs please contact the hospital for assistance. If you have any questions for the [facility] physicians or need to reconsult for clinical or diagnostic changes please contact us via [facility] at . Signature :Tiffanie Dubois
[2024-10-06] VITALS (10 sets, daily range): BP systolic 89–116; BP diastolic 55–86; PULSE 72–95; RESP 14–21; TEMP 35.9–36.7; O2SAT 95–100; BMI 24.3; BMI 11.0
--- NOTE | 2024-10-06 | XR_ITS ---
Examination: MRI lumbar spine, without intravenous contrast. MRI lumbar spine , with intravenous contrast. Exam date and time: June 06, 20241954 hours INDICATIONS: Fever chills cardiac palpitations dizziness, patient fell today Technique: Multiple axial, sagittal and coronal images of the lumbar spine have been obtained with the Siemens high-resolution 1.5 Telma MRI scanner. Images obtained included T2 weighted fat suppressed sagittal sections, TR 3500, TE 46, T2 weighted coronal fat suppressed images, TR 3050, TE 84, T2-weighted transverse fat suppressed images, TR 30-60, TE 63, proton density transverse images, TR 4720, TE 46, and T1 weighted coronal images, TR 560, TE 13. Axial, sagittal and coronal images are obtained post intravenous injection 10 cc gadolinium. Findings: Satisfactory alignment lumbar vertebral bodies No lumbar fracture or disc narrowing No spinal stenosis Postcontrast images demonstrate no abnormal osseous epidural conus medullaris or cauda equina enhancement IMPRESSION: No fracture. No acquired spinal stenosis No epidural abscess
--- NOTE | 2024-10-06 | XR_ITS ---
Examination: MRI cervical spine, without intravenous contrast. MRI cervical spine , with intravenous contrast. Exam date and time: October 06, 2024 195 hours INDICATIONS: Dizziness weakness throughout the body, cardiac palpitations today Technique: Multiple axial, sagittal and coronal images of the cervical spine have been obtained with the Siemens high-resolution 1.5 Telma MRI scanner. Images obtained included T2 weighted fat suppressed sagittal sections, TR 3500, TE 46, T2 weighted coronal fat suppressed images, TR 3050, TE 84, T2-weighted transverse fat suppressed images, TR 30-60, TE 63, proton density transverse images, TR 4720, TE 46, and T1 weighted coronal images, TR 560, TE 13. Axial, sagittal and coronal images are obtained post intravenous injection of 10 cc gadolinium. Findings: Satisfactory alignment cervical vertebral bodies No cervical fracture Normal marrow signal cervical vertebral bodies No cervical disc narrowing No prior spinal stenosis Postcontrast images demonstrate no abnormal osseous epidural or cervical cord enhancement IMPRESSION: Negative examination
[2024-10-06] MEDS: GABAPENTIN 300 MG CAPSULE PO ×3 (05:33→21:24)
[2024-10-06] MEDS: KETOROLAC INJ 30 MG/ML VIAL 15 MG IVP (05:33)
[2024-10-06] MEDS: Artificial Tears 225 DROP/15 ML BTL BOTH EYES ×3 (05:35→21:24)
[2024-10-06 05:37] LABS: Folate 7.19 ng/mL (>5.38); Vitamin B12 333 pg/mL (211-911)
[2024-10-06 06:13] LABS: Basophils # (Auto) 0.0 Thou/mm3 (0.0-0.2); Basophils % (Auto) 0 % (0-2.5); Eosinophils # (Auto) 0.1 Thou/mm3 (0.0-0.5); Eosinophils % (Auto) 1 % (0-10); Hematocrit 32.4 % (36.0-46.0); Hemoglobin 10.0 g/dL (12.0-16.0); Immature Granulocytes Auto 0.02 Thou/mm3 (0.00-0.00); Lymphocytes # (Auto) 0.7 Thou/mm3 (1.0-4.8); Lymphocytes % (Auto) 13 % (10-50); Mean Corpuscular HGB Conc 30.9 g/dl (31.0-37.0); Mean Corpuscular Hemoglobin 26.6 pg (25.0-35.0); Mean Corpuscular Volume 86 fL (80-100); Monocytes # (Auto) 0.3 Thou/mm3 (0.0-0.8); Monocytes % (Auto) 5 % (0-12); Neutrophils # (Auto) 4.7 Thou/mm3 (1.8-7.7); Neutrophils % (Auto) 81 % (37-80); Nucleated Red Blood Cell # 0.00 Thou/mm3 (0.00-0.00); Nucleated Red Blood Cell % 0 /100 WBC (0); Platelet Count 233 Thou/mm3 (140-440); RDW Standard Deviation 45.7 fL (36.4-46.3); Red Blood Count 3.76 Miln/mm3 (4.00-5.20); White Blood Count 5.8 Thou/mm3 (3.6-11.0)
[2024-10-06 06:45] LABS: Alanine Aminotransferase 11 U/L (10-49); Albumin, Serum 3.9 gm/dL (3.5-5.0); Albumin/Globulin Ratio 1.4 (1.2-2.2); Alkaline Phosphatase 62 U/L (46-116); Anion Gap 8 (7-16); Aspartate Amino Transferase 13 U/L (0-34); BUN/Creatinine Ratio 30 Ratio (12-20); Bilirubin,Total 0.2 mg/dL (0.3-1.2); Blood Urea Nitrogen 24 mg/dL (9-23); Calcium 9.7 mg/dL (8.3-10.6); Calcium (Corrected) 9.8 mg/dL (8.5-10.1); Carbon Dioxide 26.8 mMol/L (20.0-31.0); Chloride 105 mMol/L (98-107); Creatinine (Component) 0.8 mg/dL (0.6-1.3); Estimated Creatinine Clearance 82.6 mL/min (>60); Globulin 2.8 gm/dL (2.3-3.5); Glucose 84 mg/dL (74-106); Magnesium 2.2 mg/dL (1.6-2.6); Osmolality,Calculated 282 (275-295); Potassium 4.5 mMol/L (3.4-5.1); Sodium 140 mMol/L (136-145); Total Protein 6.7 gm/dL (5.7-8.2); eGFR > 60 See Note
[2024-10-06 06:51] LABS: Hepatitis A Antibody IgM Non Reactive (Non React); Hepatitis B Core Antibody IgM Non Reactive (Non React); Hepatitis B Surface Antigen Non Reactive (Non React); Hepatitis C Antibody Non Reactive (Non React)
[2024-10-06] MEDS: PANTOPRAZOLE 40 MG TABLET PO (08:20)
[2024-10-06] MEDS: METOPROLOL SUCCINATE XL 25 MG TABCR PO (08:20)
[2024-10-06] MEDS: MYCOPHENOLATE 250 MG CAPSULE (NON-FORMULARY) 500 MG PO ×2 (08:21→21:23)
[2024-10-06] MEDS: HYDROXYCHLOROQUINE 200 MG TABLET PO (08:21)
--- NOTE | 2024-10-06 08:56 | PC.SS ---
Follow up note: MRI pending. Pt will return home upon dc.
[2024-10-06 11:04] LABS: DNA (ds) Antibody* 50 IU/mL
[2024-10-06 11:05] LABS: Complement Component C3* 81 mg/dL (83-193); Complement Component C4c* 5 mg/dL (15-57)
--- NOTE | 2024-10-06 11:27 | ESPR_ITS ---
<Statement entered by Shayan Hill MD - 10/15/24 14:33> I reviewed above note and agree with findings and plans. I have also personally examined the patient with medicine team and went over assessment and plan with medical team including director international and resident physician. Documentation for date of: 10/06/24 Subjective Subjective Interval history: Patient seen and examined at bedside. Patient was seen by Teleneuro yesterday, recommended MRI cervical spine and thoracic spine. Patient otherwise continues to complain of lower extremity weakness tingling sensation. Reports that the blurring of vision has improved. Exam Vital Signs Temp Pulse Resp BP Pulse Ox O2 Del Method O2 Flow Rate 96.9 F 75 17 107/66 97 Room Air 0 10/06/24 08:00 10/06/24 08:20 10/06/24 08:00 10/06/24 08:20 10/06/24 08:00 10/06/24 08:00 10/06/24 08:00 Narrative Exam GENERAL: no acute distress HEENT: NC/AT, mucous membranes moist, bilateral sclera anicteric CARDIOVASCULAR: regular rate and rhythm, S1/S2 present, no murmurs appreciated PULMONARY: clear to auscultation bilaterally, no rales/rhonchi/wheezes ABDOMINAL: soft, non-distended, no rebound/guarding, bowel sounds present +mild abdominal tenderness greatest at suprapubic EXTREMITIES: no peripheral edema MSK: mild tenderness at upper extremity joints SKIN: warm and dry, intact, no rashes, mild skin sensitivity to light touch NEURO: Orientation: AO x 3 able to move all 4 extremities, no focal neurological deficits Objective Labs 10/06/24 04:45 10/06/24 04:45 Labs: Laboratory Results - last 24 hr 10/02/24 10/04/24 10/04/24 04:06 05:31 17:20 WBC RBC Hgb Hct MCV MCH MCHC RDW Std Deviation Plt Count Neut % (Auto) Lymph % (Auto) [place] % (Auto) Eos % (Auto) Baso % (Auto) Neut # (Auto) Lymph # (Auto) [place] # (Auto) Eos # (Auto) Baso # (Auto) Immature Gran # (Auto) Absolute Nucleated RBC Immature Gran % Nucleated RBC % Sodium Potassium Chloride Carbon Dioxide Anion Gap BUN Creatinine Estim Creat Clear Calc eGFR BUN/Creatinine Ratio Glucose Calculated Osmolality Calcium Corrected Calcium Magnesium Total Bilirubin AST ALT Alkaline Phosphatase Total Protein Albumin Globulin Albumin/Globulin Ratio Vitamin B12 333 Folate 7.19 Double Strand DNA Ab 50 H Complement C3 81 L Complement C4c 5 L Hepatitis A IgM Ab Non Reactive Hep Bs Antigen Non Reactive Hep B Core IgM Ab Non Reactive Hepatitis C Antibody Non Reactive 10/06/24 04:45 WBC 5.8 RBC 3.76 L Hgb 10.0 L Hct 32.4 L MCV 86 MCH 26.6 MCHC 30.9 L RDW Std Deviation 45.7 Plt Count 233 Neut % (Auto) 81 H Lymph % (Auto) 13 [place] % (Auto) 5 Eos % (Auto) 1 Baso % (Auto) 0 Neut # (Auto) 4.7 Lymph # (Auto) 0.7 L [place] # (Auto) 0.3 Eos # (Auto) 0.1 Baso # (Auto) 0.0 Immature Gran # (Auto) 0.02 H Absolute Nucleated RBC 0.00 Immature Gran % 0 Nucleated RBC % 0 Sodium 140 Potassium 4.5 D Chloride 105 Carbon Dioxide 26.8 Anion Gap 8 BUN 24 H Creatinine 0.8 Estim Creat Clear Calc 82.6 eGFR > 60 BUN/Creatinine Ratio 30 H Glucose 84 Calculated Osmolality 282 Calcium 9.7 Corrected Calcium 9.8 Magnesium 2.2 Total Bilirubin 0.2 L AST 13 ALT 11 Alkaline Phosphatase 62 Total Protein 6.7 Albumin 3.9 Globulin 2.8 Albumin/Globulin Ratio 1.4 Vitamin B12 Folate Double Strand DNA Ab Complement C3 Complement C4c Hepatitis A IgM Ab Hep Bs Antigen Hep B Core IgM Ab Hepatitis C Antibody Quality Measures Quality Measures VTE prophylaxis Assessment & Plan Assessment Current Active Medications: Generic Name Dose Route Start Last Admin Trade Name Juanjoq PRN Reason Stop Dose Admin Acetaminophen 650 mg 09/30/24 17:59 10/05/24 00:39 Acetaminophen 325 Mg Tablet PO 10/30/24 17:58 650 mg Q6H PRN Administration Mild Pain 1-3 or Fever >100.3 Artificial Tears 0 drop 10/04/24 22:00 10/06/24 05:35 Artificial Tears 225 Drop/15 Ml Btl BOTH EYES 11/03/24 21:59 2 drop TID YADIRA Administration Cyclobenzaprine HCl 10 mg 10/03/24 10:15 10/06/24 08:20 Cyclobenzaprine 5 Mg Tablet PO 11/02/24 10:14 10 mg BID YADIRA Administration Gabapentin 300 mg 10/01/24 22:00 10/06/24 05:33 Gabapentin 300 Mg Capsule PO 10/31/24 21:59 300 mg TID YADIRA Administration Heparin Sodium (Porcine) 5,000 unit 09/30/24 21:00 10/04/24 08:34 Heparin Sod Inj 5000 Unit/Ml Vial SC 10/14/24 20:59 5,000 unit Q12HR YADIRA Administration Hydroxychloroquine Sulfate 200 mg 10/01/24 16:00 10/06/24 08:21 Hydroxychloroquine 200 Mg Tablet PO 10/08/24 15:59 200 mg QDAY YADIRA Administration Ketorolac Tromethamine 15 mg 10/03/24 10:04 10/06/24 05:33 Ketorolac Inj 30 Mg/Ml Vial IVP 10/08/24 10:03 15 mg Q6HR PRN Administration PAIN SCALE 4-10(Mod-Sev Metoprolol Succinate 25 mg 10/02/24 09:00 10/06/24 08:20 Metoprolol Succinate Xl 25 Mg Tabcr PO 11/01/24 08:59 25 mg QDAY YADIRA Administration Metoprolol Tartrate 5 mg 09/30/24 18:06 Metoprolol Tartrate Inj 1 Mg/Ml Amp 5 Ml IVP Q5M PRN SUPRAVENTRICULAR TACHYCARDIA Mycophenolate Mofetil 500 mg 10/01/24 21:00 10/06/24 08:21 Mycophenolate 250 Mg Capsule (Non-Formulary) PO 10/31/24 20:59 500 mg BID YADIRA Administration Ondansetron HCl 4 mg 09/30/24 17:59 10/03/24 07:30 Ondansetron Inj 2 Mg/Ml Inj 2 Ml IVP 10/30/24 17:58 4 mg Q6H PRN Administration NAUSEA OR VOMITING Protocol Pantoprazole Sodium 40 mg 10/02/24 09:00 10/06/24 08:20 Pantoprazole 40 Mg Tablet PO 11/01/24 08:59 40 mg QDAY YADIRA Administration Prednisone 10 mg 10/03/24 09:00 10/06/24 08:21 Prednisone 5 Mg Tablet PO 11/02/24 08:59 10 mg QDAY YADIRA Administration Sennosides 1 tab 09/30/24 18:15 10/06/24 08:21 Senna Tablet PO 08/28/25 18:14 1 tab QDAY YADIRA Administration Protocol Plan Susana Clark is a 24 year old female for past medical history of lupus and Sjrogen's who presented on 09/30 for fever and palpitations, admitted for SVT, controlled on metoprolol, found to have cervical calcified mass, course complicated by developing hematuria. #Acute BLE weakness Patient complains of new onset bilateral lower extremity weakness, unable to lift her legs off the bed starting morning of 10/05. Initially started out as skin tingling and leg [id number] however, developed sudden weakness and inability to get out of bed. Night of 10/04 she was able to walk to the restroom. MSK exam as above. Ddx: - Transverse myelitis: given SLE dx. Symptoms of allodynia, weakness in lower legs support transverse myelitis however acuity status is questionable. Denies back pain and difficulty urinating however does have new hematuria. Consider antiphospholipid antibodies outpatient. - B12 deficiency: B12 and folate levels pending. Is on mycophenolate and hydroxychloroquine which can cause vitamin deficiencies. B12 injection x 1 given 10/04. - Conversion/malingering/factitious disorder: Johnson test positive, iso acute unexplained neurologic symptoms - Low concern for stroke: heparin was discontinued 10/[address] head 10/05 negative for acute hemorrhage, mass effect or midline shift. Plan: - Tele neuro consulted, appreciate recs. - Ordered MRI cervical and thoracic spine - F/u folate and B12 #Acute bilateral blurry vision Patient complained of slightly bilateral blurry vision and gritty eyes on 10/03, which did not improve with artificial eye drops. 10/04 endorses being unable to read the patient information board when she was able to on admission. Patient did present with a presyncopal episode where headstrike was reported. Blurry vision continues to be persistent, as well has inconsistent history telling to different providers. Ddx includes concussion from headstrike vs dry eyes 2/2 Sjogren vs increased intracranial pressure vs SLE cerebritis. CT head 09/30 showed no acute hemorrhage, midline shift or mass effect On exam, peripheral vision intact and EOMI, only vision is affected. Repeat CT head 10/05 negative for acute hemorrhage, mass effect or midline shift. Plan: - Tele neuro consulted, appreciate recs. - Artificial eye drops TID #Hematuria Patient initially started complaining of blood in the urine on 10/02, initially attributed to her period has LMP 08/24. However patient complained of persistent blood only in the urine and on her pad. Initial UA on 09/30 showed no blood, however, repeat UA showed 3+ blood and 2660 RBCs, positive leukocyte esterase but no nitrites or bacteria. Patient reported chance of STI is unlikely and is not currently sexually active. Reports no hx of kidney stones. Ddx includes possible delayed Saphnelo infusion reaction vs autoimmune nephritis from SLE or Sjogren's vs kidney stone (has had R flank pain previously but resolved). Nephritis less likely as no protein loss or any creatinine increase. 10/05 CTAP: 3 mm nonobstructing right renal calculus, no hydronephrosis or renal calculi, absent appendix, no bowel obstruction Syphilis serology not reactive, HIV negative Plan: - F/u chlamydia, gonorrhea and trich PCR and hep panel - Heparin held 10/04 - Recommend outpatient urology follow-up #SLE Acute Flare #Sjogren's #Generalized pain #Allodynia, improving #Fever, resolved Likely secondary to lupus flare. Of note, patient started new drug Sephlano, first infusion 4 weeks ago. No immediate allergic reaction during infusion. Utox negative and UA shows no infection. CXR shows mild prominence of left ventricle with mild vascular congestion. No suspected source of infection at this time, thus no antibiotics needed for now. Met 3/4 SIRS criteria on admission (temp as high as 102, tachycardic, tachypnic), no end organ failure so does not meet sepsis criteria. 10/01: Spoke to patient's manager er Dr. Madera at [facility] in [place], recommended restarting home medications and starting on baclofen for pain. Requested tests for complement C3, C4, dsDNA, urine protein creatinine ratio, ESR, and CRP. Has appointment coming up on 10/16. Next infusion scheduled for 10/03, but per patient she rescheduled. UCr high 169, test neg, UCx neg, BCx NGTD New complaint of dry eyes and blurry vision, per patient was diagnosed with Sjogren's but not educated about symptoms nor offered any treatments in the past. Plan: - Continue home doses of prednisone 10 mg, mycophenolate 500 mg BID, and hydroxychloroquinine 200 mg QD - Gabapentin 300 mg TID per manager er Dr. Madera's recommendation - Discontinued baclofen due to ineffectiveness and [place] 5 - Pain management to PO Flexeril 10 mg BID and IV ketorolac 15 mg q6h prn - F/u complement C3 and C4, dsDNA - Tylenol for pain and fever prn - Trial of saline drops, reassess vision #SVT, resolved. #Presyncope 2/2 SVT #s/p unwitnessed fall Patient reports dizziness, followed by brief loss of consciousness and head trauma in her shower on 09/29. CT head negative for acute intracranial bleed. Possibly related to lupus or cardiac etiology as patient reported palpitations prior to episode. No history of seizures, less likely neurologic etiology. History of SVTs per patient, has palpitations but only lasts no more than an hour. Likely secondary to lupus. DDx: drug induced/toxin, pericarditis, rheumatoid heart disease S/p adenosine x3, rate now controlled on metoprolol XL 25mg. CXR 09/30 shows mild prominence of left ventricle with mild vascular congestion. Utox negative. Echo 09/30 negative for pericarditis, EF 55 to 60%. No dysfunction noted. Plan: - Cardiology Dr. 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 DDX for former include teratoma vs calcified uterine fibroids vs osseous metaplasia. Patient complains of lower abdominal crampy pain with one episode of blood in urine on 10/02. No further bleeding noted on pads. LMP 08/24 with irregular cycles. Plan: - OBGYN Dr. Gould consulted, recs appreciated - Spoke to Dr. Gaona, likely incidental finding of Nabothian cyst, no inpatient intervention required - Recommend to follow up with outpatient OBGYN #Electrolyte Abnormalities #Hypokalemia #Hypomagnesemia, improved - recheck and replete as needed Health Maintenance Disposition: acute BLE weakness, pending teleneuro consult DVT prophylaxis: None. Heparin q12 held due to hematuria. No SCDs due to allodynia GI prophylaxis: Protonix Diet: Full liquid diet CODE STATUS: FULL Case discussed with Attending Physician Dr. Liz Macario MD Internal Medicine PGY-2 Disclaimer: This note was dictated by speech recognition. Minor errors in supervisor blast furnace auxiliaries may be present due to voice recognition software.
--- NOTE | 2024-10-06 15:07 | PD.TNEUROPRO ---
Tele Neuro Progress Note Progress Note Date 10/06/24 [facility] Tele[facility]urology Progress Note Date of Service 10/06/2024 Presentation: Based on previous neurology note(s)?? : 24-year-old female with a known history of systemic lupus erythematosus (SLE), presenting with subacute, intermittent bilateral lower extremity numbness and weakness, most recently onset at 10:30 AM on the day of admission. She describes persistent tingling in both arms without associated weakness, but reports her legs feel numb, crawling, and weak. She denies any bowel or bladder dysfunction. Her symptoms appear to fluctuate and are without clear precipitating events. Of note, she is concurrently experiencing abdominal pain and reports gross hematuria. There is no prior history of similar neurologic episodes. Neurologically, upper extremities are preserved in strength, while lower extremities exhibit subjective weakness and paresthesias. Interval history: 10/06/2024: nursing does not report any significant new events overnight. Impression: SLE SVT (resolved) Bilateral leg numbness and weakness, etiology is being investigated (myelopathy, vs GBS vs highly suspicious for functional) Recommendations: (Primary Team to order Controlled Medications) Unless specifically noted I Agree with Impression and Plan from previous Neurology note/consult. 1- C and T MRIs pending, I added L spine MRI with and without contrast 2- if above is negative then LP to check for cytoalbuminologic dissociation 3- if all above is negative outpatient Nerve Conduction Studies/EMG [facility] Neurologist will follow up with results. Please contact [facility] Navigator to reach me if further questions/concerns arise. Examination: Examination done through interactive audio and video telecommunications with the assist of bedside nursing (when available) awake, alert speech no aphasia Extraocular movements intact face symmetric arms no drift (10s) leg weakness is highly suspicious for functional deficit, she could not elevate either leg off bed, but when legs passively lifted knee remained straight, then when asked to relax the leg and let it drop to the bed she let the leg (below knee) to drop to bed but then could not extend knee at all when asked to push against some force, also when examiner tried to push up against foot on the right there was resistance but on active examination there was no force produced. Numbness travels up to chest on the right side but on the left is up to mid-le. Patient / Family was informed the Neurology Consult would occur via Tele[facility] consult by way of interactive audio and video telecommunications and consented to receiving care in this manner. ? Patient is being evaluated for possible acute neurologic impairment and high probability of imminent or life - threatening deterioration. I spent total of 15 minutes providing care to this patient, including time for face to face visit via telemedicine, review of medical records, imaging studies and discussion of findings with providers, the patient and / or family. ? ? Dr Juan Quinn ? ? [facility] For Inpatient follow-up with [facility] physician please call [facility] . This is not an outpatient service. Post hospital discharge, please contact hospital directly. ? Please do not communicate with [facility] physicians via secure chat. If you have any questions, Please contact [facility]. Please call or reconsult our service if there are any clinical or diagnostic changes. ? Most Recent Vital Signs Last Vital Signs Temp 96.9 F 10/06/24 12:00 Pulse 95 10/06/24 12:00 Resp 21 H 10/06/24 12:00 BP 89/70 L 10/06/24 12:00 Pulse Ox 95 10/06/24 12:00 O2 Del Method Room Air 10/06/24 12:00 O2 Flow Rate 0 10/06/24 12:00
--- NOTE | 2024-10-06 15:26 | PC.NURSE ---
Pt has not urinated all day. States, doesn't have the urge to go. Also, Pt's blood pressure is on the soft side. 96/55. No new symptoms at this time. Called Dr. Macario and made aware. awaiting new orders for bladder scan.
--- NOTE | 2024-10-06 15:51 | PD.RESPRO ---
Documentation for date of: 10/06/24 Subjective Subjective Interval history: The patient is evaluated at bedside, reported no chest discomfort or palpitations. No acute overnight events reported. Pt reports numbness and tenderness in BLE, Rt >Lt. Patient's vitals today, blood pressure 96/55, heart rate 89. Hemoglobin stable at 10, BUN 24, urine positive for blood 3+. Workup for SLE was positive for double-stranded DNA antibodies 50, low complement C3 81, low complement C4c 5. Primary team had placed a teleneurology consult, And CT head was ordered which was negative for acute hemorrhage or mass effect or midline shift. Per teleneurology, concern for inflammatory etiology of patient's symptoms including lupus associated with demyelinating event or transverse myelitis is considered. Neurology recommended addition of L-spine to the original C and T MRI, which is pending completion. Continued on metoprolol succinate 25 mg daily, for control of paroxysmal tachycardia 2/2 SLE flare. Exam Vital Signs Temp Pulse Resp BP Pulse Ox O2 Del Method O2 Flow Rate 97.4 F 89 18 96/55 L 95 Room Air 0 10/06/24 15:47 10/06/24 15:47 10/06/24 15:47 10/06/24 15:47 10/06/24 15:47 10/06/24 15:47 10/06/24 15:47 Narrative Exam General: No acute distress, Alert and Oriented x 3, HEENT: Moist mucous membranes, oropharynx clear Neck: Supple, No masses, No JVD CVS: S1S2 Regular rate and rhythm, No murmurs, rubs or gallops Lungs: Clear to auscultation with no accessory use, no wheeze no rhonchi Abd: Soft, NT/ND, +BS, no organomegaly Ext: No edema, warm and well perfused. Noted tenderness to palpation, no fasciculations noted, clonus negative, patient unable to move bilateral lower extremities on command. Skin: No rash Psych: Appropriate mood and affect Objective Labs 10/06/24 04:45 10/06/24 04:45 Labs: Laboratory Results - last 24 hr 10/02/24 10/04/24 10/04/24 04:06 05:31 17:20 WBC RBC Hgb Hct MCV MCH MCHC RDW Std Deviation Plt Count Neut % (Auto) Lymph % (Auto) [place] % (Auto) Eos % (Auto) Baso % (Auto) Neut # (Auto) Lymph # (Auto) [place] # (Auto) Eos # (Auto) Baso # (Auto) Immature Gran # (Auto) Absolute Nucleated RBC Immature Gran % Nucleated RBC % Sodium Potassium Chloride Carbon Dioxide Anion Gap BUN Creatinine Estim Creat Clear Calc eGFR BUN/Creatinine Ratio Glucose Calculated Osmolality Calcium Corrected Calcium Magnesium Total Bilirubin AST ALT Alkaline Phosphatase Total Protein Albumin Globulin Albumin/Globulin Ratio Vitamin B12 333 Folate 7.19 Double Strand DNA Ab 50 H Complement C3 81 L Complement C4c 5 L Hepatitis A IgM Ab Non Reactive Hep Bs Antigen Non Reactive Hep B Core IgM Ab Non Reactive Hepatitis C Antibody Non Reactive 10/06/24 04:45 WBC 5.8 RBC 3.76 L Hgb 10.0 L Hct 32.4 L MCV 86 MCH 26.6 MCHC 30.9 L RDW Std Deviation 45.7 Plt Count 233 Neut % (Auto) 81 H Lymph % (Auto) 13 Jerauld % (Auto) 5 Eos % (Auto) 1 Baso % (Auto) 0 Neut # (Auto) 4.7 Lymph # (Auto) 0.7 L [place] # (Auto) 0.3 Eos # (Auto) 0.1 Baso # (Auto) 0.0 Immature Gran # (Auto) 0.02 H Absolute Nucleated RBC 0.00 Immature Gran % 0 Nucleated RBC % 0 Sodium 140 Potassium 4.5 D Chloride 105 Carbon Dioxide 26.8 Anion Gap 8 BUN 24 H Creatinine 0.8 Estim Creat Clear Calc 82.6 eGFR > 60 BUN/Creatinine Ratio 30 H Glucose 84 Calculated Osmolality 282 Calcium 9.7 Corrected Calcium 9.8 Magnesium 2.2 Total Bilirubin 0.2 L AST 13 ALT 11 Alkaline Phosphatase 62 Total Protein 6.7 Albumin 3.9 Globulin 2.8 Albumin/Globulin Ratio 1.4 Vitamin B12 Folate Double Strand DNA Ab Complement C3 Complement C4c Hepatitis A IgM Ab Hep Bs Antigen Hep B Core IgM Ab Hepatitis C Antibody Quality Measures Quality Measures VTE prophylaxis Assessment & Plan Assessment Current Active Medications: Generic Name Dose Route Start Last Admin Trade Name Freq PRN Reason Stop Dose Admin Acetaminophen 650 mg 09/30/24 17:59 10/05/24 00:39 Acetaminophen 325 Mg Tablet PO 10/30/24 17:58 650 mg Q6H PRN Administration Mild Pain 1-3 or Fever >100.3 Artificial Tears 0 drop 10/04/24 22:00 10/06/24 13:20 Artificial Tears 225 Drop/15 Ml Btl BOTH EYES 11/03/24 21:59 1 drop TID YADIRA Administration Cyclobenzaprine HCl 10 mg 10/03/24 10:15 10/06/24 08:20 Cyclobenzaprine 5 Mg Tablet PO 11/02/24 10:14 10 mg BID YADIRA Administration Gabapentin 300 mg 10/01/24 22:00 10/06/24 13:20 Gabapentin 300 Mg Capsule PO 10/31/24 21:59 300 mg TID YADIRA Administration Heparin Sodium (Porcine) 5,000 unit 09/30/24 21:00 10/04/24 08:34 Heparin Sod Inj 5000 Unit/Ml Vial SC 10/14/24 20:59 5,000 unit Q12HR YADIRA Administration Hydroxychloroquine Sulfate 200 mg 10/01/24 16:00 10/06/24 08:21 Hydroxychloroquine 200 Mg Tablet PO 10/08/24 15:59 200 mg QDAY YADIRA Administration Ketorolac Tromethamine 15 mg 10/03/24 10:04 10/06/24 05:33 Ketorolac Inj 30 Mg/Ml Vial IVP 10/08/24 10:03 15 mg Q6HR PRN Administration PAIN SCALE 4-10(Mod-Sev Metoprolol Succinate 25 mg 10/02/24 09:00 10/06/24 08:20 Metoprolol Succinate Xl 25 Mg Tabcr PO 11/01/24 08:59 25 mg QDAY YADIRA Administration Metoprolol Tartrate 5 mg 09/30/24 18:06 Metoprolol Tartrate Inj 1 Mg/Ml Amp 5 Ml IVP Q5M PRN SUPRAVENTRICULAR TACHYCARDIA Mycophenolate Mofetil 500 mg 10/01/24 21:00 10/06/24 08:21 Mycophenolate 250 Mg Capsule (Non-Formulary) PO 10/31/24 20:59 500 mg BID YADIRA Administration Ondansetron HCl 4 mg 09/30/24 17:59 10/03/24 07:30 Ondansetron Inj 2 Mg/Ml Inj 2 Ml IVP 10/30/24 17:58 4 mg Q6H PRN Administration NAUSEA OR VOMITING Protocol Pantoprazole Sodium 40 mg 10/02/24 09:00 10/06/24 08:20 Pantoprazole 40 Mg Tablet PO 11/01/24 08:59 40 mg QDAY YADIRA Administration Prednisone 10 mg 10/03/24 09:00 10/06/24 08:21 Prednisone 5 Mg Tablet PO 11/02/24 08:59 10 mg QDAY YADIRA Administration Sennosides 1 tab 09/30/24 18:15 10/06/24 08:21 Senna Tablet PO 10/30/24 18:14 1 tab QDAY YADIRA Administration Protocol Plan The patient is a 24-year-old female with significant past medical history of SLE on saphnelo infusion once a month, Sjogren's syndrome, and SVT on metoprolol presented to ED on 09/30/2024 with chief complaint of palpitations. Cardiology consultation done for further management of SVT. 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 Cardiology was consulted for further evaluation and workup. Echocardiogram was ordered which showed EF 55 to 60%, no wall motion abnormalities, normal LV and LA size, SVT likely precipitated by acute SLE flareup. Primary team reached out to patient's woodwinds teacher in [place], who recommended additional workup including ALEJANDRO, anti-dsDNA, complement levels, to evaluate for acute SLE flare. The patient is currently on biologic/Saphnelo infusions and prednisone 5 mg daily. The patient continues to stay in normal sinus rhythm. Initial Head CT was negative for acute hemorrhage, midline shift or mass effect. CXR was significant for mild vascular congestion. Primary team had placed a teleneurology consult, And CT head was ordered which was negative for acute hemorrhage or mass effect or midline shift. Per teleneurology, concern for inflammatory etiology of patient's symptoms including lupus associated with demyelinating event or transverse myelitis is considered. Neurology recommended addition of L-spine to the original C and T MRI, which is pending completion. Workup for SLE was positive for double-stranded DNA antibodies 50, low complement C3 81, low complement C4c 5. ? Continue on metoprolol succinate 25 mg daily, for control of paroxysmal tachycardia 2/2 SLE flare. ? Continue telemetry monitoring ? Maintain potassium greater than 4 and magnesium more than 2 at all times. ? Patient might benefit from outpatient endocrinology evaluation and DEXA scan - Recommended follow-up pelvic exam and possible transvaginal ultrasound as outpatient with her established [employer]. Rest of the management deferred to primary team. Thank you for cardiology consultation. We appreciate the opportunity to participate in this patient's care. Will continue to follow-up on this patient This case was discussed with my attending physician, Dr. Pickard. Servando Tuttle MD PG3 Attending Provider Attestation/Addendum I have personally seen and examined the patient separately on the above date of service and discussed the plan of care with the resident. I reviewed the resident Dr. Fernando consultation progress note and agree with the resident findings and plan in the note above and have also edited the documentation to reflect my findings and plan. Landry Pickard M.D. Interventional Cardiology
--- NOTE | 2024-10-06 17:55 | PC.NURSE ---
Pt's blood pressure had been 96/55. No other symptoms. Asked DOUGH MOLDER HAND to go recheck patient blood pressure. At recheck, patient said she was having right sided facial numbness. DOUGH MOLDER HAND called nurses station and Rapid response was called. During rapid response, stroke alert called. Stroke protocol activated. Patient Alert and oriented times 4. following all commands
--- NOTE | 2024-10-06 17:58 | XR_ITS ---
Examination: CT brain head without contrast. 2-D sagittal coronal reconstructions Date and time of exam:October 06, 20262024, 1805 hours Comparison October 05, 2024 INDICATIONS: Onset of right-sided body weakness today, onset of blurred vision and weakness in the legs October 05, 2024 CTDI: vol (mGy):43.5 DLP: (mGycm):806 Technique: Multiple CT axial sections of the brain have been obtained, 5 mm slice thickness. Contrast has not been administered. 2-D sagittal, coronal reconstructions have been obtained Low dose protocols were performed. One or more of the following dose reduction techniques were used; automated exposure control, adjustment of the mA and/or KV according to patient size, use of iterative reconstruction technique. Findings: No significant ventricular enlargement. Intra-axial or extra-axial hemorrhage density is not seen. No mass effect or midline shift Basal cisterns are not remarkable. Fourth ventricle is midline. Cranial vault intact. Impression: Negative for acute hemorrhage, mass effect or midline shift As clinically warranted, brain MRI follow-up would best assess for demyelinating disease
--- NOTE | 2024-10-06 18:29 | ESCONSULT_ITS ---
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 ?B/L lower extremity weakness, urinary retention and numbness. ? ? Obtain stat MRI of brain, cervical, thoracic, and lumbar spine. ? Order laboratory studies: Lactate, ESR, CRP. ? Initiate ceftriaxone for UTI treatment. ? Administer IV fluids to improve blood pressure. ? Continue current SLE medications: hydroxychloroquine, mycophenolate, and prednisone. ? Monitor for changes in bowel and bladder function. ? Consult Neurosurgery if MRI reveals spinal abscess or lesion. ? Close monitoring of neurological status and vital signs. ? ?SLE: ? Continue current medications: hydroxychloroquine, mycophenolate, and prednisone. ? ?UTI: ? Initiate ceftriaxone for treatment. ? ?Hypotension: ? Administer IV fluids to improve blood pressure. ? Optimize perfusion measures ? Monitor MAP, currently around 68. Our recommendations are outlined below. Recommendations: ? Stroke/Telemetry Floor ? Neuro Checks (Q4) ? Bedside Swallow Eval ? DVT Prophylaxis ? IV Fluids, Normal Saline ? Head of Bed 30 Degrees ? Euglycemia and Avoid Hyperthermia (PRN Acetaminophen) Sign Out: ? Discussed with Primary Attending Advanced Imaging:Advanced Imaging Deferred because: Does not meet criteria due to being out of the 24-hour window for thrombectomy Metrics: Last Known Well: Unknown Dispatch Time: 10/06/2024 17:57:52 Initial Response Time: 10/06/2024 18:01:08Symptoms: B/L weakness and scattered numbness. Initial patient interaction: 10/06/2024 18:11:30 NIHSS Assessment Completed: 10/06/2024 18:20:29Patient is not a candidate for Thrombolytic. Thrombolytic Medical Decision: 10/06/2024 18:20:33Patient was not deemed candidate for Thrombolytic because of following reasons: LKW outside 4.[address] Head: I personally reviewed all the CT images that were available to me and it showed: No acute findings Primary Provider Notified of Diagnostic Impression and Management Plan on: 10/06/2024 18:26:21 Spoke With: Dr. Macario Able to Reach 10/06/2024 18:26:21 History of Present Illness:Patient is a 24 year old Female. Inpatient stroke alert was called for symptoms of B/L weakness and scattered numbness. The patient is a young woman with a history of systemic lupus erythematosus (SLE) admitted for an SLE flare-up. During her hospitalization, she developed new neurological symptoms including right-sided numbness, bilateral lower extremity weakness, and most recently, right-sided weakness with facial involvement. The patient's initial presentation included numbness on the right side and bilateral lower extremity weakness. These symptoms have been variable throughout her hospitalization, affecting different limbs at different times. She has also been experiencing blurred vision that fluctuates in severity. Today, approximately 20 minutes prior to the current evaluation, the patient developed acute right-sided weakness. She is unable to smile and cannot move both of her legs. There is also weakness in her right upper arm. The patient's neurological symptoms do not clearly localize to a specific area, as she experiences numbness and tingling on one side but weakness on the other. She denies any numbness or tingling around her buttocks or pelvic area and reports no back pain. However, she has experienced changes in bladder function, with reports of not urinating all day. Regarding her SLE management, the patient is on her home medications including hydroxychloroquine, mycophenolate, and prednisone. She is not on any blood thinners, aspirin, or Plavix. Heparin for DVT prophylaxis was being held due to hematuria, for which a CT abdomen and pelvis was performed and found to be negative for bladder abnormalities. A urinalysis came back positive for a urinary tract infection, which has not yet been treated. The patient was given a B12 shot despite a normal B12 level of 333 two days ago. An STI panel was also checked as part of the workup. Medical History - Systemic lupus erythematosus (SLE) - Deep vein thrombosis (DVT) - Pelvic mass Medications and Supplements - Hydroxychloroquine - Mycophenolate - Prednisone - Epinephrine - Used for DVT prophylaxis - Held due to hematuria - B12 - Given as a shot Review of Systems General: Positive for weakness. HEENT: Positive for blurred vision. Genitourinary: Positive for hematuria, difficulty urinating. Musculoskeletal: Positive for bilateral lower extremity weakness, right upper arm weakness. Neurological: Positive for right-sided numbness, right-sided weakness, inability to smile. ? Past Medical History: ?There is no history of Hypertension Other PMH:? SLE Medications: No Anticoagulant use? No Antiplatelet use Reviewed EMR for current medications Allergies:? Reviewed Social History: Drug Use: No Family History: There is no family history of premature cerebrovascular disease pertinent to this consultation ROS : 14 Points Review of Systems was performed and was negative except mentioned in HPI. Past Surgical History: There Is No Surgical History Contributory To Today?s Visit ? Examination: BP(108/75),?Pulse(75), 1A: Level of Consciousness - Alert; keenly responsive?+ 0 1B: Ask Month and Age - Both Questions Right?+ 0 1C: Blink Eyes & Squeeze Hands - Performs Both Tasks?+ 0 2: Test Horizontal Extraocular Movements - Normal?+ 0 3: Test Visual Nicholson - No Visual Loss?+ 0 4: Test Facial Palsy (Use Grimace if Obtunded) - Normal symmetry?+ 0 5A: Test Left Arm Motor Drift - Drift, but doesn't hit bed?+ 1 5B: Test Right Arm Motor Drift - No Drift for 10 Seconds?+ 0 6A: Test Left Leg Motor Drift - No Effort Against [place]?+ 3 6B: Test Right Leg Motor Drift - Drift, but doesn't hit bed?+ 1 7: Test Limb Ataxia (FNF/Heel-Reardon) - Ataxia in 1 Limb?+ 1 8: Test Sensation - Mild-Moderate Loss: Can Sense Being Touched?+ 1 9: Test Language/Aphasia - Normal; No aphasia?+ 0 10: Test Dysarthria - Normal?+ 0 11: Test Extinction/Inattention - No abnormality?+ 0 NIHSS Score:?7 Pre-Morbid Modified Julienne Scale:2 Points = Slight disability; unable to carry out all previous activities, but able to look after own affairs without assistance Spoke with :?Dr. Macario This consult was conducted in real time using interactive audio and video technology. Patient was informed of the technology being used for this visit and agreed to proceed. Patient located in hospital and provider located at home/office setting. Patient is being evaluated for possible acute neurologic impairment and high probability of imminent or life-threatening deterioration. I spent total of 35 minutes providing care to this patient, including time for face to face visit via telemedicine, review of medical records, imaging studies and discussion of findings with providers, the patient and/or family. Dr Robe Boggs [facility] For Inpatient follow-up with [facility] physician please call [facility] at . As we are not an outpatient service for any post hospital discharge needs please contact the hospital for assistance. If you have any questions for the [facility] physicians or need to re consult for clinical or diagnostic changes please contact us via [facility] at . Signature :Veronika Boggs ?
--- NOTE | 2024-10-06 18:38 | EVENTNT_ITS ---
Documentation for date of: 10/06/24 Event Note Event Note: Rapid response called for the patient around 6 PM, patient noted to have right- sided deficits, bilateral weakness, scattered numbness. Does have right-sided numbness, bilateral lower extremity weakness and right-sided weakness with facial involvement. Stroke alert called, obtained stat teleneuro consult, case discussed extensively with teleneurologist, informed him about patient's history. CT scan of the head obtained show no acute findings. Teleneuro recommends due to bilateral lower extremity weakness,? Paresthesia in the lower part of the body, concern of urinary retention to obtain MRI brain, cervical, thoracic and lumbar spine. Discussed with quality assurance lab technician, patient can only obtain 2 MRIs today. Will proceed with MRI cervical and lumbar spine, patient will be scheduled for MRI brain and thoracic spine in a.m. We obtained ESR, CRP and lactate, will follow - Started patient on maintenance fluid NS 1 bag - Started IV ceftriaxone, UA did show leukocyte Estrace positive however urine culture showed mixed alicia - Ordered neurochecks every 4 hours - N.p.o. right now, ordered neuro swallow screen. - Will continue SLE medication Case discussed with Attending Physician Dr. Hill. Lyle Macario MD Internal Medicine PGY-2 Disclaimer: This note was dictated by speech recognition. Minor errors in rotogravure press operator may be present due to voice recognition software.
[2024-10-06 18:44] LABS: Lactate (Lactic Acid) 1.6 mMol/L (0.4-2.0)
[2024-10-06 18:57] LABS: Sed Rate (ESR) 63 mm/hr (0-20)
[2024-10-06] MEDS: SODIUM CHLORIDE 0.9% 1000 ML 1,000 ML 60 ML IV (20:00)
[2024-10-06] MEDS: cefTRIAXone/D5w 1gm IV premix 1 GM/50 ML BAG IV (20:03)
[2024-10-06 22:17] LABS: C-Reactive Protein 1.0 mg/dL (0.0-0.9)
[2024-10-07] VITALS (7 sets, daily range): BP systolic 92–108; BP diastolic 59–75; PULSE 70–97; RESP 15–22; TEMP 35.9–36.4; O2SAT 95–99; BMI 23.2
[2024-10-07] MEDS: KETOROLAC INJ 30 MG/ML VIAL 15 MG IVP ×3 (00:06→15:45)
[2024-10-07] MEDS: GABAPENTIN 300 MG CAPSULE PO ×3 (05:30→21:46)
[2024-10-07] MEDS: Artificial Tears 225 DROP/15 ML BTL BOTH EYES ×2 (05:30→21:45)
[2024-10-07 06:04] LABS: Basophils # (Auto) 0.0 Thou/mm3 (0.0-0.2); Basophils % (Auto) 0 % (0-2.5); Eosinophils # (Auto) 0.1 Thou/mm3 (0.0-0.5); Eosinophils % (Auto) 2 % (0-10); Hematocrit 33.4 % (36.0-46.0); Hemoglobin 10.4 g/dL (12.0-16.0); Immature Granulocytes Auto 0.03 Thou/mm3 (0.00-0.00); Lymphocytes # (Auto) 0.6 Thou/mm3 (1.0-4.8); Lymphocytes % (Auto) 13 % (10-50); Mean Corpuscular HGB Conc 31.1 g/dl (31.0-37.0); Mean Corpuscular Hemoglobin 26.5 pg (25.0-35.0); Mean Corpuscular Volume 85 fL (80-100); Monocytes # (Auto) 0.4 Thou/mm3 (0.0-0.8); Monocytes % (Auto) 7 % (0-12); Neutrophils # (Auto) 3.7 Thou/mm3 (1.8-7.7); Neutrophils % (Auto) 77 % (37-80); Nucleated Red Blood Cell # 0.00 Thou/mm3 (0.00-0.00); Nucleated Red Blood Cell % 0 /100 WBC (0); Platelet Count 231 Thou/mm3 (140-440); RDW Standard Deviation 45.0 fL (36.4-46.3); Red Blood Count 3.92 Miln/mm3 (4.00-5.20); White Blood Count 4.9 Thou/mm3 (3.6-11.0)
[2024-10-07 06:30] LABS: Anion Gap 7 (7-16); BUN/Creatinine Ratio 26 Ratio (12-20); Blood Urea Nitrogen 18 mg/dL (9-23); Calcium 8.9 mg/dL (8.3-10.6); Carbon Dioxide 25.6 mMol/L (20.0-31.0); Chloride 106 mMol/L (98-107); Creatinine (Component) 0.7 mg/dL (0.6-1.3); Estimated Creatinine Clearance 94.4 mL/min (>60); Glucose 81 mg/dL (74-106); Magnesium 1.5 mg/dL (1.6-2.6); Osmolality,Calculated 278 (275-295); Potassium 4.5 mMol/L (3.4-5.1); Sodium 139 mMol/L (136-145); eGFR > 60 See Note
[2024-10-07] MEDS: cefTRIAXone/D5w 1gm IV premix 1 GM/50 ML BAG IV (08:24)
[2024-10-07] MEDS: MYCOPHENOLATE 250 MG CAPSULE (NON-FORMULARY) 500 MG PO ×2 (08:25→21:46)
[2024-10-07] MEDS: PANTOPRAZOLE 40 MG TABLET PO (08:25)
--- NOTE | 2024-10-07 08:57 | XR_ITS ---
Examination: MRI of brain without intravenous contrast. MRI brain with intravenous contrast. Date and time of exam:October 07, 2024, 1716 hours INDICATIONS: Fever chills dizziness and patient fell yesterday with injury to the head, new onset facial numbness Technique: Multiple axial and sagittal images of the brain to been obtained. Siemens high-resolution 1.52 Telma short bore scanner utilized. Sagittal sections, T1 weighted images, TR 500, TE 14, are performed. Axial sections proton-density and T2-weighted images have been obtained. Inversion recovery axial images, TR 9260, TE 111, TR 2500. Diffusion weighted images, axial sections, TR 4800, TE 128, B value 1000. Axial sections, ADC map, TR 4800, TE 128. Axial and coronal images were also obtained post 10 cc gadolinium administered intravenously. Findings:: Enlargement of the sella turcica is not present. The optic chiasm and infundibular stalk are not remarkable. There is no localized enlargement of the medulla or dorie. Fourth ventricle and cerebellar tonsils appear normal in position. No subacute area of hemorrhage density is seen. Fourth ventricle is midline. Mass in the cerebellopontine angle region is not evident. 7th and 8th nerve complexes exhibit symmetry Globes are symmetrical Orbital musculature including medial lateral rectus muscles do not exhibit abnormality Increased white matter signal is not seen Effacement of the cortical sulcal markings is not identified. Mass effect upon the ventricular system is not identified. Diffusion-weighted images demonstrate no focus of restricted diffusion Contrast images demonstrate no abnormal enhancement Impression: Negative for acute hemorrhage, mass effect or midline shift. No acute infarct. No findings diagnostic for demyelinating disease. No abnormal enhancing cerebellar or cerebral lesions.
--- NOTE | 2024-10-07 09:11 | ESPR_ITS ---
Tele Neuro Progress Note Progress Note Date [facility] Progress Note Date of Service 10/07/2024 Presentation: Based on previous neurology note(s) : 24-year-old female with a known history of systemic lupus erythematosus (SLE), presenting with subacute, intermittent bilateral lower extremity numbness and weakness, most recently onset at 10:30 AM on the day of admission. She describes persistent tingling in both arms without associated weakness, but reports her legs feel numb, crawling, and weak. She denies any bowel or bladder dysfunction. Her symptoms appear to fluctuate and are without clear precipitating events. Of note, she is concurrently experiencing abdominal pain and reports gross hematuria. There is no prior history of similar neurologic episodes. Neurologically, upper extremities are preserved in strength, while lower extremities exhibit subjective weakness and paresthesias. Interval history: 10/06/2024: nursing does not report any significant new events overnight. 10/07: now reports right side of face is feeling numb , so cannot feel her eye Impression: SLE SVT (resolved) Bilateral leg numbness and weakness, etiology is being investigated (myelopathy, vs GBS vs highly suspicious for functional) right face numbness Recommendations: (Primary Team to order Controlled Medications) Unless specifically noted I Agree with Impression and Plan from previous Neurology note/consult. 1- C and T MRIs unremarkable, L spine MRI with and without contrast pending, given new right facial numbness, brain MRI with and without contrast will be repeated 2- if above is negative then LP to check for cytoalbuminologic dissociation 3- if all above is negative outpatient Nerve Conduction Studies/EMG' 4- please obtain records for last years admission regarding her LP and workup. [facility] Neurologist will follow up with results. Please contact [facility] Navigator to reach me if further questions/concerns arise. Examination: Examination done through interactive audio and video telecommunications with the assist of bedside nursing (when available) awake, alert speech no aphasia Extraocular movements intact face symmetric arms no drift (10s) leg weakness is suspicious for functional deficit, 10/07 no drift in left leg. right leg has minimal antigravity strength. when passively lifted from under knee the lower leg is not loose and there is resistance to push ankle down towards bed but then she has weakness in straightening or bending knee. on 10/06 she could not elevate either leg off bed, but when legs passively lifted knee remained straight, then when asked to relax the leg and let it drop to the bed she let the leg (below knee) to drop to bed but then could not extend knee at all when asked to push against some force, also when examiner tried to push up against foot on the right there was resistance but on active examination there was no force produced. Numbness travels up to chest on the right side but on the left is up to mid- le. also numbness around right eye toes appear to be upgoing Patient / Family was informed the Neurology Consult would occur via TeleHealth consult by way of interactive audio and video telecommunications and consented to receiving care in this manner. Patient is being evaluated for possible acute neurologic impairment and high probability of imminent or life - threatening deterioration. I spent total of 15 minutes providing care to this patient, including time for face to face visit via telemedicine, review of medical records, imaging studies and discussion of findings with providers, the patient and / or family. Dr Juan Quinn [facility] For Inpatient follow-up with [facility] physician please call [facility] . This is not an outpatient service. Post hospital discharge, please contact hospital directly. Please do not communicate with [facility] physicians via secure chat. If you have any questions, Please contact [facility]. Please call or reconsult our service if there are any clinical or diagnostic changes. Most Recent Vital Signs Last Vital Signs Temp 97.5 F 10/07/24 08:00 Pulse 81 10/07/24 08:00 Resp 17 10/07/24 08:00 BP 95/65 10/07/24 08:00 Pulse Ox 98 10/07/24 08:00 O2 Del Method Room Air 10/07/24 08:00 O2 Flow Rate 0 10/06/24 15:47
--- NOTE | 2024-10-07 09:50 | XR_ITS ---
Examination: MRI thoracic spine, without intravenous contrast. MRI thoracic spine , with intravenous contrast. Exam date and time: October 07, 2024, 1916 hours INDICATIONS: Generalized weakness, this week diagnosis transverse myelitis Technique: Multiple axial, sagittal and coronal images of the thoracic spine have been obtained with the Siemens high-resolution 1.5 Telma MRI scanner. Images obtained included T2 weighted fat suppressed sagittal sections, TR 3500, TE 46, T2 weighted coronal fat suppressed images, TR 3050, TE 84, T2-weighted transverse fat suppressed images, TR 30-60, TE 63, proton density transverse images, TR 4720, TE 46, and T1 weighted coronal images, TR 560, TE 13. Axial, sagittal and coronal images are obtained post intravenous injection 10 cc gadolinium. Findings: Abdomen: The thoracic vertebral bodies on the lateral view No thoracic fracture Normal marrow signal thoracic vertebral bodies No thoracic disc desiccation Axial images demonstrate no focal disc protrusion impinging upon the thoracic cord No localizing enlargement thoracic cord Postcontrast images demonstrate no abnormal osseous epidural or thoracic cord enhancement IMPRESSION: No thoracic fracture or arthritic change No focal thoracic disc protrusion impinging upon the thoracic cord Postcontrast images demonstrate no abnormal osseous epidural or thoracic cord enhancement
--- NOTE | 2024-10-07 10:05 | ESPR_ITS ---
<Statement entered by Lyle Macario MD - 10/07/24 15:45> Patient was seen and examined at bedside. I agree on the assessment and plan on this note as documented by resident Dr Chantal Black PGY1. Patient continues to complain of tingling of skin complains of new numbness around right eyelid. MRI of cervical spine and lumbar spine was negative. Case was discussed with patient's human performance consultant Dr. Calabrese, per Dr. Calabrese we can obtain MRI of thigh, he also recommended increasing steroid dose, we will increase prednisone to 20 mg daily. Patient is scheduled for MRI brain and MRI thoracic spine today, if imaging results negative, patient will be scheduled for lumbar puncture in AM. Neurology is following, appreciate recommendations. Otherwise patient is wondering when she can go home, no cardiac concerns, disposition telemetry per neurology recommendations. Case discussed with attending Dr. Zaida Macario MD PGY-2 Documentation for date of: 10/07/24 Subjective Subjective Interval history: No acute overnight events. Patient seen and examined at bedside. Complains of right lower extremity weakness, left has improved slightly. She is still not able to get up from the bed. Patient still complains of tingling of the skin throughout however has new numbness around right eyelid, which she reports she has had before and thinks her prednisone was increased when it happened. Reports improved hematuria, less blood than previously. Blurry vision is only persistent in the right eye left eye has resolved. Abdominal pain mild. Patient also reports that LMP now is prior to admission around September 21 and ended before she was admitted, and not 08/24. History differs per provider, such as blurry vision began since admission versus 10/03. Pending MRI brain and MRI T-spine. Spoke with Dr. Calabrese human performance consultant, who stated that if all imaging comes back negative, consider MRI of thigh to be concern for myositis or edema, possible prednisone increased from 10 mg to 20-40 mg if infection ruled out, LP was done 04/2023 which was unremarkable, negative for monoclonal bands, no white blood cells or red blood cells. Dr. Madera is not too concerned about ESR 45 to 63 and states that it will most likely always be high. Dr. Madera also reports that she spoke to the patient last week and was told that Saphnelo did not help, and she told patient that she will see her back in the office to start her on a different infusion. Exam Vital Signs Temp Pulse Resp BP Pulse Ox O2 Del Method O2 Flow Rate 97.5 F 81 17 95/65 98 Room Air 0 10/07/24 08:00 10/07/24 08:00 10/07/24 08:00 10/07/24 08:00 10/07/24 08:00 10/07/24 08:00 10/06/24 15:47 Narrative Exam GENERAL: no acute distress HEENT: NC/AT, mucous membranes moist, bilateral sclera anicteric CARDIOVASCULAR: regular rate and rhythm, S1/S2 present, no murmurs appreciated PULMONARY: clear to auscultation bilaterally, no rales/rhonchi/wheezes ABDOMINAL: soft, non-distended, non-tender no rebound/guarding, bowel sounds present EXTREMITIES: no peripheral edema MSK: mild tenderness at upper extremity joints SKIN: warm and dry, intact, no rashes, mild skin sensitivity to light touch NEURO: +numbness at Rt eyelid Muscle strength: 5/5 in bilateral elbow flexion and extension 5/5 shoulder abduction 4/5 L hip flexion 1/5 R hip flexion +Johnson test on flexion of Rt hip Objective Labs 10/07/24 05:24 10/07/24 05:24 Labs: Laboratory Results - last 24 hr 10/02/24 10/06/24 10/07/24 04:06 18:20 05:24 WBC 4.9 RBC 3.92 L Hgb 10.4 L Hct 33.4 L MCV 85 MCH 26.5 MCHC 31.1 RDW Std Deviation 45.0 Plt Count 231 Neut % (Auto) 77 Lymph % (Auto) 13 [place] % (Auto) 7 Eos % (Auto) 2 Baso % (Auto) 0 Neut # (Auto) 3.7 Lymph # (Auto) 0.6 L [place] # (Auto) 0.4 Eos # (Auto) 0.1 Baso # (Auto) 0.0 Immature Gran # (Auto) 0.03 H Absolute Nucleated RBC 0.00 Immature Gran % 1 H Nucleated RBC % 0 ESR 63 H Sodium 139 Potassium 4.5 Chloride 106 Carbon Dioxide 25.6 Anion Gap 7 BUN 18 Creatinine 0.7 Estim Creat Clear Calc 94.4 eGFR > 60 BUN/Creatinine Ratio 26 H Glucose 81 Calculated Osmolality 278 Lactic Acid 1.6 Calcium 8.9 Magnesium 1.5 L C-Reactive Prot, Quant 1.0 H Double Strand DNA Ab 50 H Complement C3 81 L Complement C4c 5 L Quality Measures Quality Measures VTE prophylaxis Assessment & Plan Assessment Current Active Medications: Generic Name Dose Route Start Last Admin Trade Name Freq PRN Reason Stop Dose Admin Acetaminophen 650 mg 09/30/24 17:59 10/05/24 00:39 Acetaminophen 325 Mg Tablet PO 10/30/24 17:58 650 mg Q6H PRN Administration Mild Pain 1-3 or Fever >100.3 Artificial Tears 0 drop 10/04/24 22:00 10/07/24 05:30 Artificial Tears 225 Drop/15 Ml Btl BOTH EYES 11/03/24 21:59 1 drop TID YADIRA Administration Cyclobenzaprine HCl 10 mg 10/03/24 10:15 10/07/24 08:24 Cyclobenzaprine 5 Mg Tablet PO 11/02/24 10:14 10 mg BID YADIRA Administration Gabapentin 300 mg 10/01/24 22:00 10/07/24 05:30 Gabapentin 300 Mg Capsule PO 10/31/24 21:59 300 mg TID YADIRA Administration Heparin Sodium (Porcine) 5,000 unit 09/30/24 21:00 10/04/24 08:34 Heparin Sod Inj 5000 Unit/Ml Vial SC 10/14/24 20:59 5,000 unit Q12HR YADIRA Administration Hydroxychloroquine Sulfate 200 mg 10/01/24 16:00 10/06/24 08:21 Hydroxychloroquine 200 Mg Tablet PO 10/13/24 15:59 200 mg QDAY YADIRA Administration Ceftriaxone Sodium/Dextrose 1 gm in 50 mls @ 100 mls/hr 10/06/24 18:36 10/07/24 08:24 Rocephin/D5w 1gm Iv Premix IV 10/13/24 18:35 100 mls/hr QDAY YADIRA Administration Sodium Chloride 1,000 mls @ 60 mls/hr 10/06/24 18:36 10/06/24 20:00 Ns IV 10/07/24 11:15 60 mls/hr .[id number] YADIRA Administration Magnesium Sulfate 4 gm in 50 mls @ 12.5 mls/hr 10/07/24 07:47 Magnesium Sulfate Ivpb IV 10/07/24 11:46 X1 ONE Ketorolac Tromethamine 15 mg 10/03/24 10:04 10/07/24 08:23 Ketorolac Inj 30 Mg/Ml Vial IVP 10/08/24 10:03 15 mg Q6HR PRN Administration PAIN SCALE 4-10(Mod-Sev Metoprolol Succinate 25 mg 10/02/24 09:00 10/06/24 08:20 Metoprolol Succinate Xl 25 Mg Tabcr PO 11/01/24 08:59 25 mg QDAY YADIRA Administration Mycophenolate Mofetil 500 mg 10/01/24 21:00 10/07/24 08:25 Mycophenolate 250 Mg Capsule (Non-Formulary) PO 10/31/24 20:59 500 mg BID YADIRA Administration Ondansetron HCl 4 mg 09/30/24 17:59 10/03/24 07:30 Ondansetron Inj 2 Mg/Ml Inj 2 Ml IVP 10/30/24 17:58 4 mg Q6H PRN Administration NAUSEA OR VOMITING Protocol Pantoprazole Sodium 40 mg 10/02/24 09:00 10/07/24 08:25 Pantoprazole 40 Mg Tablet PO 11/01/24 08:59 40 mg QDAY YADIRA Administration Prednisone 10 mg 10/03/24 09:00 10/07/24 08:24 Prednisone 5 Mg Tablet PO 11/02/24 08:59 10 mg QDAY YADIRA Administration Sennosides 1 tab 09/30/24 18:15 10/07/24 08:24 Senna Tablet PO 10/30/24 18:14 1 tab QDAY YADIRA Administration Protocol Plan Susana Clark is a 24 year old female for past medical history of lupus and Sjrogen's who presented on 09/30 for fever and palpitations, admitted for SVT, controlled on metoprolol, found to have cervical calcified mass, course complicated by developing hematuria and acute BLE weakness, LLE weakness resolved, now developed . #Acute BLE weakness #New R facial numbness, eyelid Patient complains of new onset bilateral lower extremity weakness, unable to lift her legs off the bed starting morning of 10/05. Initially started out as skin tingling and leg [id number] however, developed sudden weakness and inability to get out of bed. Night of 10/04 she was able to walk to the restroom. MSK exam as above. 10/[address] Madera: consider MRI of thigh as could be myositis or edema, possible prednisone increased from 10 mg to 20-40 mg if infection ruled out, LP was done 04/2023 which was unremarkable, negative for monoclonal bands, no white blood cells or red blood cells. Ddx: - Transverse myelitis: given SLE dx. Symptoms of allodynia, weakness in lower legs support transverse myelitis however acuity status is questionable. Denies back pain and difficulty urinating however does have new hematuria. Consider antiphospholipid antibodies outpatient. - Myositis: As only right lower extremity is affected most at quadricep region, consider myositis or muscle edema - Conversion/malingering/factitious disorder: Johnson test positive, iso acute unexplained neurologic symptoms B12 and folate wnl.B12 injection x 1 given 10/04. Repeat CT head 10/05 and 10/06 both negative for acute hemorrhage, mass effect or midline shift. 8/MRI C-spine and L-spine both unremarkable Low concern for active UTI with 09/30 UCx negative. Plan: - Tele neuro consulted - if imaging negative, perform LP to check for cytoalbuminologic dissociation - if above negative, outpatient EMG - F/u CK, MRI brain and thoracic - Per human performance consultant Dr. Madera: consider MRI thigh if other imaging negative, can increase prednisone to 20-40 mg if no concern for infection - Discontinue abx #Acute bilateral blurry vision Patient complained of slightly bilateral blurry vision and gritty eyes on 10/03, which did not improve with artificial eye drops. 10/04 endorses being unable to read the patient information board when she was able to on admission. Patient did present with a presyncopal episode where headstrike was reported. Ddx includes concussion from headstrike vs dry eyes / Sjogren vs increased intracranial pressure vs SLE cerebritis. CT head 09/30 showed no acute hemorrhage, midline shift or mass effect On exam, peripheral vision intact and EOMI, only vision is affected. Repeat CT head 10/05 and 10/06 negative for acute hemorrhage, mass effect or midline shift. L blurry vision resolved. R still blurry as of 10/07. Artificial tears helping Plan: - Tele neuro consulted, appreciate recs. - Continue artificial eye drops TID #SLE Acute Flare #Sjogren's #Generalized pain #Allodynia, improving #Fever, resolved Likely secondary to lupus flare. Of note, patient started new drug Sephlano, first infusion 4 weeks ago. No immediate allergic reaction during infusion. Utox negative and UA shows no infection. CXR shows mild prominence of left ventricle with mild vascular congestion. No suspected source of infection at this time, thus no antibiotics needed for now. Met 3/4 SIRS criteria on admission (temp as high as 102, tachycardic, tachypnic), no end organ failure so does not meet sepsis criteria. 10/01: Spoke to patient's human performance consultant Dr. Madera at [facility] in [place], recommended restarting home medications and starting on baclofen for pain. Requested tests for complement C3, C4, dsDNA, urine protein creatinine ratio, ESR, and CRP. Has appointment coming up on 10/16. Next infusion scheduled for 10/03, but per patient she rescheduled. UCr high 169, test neg, UCx neg, BCx NGTD New complaint of dry eyes and blurry vision, per patient was diagnosed with Sjogren's but not educated about symptoms nor offered any treatments in the past. ESR uptrended 45 to 63 C3 and C4 levels decreased, dsDNA elevated Per Dr. Madera, 04/2023 LP unremarkable, negative monoclonal bands, no WBC or RBC Plan: - Continue home doses mycophenolate 500 mg BID, and hydroxychloroquinine 200 mg QD - Gabapentin 300 mg TID per human performance consultant Dr. Madera's recommendation - Pain management to PO Flexeril 10 mg BID and IV ketorolac 15 mg q6h prn - Tylenol for pain and fever prn - Per Dr. Madera and with uptrending ESR, increase from prednisone 10 mg to 20 mg daily #Hematuria, improving Patient initially started complaining of blood in the urine on 10/02, initially attributed to her period has LMP 08/24. However patient complained of persistent blood only in the urine and on her pad. Initial UA on 09/30 showed no blood, however, repeat UA showed 3+ blood and 2660 RBCs, positive leukocyte esterase but no nitrites or bacteria. Patient reported chance of STI is unlikely and is not currently sexually active. Reports no hx of kidney stones. Ddx includes possible delayed Saphnelo infusion reaction vs autoimmune nephritis from SLE or Sjogren's vs kidney stone (has had R flank pain previously but resolved). Nephritis less likely as no protein loss or any creatinine increase. 10/05 CTAP: 3 mm nonobstructing right renal calculus, no hydronephrosis or renal calculi, absent appendix, no bowel obstruction Syphilis serology not reactive, HIV negative, Hep panel negative Plan: - F/u chlamydia, gonorrhea and trich PCR - Heparin held 10/04 - CTM, consider repeat UA if hematuria worsens - Recommend outpatient urology follow-up #SVT, resolved. #Presyncope 2/2 SVT #s/p unwitnessed fall Patient reports dizziness, followed by brief loss of consciousness and head trauma in her shower on 09/29. CT head negative for acute intracranial bleed. Possibly related to lupus or cardiac etiology as patient reported palpitations prior to episode. No history of seizures, less likely neurologic etiology. History of SVTs per patient, has palpitations but only lasts no more than an hour. Likely secondary to lupus. DDx: drug induced/toxin, pericarditis, rheumatoid heart disease S/p adenosine x3, rate now controlled on metoprolol XL 25mg. CXR 09/30 shows mild prominence of left ventricle with mild vascular congestion. Utox negative. Echo 09/30 negative for pericarditis, EF 55 to 60%. No dysfunction noted. Plan: - Cardiology Dr. 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 DDX for former include teratoma vs calcified uterine fibroids vs osseous metaplasia. Patient complains of lower abdominal crampy pain with one episode of blood in urine on 10/02. No further bleeding noted on pads. LMP 08/24 with irregular cycles. Plan: - OBGYN Dr. Gould consulted, recs appreciated - Spoke to Dr. Gaona, likely incidental finding of Nabothian cyst, no inpatient intervention required - Recommend to follow up with outpatient OBGYN #Electrolyte Abnormalities #Hypokalemia #Hypomagnesemia, improved - recheck and replete as needed Health Maintenance Disposition: acute BLE weakness, pending teleneuro consult DVT prophylaxis: None. Heparin q12 held due to hematuria. No SCDs due to allodynia GI prophylaxis: Protonix Diet: Full liquid diet CODE STATUS: FUL Plan of care discussed with attending Dr. Cerda, and PGY-2 Dr. Macario. Chantal Black, DO PGY-1 Internal Medicine Attending Provider Attestation/Addendum I attest that I was physically present for the evaluation, physical examination, lab and imaging review of the patient with the residents. I discussed the case with the residents and agree with the findings and plans of care as documented above. At bedside today, patient is states she continues to have weakness around right leg, numbness around right face. Underwent MRI of cervical spine and lumbar spine yesterday, both were negative for acute finding. Patient is scheduled for MRI brain and MRI thoracic spine today as recommended by neurology. Will plan for lumbar puncture if those results are negative as well. Discussed with patient's human performance consultant, patient had elevated ESR, also noted to have low complement levels from her last blood work, agreed on increasing steroid dose, we will increase prednisone to 20 mg daily. Andra Cerda MD
[2024-10-07] MEDS: Magnesium Sulfate 4 GM Ivpb 4 GM/50 ML BAG IV (10:08)
[2024-10-07] MEDS: HYDROXYCHLOROQUINE 200 MG TABLET PO (10:08)
[2024-10-07] MEDS: METOPROLOL SUCCINATE XL 25 MG TABCR PO (10:09)
[2024-10-07 14:56] LABS: Creatine Kinase < 15 U/L (34-171)
--- NOTE | 2024-10-07 23:14 | ESPR_ITS ---
Documentation for date of: 10/07/24 Subjective Subjective Interval history: The patient is evaluated at bedside, reported no chest discomfort or palpitations. No acute overnight events reported. Pt reports numbness and tenderness in BLE, Rt >Lt. She reports that she cannot feel the right side of her face today. She points to circular brown spots on her right chin. patient's vitals today, blood pressure 96/65, heart rate 81. Hemoglobin stable at 10.4, BUN 18, urine positive for blood 3+. Earlier Workup for SLE was positive for double-stranded DNA antibodies 50, low complement C3 81, low complement C4c 5. Primary team had placed a teleneurology consult, And CT head was ordered which was negative for acute hemorrhage or mass effect or midline shift. Per teleneurology, concern for inflammatory etiology of patient's symptoms including lupus associated with demyelinating event or transverse myelitis is considered. Neurology recommended addition of L-spine to the original C and T MRI. MRI came back negative. Continued on metoprolol succinate 25 mg daily, for control of paroxysmal tachycardia 2/2 SLE flare. Exam Vital Signs Temp Pulse Resp BP Pulse Ox O2 Del Method O2 Flow Rate 97.0 F 83 16 100/70 98 Room Air 0 10/07/24 20:00 10/07/24 20:00 10/07/24 20:00 10/07/24 20:00 10/07/24 20:00 10/07/24 20:00 10/06/24 15:47 Narrative Exam General: No acute distress, Alert and Oriented x 3, HEENT: Moist mucous membranes, oropharynx clear Neck: Supple, No masses, No JVD CVS: S1S2 Regular rate and rhythm, No murmurs, rubs or gallops Lungs: Clear to auscultation with no accessory use, no wheeze no rhonchi Abd: Soft, NT/ND, +BS, no organomegaly Ext: No edema, warm and well perfused. Noted tenderness to palpation on Right LE, no fasciculations noted, clonus negative, patient unable to move bilateral lower extremities on command. Muscle strength 1/5 RLE and 4/5 on LLE. Skin: 5-10mm circular brown macules clustered over anterior Right sheen. Psych: Appropriate mood and affect Objective Labs 10/08/24 04:28 10/08/24 04:28 Labs: Laboratory Results - last 24 hr 10/07/24 05:24 WBC 4.9 RBC 3.92 L Hgb 10.4 L Hct 33.4 L MCV 85 MCH 26.5 MCHC 31.1 RDW Std Deviation 45.0 Plt Count 231 Neut % (Auto) 77 Lymph % (Auto) 13 [place] % (Auto) 7 Eos % (Auto) 2 Baso % (Auto) 0 Neut # (Auto) 3.7 Lymph # (Auto) 0.6 L [place] # (Auto) 0.4 Eos # (Auto) 0.1 Baso # (Auto) 0.0 Immature Gran # (Auto) 0.03 H Absolute Nucleated RBC 0.00 Immature Gran % 1 H Nucleated RBC % 0 Sodium 139 Potassium 4.5 Chloride 106 Carbon Dioxide 25.6 Anion Gap 7 BUN 18 Creatinine 0.7 Estim Creat Clear Calc 94.4 eGFR > 60 BUN/Creatinine Ratio 26 H Glucose 81 Calculated Osmolality 278 Calcium 8.9 Magnesium 1.5 L Total Creatine Kinase < 15 L Quality Measures Quality Measures VTE prophylaxis Assessment & Plan Assessment Current Active Medications: Generic Name Dose Route Start Last Admin Trade Name Freq PRN Reason Stop Dose Admin Acetaminophen 650 mg 09/30/24 17:59 10/05/24 00:39 Acetaminophen 325 Mg Tablet PO 10/30/24 17:58 650 mg Q6H PRN Administration Mild Pain 1-3 or Fever >100.3 Artificial Tears 0 drop 10/04/24 22:00 10/07/24 21:45 Artificial Tears 225 Drop/15 Ml Btl BOTH EYES 11/03/24 21:59 1 drop TID YADIRA Administration Cyclobenzaprine HCl 10 mg 10/03/24 10:15 10/07/24 21:46 Cyclobenzaprine 5 Mg Tablet PO 11/02/24 10:14 10 mg BID YADIRA Administration Gabapentin 300 mg 10/01/24 22:00 10/07/24 21:46 Gabapentin 300 Mg Capsule PO 10/31/24 21:59 300 mg TID YADIRA Administration Heparin Sodium (Porcine) 5,000 unit 09/30/24 21:00 10/04/24 08:34 Heparin Sod Inj 5000 Unit/Ml Vial SC 10/14/24 20:59 5,000 unit Q12HR YADIRA Administration Hydroxychloroquine Sulfate 200 mg 10/01/24 16:00 10/07/24 10:08 Hydroxychloroquine 200 Mg Tablet PO 10/13/24 15:59 200 mg QDAY YADIRA Administration Ketorolac Tromethamine 15 mg 10/03/24 10:04 10/07/24 15:45 Ketorolac Inj 30 Mg/Ml Vial IVP 10/08/24 10:03 15 mg Q6HR PRN Administration PAIN SCALE 4-10(Mod-Sev Metoprolol Succinate 25 mg 10/02/24 09:00 10/07/24 10:09 Metoprolol Succinate Xl 25 Mg Tabcr PO 11/01/24 08:59 25 mg QDAY YADIRA Administration Mycophenolate Mofetil 500 mg 10/01/24 21:00 10/07/24 21:46 Mycophenolate 250 Mg Capsule (Non-Formulary) PO 10/31/24 20:59 500 mg BID YADIRA Administration Ondansetron HCl 4 mg 09/30/24 17:59 10/03/24 07:30 Ondansetron Inj 2 Mg/Ml Inj 2 Ml IVP 10/30/24 17:58 4 mg Q6H PRN Administration NAUSEA OR VOMITING Protocol Pantoprazole Sodium 40 mg 10/02/24 09:00 10/07/24 08:25 Pantoprazole 40 Mg Tablet PO 11/01/24 08:59 40 mg QDAY YADIRA Administration Prednisone 20 mg 10/08/24 09:00 Prednisone 20 Mg Tablet PO 11/07/24 08:59 QDAY YADIRA Sennosides 1 tab 09/30/24 18:15 10/07/24 08:24 Senna Tablet PO 10/30/24 18:14 1 tab QDAY YADIRA Administration Protocol Plan The patient is a 24-year-old female with significant past medical history of SLE on saphnelo infusion once a month, Sjogren's syndrome, and SVT on metoprolol presented to ED on 09/30/2024 with chief complaint of palpitations. Cardiology consultation done for further management of SVT. 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 Cardiology was consulted for further evaluation and workup. Echocardiogram was ordered which showed EF 55 to 60%, no wall motion abnormalities, normal LV and LA size, SVT likely precipitated by acute SLE flareup. Primary team reached out to patient's [employer] consultant in [place], who recommended additional workup including ALEJANDRO, anti- dsDNA, complement levels, to evaluate for acute SLE flare. The patient is currently on biologic/Saphnelo infusions and prednisone 5 mg daily. The patient continues to stay in normal sinus rhythm. Initial Head CT was negative for acute hemorrhage, midline shift or mass effect. CXR was significant for mild vascular congestion. Primary team had placed a teleneurology consult, And CT head was ordered which was negative for acute hemorrhage or mass effect or midline shift. Per teleneurology, concern for inflammatory etiology of patient's symptoms including lupus associated with demyelinating event or transverse myelitis is considered. Neurology recommended addition of L-spine to the original C and T MRI. MRI showed no vertebral fracture or arthritic change. No focal thoracic disc protrusion impinging upon the thoracic cord. No abnormal osseous epidural or thoracic cord enhancement. Workup for SLE was positive for double-stranded DNA antibodies 50, low complement C3 81, low complement C4c 5. ? Continue on metoprolol succinate 25 mg daily, for control of paroxysmal tachycardia 2/2 SLE flare. ? Continue telemetry monitoring ? Maintain potassium greater than 4 and magnesium more than 2 at all times. ? 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 - Cardiology will sign out from the hospital care of this patient at this point. Please do reach out by a new consult if other cardiovascular concerns arise or if there is a return of previously addressed symptoms Rest of the management deferred to primary team. Thank you for cardiology consultation. We appreciate the opportunity to participate in this patient's care. This case was discussed with my attending physician, Dr. Pickard, fire patrol. Kassie Frazier, DO PGY I Attending Provider Attestation/Addendum I have personally seen and examined the patient separately on the above date of service and discussed the plan of care with the resident. I reviewed the resident Dr. Fernando consultation progress note and agree with the resident findings and plan in the note above and have also edited the documentation to reflect my findings and plan. Landry Pickard M.D. Interventional Cardiology
[2024-10-08] VITALS (8 sets, daily range): BP systolic 96–134; BP diastolic 55–91; PULSE 74–104; RESP 12–24; TEMP 35.9–36.3; O2SAT 96–99; BMI 23.4
[2024-10-08] MEDS: GABAPENTIN 300 MG CAPSULE PO ×3 (05:32→21:00)
[2024-10-08 05:39] LABS: Basophils # (Auto) 0.0 Thou/mm3 (0.0-0.2); Basophils % (Auto) 0 % (0-2.5); Eosinophils # (Auto) 0.0 Thou/mm3 (0.0-0.5); Eosinophils % (Auto) 0 % (0-10); Hematocrit 33.5 % (36.0-46.0); Hemoglobin 10.4 g/dL (12.0-16.0); Immature Granulocytes Auto 0.02 Thou/mm3 (0.00-0.00); Lymphocytes # (Auto) 0.6 Thou/mm3 (1.0-4.8); Lymphocytes % (Auto) 8 % (10-50); Mean Corpuscular HGB Conc 31.0 g/dl (31.0-37.0); Mean Corpuscular Hemoglobin 26.2 pg (25.0-35.0); Mean Corpuscular Volume 84 fL (80-100); Monocytes # (Auto) 0.2 Thou/mm3 (0.0-0.8); Monocytes % (Auto) 3 % (0-12); Neutrophils # (Auto) 6.2 Thou/mm3 (1.8-7.7); Neutrophils % (Auto) 89 % (37-80); Nucleated Red Blood Cell # 0.00 Thou/mm3 (0.00-0.00); Nucleated Red Blood Cell % 0 /100 WBC (0); Platelet Count 278 Thou/mm3 (140-440); RDW Standard Deviation 43.7 fL (36.4-46.3); Red Blood Count 3.97 Miln/mm3 (4.00-5.20); White Blood Count 7.0 Thou/mm3 (3.6-11.0)
[2024-10-08 06:12] LABS: Anion Gap 9 (7-16); BUN/Creatinine Ratio 19 Ratio (12-20); Blood Urea Nitrogen 13 mg/dL (9-23); Calcium 9.4 mg/dL (8.3-10.6); Carbon Dioxide 26.1 mMol/L (20.0-31.0); Chloride 103 mMol/L (98-107); Creatinine (Component) 0.7 mg/dL (0.6-1.3); Estimated Creatinine Clearance 92.7 mL/min (>60); Glucose 103 mg/dL (74-106); Magnesium 2.2 mg/dL (1.6-2.6); Osmolality,Calculated 275 (275-295); Potassium 4.8 mMol/L (3.4-5.1); Sodium 138 mMol/L (136-145); eGFR > 60 See Note
--- NOTE | 2024-10-08 07:27 | CHAP ---
Rapid response call. No family members present. Prayed in room as staff worked with patient.
--- NOTE | 2024-10-08 07:30 | XR_ITS ---
Examination: CT brain head without contrast. 2-D sagittal coronal reconstructions Date and time of exam:October 08, 2024, 0747 hours Comparison October 06, 2024 INDICATIONS: Stroke alert October 06, 2024, onset right-sided body weakness blurred vision and weakness in the legs beginning October 05, 2024 CTDI: vol (mGy):41 DLP: (mGycm):794 Technique: Multiple CT axial sections of the brain have been obtained, 5 mm slice thickness. Contrast has not been administered. 2-D sagittal, coronal reconstructions have been obtained Low dose protocols were performed. One or more of the following dose reduction techniques were used; automated exposure control, adjustment of the mA and/or KV according to patient size, use of iterative reconstruction technique. Findings: No significant ventricular enlargement. Intra-axial or extra-axial hemorrhage density is not seen. No mass effect or midline shift Basal cisterns are not remarkable. Fourth ventricle is midline. Cranial vault intact. Impression: Negative for acute hemorrhage, mass effect or midline shift
[2024-10-08] MEDS: HYDROXYCHLOROQUINE 200 MG TABLET PO (08:45)
[2024-10-08] MEDS: KETOROLAC INJ 30 MG/ML VIAL 15 MG IVP (08:45)
[2024-10-08] MEDS: METOPROLOL SUCCINATE XL 25 MG TABCR PO (08:47)
[2024-10-08] MEDS: PANTOPRAZOLE 40 MG TABLET PO (08:47)
[2024-10-08] MEDS: MYCOPHENOLATE 250 MG CAPSULE (NON-FORMULARY) 500 MG PO ×2 (08:47→20:59)
--- NOTE | 2024-10-08 09:57 | XR_ITS ---
Examination: Fluoroscopically guided diagnostic lumbar puncture AP lateral lumbar spine 2 views Fluoroscopy Date and time: October 08, 2024 1144 hours INDICATIONS: Fever chills dizziness this week, generalized body weakness TECHNIQUE AND FINDINGS: Informed consent provided. Timeout performed. Skin prepped over the lower back and sterile drape applied hand hygiene 1% lidocaine administered for local anesthesia Utilizing fluoroscopic guidance successful lumbar puncture L5-S1 level Opening pressure normal 8 10 cc fluid with fara Estimated blood loss 1 cc Fluoroscopy 0.5 minute radiation dose 15.2 milligray 2 spot lumbar spine films IMPRESSION: Successful diagnostic lumbar puncture
--- NOTE | 2024-10-08 09:57 | PC.SS ---
Follow up note: Lumbar puncture still pending. Pt will return home upon dc.
--- NOTE | 2024-10-08 10:06 | ESPR_ITS ---
<Statement entered by Lyle Macario MD - 10/08/24 17:17> Patient was seen and examined at bedside. I agree on the assessment and plan on this note as documented by resident Chantal Black PGY1. Patient had rapid response earlier today for bilateral blurring of vision, patient's bilateral pupils were fixed and dilated, we obtained a CT scan of the head which was negative. No underlying neurological symptoms, patient did have MRI brain MRI thoracic spine yesterday which was unremarkable for any acute findings. Patient is scheduled for lumbar puncture with interventional radiology today, we will discontinue Toradol, pain management with IV Tylenol/Tylenol. Teleneurology followed patient recommends ophthalmology evaluation, will initiate transfer for the same. We will obtain bladder scan every 4 hours with intake and output monitoring, consider straight cath if urine output less 400 cc in 4 hours, started on bowel regimen for constipation. Patient's underlying symptoms likely attributed to SLE flare, we have increased steroid dose to 50 mg methylprednisolone IV daily, will continue with hydroxychloroquine, mycophenolate mofetil. Continue gabapentin for chronic pain management. Will keep magnesium and potassium optimally more than 2 and 4 respectively per cardiology recommendations. Cardiology is following. Case discussed with attending Dr. Zaida Macario MD PGY-2 Documentation for date of: 10/08/24 Subjective Subjective Interval history: Rapid response called this morning for acute bilateral blurry vision with left dilated fixed pupil not constricting to light. Vital signs stable. Stat CT head. Denies eye pain, complete vision loss or inability to move eyes. Patient was seen and examined at bedside. Still having blurry vision, is unable to read the patient information board and wristband. Unable to track finger, but able to look up down left and right with some difficulty. Right leg weakness still present unable to flex knee due to pain and likely contraction. Right eyelid numbness still present. Abdominal pain resolved. Urinated last the night previous reports less hematuria, does not want to have Judd in. Has not had a bowel movement for a week now reports her sometimes does not have a bowel movement for 2 weeks due to medication. LP today. Stop p.o. prednisone, start IV methylprednisone 50 mg. Discontinue ketorolac. Plan to do tonometry today. Resume heparin today iso improvement in hematuria and recent neurological symptoms. Started every 4 hour bladder scans, parameters she to straight cath if greater than 350 cc scanned. Start miralax 35 mg QD for constipation. Exam Vital Signs Temp Pulse Resp BP Pulse Ox O2 Del Method O2 Flow Rate 97.0 F 74 18 105/73 99 Room Air 0 10/08/24 08:00 10/08/24 08:47 10/08/24 08:00 10/08/24 08:47 10/08/24 08:00 10/08/24 08:00 10/06/24 15:47 Narrative Exam GENERAL: no acute distress, +alopecia HEENT: NC/AT, mucous membranes moist, bilateral sclera anicteric CARDIOVASCULAR: regular rate and rhythm, S1/S2 present, no murmurs appreciated PULMONARY: clear to auscultation bilaterally, no rales/rhonchi/wheezes ABDOMINAL: soft, non-distended, non-tender no rebound/guarding, bowel sounds present EXTREMITIES: no peripheral edema MSK: mild tenderness at upper extremity joints, R hamstring contraction SKIN: warm and dry, intact, no rashes, mild skin sensitivity to light touch NEURO: +numbness at Rt eyelid, Unable to track, blurry vision (cannot read patient info board or wrist band) EOMI intact, peripheral vision intact Muscle strength: 5/5 in bilateral elbow flexion and extension 5/5 shoulder abduction 5/5 L hip flexion 5/5 L knee flexion 1/5 R hip flexion 1/5 R knee flexion, limited passive flexion due to pain and stiffness +Johnson test on flexion of Rt hip Objective Labs 10/08/24 04:28 10/08/24 04:28 Labs: Laboratory Results - last 24 hr 10/07/24 10/08/24 05:24 04:28 WBC 7.0 D RBC 3.97 L Hgb 10.4 L Hct 33.5 L MCV 84 MCH 26.2 MCHC 31.0 RDW Std Deviation 43.7 Plt Count 278 D Neut % (Auto) 89 H Lymph % (Auto) 8 L [place] % (Auto) 3 Eos % (Auto) 0 Baso % (Auto) 0 Neut # (Auto) 6.2 Lymph # (Auto) 0.6 L [place] # (Auto) 0.2 Eos # (Auto) 0.0 Baso # (Auto) 0.0 Immature Gran # (Auto) 0.02 H Absolute Nucleated RBC 0.00 Immature Gran % 0 Nucleated RBC % 0 Sodium 138 Potassium 4.8 Chloride 103 Carbon Dioxide 26.1 Anion Gap 9 BUN 13 Creatinine 0.7 Estim Creat Clear Calc 92.7 eGFR > 60 BUN/Creatinine Ratio 19 Glucose 103 Calculated Osmolality 275 Calcium 9.4 Magnesium 2.2 Total Creatine Kinase < 15 L Quality Measures Quality Measures VTE prophylaxis Assessment & Plan Assessment Current Active Medications: Generic Name Dose Route Start Last Admin Trade Name Freq PRN Reason Stop Dose Admin Acetaminophen 650 mg 09/30/24 17:59 10/05/24 00:39 Acetaminophen 325 Mg Tablet PO 10/30/24 17:58 650 mg Q6H PRN Administration Mild Pain 1-3 or Fever >100.3 Artificial Tears 0 drop 10/04/24 22:00 10/08/24 05:33 Artificial Tears 225 Drop/15 Ml Btl BOTH EYES 11/03/24 21:59 Not Given TID YADIRA Cyclobenzaprine HCl 10 mg 10/03/24 10:15 10/08/24 08:47 Cyclobenzaprine 5 Mg Tablet PO 11/02/24 10:14 10 mg BID YADIRA Administration Gabapentin 300 mg 10/01/24 22:00 10/08/24 05:32 Gabapentin 300 Mg Capsule PO 10/31/24 21:59 300 mg TID YADIRA Administration Heparin Sodium (Porcine) 5,000 unit 09/30/24 21:00 10/04/24 08:34 Heparin Sod Inj 5000 Unit/Ml Vial SC 10/14/24 20:59 5,000 unit Q12HR YADIRA Administration Hydroxychloroquine Sulfate 200 mg 10/01/24 16:00 10/08/24 08:45 Hydroxychloroquine 200 Mg Tablet PO 10/13/24 15:59 200 mg QDAY YADIRA Administration Methylprednisolone Sodium Succinate 50 mg 10/08/24 10:00 Methylprednisolone Sod Succ 40 Mg Vial IVP 10/15/24 09:59 QDAY YADIRA Metoprolol Succinate 25 mg 10/02/24 09:00 10/08/24 08:47 Metoprolol Succinate Xl 25 Mg Tabcr PO 11/01/24 08:59 25 mg QDAY YADIRA Administration Mycophenolate Mofetil 500 mg 10/01/24 21:00 10/08/24 08:47 Mycophenolate 250 Mg Capsule (Non-Formulary) PO 10/31/24 20:59 500 mg BID YADIRA Administration Ondansetron HCl 4 mg 09/30/24 17:59 10/03/24 07:30 Ondansetron Inj 2 Mg/Ml Inj 2 Ml IVP 10/30/24 17:58 4 mg Q6H PRN Administration NAUSEA OR VOMITING Protocol Pantoprazole Sodium 40 mg 10/02/24 09:00 10/08/24 08:47 Pantoprazole 40 Mg Tablet PO 11/01/24 08:59 40 mg QDAY YADIRA Administration Polyethylene Glycol 34 gm 10/08/24 10:00 Polyethylene Glycol 17 Gm Packet PO 11/07/24 09:59 QDAY YADIRA Sennosides 1 tab 09/30/24 18:15 10/08/24 08:47 Senna Tablet PO 10/30/24 18:14 1 tab QDAY YADIRA Administration Protocol Plan Susana Clark is a 24 year old female for past medical history of lupus and Sjrogen's who presented on 09/30 for fever and palpitations, admitted for SVT, controlled on metoprolol, found to have cervical calcified mass, course complicated by developing hematuria and acute BLE weakness, LLE weakness resolved, now developed bilateral blurry vision and fixed L pupil dilation. #Acute bilateral blurry vision, likely 2/2 acute SLE flare Patient complained of slightly bilateral blurry vision and gritty eyes on 10/03, which did not improve with artificial eye drops. 10/04 endorses being unable to read the patient information board when she was able to on admission. Patient did present with a presyncopal episode where headstrike was reported. Ddx includes concussion from headstrike vs dry eyes 2/2 Sjogren vs increased intracranial pressure vs SLE cerebritis. CT head 09/30 showed no acute hemorrhage, midline shift or mass effect On exam, peripheral vision intact and EOMI, only vision is affected. Repeat CT head 10/05 and 10/06 negative for acute hemorrhage, mass effect or midline shift. L blurry vision resolved 10/06. R still blurry as of 10/07. Artificial tears helping. Rapid called 10/08 for acute bilateral blurry vision with L pupil fixed dilation, not constricting to light. 10/07 CT head negative. MRI brain w and wo con negative. Plan: - Tele neuro consulted, appreciate recs. - Continue artificial eye drops TID - Switch PO prednisone to IV methylprednisolone 50 mg - LP today - F/u APS, CSF (culture, gram stain, glucose, IgG, anti-dsDNA, myelin basic protein, oligoclonal bands, protein, anti-neuronal antibodies, anti MAP-2, NMDAR antibodies, anti-ribosomal, opening pressure) - Tonometry today #Acute RLE weakness possibly / to actue SLE flare #New R facial numbness, eyelid Patient complains of new onset bilateral lower extremity weakness, unable to lift her legs off the bed starting morning of 10/05. Initially started out as skin tingling and leg [id number] however, developed bilateral sudden weakness and inability to get out of bed. Night of 10/04 she was able to walk to the restroom. MSK exam as above. Now L hip and knee flexion improved 06/07. R hip flexion 03/09 and Rt knee cannot be flexed passively due to pain and contraction. 10/[address] Madera: consider MRI of thigh as could be myositis or edema, possible prednisone increased from 10 mg to 20-40 mg if infection ruled out, LP was done 04/2023 which was unremarkable, negative for monoclonal bands, no white blood cells or red blood cells. Ddx: Transverse myelitis: given SLE dx. Symptoms of allodynia, weakness in lower legs support transverse myelitis vs conversion/malingering/factitious disorder: Johnson test positive, iso acute unexplained neurologic symptoms CK <15, B12 and folate wnl. B12 injection x 1 given 10/04. Repeat CT head 10/05, 10/06, 10/07 all negative for acute hemorrhage, mass effect or midline shift. MRI brain w and wo con, C-spine, T-spine and L-spine all unremarkable Plan: - Tele neuro consulted - LP to check for cytoalbuminologic dissociation - if above negative, outpatient EMG - Per tie presser Dr. Madera: consider MRI thigh if other imaging negative for myositis or muscle edema, can increase prednisone to 20-40 mg if no concern for infection - Steroids as above #SLE Acute Flare #Sjogren's #Allodynia, improving Likely secondary to lupus flare.No suspected source of infection at this time, thus no antibiotics needed for now. 10/01: Spoke to patient's tie presser Dr. Madera at [facility] in [place], recommended restarting home medications and starting on baclofen for pain. Requested tests for complement C3, C4, dsDNA, urine protein creatinine ratio, ESR, and CRP. Has appointment coming up on 10/16. Next infusion scheduled for 10/03, but per patient she rescheduled. test neg, UCx neg, BCx NGTD New complaint of dry eyes and blurry vision 10/03, per patient was diagnosed with Sjogren's but not educated about symptoms nor offered any treatments in the past. Dry eyes slightly improved with artificial tears. Blurry vision still persists. Intially bilateral blurry vision, then L improved, ESR elevated 45 to 63, C3 and C4 levels decreased, dsDNA elevated Per Dr. Madera, 04/2023 LP unremarkable, negative monoclonal bands, no WBC or RBC Plan: - Continue home doses mycophenolate 500 mg BID, and hydroxychloroquinine 200 mg QD - Gabapentin 300 mg TID per tie presser Dr. Madera's recommendation - Pain management to PO Flexeril 10 mg BID - Stop IV ketorolac 15 mg - Tylenol for pain and fever prn - Steroids as above #Hematuria, improving #Bladder retention Patient initially started complaining of blood in the urine on 10/02, initially attributed to her period has LMP 08/24. However patient complained of persistent blood only in the urine and on her pad. Initial UA on 09/30 showed no blood, however, repeat UA showed 3+ blood and 2660 RBCs, positive leukocyte esterase but no nitrites or bacteria. Patient reported chance of STI is unlikely and is not currently sexually active. Reports no hx of kidney stones. Ddx includes autoimmune nephritis from SLE or Sjogren's vs kidney stone (has had R flank pain previously but resolved). Nephritis less likely as no protein loss or any creatinine increase. 10/05 CTAP: 3 mm nonobstructing right renal calculus, no hydronephrosis or renal calculi, absent appendix, no bowel obstruction 10/07 bladder scan showed 400cc urine, straight cathed. Urine output decreased lately and patient complains of inability to urinate, urge preserved Syphilis serology not reactive, HIV negative, Hep panel negative Heparin held 10/04 to 10/07 Plan: - F/u chlamydia, gonorrhea and trich PCR - Restart heparin today - Bladder scan q4h and straight cath if >350 cc - Recommend outpatient urology follow-up #SVT, resolved. #Presyncope 04/06 SVT #s/p unwitnessed fall Patient reports dizziness, followed by brief loss of consciousness and head trauma in her shower on 09/29. CT head negative for acute intracranial bleed. Possibly related to lupus or cardiac etiology as patient reported palpitations prior to episode. No history of seizures, less likely neurologic etiology. History of SVTs per patient, has palpitations but only lasts no more than an hour. Likely secondary to lupus. DDx: drug induced/toxin, pericarditis, rheumatoid heart disease S/p adenosine x3, rate now controlled on metoprolol XL 25mg. CXR 09/30 shows mild prominence of left ventricle with mild vascular congestion. Utox negative. Echo 09/30 negative for pericarditis, EF 55 to 60%. No dysfunction noted. Plan: - Cardiology Dr. 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 DDX for former include teratoma vs calcified uterine fibroids vs osseous metaplasia. Patient complains of lower abdominal crampy pain with one episode of blood in urine on 10/02. No further bleeding noted on pads. LMP 08/24 with irregular cycles. Plan: - OBGYN Dr. Gould consulted, recs appreciated - Spoke to Dr. Gaona, likely incidental finding of Nabothian cyst, no inpatient intervention required - Recommend to follow up with outpatient OBGYN #Electrolyte Abnormalities #Hypokalemia #Hypomagnesemia, improved - recheck and replete as needed Health Maintenance Disposition: acute BLE weakness and b/l blurry vision, teleneuro consult DVT prophylaxis: Heparin q12 GI prophylaxis: Protonix Diet: Full liquid diet CODE STATUS: FULL Plan of care discussed with attending Dr. Cerda, and PGY-2 Dr. Macario. Chantal Black, DO PGY-1 Internal Medicine Attending Provider Attestation/Addendum I attest that I was physically present for the evaluation, physical examination, lab and imaging review of the patient with the residents. I discussed the case with the residents and agree with the findings and plans of care as documented above. Patient had a rapid response this morning, due to bilateral blurry vision. Noted to have bilateral pupillary dilation, left pupil was dilated more compared to the right pupil. Both were very slow to react to light. Stat head CT was obtained, which was negative for any acute finding. She continues to complain of right-sided leg weakness. Underwent brain MRI and MRI of thoracic spine, which were both negative for any acute finding. Patient is scheduled for lumbar puncture with IR today. Patient also complained of headache, we will obtain opening pressure while lumbar puncture is being performed. Teleneurology is following closely, recommended ophthalmology evaluation for acute blurring of vision and pupillary dilation. There was a concern of patient not being able to void, we will obtain every 4 hours bladder scan and we will perform straight cath if she has significant residual. Started on bowel regimen for constipation. Patient's elevated ESR, elevated dsDNA, low complement level, neurological symptoms, concerning for SLE flare, started on 1 mg/kg/day of methylprednisone IV. We will also continue with her home medications for SLE. Patient's hemoglobin stable, continues to complain of hematuria, patient will need outpatient urology follow-up. Heart rate has been stable. Started transfer to [facility] for ophthalmology evaluation. Andra Cerda MD
--- NOTE | 2024-10-08 10:46 | ESPR_ITS ---
Tele Neuro Progress Note Progress Note Date 10/08/24 [facility] Tele[facility]urology Progress Note Date of Service 10/08/2024 Presentation: Based on previous neurology note(s) : 24-year-old female with a known history of systemic lupus erythematosus (SLE), presenting with subacute, intermittent bilateral lower extremity numbness and weakness, most recently onset at 10:30 AM on the day of admission. She describes persistent tingling in both arms without associated weakness, but reports her legs feel numb, crawling, and weak. She denies any bowel or bladder dysfunction. Her symptoms appear to fluctuate and are without clear precipitating events. Of note, she is concurrently experiencing abdominal pain and reports gross hematuria. There is no prior history of similar neurologic episodes. Neurologically, upper extremities are preserved in strength, while lower extremities exhibit subjective weakness and paresthesias. Interval history: 10/06/2024: nursing does not report any significant new events overnight. 10/07: now reports right side of face is feeling numb , so cannot feel her eye 10/08: rapid response this morning for worsening vision on the right side with blurriness. Impression: SLE flare SVT (resolved) Bilateral leg numbness and weakness, etiology is being investigated (myelopathy, vs GBS vs highly suspicious for functional vs SLE cerebritis) right face numbness bilateral blurred vision Recommendations: (Primary Team to order Controlled Medications) Unless specifically noted I Agree with Impression and Plan from previous Neurology note/consult. 1- C and T and L MRIs and repeat brain MRI with contrast unremarkable, 2- if above is negative then LP to check for cytoalbuminologic dissociation, also added Anti-neuronal antibodies 3- if all above is negative outpatient Nerve Conduction Studies/EMG' 4- please obtain records for last years admission regarding her LP and workup. 5- consult ophthalmology for blurred vision. 6- primary team to treat for Lupus flare [facility] Neurologist will follow up with results. Please contact [facility] Navigator to reach me if further questions/concerns arise. Examination: Examination done through interactive audio and video telecommunications with the assist of bedside nursing (when available) awake, alert speech no aphasia Extraocular movements intact reports bilateral blurred vision has anisocoria (dilated left, constricted right) both slow to respond to light face symmetric arms no drift (10s) leg weakness is suspicious for functional deficit, 10/08: no drift left leg, no antigravity strength right leg 8/5 no drift in left leg. right leg has minimal antigravity strength. when passively lifted from under knee the lower leg is not loose and there is resistance to push ankle down towards bed but then she has weakness in straightening or bending knee. on 10/06 she could not elevate either leg off bed, but when legs passively lifted knee remained straight, then when asked to relax the leg and let it drop to the bed she let the leg (below knee) to drop to bed but then could not extend knee at all when asked to push against some force, also when examiner tried to push up against foot on the right there was resistance but on active examination there was no force produced. Numbness travels up to chest on the right side but on the left is up to mid- le. also numbness around right eye 8/5 toes appear to be upgoing Patient / Family was informed the Neurology Consult would occur via Tele[facility] consult by way of interactive audio and video telecommunications and consented to receiving care in this manner. Patient is being evaluated for possible acute neurologic impairment and high probability of imminent or life - threatening deterioration. I spent total of 15 minutes providing care to this patient, including time for face to face visit via telemedicine, review of medical records, imaging studies and discussion of findings with providers, the patient and / or family. Dr Juan Quinn [facility] For Inpatient follow-up with [facility] physician please call [facility] . This is not an outpatient service. Post hospital discharge, please contact hospital directly. Please do not communicate with [facility] physicians via secure chat. If you have any questions, Please contact [facility]. Please call or reconsult our service if there are any clinical or diagnostic changes. Most Recent Vital Signs Last Vital Signs Temp 97.0 F 10/08/24 08:00 Pulse 74 10/08/24 08:47 Resp 18 10/08/24 08:00 BP 105/73 10/08/24 08:47 Pulse Ox 99 10/08/24 08:00 O2 Del Method Room Air 10/08/24 08:00 O2 Flow Rate 0 10/06/24 15:47
[2024-10-08 12:33] LABS: Misc Send Out* See Sep Rpt
[2024-10-08 12:43] LABS: CSF Mononuclear 0 %; CSF White Blood Cell 1 /cmm
[2024-10-08 12:55] LABS: Glucose,CSF 61 mg/dL (40-70); Protein Total,CSF 23 mg/dL (8-32)
[2024-10-08 13:13] LABS: CSF Cell Count Tube # Tube # 4; CSF Color Colorless (Colorless); CSF Red Blood Cell 180 /cmm; CSF, Appearance Clear (Clear)
[2024-10-08 13:14] LABS: CSF Polynuclear WBC 100 %
[2024-10-08 13:24] LABS: CSF Gram Stain Alert Gram Stain Completed
[2024-10-08] MEDS: Artificial Tears 225 DROP/15 ML BTL BOTH EYES ×2 (13:49→21:02)
[2024-10-08] MEDS: ACETAMINOPHEN IVPB 1,000 MG/100 ML VIAL 250 MG IV (13:49)
--- NOTE | 2024-10-08 14:51 | PC.CM ---
Addendum entered by Ashley Pritchett RN 10/08/24 18:01: [address] [facility] in [place]. Original Note: 1430 I recieved a call from Grace at the transfer center at [facility]. They declined patient due to capacity. 1340 I faxed information to [facility] and I initiated a transfer. 1300 patient needs transfer for opthalmology services. Patient has blurred vision and anisocoria with dilated left pupil and constricted right pupil.
[2024-10-08] MEDS: HYDROcodone/APAP 5/325 TABLET 1 TAB PO (20:59)
[2024-10-08] MEDS: HEPARIN SOD INJ 5000 UNIT/ML VIAL SC (20:59)
[2024-10-09] VITALS (8 sets, daily range): BP systolic 94–107; BP diastolic 57–73; PULSE 66–113; RESP 14–23; TEMP 35.9–36.7; O2SAT 94–98; BMI 22.6
[2024-10-09] MEDS: Artificial Tears 225 DROP/15 ML BTL BOTH EYES ×8 (05:00→22:50)
[2024-10-09] MEDS: GABAPENTIN 300 MG CAPSULE PO ×3 (05:00→21:13)
[2024-10-09 06:15] LABS: Basophils # (Auto) 0.0 Thou/mm3 (0.0-0.2); Basophils % (Auto) 0 % (0-2.5); Eosinophils # (Auto) 0.0 Thou/mm3 (0.0-0.5); Eosinophils % (Auto) 0 % (0-10); Hematocrit 31.9 % (36.0-46.0); Hemoglobin 10.1 g/dL (12.0-16.0); Immature Granulocytes Auto 0.05 Thou/mm3 (0.00-0.00); Lymphocytes # (Auto) 0.9 Thou/mm3 (1.0-4.8); Lymphocytes % (Auto) 12 % (10-50); Mean Corpuscular HGB Conc 31.7 g/dl (31.0-37.0); Mean Corpuscular Hemoglobin 26.5 pg (25.0-35.0); Mean Corpuscular Volume 84 fL (80-100); Monocytes # (Auto) 0.6 Thou/mm3 (0.0-0.8); Monocytes % (Auto) 9 % (0-12); Neutrophils # (Auto) 5.5 Thou/mm3 (1.8-7.7); Neutrophils % (Auto) 78 % (37-80); Nucleated Red Blood Cell # 0.00 Thou/mm3 (0.00-0.00); Nucleated Red Blood Cell % 0 /100 WBC (0); Platelet Count 283 Thou/mm3 (140-440); RDW Standard Deviation 42.6 fL (36.4-46.3); Red Blood Count 3.81 Miln/mm3 (4.00-5.20); White Blood Count 7.1 Thou/mm3 (3.6-11.0)
[2024-10-09 06:58] LABS: Alanine Aminotransferase 15 U/L (10-49); Albumin, Serum 4.0 gm/dL (3.5-5.0); Albumin/Globulin Ratio 1.4 (1.2-2.2); Alkaline Phosphatase 80 U/L (46-116); Anion Gap 10 (7-16); Aspartate Amino Transferase 14 U/L (0-34); BUN/Creatinine Ratio 34 Ratio (12-20); Bilirubin,Total 0.2 mg/dL (0.3-1.2); Blood Urea Nitrogen 24 mg/dL (9-23); Calcium 9.8 mg/dL (8.3-10.6); Calcium (Corrected) 9.8 mg/dL (8.5-10.1); Carbon Dioxide 26.5 mMol/L (20.0-31.0); Chloride 104 mMol/L (98-107); Creatinine (Component) 0.7 mg/dL (0.6-1.3); Estimated Creatinine Clearance 85.2 mL/min (>60); Globulin 2.9 gm/dL (2.3-3.5); Glucose 100 mg/dL (74-106); Magnesium 1.8 mg/dL (1.6-2.6); Osmolality,Calculated 283 (275-295); Phosphorous 3.8 mg/dL (2.4-5.1); Potassium 4.2 mMol/L (3.4-5.1); Sodium 140 mMol/L (136-145); Total Protein 6.9 gm/dL (5.7-8.2); eGFR > 60 See Note
[2024-10-09 08:18] LABS: Misc Send Out* See Sep Rpt
[2024-10-09 08:20] LABS: Misc Send Out* See Sep Rpt
[2024-10-09 08:25] LABS: Iron 37 mcg/dL (50-170); Percent Iron Saturation 11 % (20-55); Total Iron Binding Capacity 324 mcg/dL (250-425); Unsaturated Iron Binding 287 (225-295)
[2024-10-09] MEDS: Magnesium Sulfate 2 GM Ivpb 2 GM/50 ML BAG IV (08:49)
[2024-10-09] MEDS: MYCOPHENOLATE 250 MG CAPSULE (NON-FORMULARY) 500 MG PO ×2 (08:49→21:12)
[2024-10-09] MEDS: HEPARIN SOD INJ 5000 UNIT/ML VIAL SC ×2 (08:50→21:13)
[2024-10-09] MEDS: HYDROXYCHLOROQUINE 200 MG TABLET PO (08:50)
[2024-10-09] MEDS: PANTOPRAZOLE 40 MG TABLET PO (08:51)
[2024-10-09] MEDS: METOPROLOL SUCCINATE XL 25 MG TABCR PO (08:51)
--- NOTE | 2024-10-09 08:51 | ESPR_ITS ---
<Statement entered by Lyle Macario MD - 10/09/24 15:05> Patient was seen and examined at bedside. I agree on the assessment and plan on this note as documented by resident Chantal Black PGY1. Patient continues to have bilateral blurry vision, we will increase refresh teardrops to every 2 hours, patient does have underlying neurological- psychiatric manifestations of SLE (Ddx: Seronegative neuropsychiatric SLE, NMOSD) with an SLE flare of currently as well, we will continue with high intensity steroids along with hydroxychloroquine and mycophenolate mofetil, pending transfer to higher level of care for ophthalmology/rheumatology evaluation. There is also consideration of functional disorder versus possible underlying optic neuritis, patient's MR brain, MR spine, LP has been negative as of now, pending antibodies and send out results. Hematuria has improved, tolerating metoprolol well, needs outpatient workup for underlying nabothian cyst. We will continue to keep potassium more than 4 and magnesium more than 2 we will replete her electrolytes aggressively. Added morphine for breakthrough pain, tramadol for moderate to severe pain. Teleneurology following. Case discussed with attending Dr. Mateo Macario MD PGY-2 Documentation for date of: 10/09/24 Subjective Subjective Interval history: Overnight patient had intense headache and low back pain, given [place] 5 x 1. Patient seen and examined at bedside. Reports slightly improved blurry vision, but still cannot read the report or her wrist pain. Complains of headache and ears popping. Neurology reports last bowel movement yesterday. Denies blood in urine, and only has a little bit of blood when she wipes. Continued right leg weakness and stiffness. States she has been receiving food from family, and is open to advancing diet from full liquid to solids. Attempting to transfer for ophthalmology. Increase steroids from IV methylprednisolone 50 mg to 1 g for 3 days. LP done yesterday negative for infection, awaiting autoimmune panel. Pending antiphospholipid panel. Iron panel and cocci IgG ordered. Regular diet ordered. Left hip flexion strength improved to 5/5. Lt pupil still dilated and slow constriction to light. Exam Vital Signs Temp Pulse Resp BP Pulse Ox O2 Del Method O2 Flow Rate 97.6 F 66 14 100/73 95 Room Air 0 10/09/24 08:00 10/09/24 08:00 10/09/24 08:00 10/09/24 08:00 10/09/24 08:00 10/09/24 08:00 10/09/24 08:00 Narrative Exam GENERAL: no acute distress +alopecia HEENT: NC/AT, mucous membranes moist, bilateral sclera anicteric CARDIOVASCULAR: regular rate and rhythm, S1/S2 present, no murmurs appreciated PULMONARY: clear to auscultation bilaterally, no rales/rhonchi/wheezes ABDOMINAL: soft, non-distended, non-tender no rebound/guarding, bowel sounds present EXTREMITIES: no peripheral edema MSK: mild tenderness at axial joints, R hamstring stiffness SKIN: warm and dry, intact, no rashes, mild skin sensitivity to light touch NEURO: +numbness at Rt eyelid, Unable to track, blurry vision (cannot read patient info board or wrist band) EOMI intact, peripheral vision intact Muscle strength: 5/5 in bilateral elbow flexion and extension 5/5 shoulder abduction 5/5 L hip flexion 5/5 L knee flexion 1/5 R hip flexion 1/5 R knee flexion, limited passive flexion due to pain and stiffness +Johnson test on flexion of Rt hip Objective Labs 10/09/24 05:30 10/09/24 05:30 Labs: Laboratory Results - last 24 hr 10/08/24 10/09/24 12:01 05:30 WBC 7.1 RBC 3.81 L Hgb 10.1 L Hct 31.9 L MCV 84 MCH 26.5 MCHC 31.7 RDW Std Deviation 42.6 Plt Count 283 Neut % (Auto) 78 Lymph % (Auto) 12 [place] % (Auto) 9 Eos % (Auto) 0 Baso % (Auto) 0 Neut # (Auto) 5.5 Lymph # (Auto) 0.9 L [place] # (Auto) 0.6 Eos # (Auto) 0.0 Baso # (Auto) 0.0 Immature Gran # (Auto) 0.05 H Absolute Nucleated RBC 0.00 Immature Gran % 1 H Nucleated RBC % 0 Sodium 140 Potassium 4.2 D Chloride 104 Carbon Dioxide 26.5 Anion Gap 10 BUN 24 H Creatinine 0.7 Estim Creat Clear Calc 85.2 eGFR > 60 BUN/Creatinine Ratio 34 H Glucose 100 Calculated Osmolality 283 Calcium 9.8 Corrected Calcium 9.8 Phosphorus 3.8 Magnesium 1.8 Iron 37 L TIBC 324 Iron Saturation 11 L Unsat Iron Binding 287 Total Bilirubin 0.2 L AST 14 ALT 15 Alkaline Phosphatase 80 Total Protein 6.9 Albumin 4.0 Globulin 2.9 Albumin/Globulin Ratio 1.4 CSF Appearance Clear CSF Color Colorless CSF WBC 1 CSF RBC 180 CSF Cell Count Tube # Tube # 4 CSF Mononuclear WBCs 0 CSF Polynuclear WBCs 100 CSF Glucose 61 CSF Total Protein 23 Quality Measures Quality Measures VTE prophylaxis Assessment & Plan Assessment Current Active Medications: Generic Name Dose Route Start Last Admin Trade Name Freq PRN Reason Stop Dose Admin Acetaminophen 650 mg 09/30/24 17:59 10/05/24 00:39 Acetaminophen 325 Mg Tablet PO 10/30/24 17:58 650 mg Q6H PRN Administration Mild Pain 1-3 or Fever >100.3 Artificial Tears 0 drop 10/04/24 22:00 10/09/24 05:00 Artificial Tears 225 Drop/15 Ml Btl BOTH EYES 11/03/24 21:59 1 drop TID YADIRA Administration Cyclobenzaprine HCl 10 mg 10/03/24 10:15 10/08/24 20:59 Cyclobenzaprine 5 Mg Tablet PO 11/02/24 10:14 10 mg BID YADIRA Administration Gabapentin 300 mg 10/01/24 22:00 10/09/24 05:00 Gabapentin 300 Mg Capsule PO 10/31/24 21:59 300 mg TID YADIRA Administration Heparin Sodium (Porcine) 5,000 unit 09/30/24 21:00 10/08/24 20:59 Heparin Sod Inj 5000 Unit/Ml Vial SC 10/14/24 20:59 5,000 unit Q12HR YADIRA Administration Hydroxychloroquine Sulfate 200 mg 10/01/24 16:00 10/08/24 08:45 Hydroxychloroquine 200 Mg Tablet PO 10/13/24 15:59 200 mg QDAY YADIRA Administration Magnesium Sulfate 2 gm in 50 mls @ 25 mls/hr 10/09/24 07:46 Magnesium Sulfate Ivpb IV 10/09/24 09:45 X1 ONE Methylprednisolone Sodium Succinate 50 mg 10/08/24 10:00 10/08/24 10:39 Methylprednisolone Sod Succ 40 Mg Vial IVP 10/15/24 09:59 50 mg QDAY YADIRA Administration Metoprolol Succinate 25 mg 10/02/24 09:00 10/08/24 08:47 Metoprolol Succinate Xl 25 Mg Tabcr PO 11/01/24 08:59 25 mg QDAY YADIRA Administration Mycophenolate Mofetil 500 mg 10/01/24 21:00 10/08/24 20:59 Mycophenolate 250 Mg Capsule (Non-Formulary) PO 10/31/24 20:59 500 mg BID YADIRA Administration Ondansetron HCl 4 mg 09/30/24 17:59 10/03/24 07:30 Ondansetron Inj 2 Mg/Ml Inj 2 Ml IVP 10/30/24 17:58 4 mg Q6H PRN Administration NAUSEA OR VOMITING Protocol Pantoprazole Sodium 40 mg 10/02/24 09:00 10/08/24 08:47 Pantoprazole 40 Mg Tablet PO 11/01/24 08:59 40 mg QDAY YADIRA Administration Polyethylene Glycol 34 gm 10/09/24 07:32 Polyethylene Glycol 17 Gm Packet PO 11/08/24 07:31 QDAY PRN CONSTIPATION Sennosides 1 tab 09/30/24 18:15 10/08/24 08:47 Senna Tablet PO 10/30/24 18:14 1 tab QDAY YADIRA Administration Protocol Plan Susana Clark is a 24 year old female for past medical history of lupus and Sjrogen's who presented on 09/30 for fever and palpitations, admitted for SVT, controlled on metoprolol, found to have cervical calcified mass, course complicated by developing hematuria and acute BLE weakness, LLE weakness resolved, now developed bilateral blurry vision and dilated slow to constrict L pupil. #Acute bilateral blurry vision, likely 2/2 acute SLE flare Patient complained of slightly bilateral blurry vision and gritty eyes on 10/03, which did not improve with artificial eye drops. 8 endorses being unable to read the patient information board when she was able to on admission. Patient did present with a presyncopal episode where headstrike was reported. Ddx includes concussion from headstrike vs dry eyes 2/2 Sjogren vs increased intracranial pressure vs SLE cerebritis. CT head 09/30 showed no acute hemorrhage, midline shift or mass effect On exam, peripheral vision intact and EOMI, only vision is affected. Repeat CT head 10/05 and 10/06 negative for acute hemorrhage, mass effect or midline shift. L blurry vision resolved 10/06. R still blurry as of 10/07. Artificial tears helping. Rapid called 8/6 for acute bilateral blurry vision with L pupil fixed dilation, not constricting to light. 10/07 CT head negative. MRI brain w and wo con negative. 10/08 LP done, no WBC, glucose and protein wnl Plan: - Tele neuro consulted, appreciate recs, recommended ophthalmology consult - Continue artificial eye drops TID - Increase IV methylprednisolone 50 mg to 1 g for 3 days - F/u APS, CSF (culture, gram stain, glucose, IgG, anti-dsDNA, myelin basic protein, oligoclonal bands, protein, anti-neuronal antibodies, anti MAP-2, NMDAR antibodies, anti-ribosomal, opening pressure) - F/u cocci IgG #Acute RLE weakness possibly 04/06 to actue SLE flare #New R facial numbness, eyelid Patient complains of new onset bilateral lower extremity weakness, unable to lift her legs off the bed starting morning of 10/05. Initially started out as skin tingling and leg [id number] however, developed bilateral sudden weakness and inability to get out of bed. Night of 10/04 she was able to walk to the restroom. MSK exam as above. Now L hip and knee flexion improved 06/07. R hip flexion 03/09 and Rt knee cannot be flexed passively due to pain and contraction. 10/[address] Madera: consider MRI of thigh as could be myositis or edema, possible prednisone increased from 10 mg to 20-40 mg if infection ruled out, LP was done 04/2023 which was unremarkable, negative for monoclonal bands, no white blood cells or red blood cells. Ddx: Transverse myelitis: given SLE dx. Symptoms of allodynia, weakness in lower legs support transverse myelitis vs conversion/malingering/factitious disorder: Johnson test positive, iso acute unexplained neurologic symptoms CK <15, B12 and folate wnl. B12 injection x 1 given 10/04. Repeat CT head 10/05, 10/06, 10/07 all negative for acute hemorrhage, mass effect or midline shift. MRI brain w and wo con, C-spine, T-spine and L-spine all unremarkable Plan: - Tele neuro consulted - if LP negative, outpatient EMG - Per wwe wrestler Dr. Madera: consider MRI thigh if other imaging negative for myositis or muscle edema, can increase prednisone to 20-40 mg if no concern for infection - Steroids as above #SLE Acute Flare #Sjogren's #Allodynia, improving Likely secondary to lupus flare.No suspected source of infection at this time, thus no antibiotics needed for now. 10/01: Spoke to patient's [facility]we wrestler Dr. Madera at [facility] in [place], recommended restarting home medications and starting on baclofen for pain. Requested tests for complement C3, C4, dsDNA, urine protein creatinine ratio, ESR, and CRP. Has appointment coming up on 10/16. Next infusion scheduled for 10/03, but per patient she rescheduled. test neg, UCx neg, BCx NGTD New complaint of dry eyes and blurry vision 10/03, per patient was diagnosed with Sjogren's but not educated about symptoms nor offered any treatments in the past. Dry eyes slightly improved with artificial tears. Blurry vision still persists. Intially bilateral blurry vision, then L improved, ESR elevated 45 to 63, C3 and C4 levels decreased, dsDNA elevated Per Dr. Madera, 04/2023 LP unremarkable, negative monoclonal bands, no WBC or RBC Plan: - Continue home doses mycophenolate 500 mg BID, and hydroxychloroquinine 200 mg QD - Gabapentin 300 mg TID per wwe wrestler Dr. Madera's recommendation - Pain management to PO Flexeril 10 mg BID - Tylenol for pain and fever prn - Steroids as above #Normocytic anemia Hgb 10-11 throughout admission . 04/2024 peripheral smear showed likely SAHARA. Plan: - F/u iron panel #Hematuria, improving #Bladder retention, improving Patient initially started complaining of blood in the urine on 10/02, initially attributed to her period has LMP 08/24. However patient complained of persistent blood only in the urine and on her pad. Initial UA on 09/30 showed no blood, however, repeat UA showed 3+ blood and 2660 RBCs, positive leukocyte esterase but no nitrites or bacteria. Patient reported low chance of STI and is not currently sexually active. Reports no hx of kidney stones. Ddx includes autoimmune nephritis from SLE or Sjogren's vs kidney stone (has had R flank pain previously but resolved). Nephritis less likely as no protein loss or any creatinine increase. 10/05 CTAP: 3 mm nonobstructing right renal calculus, no hydronephrosis or renal calculi, absent appendix, no bowel obstruction 10/07 bladder scan showed 400cc urine, straight cathed. Urine output decreased lately and patient complains of inability to urinate, urge preserved, today improved Syphilis serology not reactive, HIV negative, Hep panel negative Heparin held 10/04 to 10/07, restarted 10/08 Plan: - F/u chlamydia, gonorrhea and trich PCR - Bladder scan q4h and straight cath if >350 cc - Recommend outpatient urology follow-up #SVT, resolved. #Presyncope 2/2 SVT #s/p unwitnessed fall Patient reports dizziness, followed by brief loss of consciousness and head trauma in her shower on 09/29. CT head negative for acute intracranial bleed. Possibly related to lupus or cardiac etiology as patient reported palpitations prior to episode. No history of seizures, less likely neurologic etiology. History of SVTs per patient, has palpitations but only lasts no more than an hour. Likely secondary to lupus. DDx: drug induced/toxin, pericarditis, rheumatoid heart disease S/p adenosine x3, rate now controlled on metoprolol XL 25mg. CXR 09/30 shows mild prominence of left ventricle with mild vascular congestion. Utox negative. Echo 09/30 negative for pericarditis, EF 55 to 60%. No dysfunction noted. Plan: - Cardiology Dr. 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 DDX for former include teratoma vs calcified uterine fibroids vs osseous metaplasia. Patient complains of lower abdominal crampy pain with one episode of blood in urine on 10/02. No further bleeding noted on pads. LMP 08/24 with irregular cycles. Plan: - OBGYN Dr. Gould consulted, recs appreciated - Spoke to Dr. Gaona, likely incidental finding of Nabothian cyst, no inpatient intervention required - Recommend to follow up with outpatient OBGYN #Electrolyte Abnormalities #Hypokalemia #Hypomagnesemia, improved - recheck and replete as needed Health Maintenance Disposition: acute BLE weakness and b/l blurry vision, teleneuro consult DVT prophylaxis: Heparin q12 GI prophylaxis: Protonix Diet: Full liquid diet CODE STATUS: FULL Plan of care discussed with attending Dr. Galindo, and PGY-2 Dr. Macario. Chantal Black DO PGY-1 Internal Medicine Attending Provider Attestation/Addendum Nicci Morelos DO, attest that I was physically present for the lang portions of the service and evaluated the patient with the resident and I reviewed and discussed the case with the resident and agree with the resident's findings and plans of care as documented above Patient seen and evaluated this AM. Patient states that her blurry vision is slightly improved, but reports inability to move her right leg. She reports decreased sensation of her right leg as well. Muscle strength of right lower extremity was 2 out of 5 on exam. Pupils are reactive to light. They were sluggish yesterday and on even per yesterday's signout. Patient complaining of pain down her spine after lumbar puncture. Patient is very tender to palpation even on light touch. Patient states that she wants to be discharged home as she feels that she is getting worse here in the hospital. Concerned that patient may have neuromyelitis optica versus optic neuritis versus neuropsychiatric imaging negative seronegative lupus erythematosus. Will start induction therapy with pulse dose steroids for 3 days as she has only been receiving 50 mg IV push daily. Will then taper after pulsed dose steroids and monitor response. Will also give eyedrops every 2 hours to keep eyes lubricated due to lupus. Patient would benefit from higher level of care transfer due to lack of rheumatological or ophthalmological services here in our hospital. Transfer initiated and discussed with transfer nurse. Per nursing, patient is able to stand and was able to ambulate with the use of a walker to the bathroom, but unable to bear weight or use her right leg.
--- NOTE | 2024-10-09 10:16 | PC.CM ---
Addendum entered by Ashley Pritchett RN 10/09/24 19:03: [address] Noel and I let her know we would not be able to transfer to internal medicine. She stated she would change referral to Rheumatology. I did not have time to send out new referrals for rheumatology services. Please follow up tomorrow. 1800 changed referral to internal medicine instead of optholmology. I called and spoke to Faisal transfer nurse at [facility]. He states they would not be able to accept patient under internal medicine. I let him know patient has several different issues and would benefit from higher level management of SLE. Addendum entered by Ashley Pritchett RN 10/09/24 12:03: I to Dr. Macario and I let him know patient has been declined and facilities typically do not accept patient's for opthalmology due to the fact it is not a service public information coordinator. He asked about rheumatology and I let him know that is not an public information coordinator service also. He states he was going to discuss the case with Dr. Galindo. 1100 I called [facility] in [place] and they stated they do home have opthalmology services public information coordinator. They declined patient. Addendum entered by Ashley Pritchett RN 10/09/24 10:26: 1020 I spoke to Jacki from [facility] transfer center She states they do not have ophthalmology public information coordinator. Transfer request declined. Original Note: 1000 I faxed information to [facility] in [place]. 0945 [facility] at capacity. 0930 [facility] called back and they stated they thought they had ophthalmology in [place], but they do not have it available. [facility] declined. 0900 I spoke to Mylene at [facility] and initiated transfer. I faxed over information.
--- NOTE | 2024-10-09 10:53 | PD.TNEUROPRO ---
Tele Neuro Progress Note Progress Note Date 10/09/24 [facility] Tele[facility]urology Progress Note Date of Service 10/09/2024 Presentation: Based on previous neurology note(s) : 24-year-old female with a known history of systemic lupus erythematosus (SLE), presenting with subacute, intermittent bilateral lower extremity numbness and weakness, most recently onset at 10:30 AM on the day of admission. She describes persistent tingling in both arms without associated weakness, but reports her legs feel numb, crawling, and weak. She denies any bowel or bladder dysfunction. Her symptoms appear to fluctuate and are without clear precipitating events. Of note, she is concurrently experiencing abdominal pain and reports gross hematuria. There is no prior history of similar neurologic episodes. Neurologically, upper extremities are preserved in strength, while lower extremities exhibit subjective weakness and paresthesia. Interval history: 10/06/2024: nursing does not report any significant new events overnight. 10/07: now reports right side of face is feeling numb , so cannot feel her eye 10/08: rapid response this morning for worsening vision on the right side with blurriness. 10/09: no events overnight Impression: SLE flare SVT (resolved) Bilateral leg numbness and weakness, etiology is being investigated (myelopathy, vs GBS vs highly suspicious for functional vs SLE cerebritis) (so far neuroaxis MRI negative, basic CSF labs negative, symptoms not in a nerve root(s) pattern, not consistent with Acute Inflammatory Demyelinating Polyneuropathy either and predominantly right-sided, also doubt it would be with cerebral etiology given negative brain MRIx2 ) right face numbness bilateral blurred vision Recommendations: (Primary Team to order Controlled Medications) Unless specifically noted I Agree with Impression and Plan from previous Neurology note/consult. 1- C and T and L MRIs and repeat brain MRI with contrast unremarkable, 2- so far CSF WBC 1, RBC 180, Glucose 61, Protein 23; pending oligoclonal bands, IGG synthesis and index 3- if all above is negative outpatient Nerve Conduction Studies/EMG' 4- please obtain records for last years admission regarding her LP and workup. 5- consult ophthalmology for blurred vision. 6- primary team to treat for Lupus flare [facility] Neurologist will follow up with results. Please contact [facility] Navigator to reach me if further questions/concerns arise. Examination: Examination done through interactive audio and video telecommunications with the assist of bedside nursing (when available) awake, alert, oriented x3 speech no aphasia Extraocular movements intact pupils equal reactive to light face symmetric arms no drift (10s) leg weakness is suspicious for functional deficit, 10/09: no drift left leg, no antigravity strength right leg; Hoovers sign positive 10/08: no drift left leg, no antigravity strength right leg 8/5 no drift in left leg. right leg has minimal antigravity strength. when passively lifted from under knee the lower leg is not loose and there is resistance to push ankle down towards bed but then she has weakness in straightening or bending knee. on 10/06 she could not elevate either leg off bed, but when legs passively lifted knee remained straight, then when asked to relax the leg and let it drop to the bed she let the leg (below knee) to drop to bed but then could not extend knee at all when asked to push against some force, also when examiner tried to push up against foot on the right there was resistance but on active examination there was no force produced. Numbness travels up to chest on the right side but on the left is up to mid-le. also numbness around right eye 8/5 toes appear to be upgoing Patient / Family was informed the Neurology Consult would occur via TeleHealth consult by way of interactive audio and video telecommunications and consented to receiving care in this manner. Patient is being evaluated for possible acute neurologic impairment and high probability of imminent or life - threatening deterioration. I spent total of 15 minutes providing care to this patient, including time for face to face visit via telemedicine, review of medical records, imaging studies and discussion of findings with providers, the patient and / or family. Dr Juan Quinn [facility] For Inpatient follow-up with [facility] physician please call [facility] . This is not an outpatient service. Post hospital discharge, please contact hospital directly. Please do not communicate with [facility] physicians via secure chat. If you have any questions, Please contact [facility]. Please call or reconsult our service if there are any clinical or diagnostic changes. Most Recent Vital Signs Last Vital Signs Temp 97.6 F 10/09/24 08:00 Pulse 66 10/09/24 08:51 Resp 14 10/09/24 08:00 BP 100/73 10/09/24 08:51 Pulse Ox 95 10/09/24 08:00 O2 Del Method Room Air 10/09/24 08:00 O2 Flow Rate 0 10/09/24 08:00
[2024-10-09] MEDS: SODIUM CHLORIDE 0.9% IV (12:25)
[2024-10-09] MEDS: METHYLPREDNISOLONE IV (12:25)
[2024-10-09] MEDS: MORPHINE SULF INJ 10 MG/ML VIAL IVP (12:26)
--- NOTE | 2024-10-09 15:07 | PC.SS ---
SS follow up note; SS met with patient in regards to Authorization for release of information from [facility]. Patient stated she filled out the form on Sunday. SS followed up with Turn Out Worker, Ana and she informed SS that form was sent on Sunday [facility] informed them that they had not received form, Ana re-faxed Form. SS contacted [facility]-Medical Records and they informed SS that it takes up to 15 business days, SS informed them that patient is admitted to [facility] and they needed the clinicals. The statement clerks manager informed SS that they would expedite and send via fax
[2024-10-09] MEDS: MORPHINE SULF INJ 10 MG/ML VIAL 2 MG IVP (16:32)
[2024-10-09] MEDS: LIDOCAINE 5% 1 PATCH TOP (18:33)
[2024-10-10] VITALS (9 sets, daily range): BP systolic 92–116; BP diastolic 59–66; PULSE 65–90; RESP 15–21; TEMP 36.1–36.6; O2SAT 98; BMI 22.6
[2024-10-10] MEDS: MORPHINE SULF INJ 10 MG/ML VIAL 2 MG IVP ×2 (00:40→09:29)
[2024-10-10] MEDS: Artificial Tears 225 DROP/15 ML BTL BOTH EYES ×8 (00:40→19:40)
[2024-10-10] MEDS: GABAPENTIN 300 MG CAPSULE PO ×3 (05:02→22:16)
--- NOTE | 2024-10-10 07:29 | ESPR_ITS ---
<Statement entered by Shayan Hill MD - 10/15/24 14:36> I reviewed above note and agree with findings and plans. I have also personally examined the patient with medicine team and went over assessment and plan with medical team including culinary intern and resident physician. <Statement entered by Lyle Macario MD - 10/10/24 16:54> Patient was seen and examined at bedside. I agree on the assessment and plan on this note as documented by resident Chantal Black PGY1. Patient seen and examined at bedside, patient's lower extremity weakness is improving, continues to complain of pain we will continue with pain regimen, tramadol 50 mg every 6 hours as needed and morphine 2 mg every 8 hours for breakthrough and severe pain. Will continue with IV methylprednisolone, pending repeat urine analysis panel. Per transfer nurse patient has been denied by multiple facilities, we will pause the transfer for now, will continue IV steroids as patient symptoms are improving, otherwise we will continue the hydroxychloroquine and mycophenolate as well. Neurology is following, appreciate recommendations. Case discussed with attending Dr. Hill. Lyle Macario MD PGY-2 Documentation for date of: 10/10/24 Subjective Subjective Interval history: No acute overnight events. Patient seen and examined at bedside. Complains of persistent back pain that radiates down the spine and up the head since lumbar puncture. Headache improved. States that bilateral blurry vision has not resolved and it is the same as yesterday. Patient is now able to lift her right leg against gravity, improved from yesterday when she was unable to lift it. Reports that she has been working with physical therapy to use a walker to walk to the restroom. Endorses hematuria has resolved however is having some burning at the end of urination and possible brown vaginal discharge when wiping and would like to have STI panel done, and has OBGYN appointment Sunday. Patient is currently on IV methylprednisolone 1 g day 2 out of 3, caution during infusion due to possible SVT side effect as patient had been admitted with SVT. If heart rate increases and SVTs noted during methylprednisolone infusion, consider methylprednisolone 250 IV 4 times daily. Follow-up repeat UA and STI panel. Per social work, she has been rejected by numerous hospitals for higher level of care. Encouraged patient to ambulate with physical therapy as strength regained and right lower extremity. Pain regimen changed to tramadol 50 mg every 6 hours as needed for moderate to severe pain and morphine 2 mg every 8 hours as needed for breakthrough severe pain. Exam Vital Signs Temp Pulse Resp BP Pulse Ox O2 Del Method O2 Flow Rate 97.2 F 77 17 103/65 98 Room Air 0 10/10/24 04:00 10/10/24 04:00 10/10/24 04:00 10/10/24 04:00 10/10/24 04:00 10/10/24 04:00 10/10/24 04:00 Narrative Exam GENERAL: no acute distress +alopecia HEENT: NC/AT, mucous membranes moist, bilateral sclera anicteric CARDIOVASCULAR: regular rate and rhythm, S1/S2 present, no murmurs appreciated PULMONARY: clear to auscultation bilaterally, no rales/rhonchi/wheezes ABDOMINAL: soft, non-distended, non-tender no rebound/guarding, bowel sounds present EXTREMITIES: no peripheral edema MSK: mild tenderness at axial joints, R hamstring stiffness SKIN: warm and dry, intact, no rashes, mild skin sensitivity to light touch NEURO: +numbness at Rt eyelid, able to track, +blurry vision, sluggish L pupil constriction EOMI intact, peripheral vision intact Muscle strength: 5/5 in bilateral elbow flexion and extension 5/5 shoulder abduction 5/5 L hip flexion 5/5 L knee flexion 2/5 R hip flexion 2/5 R knee flexion, limited passive flexion due to pain and stiffness +Johnson test on flexion of Rt hip Objective Labs 10/09/24 05:30 10/09/24 05:30 Labs: Laboratory Results - last 24 hr 10/09/24 05:30 Iron 37 L TIBC 324 Iron Saturation 11 L Unsat Iron Binding 287 Quality Measures Quality Measures VTE prophylaxis Assessment & Plan Assessment Current Active Medications: Generic Name Dose Route Start Last Admin Trade Name Freq PRN Reason Stop Dose Admin Acetaminophen 650 mg 09/30/24 17:59 10/05/24 00:39 Acetaminophen 325 Mg Tablet PO 10/30/24 17:58 650 mg Q6H PRN Administration Mild Pain 1-3 or Fever >100.3 Artificial Tears 0 drop 10/09/24 10:15 10/10/24 06:09 Artificial Tears 225 Drop/15 Ml Btl BOTH EYES 11/08/24 10:14 1 drop Q2H YADIRA Administration Cyclobenzaprine HCl 10 mg 10/03/24 10:15 10/09/24 21:13 Cyclobenzaprine 5 Mg Tablet PO 11/02/24 10:14 10 mg BID YADIRA Administration Gabapentin 300 mg 10/01/24 22:00 10/10/24 05:02 Gabapentin 300 Mg Capsule PO 10/31/24 21:59 300 mg TID YADIRA Administration Heparin Sodium (Porcine) 5,000 unit 09/30/24 21:00 10/09/24 21:13 Heparin Sod Inj 5000 Unit/Ml Vial SC 10/14/24 20:59 5,000 unit Q12HR YADIRA Administration Hydroxychloroquine Sulfate 200 mg 10/01/24 16:00 10/09/24 08:50 Hydroxychloroquine 200 Mg Tablet PO 10/13/24 15:59 200 mg QDAY YADIRA Administration Methylprednisolone Sodium 266 mls @ 266 mls/hr 10/10/24 09:00 Succinate 1,000 mg/ Sodium IV 10/11/24 09:59 Chloride QDAY YADIRA Metoprolol Succinate 25 mg 10/02/24 09:00 10/09/24 08:51 Metoprolol Succinate Xl 25 Mg Tabcr PO 11/01/24 08:59 25 mg QDAY YADIRA Administration Morphine Sulfate 2 mg 10/09/24 16:22 10/10/24 00:40 Morphine Sulf Inj 10 Mg/Ml Vial IVP 10/14/24 13:02 2 mg Q8H PRN Administration BREAKTHROUGH PAIN (SEVERE)7-10 Mycophenolate Mofetil 500 mg 10/01/24 21:00 10/09/24 21:12 Mycophenolate 250 Mg Capsule (Non-Formulary) PO 10/31/24 20:59 500 mg BID YADIRA Administration Ondansetron HCl 4 mg 09/30/24 17:59 10/03/24 07:30 Ondansetron Inj 2 Mg/Ml Inj 2 Ml IVP 10/30/24 17:58 4 mg Q6H PRN Administration NAUSEA OR VOMITING Protocol Pantoprazole Sodium 40 mg 10/02/24 09:00 10/09/24 08:51 Pantoprazole 40 Mg Tablet PO 11/01/24 08:59 40 mg QDAY YADIRA Administration Polyethylene Glycol 34 gm 10/09/24 07:32 Polyethylene Glycol 17 Gm Packet PO 11/08/24 07:31 QDAY PRN CONSTIPATION Sennosides 1 tab 09/30/24 18:15 10/09/24 08:51 Senna Tablet PO 10/30/24 18:14 1 tab QDAY YADIRA Administration Protocol Tramadol HCl 50 mg 10/09/24 16:23 10/09/24 21:23 Tramadol Hcl 50 Mg Tablet PO 10/14/24 13:02 50 mg Q6HR PRN Administration moderate to severe pain 4-10 Plan Susana Clark is a 24 year old female for past medical history of lupus and Sjrogen's who presented on 09/30 for fever and palpitations, admitted for SVT, controlled on metoprolol, found to have cervical calcified mass, course complicated by developing hematuria and acute BLE weakness, LLE weakness resolved, now developed bilateral blurry vision and slow to constrict L pupil. #Acute bilateral blurry vision, likely 2/2 acute SLE flare Patient complained of slightly bilateral blurry vision and gritty eyes on 10/03, which did not improve with artificial eye drops. 10/04 endorses worsening blurry vision. Ddx includes concussion from headstrike vs dry eyes 2/2 Sjogren vs increased intracranial pressure vs SLE cerebritis. CT head 09/30 showed no acute hemorrhage, midline shift or mass effect On exam, peripheral vision intact and EOMI, only vision is affected. Repeat CT head 10/05 and 10/06 negative for acute hemorrhage, mass effect or midline shift. L blurry vision resolved 10/06. R still blurry as of 10/07. Artificial tears helping. Rapid called 10/08 for acute bilateral blurry vision with L pupil fixed dilation, not constricting to light. Currently L pupil sluggish to contriction 10/07 CT head negative. MRI brain w and wo con negative. 10/08 LP done, no WBC, glucose and protein wnl Plan: - Tele neuro consulted, appreciate recs, recommended ophthalmology consult - Continue artificial eye drops TID - IV methylprednisolone 1 g for 3 days, day 2 - F/u APS, CSF (culture, gram stain, glucose, IgG, anti-dsDNA, myelin basic protein, oligoclonal bands, protein, anti-neuronal antibodies, anti MAP-2, NMDAR antibodies, anti-ribosomal, opening pressure) #Acute RLE weakness, improving possibly 2/2 to actue SLE flare #New R facial numbness, eyelid Patient complains of new onset bilateral lower extremity weakness, unable to lift her legs off the bed and walk starting morning of 10/05. 10/[address] Madera: consider MRI of thigh as could be myositis or edema, possible prednisone increased from 10 mg to 20-40 mg if infection ruled out, LP was done 04/2023 which was unremarkable, negative for monoclonal bands, no white blood cells or red blood cells. Ddx: Transverse myelitis: given SLE dx. Symptoms of allodynia, weakness in lower legs support transverse myelitis vs conversion/malingering/factitious disorder: Johnson test positive, iso acute unexplained neurologic symptoms CK <15, B12 and folate wnl. B12 injection x 1 given 10/04. Repeat CT head 10/05, 10/06, 10/07 all negative for acute hemorrhage, mass effect or midline shift. MRI brain w and wo con, C-spine, T-spine and L-spine all unremarkable Plan: - Tele neuro recommends outpatient EMG if LP findings unremarkable - Steroids as above - F/u CSF panel as above - Encouraged to work with PT #SLE Acute Flare #Sjogren's #Allodynia, improving Likely secondary to lupus flare.No suspected source of infection at this time, thus no antibiotics needed for now. 10/01: Spoke to patient's tube room cashier Dr. Madera at [facility] in [place], recommended restarting home medications and starting on baclofen for pain. Requested tests for complement C3, C4, dsDNA, urine protein creatinine ratio, ESR, and CRP. Has appointment coming up on 10/16. test neg, UCx neg, BCx NGTD ESR elevated 45 to 63, C3 and C4 levels decreased, dsDNA elevated. Cocci IgM negative. Plan: - Continue home doses mycophenolate 500 mg BID, and hydroxychloroquinine 200 mg QD - Gabapentin 300 mg TID per tube room cashier Dr. Madera's recommendation - Pain management to PO Flexeril 10 mg BID - Tylenol for pain and fever prn - Steroids as above - F/u cocci IgG #Bladder retention, improving #Hematuria, improving Patient initially started complaining of hematuria on 10/02, initially attributed to her period has LMP 08/24, now resolved. Ddx includes autoimmune nephritis from SLE or Sjogren's vs kidney stone (has had R flank pain previously but resolved). Nephritis less likely as no protein loss or any creatinine increase. 8/3 CTAP: 3 mm nonobstructing right renal calculus, no hydronephrosis or renal calculi, absent appendix, no bowel obstruction 10/07 bladder scan showed 400cc urine, straight cathed. Urine output decreased lately and patient complains of inability to urinate, urge preserved, today improved Syphilis serology not reactive, HIV negative, Hep panel negative Heparin held 10/04 to 10/07, restarted 10/08 Plan: - F/u repeat UA and chlamydia, gonorrhea and trich PCR - Bladder scan q4h and straight cath if >350 cc - Recommend outpatient urology follow-up #Normocytic anemia Hgb 10-11 throughout admission . 04/2024 peripheral smear showed likely SAHARA. Iron low 37, TIBC wnl. Plan: - Recommend iron supplements outpatient #SVT, resolved. #Presyncope 04/06 SVT #s/p unwitnessed fall History of SVTs per patient, has palpitations but only lasts no more than an hour. Likely secondary to lupus. S/p adenosine x3, rate now controlled on metoprolol XL 25mg. Echo 09/30 negative for pericarditis, EF 55 to 60%. No dysfunction noted. Plan: - Cardiology Dr. 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 DDX for former include teratoma vs calcified uterine fibroids vs osseous metaplasia. Patient complains of lower abdominal crampy pain with one episode of blood in urine on 10/02. No further bleeding noted on pads. LMP 08/24 with irregular cycles. Plan: - OBGYN Dr. Gould consulted, recs appreciated - Spoke to Dr. Gaona, likely incidental finding of Nabothian cyst, no inpatient intervention required - Recommend to follow up with outpatient OBGYN #Electrolyte Abnormalities #Hypokalemia #Hypomagnesemia, improved - recheck and replete as needed Health Maintenance Disposition: acute RLE weakness and b/l blurry vision, teleneuro consult DVT prophylaxis: Heparin q12 GI prophylaxis: Protonix Diet: Full liquid diet CODE STATUS: FULL Plan of care discussed with attending Dr. Hill, and PGY-2 Dr. Macario. Chantal Black, DO PGY-1 Internal Medicine
--- NOTE | 2024-10-10 09:06 | PD.TNEUROPRO ---
Tele Neuro Progress Note Progress Note Date 10/10/24 [facility] Tele[facility]urology Progress Note Date of Service 10/10/2024 Presentation: Based on previous neurology note(s) : 24-year-old female with a known history of systemic lupus erythematosus (SLE), presenting with subacute, intermittent bilateral lower extremity numbness and weakness, most recently onset at 10:30 AM on the day of admission. She describes persistent tingling in both arms without associated weakness, but reports her legs feel numb, crawling, and weak. She denies any bowel or bladder dysfunction. Her symptoms appear to fluctuate and are without clear precipitating events. Of note, she is concurrently experiencing abdominal pain and reports gross hematuria. There is no prior history of similar neurologic episodes. Neurologically, upper extremities are preserved in strength, while lower extremities exhibit subjective weakness and paresthesia. Interval history: 10/06/2024: nursing does not report any significant new events overnight. 10/07: now reports right side of face is feeling numb , so cannot feel her eye 10/08: rapid response this morning for worsening vision on the right side with blurriness. 10/09: no events overnight 10/10: has back pain. right leg strength improving, numbness improving Impression: SLE flare SVT (resolved) Bilateral leg numbness and weakness, etiology is being investigated (myelopathy, vs GBS vs highly suspicious for functional vs SLE cerebritis) (so far neuroaxis MRI negative, basic CSF labs negative, symptoms not in a nerve root(s) pattern, not consistent with Acute Inflammatory Demyelinating Polyneuropathy either and predominantly right-sided, also doubt it would be with cerebral etiology given negative brain MRIx2 ) right face numbness bilateral blurred vision results and Recommendations: (Primary Team to order Controlled Medications) Unless specifically noted I Agree with Impression and Plan from previous Neurology note/consult. 1- C and T and L MRIs and repeat brain MRI with contrast unremarkable, 2- so far CSF WBC 1, RBC 180, Glucose 61, Protein 23; pending oligoclonal bands, IGG synthesis and index 3- if all above is negative outpatient Nerve Conduction Studies/EMG' 4- please obtain records for last years admission regarding her LP and workup. 5- consult ophthalmology for blurred vision. 6- primary team to treat for Lupus flare, she shows some improvement but I cannot correlate that to provided treatments but it is reasonable to continue per internal medicine and rheumatology discretion. 7- primary team to address back pain [facility] Neurologist will follow up with results. Please contact [facility] Navigator to reach me if further questions/concerns arise. Examination: Examination done through interactive audio and video telecommunications with the assist of bedside nursing (when available) awake, alert speech no aphasia Extraocular movements intact pupils equal reactive to light face symmetric arms no drift (10s) leg weakness is suspicious for functional deficit, 10/10: no drift left leg. right leg today has some antigravity strength. also today numbness has minimized to knees bilaterally. 10/09: no drift left leg, no antigravity strength right leg; Hoovers sign positive 10/08: no drift left leg, no antigravity strength right leg 10/07 no drift in left leg. right leg has minimal antigravity strength. when passively lifted from under knee the lower leg is not loose and there is resistance to push ankle down towards bed but then she has weakness in straightening or bending knee. on 10/06 she could not elevate either leg off bed, but when legs passively lifted knee remained straight, then when asked to relax the leg and let it drop to the bed she let the leg (below knee) to drop to bed but then could not extend knee at all when asked to push against some force, also when examiner tried to push up against foot on the right there was resistance but on active examination there was no force produced. Numbness travels up to chest on the right side but on the left is up to mid-le. also numbness around right eye 85 toes appear to be upgoing Patient / Family was informed the Neurology Consult would occur via TeleHealth consult by way of interactive audio and video telecommunications and consented to receiving care in this manner. Patient is being evaluated for possible acute neurologic impairment and high probability of imminent or life - threatening deterioration. I spent total of 15 minutes providing care to this patient, including time for face to face visit via telemedicine, review of medical records, imaging studies and discussion of findings with providers, the patient and / or family. Dr Juan Quinn [facility] For Inpatient follow-up with [facility] physician please call [facility] . This is not an outpatient service. Post hospital discharge, please contact hospital directly. Please do not communicate with [facility] physicians via secure chat. If you have any questions, Please contact [facility]. Please call or reconsult our service if there are any clinical or diagnostic changes. Most Recent Vital Signs Last Vital Signs Temp 96.9 F 10/10/24 08:00 Pulse 72 10/10/24 08:00 Resp 15 10/10/24 08:00 BP 92/63 10/10/24 08:00 Pulse Ox 98 10/10/24 08:00 O2 Del Method Room Air 10/10/24 08:00 O2 Flow Rate 0 10/10/24 08:00
[2024-10-10] MEDS: MethylPREDNISolone. 1,000 MG in SODIUM CHLORIDE 0.9% 250 ML 250 ML 266 MG IV (09:28)
[2024-10-10] MEDS: MYCOPHENOLATE 250 MG CAPSULE (NON-FORMULARY) 500 MG PO ×2 (09:29→21:55)
[2024-10-10] MEDS: HEPARIN SOD INJ 5000 UNIT/ML VIAL SC ×2 (09:29→21:55)
[2024-10-10] MEDS: METOPROLOL SUCCINATE XL 25 MG TABCR PO (09:30)
[2024-10-10] MEDS: HYDROXYCHLOROQUINE 200 MG TABLET PO (09:30)
[2024-10-10] MEDS: PANTOPRAZOLE 40 MG TABLET PO (09:30)
--- NOTE | 2024-10-10 10:13 | PC.CC ---
Addendum entered by Abhay Strickland RN 10/10/24 19:55: 1950: received call from Divya rai/ [facility], Dr. Nate Antoine [employer] stated after reviewing the case, this is more neurological. The work up completed is not rheumatology related. Declining the patient. Addendum entered by Abhay Strickland RN 10/10/24 16:19: During rounds discussed this case with Team B. Dr. Macario stated to hold the transfer for now. He will re-assess with Neurology Dr. Serrano on Sunday. Called [facility] to f/u on intake process, per Kajal clinicals were sent to the [facility] Rheumatology to review. Still waiting for determination. Original Note: Called multiple facilities to initiate transfer for rheumotology for SLE flare up. No rheumo consulting for inpt at the following facilities: [facility], [facility], [facility], [facility], [facility], [facility], [facility], [facility], [facility]. Rheumotology consult at [facility], [place], [facility] , [facility] available but does not admit for transfer and would have to be under Medicine team. Medicine at capacity for these facilities today. [facility] Pantoja: Intake form and clinicals sent. Waiting for review.
--- NOTE | 2024-10-10 11:02 | PC.SS ---
Follow up note: Pt is pending higher level of care transfer for Ophtamology.
[2024-10-10 13:37] LABS: Cocci Serology, IgM Negative (Negative)
[2024-10-10 15:53] LABS: Collection Type, Urine Clean Catch
[2024-10-10 16:01] LABS: Bilirubin,Urine Negative (Negative); Blood,Urine 1+ (Negative); Clarity,Urine Clear (Clear/Hazy); Color,Urine Colorless (Lt Yel-Yel); Culture Indicated,Urine Not Indicated; Glucose, Urine Negative (Negative); Ketones,Urine Negative (Negative); Leukocyte Esterase,Urine Negative (Negative); Nitrite,Urine Negative (Negative); PH,Urine 7.0 (5.0-7.0); Protein,Urine Negative (Neg - Trace); RBC,Urine 32 /hpf (0-3); Specific Gravity,Urine 1.014 (1.001-1.035); Squamous Epithelial Cell,Urine 2 /hpf (0-5); Urobilinogen,Urine Negative mg/dL (0.0-1.0); WBC,Urine 1 /hpf (0-5)
[2024-10-10 17:15] LABS: Basophils # (Auto) 0.0 Thou/mm3 (0.0-0.2); Basophils % (Auto) 0 % (0-2.5); Eosinophils # (Auto) 0.0 Thou/mm3 (0.0-0.5); Eosinophils % (Auto) 0 % (0-10); Hematocrit 34.1 % (36.0-46.0); Hemoglobin 10.9 g/dL (12.0-16.0); Immature Granulocytes Auto 0.06 Thou/mm3 (0.00-0.00); Lymphocytes # (Auto) 0.4 Thou/mm3 (1.0-4.8); Lymphocytes % (Auto) 4 % (10-50); Mean Corpuscular HGB Conc 32.0 g/dl (31.0-37.0); Mean Corpuscular Hemoglobin 26.7 pg (25.0-35.0); Mean Corpuscular Volume 84 fL (80-100); Monocytes # (Auto) 0.1 Thou/mm3 (0.0-0.8); Monocytes % (Auto) 1 % (0-12); Neutrophils # (Auto) 9.0 Thou/mm3 (1.8-7.7); Neutrophils % (Auto) 95 % (37-80); Nucleated Red Blood Cell # 0.00 Thou/mm3 (0.00-0.00); Nucleated Red Blood Cell % 0 /100 WBC (0); Platelet Count 347 Thou/mm3 (140-440); RDW Standard Deviation 42.6 fL (36.4-46.3); Red Blood Count 4.08 Miln/mm3 (4.00-5.20); White Blood Count 9.5 Thou/mm3 (3.6-11.0)
[2024-10-10 17:45] LABS: Alanine Aminotransferase 20 U/L (10-49); Albumin, Serum 4.0 gm/dL (3.5-5.0); Albumin/Globulin Ratio 1.5 (1.2-2.2); Alkaline Phosphatase 86 U/L (46-116); Anion Gap 10 (7-16); Aspartate Amino Transferase 17 U/L (0-34); BUN/Creatinine Ratio 23 Ratio (12-20); Bilirubin,Total 0.2 mg/dL (0.3-1.2); Blood Urea Nitrogen 16 mg/dL (9-23); Calcium 9.1 mg/dL (8.3-10.6); Calcium (Corrected) 9.1 mg/dL (8.5-10.1); Carbon Dioxide 24.3 mMol/L (20.0-31.0); Chloride 107 mMol/L (98-107); Creatinine (Component) 0.7 mg/dL (0.6-1.3); Estimated Creatinine Clearance 85.2 mL/min (>60); Globulin 2.6 gm/dL (2.3-3.5); Glucose 181 mg/dL (74-106); Magnesium 1.7 mg/dL (1.6-2.6); Osmolality,Calculated 287 (275-295); Phosphorous 2.7 mg/dL (2.4-5.1); Potassium 3.9 mMol/L (3.4-5.1); Sodium 141 mMol/L (136-145); Total Protein 6.6 gm/dL (5.7-8.2); eGFR > 60 See Note
[2024-10-11] VITALS (8 sets, daily range): BP systolic 95–122; BP diastolic 62–82; PULSE 59–101; RESP 15–27; TEMP 36.3–36.9; O2SAT 94–99; BMI 22.9
[2024-10-11] MEDS: Artificial Tears 225 DROP/15 ML BTL BOTH EYES ×6 (00:06→23:36)
[2024-10-11 05:36] LABS: Basophils # (Auto) 0.0 Thou/mm3 (0.0-0.2); Basophils % (Auto) 0 % (0-2.5); Eosinophils # (Auto) 0.0 Thou/mm3 (0.0-0.5); Eosinophils % (Auto) 0 % (0-10); Hematocrit 31.9 % (36.0-46.0); Hemoglobin 10.1 g/dL (12.0-16.0); Immature Granulocytes Auto 0.07 Thou/mm3 (0.00-0.00); Lymphocytes # (Auto) 0.4 Thou/mm3 (1.0-4.8); Lymphocytes % (Auto) 6 % (10-50); Mean Corpuscular HGB Conc 31.7 g/dl (31.0-37.0); Mean Corpuscular Hemoglobin 26.9 pg (25.0-35.0); Mean Corpuscular Volume 85 fL (80-100); Monocytes # (Auto) 0.3 Thou/mm3 (0.0-0.8); Monocytes % (Auto) 4 % (0-12); Neutrophils # (Auto) 6.6 Thou/mm3 (1.8-7.7); Neutrophils % (Auto) 89 % (37-80); Nucleated Red Blood Cell # 0.00 Thou/mm3 (0.00-0.00); Nucleated Red Blood Cell % 0 /100 WBC (0); Platelet Count 306 Thou/mm3 (140-440); RDW Standard Deviation 43.2 fL (36.4-46.3); Red Blood Count 3.76 Miln/mm3 (4.00-5.20); White Blood Count 7.4 Thou/mm3 (3.6-11.0)
[2024-10-11 06:16] LABS: Alanine Aminotransferase 21 U/L (10-49); Albumin, Serum 3.8 gm/dL (3.5-5.0); Albumin/Globulin Ratio 1.6 (1.2-2.2); Alkaline Phosphatase 74 U/L (46-116); Anion Gap 10 (7-16); Aspartate Amino Transferase 15 U/L (0-34); BUN/Creatinine Ratio 30 Ratio (12-20); Bilirubin,Total < 0.2 mg/dL (0.3-1.2); Blood Urea Nitrogen 18 mg/dL (9-23); Calcium 9.1 mg/dL (8.3-10.6); Calcium (Corrected) 9.3 mg/dL (8.5-10.1); Carbon Dioxide 26.2 mMol/L (20.0-31.0); Chloride 107 mMol/L (98-107); Creatinine (Component) 0.6 mg/dL (0.6-1.3); Estimated Creatinine Clearance 99.5 mL/min (>60); Globulin 2.4 gm/dL (2.3-3.5); Glucose 137 mg/dL (74-106); Magnesium 1.8 mg/dL (1.6-2.6); Osmolality,Calculated 288 (275-295); Phosphorous 3.0 mg/dL (2.4-5.1); Potassium 3.8 mMol/L (3.4-5.1); Sodium 143 mMol/L (136-145); Total Protein 6.2 gm/dL (5.7-8.2); eGFR > 60 See Note
[2024-10-11] MEDS: GABAPENTIN 300 MG CAPSULE PO ×3 (06:19→21:19)
[2024-10-11] MEDS: MethylPREDNISolone. 1,000 MG in SODIUM CHLORIDE 0.9% 250 ML 250 ML 266 MG IV (09:49)
[2024-10-11] MEDS: MORPHINE SULF INJ 10 MG/ML VIAL 2 MG IVP ×2 (09:50→18:03)
[2024-10-11] MEDS: HEPARIN SOD INJ 5000 UNIT/ML VIAL SC ×2 (09:50→20:12)
[2024-10-11] MEDS: METOPROLOL SUCCINATE XL 25 MG TABCR PO (09:51)
[2024-10-11] MEDS: MYCOPHENOLATE 250 MG CAPSULE (NON-FORMULARY) 500 MG PO ×2 (09:51→20:11)
[2024-10-11] MEDS: PANTOPRAZOLE 40 MG TABLET PO ×2 (09:52→20:12)
[2024-10-11] MEDS: HYDROXYCHLOROQUINE 200 MG TABLET PO (09:54)
--- NOTE | 2024-10-11 10:12 | ESPR_ITS ---
<Statement entered by Shayan Hill MD - 10/15/24 14:37> I reviewed above note and agree with findings and plans. I have also personally examined the patient with medicine team and went over assessment and plan with medical team including promotions intern and resident physician. <Statement entered by Lyle Macario MD - 10/11/24 13:20> Patient was seen and examined at bedside. I agree on the assessment and plan on this note as documented by resident Damon Condon PGY1. Patient seen and examined at bedside, reports that the right leg weakness has improved otherwise reports no improvement in bilateral blurring of vision, we will continue with IV steroids bolus dose, last dose today, plan to transition to low-dose of steroids in a.m., patient will be evaluated by neurologist Dr. Serrano on Sunday, will obtain further recommendations. Otherwise patient has been denied by multiple facilities including [facility], [facility], [facility], [facility], [facility], [facility], [facility], [facility], [facility]. Rheumatology service is only available at [facility], [place], [facility], [facility] however patient cannot be transferred and will have to be transferred under medicine team and medicine is at capacity on all these facilities for now. Will plan to do aggressive physical therapy, improve underlying symptoms and plan to discharge patient for outpatient rheumatology and ophthalmology workup. Otherwise patient does complain of bright red blood in stool today, hemodynamically stable, no tachycardia or significant hypotension noted, hemoglobin stable 10.1 today, will start patient on Protonix twice daily and Carafate 4 times a day for possible underlying GI ulcer, if patient's hemoglobin continues to downtrend will obtain GI consult. Case discussed with attending Dr. Liz Macario MD PGY-2 Documentation for date of: 10/11/24 Subjective Subjective Interval history: Overnight events: No acute events overnight. Patient was seen and examined at bedside. AM vitals and labs reviewed. Day 3 of 3 IV methylprednisolone 1 g. Repeat UA and STI panel negative. Cocci IgM negative. Still pending CSF and APS. Patient reports continued blurry vision in both eyes, no improvement compared to yesterday. Patient does report improvement in right lower extremity as she is able to lift her right leg about an inch off the bed for about 30 seconds against gravity. Patient is still not able to raise right leg against force. Patient continues to complain of pain and back, attributed to lumbar puncture. Replenish patient's magnesium of 1.8 to maintain magnesium above 2. Patient no further hematuria, but does now report bright red blood in stool. Patient provided picture of stool in the a.m. which showed bright red blood on toilet paper. Review of systems otherwise negative except for what is mentioned above. Exam Vital Signs Temp Pulse Resp BP Pulse Ox O2 Del Method O2 Flow Rate 97.3 F 77 20 115/76 99 Room Air 0 10/11/24 04:00 10/11/24 09:51 10/11/24 04:00 10/11/24 09:51 10/11/24 04:00 10/11/24 04:00 10/10/24 08:00 Narrative Exam GENERAL: no acute distress +alopecia HEENT: NC/AT, mucous membranes moist, bilateral sclera anicteric CARDIOVASCULAR: regular rate and rhythm, S1/S2 present, no murmurs appreciated PULMONARY: clear to auscultation bilaterally, no rales/rhonchi/wheezes ABDOMINAL: soft, non-distended, non-tender no rebound/guarding, bowel sounds present EXTREMITIES: no peripheral edema MSK: mild tenderness at axial joints, R hamstring stiffness SKIN: warm and dry, intact, no rashes, mild skin sensitivity to light touch NEURO: +numbness at Rt eyelid, able to track, +blurry vision, sluggish L pupil constriction EOMI intact, peripheral vision intact Muscle strength: 5/5 in bilateral elbow flexion and extension 5/5 shoulder abduction 5/5 L hip flexion 5/5 L knee flexion 2/5 R hip flexion 2/5 R knee flexion, limited passive flexion due to pain and stiffness +Johnson test on flexion of Rt hip Objective Labs 10/11/24 04:49 10/11/24 04:49 Labs: Laboratory Results - last 24 hr 10/09/24 10/10/24 10/10/24 11:40 14:00 16:50 WBC 9.5 RBC 4.08 Hgb 10.9 L Hct 34.1 L MCV 84 MCH 26.7 MCHC 32.0 RDW Std Deviation 42.6 Plt Count 347 D Neut % (Auto) 95 H Lymph % (Auto) 4 L [place] % (Auto) 1 Eos % (Auto) 0 Baso % (Auto) 0 Neut # (Auto) 9.0 H Lymph # (Auto) 0.4 L [place] # (Auto) 0.1 Eos # (Auto) 0.0 Baso # (Auto) 0.0 Immature Gran # (Auto) 0.06 H Absolute Nucleated RBC 0.00 Immature Gran % 1 H Nucleated RBC % 0 Sodium 141 Potassium 3.9 Chloride 107 Carbon Dioxide 24.3 Anion Gap 10 BUN 16 Creatinine 0.7 Estim Creat Clear Calc 85.2 eGFR > 60 BUN/Creatinine Ratio 23 H Glucose 181 H D Calculated Osmolality 287 Calcium 9.1 Corrected Calcium 9.1 Phosphorus 2.7 Magnesium 1.7 Total Bilirubin 0.2 L AST 17 ALT 20 Alkaline Phosphatase 86 Total Protein 6.6 Albumin 4.0 Globulin 2.6 Albumin/Globulin Ratio 1.5 Ur Collection Type Clean Catch Urine Color Colorless A Urine Clarity Clear Urine pH 7.0 Ur Specific [place] 1.014 Urine Protein Negative Urine Glucose (UA) Negative Urine Ketones Negative Urine Blood 1+ A Urine Nitrite Negative Urine Bilirubin Negative Urine Urobilinogen (Auto) Negative Ur Leukocyte Esterase Negative Urine RBC 32 H Urine WBC 1 Ur Squamous Epith Cells 2 Urine Bacteria None Ur Culture Indicated? Not Indicated Coccidioides IgM Ab Negative 10/11/24 04:49 WBC 7.4 RBC 3.76 L Hgb 10.1 L Hct 31.9 L MCV 85 MCH 26.9 MCHC 31.7 RDW Std Deviation 43.2 Plt Count 306 D Neut % (Auto) 89 H Lymph % (Auto) 6 L [place] % (Auto) 4 Eos % (Auto) 0 Baso % (Auto) 0 Neut # (Auto) 6.6 Lymph # (Auto) 0.4 L [place] # (Auto) 0.3 Eos # (Auto) 0.0 Baso # (Auto) 0.0 Immature Gran # (Auto) 0.07 H Absolute Nucleated RBC 0.00 Immature Gran % 1 H Nucleated RBC % 0 Sodium 143 Potassium 3.8 Chloride 107 Carbon Dioxide 26.2 Anion Gap 10 BUN 18 Creatinine 0.6 Estim Creat Clear Calc 99.5 eGFR > 60 BUN/Creatinine Ratio 30 H Glucose 137 H Calculated Osmolality 288 Calcium 9.1 Corrected Calcium 9.3 Phosphorus 3.0 Magnesium 1.8 Total Bilirubin < 0.2 L AST 15 ALT 21 Alkaline Phosphatase 74 Total Protein 6.2 Albumin 3.8 Globulin 2.4 Albumin/Globulin Ratio 1.6 Ur Collection Type Urine Color Urine Clarity Urine pH Ur Specific [place] Urine Protein Urine Glucose (UA) Urine Ketones Urine Blood Urine Nitrite Urine Bilirubin Urine Urobilinogen (Auto) Ur Leukocyte Esterase Urine RBC Urine WBC Ur Squamous Epith Cells Urine Bacteria Ur Culture Indicated? Coccidioides IgM Ab Quality Measures Quality Measures VTE prophylaxis Assessment & Plan Assessment Current Active Medications: Generic Name Dose Route Start Last Admin Trade Name Freq PRN Reason Stop Dose Admin Acetaminophen 650 mg 09/30/24 17:59 10/05/24 00:39 Acetaminophen 325 Mg Tablet PO 10/30/24 17:58 650 mg Q6H PRN Administration Mild Pain 1-3 or Fever >100.3 Artificial Tears 0 drop 10/10/24 11:15 10/11/24 07:30 Artificial Tears 225 Drop/15 Ml Btl BOTH EYES 11/09/24 11:14 1 drop Q4H YADIRA Administration Cyclobenzaprine HCl 10 mg 10/03/24 10:15 10/11/24 09:52 Cyclobenzaprine 5 Mg Tablet PO 11/02/24 10:14 10 mg BID YADIRA Administration Gabapentin 300 mg 10/01/24 22:00 10/11/24 06:19 Gabapentin 300 Mg Capsule PO 10/31/24 21:59 300 mg TID YADIRA Administration Heparin Sodium (Porcine) 5,000 unit 09/30/24 21:00 10/11/24 09:50 Heparin Sod Inj 5000 Unit/Ml Vial SC 10/14/24 20:59 5,000 unit Q12HR YADIRA Administration Hydroxychloroquine Sulfate 200 mg 10/01/24 16:00 10/11/24 09:54 Hydroxychloroquine 200 Mg Tablet PO 10/13/24 15:59 200 mg QDAY YADIRA Administration Potassium Chloride 10 meq in 100 mls @ 100 mls/hr 10/11/24 10:07 Kcl Ivpb IV 10/11/24 11:06 Q1H ONE Magnesium Sulfate 2 gm in 50 mls @ 25 mls/hr 10/11/24 10:11 Magnesium Sulfate Ivpb IV 10/11/24 12:10 X1 ONE Metoprolol Succinate 25 mg 10/02/24 09:00 10/11/24 09:51 Metoprolol Succinate Xl 25 Mg Tabcr PO 11/01/24 08:59 25 mg QDAY YADIRA Administration Morphine Sulfate 2 mg 10/09/24 16:22 10/11/24 09:50 Morphine Sulf Inj 10 Mg/Ml Vial IVP 10/14/24 13:02 2 mg Q8H PRN Administration BREAKTHROUGH PAIN (SEVERE)7-10 Mycophenolate Mofetil 500 mg 10/01/24 21:00 10/11/24 09:51 Mycophenolate 250 Mg Capsule (Non-Formulary) PO 10/31/24 20:59 500 mg BID YADIRA Administration Ondansetron HCl 4 mg 09/30/24 17:59 10/03/24 07:30 Ondansetron Inj 2 Mg/Ml Inj 2 Ml IVP 10/30/24 17:58 4 mg Q6H PRN Administration NAUSEA OR VOMITING Protocol Pantoprazole Sodium 40 mg 10/11/24 21:00 Pantoprazole 40 Mg Tablet PO 11/10/24 20:59 BID YADIRA Polyethylene Glycol 34 gm 10/09/24 07:32 Polyethylene Glycol 17 Gm Packet PO 11/08/24 07:31 QDAY PRN CONSTIPATION Sennosides 1 tab 09/30/24 18:15 10/11/24 09:52 Senna Tablet PO 10/30/24 18:14 1 tab QDAY YADIRA Administration Protocol Sucralfate 1 gm 10/11/24 11:30 Sucralfate Susp 1 Gm/10 Ml Udc PO 11/10/24 11:29 ACHS YADIRA Tramadol HCl 50 mg 10/09/24 16:23 10/11/24 00:10 Tramadol Hcl 50 Mg Tablet PO 10/14/24 13:02 50 mg Q6HR PRN Administration moderate to severe pain 4-10 Plan Ingedevi Amber is a 24 year old female for past medical history of lupus and Sjrogen's who presented on 09/30 for fever and palpitations, admitted for SVT, controlled on metoprolol, found to have cervical calcified mass, course complicated by developing hematuria and acute BLE weakness, LLE weakness resolved, now developed bilateral blurry vision and slow to constrict L pupil. #Acute SLE flare with #Acute bilateral blurry vision #Acute RLE weakness #Acute R facial numbness Patient complained of slightly bilateral blurry vision and gritty eyes on 10/03, which did not improve with artificial eye drops. 10/04 endorses worsening blurry vision. Ddx includes concussion from headstrike vs dry eyes 2/2 Sjogren vs increased intracranial pressure vs SLE cerebritis. CT head 09/30 showed no acute hemorrhage, midline shift or mass effect On exam, peripheral vision intact and EOMI, only vision is affected. Repeat CT head 10/05 and 10/06 negative for acute hemorrhage, mass effect or midline shift. L blurry vision resolved 10/06. R still blurry as of 10/07. Artificial tears helping. Rapid called 10/08 for acute bilateral blurry vision with L pupil fixed dilation, not constricting to light. Currently L pupil sluggish to contriction 10/07 CT head negative. MRI brain w and wo con negative. 10/08 LP done, no WBC, glucose and protein wnl Plan: - Tele neuro consulted, appreciate recs, recommended ophthalmology consult - Continue artificial eye drops TID - IV methylprednisolone 1 g for 3 days, day 2 - F/u APS, CSF (culture, gram stain, glucose, IgG, anti-dsDNA, myelin basic protein, oligoclonal bands, protein, anti-neuronal antibodies, anti MAP-2, NMDAR antibodies, anti-ribosomal, opening pressure) Patient complains of new onset bilateral lower extremity weakness, unable to lift her legs off the bed and walk starting morning of 10/05. 10/[address] Madera: consider MRI of thigh as could be myositis or edema, possible prednisone increased from 10 mg to 20-40 mg if infection ruled out, LP was done 04/2023 which was unremarkable, negative for monoclonal bands, no white blood cells or red blood cells. Ddx: Transverse myelitis: given SLE dx. Symptoms of allodynia, weakness in lower legs support transverse myelitis vs conversion/malingering/factitious disorder: Johnson test positive, iso acute unexplained neurologic symptoms CK <15, B12 and folate wnl. B12 injection x 1 given 10/04. Repeat CT head 10/05, 10/06, 10/07 all negative for acute hemorrhage, mass effect or midline shift. MRI brain w and wo con, C-spine, T-spine and L-spine all unremarkable Plan: - Tele neuro recommends outpatient EMG if LP findings unremarkable - Steroids as above - F/u CSF panel as above - Encouraged to work with PT #Sjogren's #Allodynia, improving Likely secondary to lupus flare.No suspected source of infection at this time, thus no antibiotics needed for now. 10/01: Spoke to patient's tool and die engineer Dr. Madera at [facility] in [place], recommended restarting home medications and starting on baclofen for pain. Requested tests for complement C3, C4, dsDNA, urine protein creatinine ratio, ESR, and CRP. Has appointment coming up on 10/16. test neg, UCx neg, BCx NGTD ESR elevated 45 to 63, C3 and C4 levels decreased, dsDNA elevated. Cocci IgM negative. Plan: - Continue home doses mycophenolate 500 mg BID, and hydroxychloroquinine 200 mg QD - Gabapentin 300 mg TID per tool and die engineer Dr. Madera's recommendation - Pain management to PO Flexeril 10 mg BID - Tylenol for pain and fever prn - Steroids as above - F/u cocci IgG #Bladder retention, improving #Hematuria, improving Patient initially started complaining of hematuria on 10/02, initially attributed to her period has LMP 08/24, now resolved. Ddx includes autoimmune nephritis from SLE or Sjogren's vs kidney stone (has had R flank pain previously but resolved). Nephritis less likely as no protein loss or any creatinine increase. 10/05 CTAP: 3 mm nonobstructing right renal calculus, no hydronephrosis or renal calculi, absent appendix, no bowel obstruction 10/07 bladder scan showed 400cc urine, straight cathed. Urine output decreased lately and patient complains of inability to urinate, urge preserved, today improved Syphilis serology not reactive, HIV negative, Hep panel negative Heparin held 10/04 to 10/07, restarted 10/08 Plan: - F/u repeat UA and chlamydia, gonorrhea and trich PCR - Bladder scan q4h and straight cath if >350 cc - Recommend outpatient urology follow-up #Lower GI bleed Patient had a bloody bowel movement in the morning of 10/11. The patient took a picture of her toilet paper that had bright red blood. This is likely due to extensive use of steroids. - Increased Protonix to 40 mg twice daily 10/11 - Started patient on Sucralfate 1gm ACHS - Will monitor patient's H&H with a.m. labs, will consider consulting GI if H&H trends downward #Normocytic anemia Hgb 10-11 throughout admission . 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 Iron low 37, TIBC wnl. Plan: - Recommend iron supplements outpatient #SVT, resolved. #Presyncope 2/2 SVT #s/p unwitnessed fall History of SVTs per patient, has palpitations but only lasts no more than an hour. Likely secondary to lupus. S/p adenosine x3, rate now controlled on metoprolol XL 25mg. Echo 09/30 negative for pericarditis, EF 55 to 60%. No dysfunction noted. Plan: - Cardiology Dr. 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 DDX for former include teratoma vs calcified uterine fibroids vs osseous metaplasia. Patient complains of lower abdominal crampy pain with one episode of blood in urine on 10/02. No further bleeding noted on pads. LMP 08/24 with irregular cycles. Plan: - OBGYN Dr. Gould consulted, recs appreciated - Spoke to Dr. Gaona, likely incidental finding of Nabothian cyst, no inpatient intervention required - Recommend to follow up with outpatient OBGYN #Electrolyte Abnormalities #Hypokalemia #Hypomagnesemia, improved - recheck and replete as needed Health Maintenance Disposition: acute RLE weakness and b/l blurry vision, teleneuro consult DVT prophylaxis: Heparin q12 GI prophylaxis: Protonix Diet: Full liquid diet CODE STATUS: FULL Plan of care discussed with attending Dr. Hill, and PGY-2 Dr. Macario. Damon Condon, PGY1
--- NOTE | 2024-10-11 11:38 | PD.TNEUROPRO ---
Tele Neuro Progress Note Progress Note Date 10/11/24 [facility] Tele[facility]urology Progress Note Date of Service 10/11/2024 Presentation: Based on previous neurology note(s) : 24-year-old female with a known history of systemic lupus erythematosus (SLE), presenting with subacute, intermittent bilateral lower extremity numbness and weakness, most recently onset at 10:30 AM on the day of admission. She describes persistent tingling in both arms without associated weakness, but reports her legs feel numb, crawling, and weak. She denies any bowel or bladder dysfunction. Her symptoms appear to fluctuate and are without clear precipitating events. Of note, she is concurrently experiencing abdominal pain and reports gross hematuria. There is no prior history of similar neurologic episodes. Neurologically, upper extremities are preserved in strength, while lower extremities exhibit subjective weakness and paresthesia. Interval history: 10/06/2024: nursing does not report any significant new events overnight. 10/07: now reports right side of face is feeling numb , so cannot feel her eye 10/08: rapid response this morning for worsening vision on the right side with blurriness. 10/09: no events overnight 10/10: has back pain. right leg strength improving, numbness improving 10/11: headache slowly improving , reportedly had blood in stool Impression: SLE flare SVT (resolved) Bilateral leg numbness and weakness, etiology is being investigated (myelopathy, vs GBS vs highly suspicious for functional vs SLE cerebritis) (so far neuroaxis MRI negative, basic CSF labs negative, symptoms not in a nerve root(s) pattern, not consistent with Acute Inflammatory Demyelinating Polyneuropathy either and predominantly right-sided, also doubt it would be with cerebral etiology given negative brain MRIx2 ) right face numbness bilateral blurred vision results and Recommendations: (Primary Team to order Controlled Medications) Unless specifically noted I Agree with Impression and Plan from previous Neurology note/consult. 1- C and T and L MRIs and repeat brain MRI with contrast unremarkable, 2- so far CSF WBC 1, RBC 180, Glucose 61, Protein 23; pending oligoclonal bands, IGG synthesis and index 3- if all above is negative outpatient Nerve Conduction Studies/EMG' 4- please obtain records for last years admission regarding her LP and workup. 5- consult ophthalmology for blurred vision. 6- primary team to treat for Lupus flare, she shows some improvement but I cannot correlate that to provided treatments but it is reasonable to continue per internal medicine and rheumatology discretion. 7- primary team to address back pain [facility] Neurologist will follow up with results. Please contact [facility] Navigator to reach me if further questions/concerns arise. Examination: Examination done through interactive audio and video telecommunications with the assist of bedside nursing (when available) awake, alert speech no aphasia Extraocular movements intact pupils equal reactive to light face symmetric arms no drift (10s) leg weakness is suspicious for functional deficit, 10/11: minimal drift left leg. right leg today has some antigravity strength. also today numbness has minimized to knees bilaterally. also numbness right face 10/10: no drift left leg. right leg today has some antigravity strength. also today numbness has minimized to knees bilaterally. 10/09: no drift left leg, no antigravity strength right leg; Hoovers sign positive 10/08: no drift left leg, no antigravity strength right leg 10/07 no drift in left leg. right leg has minimal antigravity strength. when passively lifted from under knee the lower leg is not loose and there is resistance to push ankle down towards bed but then she has weakness in straightening or bending knee. on 10/06 she could not elevate either leg off bed, but when legs passively lifted knee remained straight, then when asked to relax the leg and let it drop to the bed she let the leg (below knee) to drop to bed but then could not extend knee at all when asked to push against some force, also when examiner tried to push up against foot on the right there was resistance but on active examination there was no force produced. Numbness travels up to chest on the right side but on the left is up to mid-le. also numbness around right eye 8 toes appear to be upgoing Patient / Family was informed the Neurology Consult would occur via TeleHealth consult by way of interactive audio and video telecommunications and consented to receiving care in this manner. Patient is being evaluated for possible acute neurologic impairment and high probability of imminent or life - threatening deterioration. I spent total of 15 minutes providing care to this patient, including time for face to face visit via telemedicine, review of medical records, imaging studies and discussion of findings with providers, the patient and / or family. Dr Juan Quinn [facility] For Inpatient follow-up with [facility] physician please call [facility] . This is not an outpatient service. Post hospital discharge, please contact hospital directly. Please do not communicate with [facility] physicians via secure chat. If you have any questions, Please contact [facility]. Please call or reconsult our service if there are any clinical or diagnostic changes. Most Recent Vital Signs Last Vital Signs Temp 97.3 F 10/11/24 08:00 Pulse 77 10/11/24 09:51 Resp 15 10/11/24 08:00 BP 115/76 10/11/24 09:51 Pulse Ox 94 L 10/11/24 08:00 O2 Del Method Room Air 10/11/24 08:00 O2 Flow Rate 0 10/11/24 08:00
[2024-10-11] MEDS: SUCRALFATE SUSP 1 GM/10 ML UDC PO ×3 (11:58→20:12)
[2024-10-11] MEDS: Magnesium Sulfate 2 GM Ivpb 2 GM/50 ML BAG IV (11:58)
[2024-10-11 14:44] LABS: Cocci Serology, IgG Negative (Negative)
[2024-10-12] VITALS (9 sets, daily range): BP systolic 100–116; BP diastolic 57–75; PULSE 61–108; RESP 16–22; TEMP 36.1–36.4; O2SAT 97–100; BMI 24.2
[2024-10-12] MEDS: GABAPENTIN 300 MG CAPSULE PO ×3 (05:13→22:29)
[2024-10-12 06:31] LABS: Basophils # (Auto) 0.0 Thou/mm3 (0.0-0.2); Basophils % (Auto) 0 % (0-2.5); Eosinophils # (Auto) 0.0 Thou/mm3 (0.0-0.5); Eosinophils % (Auto) 0 % (0-10); Hematocrit 30.3 % (36.0-46.0); Hemoglobin 9.8 g/dL (12.0-16.0); Immature Granulocytes Auto 0.10 Thou/mm3 (0.00-0.00); Lymphocytes # (Auto) 0.4 Thou/mm3 (1.0-4.8); Lymphocytes % (Auto) 6 % (10-50); Mean Corpuscular HGB Conc 32.3 g/dl (31.0-37.0); Mean Corpuscular Hemoglobin 27.3 pg (25.0-35.0); Mean Corpuscular Volume 84 fL (80-100); Monocytes # (Auto) 0.2 Thou/mm3 (0.0-0.8); Monocytes % (Auto) 4 % (0-12); Neutrophils # (Auto) 5.1 Thou/mm3 (1.8-7.7); Neutrophils % (Auto) 88 % (37-80); Nucleated Red Blood Cell # 0.00 Thou/mm3 (0.00-0.00); Nucleated Red Blood Cell % 0 /100 WBC (0); Platelet Count 305 Thou/mm3 (140-440); RDW Standard Deviation 44.0 fL (36.4-46.3); Red Blood Count 3.59 Miln/mm3 (4.00-5.20); White Blood Count 5.8 Thou/mm3 (3.6-11.0)
[2024-10-12 07:10] LABS: Alanine Aminotransferase 18 U/L (10-49); Albumin, Serum 3.5 gm/dL (3.5-5.0); Albumin/Globulin Ratio 1.6 (1.2-2.2); Alkaline Phosphatase 63 U/L (46-116); Anion Gap 8 (7-16); Aspartate Amino Transferase < 10 U/L (0-34); BUN/Creatinine Ratio 35 Ratio (12-20); Bilirubin,Total < 0.2 mg/dL (0.3-1.2); Blood Urea Nitrogen 21 mg/dL (9-23); Calcium 8.8 mg/dL (8.3-10.6); Calcium (Corrected) 9.2 mg/dL (8.5-10.1); Carbon Dioxide 25.7 mMol/L (20.0-31.0); Chloride 107 mMol/L (98-107); Creatinine (Component) 0.6 mg/dL (0.6-1.3); Estimated Creatinine Clearance 109.8 mL/min (>60); Globulin 2.2 gm/dL (2.3-3.5); Glucose 138 mg/dL (74-106); Osmolality,Calculated 286 (275-295); Phosphorous 2.6 mg/dL (2.4-5.1); Potassium 3.8 mMol/L (3.4-5.1); Sodium 141 mMol/L (136-145); Total Protein 5.7 gm/dL (5.7-8.2); eGFR > 60 See Note
[2024-10-12] MEDS: HEPARIN SOD INJ 5000 UNIT/ML VIAL SC ×2 (08:15→20:04)
[2024-10-12] MEDS: Artificial Tears 225 DROP/15 ML BTL BOTH EYES ×5 (08:15→23:20)
[2024-10-12] MEDS: METOPROLOL SUCCINATE XL 25 MG TABCR PO (08:15)
[2024-10-12] MEDS: SUCRALFATE SUSP 1 GM/10 ML UDC PO ×4 (08:15→20:04)
[2024-10-12] MEDS: HYDROXYCHLOROQUINE 200 MG TABLET PO (08:15)
[2024-10-12] MEDS: MYCOPHENOLATE 250 MG CAPSULE (NON-FORMULARY) 500 MG PO ×2 (08:16→20:03)
[2024-10-12] MEDS: PANTOPRAZOLE 40 MG TABLET PO ×2 (08:16→20:03)
[2024-10-12] MEDS: MORPHINE SULF INJ 10 MG/ML VIAL 2 MG IVP ×2 (08:17→20:04)
--- NOTE | 2024-10-12 08:32 | ESPR_ITS ---
Tele Neuro Progress Note Progress Note Date 10/12/24 [facility] Tele[facility]urology Progress Note Date of Service 10/12/2024 Presentation: Based on previous neurology note(s) : 24-year-old female with a known history of systemic lupus erythematosus (SLE), presenting with subacute, intermittent bilateral lower extremity numbness and weakness, most recently onset at 10:30 AM on the day of admission. She describes persistent tingling in both arms without associated weakness, but reports her legs feel numb, crawling, and weak. She denies any bowel or bladder dysfunction. Her symptoms appear to fluctuate and are without clear precipitating events. Of note, she is concurrently experiencing abdominal pain and reports gross hematuria. There is no prior history of similar neurologic episodes. Neurologically, upper extremities are preserved in strength, while lower extremities exhibit subjective weakness and paresthesia. Interval history: 10/06/2024: nursing does not report any significant new events overnight. 10/07: now reports right side of face is feeling numb , so cannot feel her eye 8: rapid response this morning for worsening vision on the right side with blurriness. 10/09: no events overnight 8: has back pain. right leg strength improving, numbness improving 8: headache slowly improving , reportedly had blood in stool 10/12: no events, feeling hot and cold Impression: SLE flare SVT (resolved) Bilateral leg numbness and weakness, etiology is being investigated (myelopathy, vs GBS vs highly suspicious for functional vs SLE cerebritis) (so far neuroaxis MRI negative, basic CSF labs negative, symptoms not in a nerve root(s) pattern, not consistent with Acute Inflammatory Demyelinating Polyneu ropathy either and predominantly right-sided, also doubt it would be with cerebral etiology given negative brain MRIx2 ) right face numbness bilateral blurred vision results and Recommendations: (Primary Team to order Controlled Medications) Unless specifically noted I Agree with Impression and Plan from previous Neurology note/consult. 1- C and T and L MRIs and repeat brain MRI with contrast unremarkable, 2- so far CSF WBC 1, RBC 180, Glucose 61, Protein 23; pending oligoclonal bands, IGG synthesis and index 3- if all above is negative outpatient Nerve Conduction Studies/EMG' 4- please obtain records for last years admission regarding her LP and workup. 5- consult ophthalmology for blurred vision. 6- primary team to treat for Lupus flare, she shows some improvement but I ca nnot correlate that to provided treatments but it is reasonable to continue per internal medicine and rheumatology discretion. 7- primary team to address back pain [facility] Neurologist will follow up with results. Please contact [facility] Navigator to reach me if further questions/concerns arise. Examination: Examination done through interactive audio and video telecommunications with the assist of bedside nursing (when available) awake, alert speech no aphasia Extraocular movements intact face symmetric arms no drift (10s) leg weakness is suspicious for functional deficit, 10/12:minimal drift left leg. right leg today has some antigravity strength slightly better than yesterday 10/11: minimal drift left leg. right leg today has some antigravity strength. also today numbness has minimized to knees bilaterally. also numbness right face 10/10: no drift left leg. right leg today has some antigravity strength. also today numbness has minimized to knees bilaterally. 10/09: no drift left leg, no antigravity strength right leg; Hoovers sign positive 10/08: no drift left leg, no antigravity strength right leg 10/07 no drift in left leg. right leg has minimal antigravity strength. when passively lifted from under knee the lower leg is not loose and there is resistance to push ankle down towards bed but then she has weakness in straightening or bending knee. on 10/06 she could not elevate either leg off bed, but when legs passively lifted knee remained straight, then when asked to relax the leg and let it drop to the bed she let the leg (below knee) to drop to bed but then could not extend knee at all when asked to push against some force, also when examiner tried to push up against foot on the right there was resistance but on active examination there w as no force produced. Numbness travels up to chest on the right side but on the left is up to mid- le. also numbness around right eye 10/07 toes appear to be upgoing Patient / Family was informed the Neurology Consult would occur via TeleHealth consult by way of interactive audio and video telecommunications and consented to receiving care in this manner. Patient is being evaluated for possible acute neurologic impairment and high probability of imminent or life - threatening deterioration. I spent total of 15 minutes providing care to this patient, including time for face to face visit via telemedicine, review of medical records, imaging studies and discussion of findings with providers, the patient and / or family. Dr Juan Quinn [facility] For Inpatient follow-up with [facility] physician please call [facility] . This is not an outpatient service. Post hospital discharge, please contact hospital directly. Please do not communicate with [facility] physicians via secure chat. If you have any questions, Please contact [facility]. Please call or reconsult our service if there are any clinical or diagnostic changes. Most Recent Vital Signs Last Vital Signs Temp 97.6 F 10/12/24 04:00 Pulse 78 10/12/24 08:15 Resp 18 10/12/24 04:00 BP 109/71 10/12/24 08:15 Pulse Ox 99 10/12/24 04:00 O2 Del Method Room Air 10/12/24 04:00 O2 Flow Rate 0 10/11/24 20:00
[2024-10-12 10:00] LABS: Magnesium 1.7 mg/dL (1.6-2.6)
--- NOTE | 2024-10-12 11:39 | ESPR_ITS ---
<Statement entered by Shayan Hill MD - 10/15/24 14:38> I reviewed above note and agree with findings and plans. I have also personally examined the patient with medicine team and went over assessment and plan with medical team including software engineer intern and resident physician. <Statement entered by Yuliet Noel MD - 10/12/24 22:08> Pt is seen at bedside, continues to have LE weakness and blurry vision. Pt completed 3 days of IV steroids 1gm. Will continue prednisone 20mg daily. Pt's transfer has been rejected from multiple tertiary centers for multiple different specialties. Pt is pending inhouse neurology evaluation and will anticipate discharge in coming days so that pt can follow up outpatient with rheumatology. Pt is encouraged to continue to working with PT. Patient was seen and examined by me personally. I have directly supervised and reviewed documentation by the team resident and agree with its findings. ------- Plan of care was discussed with the attending, Dr. Liz Noel, PGY-2 Documentation for date of: 10/12/24 Subjective Subjective Interval history: No acute overnight events. Patient seen and examined at bedside. Complains of improved back pain with pain regimen. Feels abdominal burning and dry mouth. Endorses having a bowel movement this morning, with bright red blood on the toilet paper. Endorses burning on urination. Blurry vision still persists however it now fluctuates. H&H this morning stable. Reordered STI panel. Begin prednisone 20 mg. Continue Protonix twice daily and sucralfate. Exam Vital Signs Temp Pulse Resp BP Pulse Ox O2 Del Method O2 Flow Rate 96.9 F 78 20 109/71 100 Room Air 0 10/12/24 08:00 10/12/24 08:15 10/12/24 08:00 10/12/24 08:15 10/12/24 08:00 10/12/24 08:00 10/11/24 20:00 Narrative Exam GENERAL: no acute distress +alopecia HEENT: NC/AT, mucous membranes moist, bilateral sclera anicteric CARDIOVASCULAR: regular rate and rhythm, S1/S2 present, no murmurs appreciated PULMONARY: clear to auscultation bilaterally, no rales/rhonchi/wheezes ABDOMINAL: soft, non-distended, non-tender no rebound/guarding, bowel sounds present EXTREMITIES: no peripheral edema MSK: mild tenderness at axial joints SKIN: warm and dry, intact, no rashes, mild skin sensitivity to light touch NEURO: +numbness at Rt eyelid, able to track, +blurry vision, sluggish L pupil constriction EOMI intact, peripheral vision intact Muscle strength: 5/5 in bilateral elbow flexion and extension 5/5 shoulder abduction 5/5 L hip flexion 5/5 L knee flexion 2/5 R hip flexion 2/5 R knee flexion +Johnson test on flexion of Rt hip Objective Labs 10/12/24 05:01 10/12/24 05:01 Labs: Laboratory Results - last 24 hr 10/09/24 10/12/24 10/12/24 11:40 05:01 09:19 WBC 5.8 RBC 3.59 L Hgb 9.8 L Hct 30.3 L MCV 84 MCH 27.3 MCHC 32.3 RDW Std Deviation 44.0 Plt Count 305 Neut % (Auto) 88 H Lymph % (Auto) 6 L [place] % (Auto) 4 Eos % (Auto) 0 Baso % (Auto) 0 Neut # (Auto) 5.1 Lymph # (Auto) 0.4 L [place] # (Auto) 0.2 Eos # (Auto) 0.0 Baso # (Auto) 0.0 Immature Gran # (Auto) 0.10 H Absolute Nucleated RBC 0.00 Immature Gran % 2 H Nucleated RBC % 0 Sodium 141 Potassium 3.8 Chloride 107 Carbon Dioxide 25.7 Anion Gap 8 BUN 21 Creatinine 0.6 Estim Creat Clear Calc 109.8 eGFR > 60 BUN/Creatinine Ratio 35 H Glucose 138 H Calculated Osmolality 286 Calcium 8.8 Corrected Calcium 9.2 Phosphorus 2.6 Magnesium 1.7 Total Bilirubin < 0.2 L AST < 10 ALT 18 Alkaline Phosphatase 63 Total Protein 5.7 Albumin 3.5 Globulin 2.2 L Albumin/Globulin Ratio 1.6 Coccidioides IgG Ab Negative Quality Measures Quality Measures VTE prophylaxis Assessment & Plan Assessment Current Active Medications: Generic Name Dose Route Start Last Admin Trade Name Freq PRN Reason Stop Dose Admin Acetaminophen 650 mg 09/30/24 17:59 10/05/24 00:39 Acetaminophen 325 Mg Tablet PO 10/30/24 17:58 650 mg Q6H PRN Administration Mild Pain 1-3 or Fever >100.3 Artificial Tears 0 drop 10/10/24 11:15 10/12/24 11:10 Artificial Tears 225 Drop/15 Ml Btl BOTH EYES 11/09/24 11:14 1 drop Q4H YADIRA Administration Cyclobenzaprine HCl 10 mg 10/03/24 10:15 10/12/24 08:15 Cyclobenzaprine 5 Mg Tablet PO 11/02/24 10:14 10 mg BID YADIRA Administration Gabapentin 300 mg 10/01/24 22:00 10/12/24 05:13 Gabapentin 300 Mg Capsule PO 10/31/24 21:59 300 mg TID YADIRA Administration Heparin Sodium (Porcine) 5,000 unit 09/30/24 21:00 10/12/24 08:15 Heparin Sod Inj 5000 Unit/Ml Vial SC 10/14/24 20:59 5,000 unit Q12HR YADIRA Administration Hydroxychloroquine Sulfate 200 mg 10/01/24 16:00 10/12/24 08:15 Hydroxychloroquine 200 Mg Tablet PO 10/13/24 15:59 200 mg QDAY YADIRA Administration Metoprolol Succinate 25 mg 10/02/24 09:00 10/12/24 08:15 Metoprolol Succinate Xl 25 Mg Tabcr PO 11/01/24 08:59 25 mg QDAY YADIRA Administration Morphine Sulfate 2 mg 10/09/24 16:22 10/12/24 08:17 Morphine Sulf Inj 10 Mg/Ml Vial IVP 10/14/24 13:02 2 mg Q8H PRN Administration BREAKTHROUGH PAIN (SEVERE)7-10 Mycophenolate Mofetil 500 mg 10/01/24 21:00 10/12/24 08:16 Mycophenolate 250 Mg Capsule (Non-Formulary) PO 10/31/24 20:59 500 mg BID YADIRA Administration Ondansetron HCl 4 mg 09/30/24 17:59 10/03/24 07:30 Ondansetron Inj 2 Mg/Ml Inj 2 Ml IVP 10/30/24 17:58 4 mg Q6H PRN Administration NAUSEA OR VOMITING Protocol Pantoprazole Sodium 40 mg 10/11/24 21:00 10/12/24 08:16 Pantoprazole 40 Mg Tablet PO 11/10/24 20:59 40 mg BID YADIRA Administration Polyethylene Glycol 34 gm 10/09/24 07:32 Polyethylene Glycol 17 Gm Packet PO 11/08/24 07:31 QDAY PRN CONSTIPATION Prednisone 20 mg 10/12/24 10:35 10/12/24 11:10 Prednisone 20 Mg Tablet PO 10/19/24 10:35 20 mg QDAY YADIRA Administration Sennosides 1 tab 09/30/24 18:15 10/12/24 08:17 Senna Tablet PO 10/30/24 18:14 1 tab QDAY YADIRA Administration Protocol Sucralfate 1 gm 10/11/24 11:30 10/12/24 11:10 Sucralfate Susp 1 Gm/10 Ml Udc PO 11/10/24 11:29 1 gm ACHS YADIRA Administration Tramadol HCl 50 mg 10/09/24 16:23 10/11/24 00:10 Tramadol Hcl 50 Mg Tablet PO 10/14/24 13:02 50 mg Q6HR PRN Administration moderate to severe pain 4-10 Plan Susana Clark is a 24 year old female for past medical history of lupus and Sjrogen's who presented on 09/30 for fever and palpitations, admitted for SVT, controlled on metoprolol, found to have cervical calcified mass, course complicated by developing hematuria and acute BLE weakness, LLE weakness resolved, now developed bilateral blurry vision and slow to constrict L pupil. #Acute SLE flare with #Acute bilateral blurry vision #Acute RLE weakness #Acute R facial numbness Patient complained of slightly bilateral blurry vision and gritty eyes on 10/03, fluctuating blurry vision since. New onset bilateral lower extremity weakness 10/05, L recovered, R still weak. Ddx blurry vision includes concussion from headstrike vs dry eyes 04/06 Sjogren vs increased intracranial pressure vs SLE cerebritis. CT head 09/30, 10/05, 10/06, 10/07 showed no acute hemorrhage, midline shift or mass effect. MRI brain w and wo con, C-spine, T-spine and L-spine all unremarkable On exam, peripheral vision intact and EOMI, only vision is affected. Ddx RLE weakness: Transverse myelitis ruled out vs conversion disorder: Johnson test positive, iso acute unexplained neurologic symptoms CK <15, B12 and folate wnl. B12 injection x 1 given 10/04. 10/[address] Madera: consider MRI of thigh as could be myositis or edema, LP was done 04/2023 which was unremarkable, negative for monoclonal bands, no white blood cells or red blood cells. Rapid called 10/08 for acute bilateral blurry vision with L pupil fixed dilation, not constricting to light. Currently L pupil slightly sluggish to contriction 10/08 LP done, no WBC, glucose and protein wnl; Cocci IgM negative s/p IV methylprednisolone 1 g (10/09-10/11) Plan: - Continue home doses mycophenolate 500 mg BID, and hydroxychloroquinine 200 mg QD - Gabapentin 300 mg TID per manager plant Dr. Madera's recommendation - Pain management to PO Flexeril 10 mg BID - Restart prednisone 20 mg QD - Tele neuro consulted, appreciate recs, recommended ophthalmology consult - Tele neuro recommends outpatient EMG if LP findings unremarkable - Continue artificial eye drops TID - F/u APS, CSF (culture, gram stain, glucose, IgG, anti-dsDNA, myelin basic protein, oligoclonal bands, protein, anti-neuronal antibodies, anti MAP-2, NMDAR antibodies, anti-ribosomal, opening pressure) - Encouraged to work with PT #Bladder retention, improving #Hematuria, resolved Patient initially started complaining of hematuria on 10/02, CTAP negative, now resolved. Ddx includes autoimmune nephritis from SLE or Sjogren's vs kidney stone (has had R flank pain previously but resolved). Nephritis less likely as no protein loss or any creatinine increase. 10/05 CTAP: 3 mm nonobstructing right renal calculus, no hydronephrosis or renal calculi, absent appendix, no bowel obstruction 10/07 bladder scan showed 400cc urine, straight cathed. Urine output decreased lately and patient complains of inability to urinate, urge preserved, today improved Syphilis serology not reactive, HIV negative, Hep panel negative Heparin held 10/04 to 10/07, restarted 10/08 Plan: - F/u chlamydia, gonorrhea and trich PCR - Bladder scan q4h and straight cath if >350 cc - Recommend outpatient urology follow-up #Lower GI bleed Patient had a bloody bowel movement in the morning of 10/11. The patient took a picture of her toilet paper that had bright red blood. This is likely due to extensive use of steroids. - IV Protonix 40 mg BID - Sucralfate 1gm ACHS - CTM H&H #Normocytic anemia Hgb 10-11 throughout admission . 04/2024 peripheral smear showed likely SAHARA. Iron low 37, TIBC wnl. Plan: - Recommend iron supplements outpatient #SVT, resolved. #Presyncope 2/2 SVT #s/p unwitnessed fall History of SVTs per patient, has palpitations but only lasts no more than an hour. Likely secondary to lupus. S/p adenosine x3, rate now controlled on metoprolol XL 25mg. Echo 09/30 negative for pericarditis, EF 55 to 60%. No dysfunction noted. Plan: - Cardiology Dr. 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 DDX for former include teratoma vs calcified uterine fibroids vs osseous metaplasia. Patient complains of lower abdominal crampy pain with one episode of blood in urine on 10/02. No further bleeding noted on pads. LMP 08/24 with irregular cycles. Plan: - OBGYN Dr. Gould consulted, recs appreciated - Spoke to Dr. Gaona, likely incidental finding of Nabothian cyst, no inpatient intervention required - Recommend to follow up with outpatient OBGYN #Electrolyte Abnormalities #Hypokalemia #Hypomagnesemia, improved - recheck and replete as needed Health Maintenance Disposition: acute RLE weakness and b/l blurry vision, teleneuro consult DVT prophylaxis: Heparin q12 GI prophylaxis: Protonix Diet: Full liquid diet CODE STATUS: FULL Plan of care discussed with attending Dr. Hill, and PGY-2 Dr. Macario. Chantla Black, DO Internal Medicine PGY-1
--- NOTE | 2024-10-12 14:29 | PC.SS ---
Rounding note: Pending neurology recommendations, possibly discharging 10/13/24.
--- NOTE | 2024-10-12 14:42 | PC.NURSE ---
notified Dr. Noel, collected urine sample to be sent to lab for Chlamydia/GC/TV.
--- NOTE | 2024-10-12 17:44 | PC.CC ---
[id number] Noel, transfer is still on hold until tomorrow. Team B and Maggie to reassess the pt tomorrow.
[2024-10-13] VITALS (7 sets, daily range): BP systolic 101–121; BP diastolic 64–79; PULSE 64–98; RESP 16–21; TEMP 36.1–36.6; O2SAT 98–100; BMI 15.0
[2024-10-13] MEDS: GABAPENTIN 300 MG CAPSULE PO ×3 (05:30→21:57)
[2024-10-13 07:05] LABS: Basophils # (Auto) 0.0 Thou/mm3 (0.0-0.2); Basophils % (Auto) 0 % (0-2.5); Eosinophils # (Auto) 0.0 Thou/mm3 (0.0-0.5); Eosinophils % (Auto) 0 % (0-10); Hematocrit 30.3 % (36.0-46.0); Hemoglobin 9.6 g/dL (12.0-16.0); Immature Granulocytes Auto 0.13 Thou/mm3 (0.00-0.00); Lymphocytes # (Auto) 0.8 Thou/mm3 (1.0-4.8); Lymphocytes % (Auto) 11 % (10-50); Mean Corpuscular HGB Conc 31.7 g/dl (31.0-37.0); Mean Corpuscular Hemoglobin 26.8 pg (25.0-35.0); Mean Corpuscular Volume 85 fL (80-100); Monocytes # (Auto) 0.6 Thou/mm3 (0.0-0.8); Monocytes % (Auto) 8 % (0-12); Neutrophils # (Auto) 5.7 Thou/mm3 (1.8-7.7); Neutrophils % (Auto) 79 % (37-80); Nucleated Red Blood Cell # 0.02 Thou/mm3 (0.00-0.00); Nucleated Red Blood Cell % 0 /100 WBC (0); Platelet Count 297 Thou/mm3 (140-440); RDW Standard Deviation 44.4 fL (36.4-46.3); Red Blood Count 3.58 Miln/mm3 (4.00-5.20); White Blood Count 7.3 Thou/mm3 (3.6-11.0)
[2024-10-13 07:34] LABS: Alanine Aminotransferase 17 U/L (10-49); Albumin, Serum 3.4 gm/dL (3.5-5.0); Albumin/Globulin Ratio 1.6 (1.2-2.2); Alkaline Phosphatase 55 U/L (46-116); Anion Gap 9 (7-16); Aspartate Amino Transferase 11 U/L (0-34); BUN/Creatinine Ratio 36 Ratio (12-20); Bilirubin,Total 0.2 mg/dL (0.3-1.2); Blood Urea Nitrogen 25 mg/dL (9-23); Calcium 8.9 mg/dL (8.3-10.6); Calcium (Corrected) 9.4 mg/dL (8.5-10.1); Carbon Dioxide 27.8 mMol/L (20.0-31.0); Chloride 103 mMol/L (98-107); Creatinine (Component) 0.7 mg/dL (0.6-1.3); Estimated Creatinine Clearance 95.9 mL/min (>60); Globulin 2.1 gm/dL (2.3-3.5); Glucose 82 mg/dL (74-106); Magnesium 1.6 mg/dL (1.6-2.6); Osmolality,Calculated 282 (275-295); Phosphorous 2.9 mg/dL (2.4-5.1); Potassium 3.8 mMol/L (3.4-5.1); Sodium 140 mMol/L (136-145); Total Protein 5.5 gm/dL (5.7-8.2); eGFR > 60 See Note
[2024-10-13] MEDS: Artificial Tears 225 DROP/15 ML BTL BOTH EYES ×5 (08:13→23:38)
[2024-10-13] MEDS: HEPARIN SOD INJ 5000 UNIT/ML VIAL SC ×2 (08:13→20:09)
[2024-10-13] MEDS: PANTOPRAZOLE 40 MG TABLET PO ×2 (08:14→20:10)
[2024-10-13] MEDS: SUCRALFATE SUSP 1 GM/10 ML UDC PO ×4 (08:14→20:08)
[2024-10-13] MEDS: MYCOPHENOLATE 250 MG CAPSULE (NON-FORMULARY) 500 MG PO ×2 (08:14→20:09)
[2024-10-13] MEDS: HYDROXYCHLOROQUINE 200 MG TABLET PO (08:14)
[2024-10-13] MEDS: METOPROLOL SUCCINATE XL 25 MG TABCR PO (08:14)
[2024-10-13] MEDS: MORPHINE SULF INJ 10 MG/ML VIAL 2 MG IVP (08:37)
[2024-10-13] MEDS: Magnesium Sulfate 4 GM Ivpb 4 GM/50 ML BAG IV (08:37)
--- NOTE | 2024-10-13 09:05 | PC.SS ---
Follow up note: Dr. Serrano recommendations pending. Pt will return home upon dc.
--- NOTE | 2024-10-13 09:39 | ESPR_ITS ---
<Statement entered by Shayan Hill MD - 10/16/24 09:09> I reviewed above note and agree with findings and plans. I have also personally examined the patient with medicine team and went over assessment and plan with medical team including internet marketer and resident physician. <Statement entered by Lyle Macario MD - 10/13/24 17:52> Patient was seen and examined at bedside. I agree on the assessment and plan on this note as documented by resident Chantal Black PGY1. Patient has some redness in the right eye, inability to open right eye completely and right face tingling. Patient is pending recommendations by neurologist Dr. Serrano, did receive pulse dose steroids currently on prednisone 20 mg daily. Will continue hydroxychloroquine mycophenolate for SLE, Flexeril and gabapentin for pain management, patient ambulating to the bathroom voiding bladder without difficulty, continue Carafate and Protonix twice a day, hemoglobin is stable, lower GI bleed likely secondary to hemorrhoids stable. Will keep potassium and magnesium more than 4 and 2 respectively, continue metoprolol cardiology is following. Case discussed with attending Dr. Liz Macario MD PGY-2 Documentation for date of: 10/13/24 Subjective Subjective Interval history: No acute overnight events. Patient seen and examined at bedside. Patient reports new right eye pain with redness, inability to open her right eye fully due to weakness, and right face tingling. Endorses chills and sweats on and off starting yesterday. Endorses new sore throat with difficulty swallowing however no cough or nasal congestion. Back pain is tolerable with pain medication. Patient is able to ambulate to the bathroom on her own with a walker despite right leg weakness. States no more blood on bowel movements and in urine. Per nursing, error with running STI panel and urine collected. Reordered STI panel. Pending neurology Dr Serrano consult. Differential for acute right eye pain is uveitis given SLE diagnosis, awaiting neurology consultation. Continue prednisone 20 mg daily. Magnesium 1.6, repleted magnesium total of 6 g. Exam Vital Signs Temp Pulse Resp BP Pulse Ox O2 Del Method O2 Flow Rate 97.9 F 83 17 121/79 99 Room Air 0 10/13/24 04:00 10/13/24 08:14 10/13/24 04:00 10/13/24 08:14 10/13/24 04:00 10/13/24 04:00 10/11/24 20:00 Narrative Exam GENERAL: no acute distress +alopecia HEENT: NC/AT, mucous membranes moist, bilateral sclera anicteric CARDIOVASCULAR: regular rate and rhythm, S1/S2 present, no murmurs appreciated PULMONARY: clear to auscultation bilaterally, no rales/rhonchi/wheezes ABDOMINAL: soft, non-distended, non-tender no rebound/guarding, bowel sounds present EXTREMITIES: no peripheral edema MSK: mild tenderness at axial joints SKIN: warm and dry, intact, no rashes, mild skin sensitivity to light touch NEURO: +numbness at Rt eyelid, able to track, +blurry vision, sluggish L pupil constriction EOMI intact, peripheral vision intact Muscle strength: 5/5 in bilateral elbow flexion and extension 5/5 shoulder abduction 5/5 L hip flexion 5/5 L knee flexion 2/5 R hip flexion 2/5 R knee flexion +Johnson test on flexion of Rt hip Objective Labs 10/13/24 06:21 10/13/24 06:21 Labs: Laboratory Results - last 24 hr 10/08/24 10/12/24 10/13/24 12:01 09:19 06:21 WBC 7.3 RBC 3.58 L Hgb 9.6 L Hct 30.3 L MCV 85 MCH 26.8 MCHC 31.7 RDW Std Deviation 44.4 Plt Count 297 Neut % (Auto) 79 Lymph % (Auto) 11 Mccracken % (Auto) 8 Eos % (Auto) 0 Baso % (Auto) 0 Neut # (Auto) 5.7 Lymph # (Auto) 0.8 L Mccracken # (Auto) 0.6 Eos # (Auto) 0.0 Baso # (Auto) 0.0 Immature Gran # (Auto) 0.13 H Absolute Nucleated RBC 0.02 H Immature Gran % 2 H Nucleated RBC % 0 Sodium 140 Potassium 3.8 Chloride 103 Carbon Dioxide 27.8 Anion Gap 9 BUN 25 H Creatinine 0.7 Estim Creat Clear Calc 95.9 eGFR > 60 BUN/Creatinine Ratio 36 H Glucose 82 D Calculated Osmolality 282 Calcium 8.9 Corrected Calcium 9.4 Phosphorus 2.9 Magnesium 1.7 1.6 Total Bilirubin 0.2 L AST 11 ALT 17 Alkaline Phosphatase 55 Total Protein 5.5 L Albumin 3.4 L Globulin 2.1 L Albumin/Globulin Ratio 1.6 Misc Test Result See Sep Rpt Quality Measures Quality Measures VTE prophylaxis Assessment & Plan Assessment Current Active Medications: Generic Name Dose Route Start Last Admin Trade Name Freq PRN Reason Stop Dose Admin Acetaminophen 650 mg 09/30/24 17:59 10/05/24 00:39 Acetaminophen 325 Mg Tablet PO 10/30/24 17:58 650 mg Q6H PRN Administration Mild Pain 1-3 or Fever >100.3 Artificial Tears 0 drop 10/10/24 11:15 10/13/24 08:13 Artificial Tears 225 Drop/15 Ml Btl BOTH EYES 11/09/24 11:14 1 drop Q4H YADIRA Administration Cyclobenzaprine HCl 10 mg 10/03/24 10:15 10/13/24 08:14 Cyclobenzaprine 5 Mg Tablet PO 11/02/24 10:14 10 mg BID YADIRA Administration Gabapentin 300 mg 10/01/24 22:00 10/13/24 05:30 Gabapentin 300 Mg Capsule PO 10/31/24 21:59 300 mg TID YADIRA Administration Heparin Sodium (Porcine) 5,000 unit 09/30/24 21:00 10/13/24 08:13 Heparin Sod Inj 5000 Unit/Ml Vial SC 10/14/24 20:59 5,000 unit Q12HR YADIRA Administration Hydroxychloroquine Sulfate 200 mg 10/01/24 16:00 10/13/24 08:14 Hydroxychloroquine 200 Mg Tablet PO 10/13/24 15:59 200 mg QDAY YADIRA Administration Magnesium Sulfate 4 gm in 50 mls @ 12.5 mls/hr 10/13/24 08:15 10/13/24 08:37 Magnesium Sulfate Ivpb IV 10/13/24 12:14 12.5 mls/hr X1 ONE Administration Magnesium Sulfate 2 gm in 50 mls @ 25 mls/hr 10/13/24 12:30 Magnesium Sulfate Ivpb IV 10/13/24 14:29 X1 ONE Protocol Magnesium Oxide 400 mg 10/14/24 09:00 Magnesium Oxide 400 Mg Tablet PO 11/13/24 08:59 QDAY YADIRA Metoprolol Succinate 25 mg 10/02/24 09:00 10/13/24 08:14 Metoprolol Succinate Xl 25 Mg Tabcr PO 11/01/24 08:59 25 mg QDAY YADIRA Administration Morphine Sulfate 2 mg 10/09/24 16:22 10/13/24 08:37 Morphine Sulf Inj 10 Mg/Ml Vial IVP 10/14/24 13:02 2 mg Q8H PRN Administration BREAKTHROUGH PAIN (SEVERE)7-10 Mycophenolate Mofetil 500 mg 10/01/24 21:00 10/13/24 08:14 Mycophenolate 250 Mg Capsule (Non-Formulary) PO 10/31/24 20:59 500 mg BID YADIRA Administration Ondansetron HCl 4 mg 09/30/24 17:59 10/03/24 07:30 Ondansetron Inj 2 Mg/Ml Inj 2 Ml IVP 10/30/24 17:58 4 mg Q6H PRN Administration NAUSEA OR VOMITING Protocol Pantoprazole Sodium 40 mg 10/11/24 21:00 10/13/24 08:14 Pantoprazole 40 Mg Tablet PO 11/10/24 20:59 40 mg BID YADIRA Administration Polyethylene Glycol 34 gm 10/09/24 07:32 Polyethylene Glycol 17 Gm Packet PO 11/08/24 07:31 QDAY PRN CONSTIPATION Prednisone 20 mg 10/12/24 10:35 10/13/24 08:14 Prednisone 20 Mg Tablet PO 10/19/24 10:35 20 mg QDAY YADIRA Administration Sennosides 1 tab 09/30/24 18:15 10/13/24 08:14 Senna Tablet PO 10/30/24 18:14 1 tab QDAY YADIRA Administration Protocol Sucralfate 1 gm 10/11/24 11:30 10/13/24 08:14 Sucralfate Susp 1 Gm/10 Ml Udc PO 11/10/24 11:29 1 gm ACHS YADIRA Administration Tramadol HCl 50 mg 10/09/24 16:23 10/13/24 05:37 Tramadol Hcl 50 Mg Tablet PO 10/14/24 13:02 50 mg Q6HR PRN Administration moderate to severe pain 4-10 Manju Meza Amber is a 24 year old female for past medical history of lupus and Sjrogen's who presented on 09/30 to [facility] ED for fever and palpitations, admitted for SVT, controlled on metoprolol, found to have cervical calcified mass, course complicated by developing hematuria and acute BLE weakness, LLE weakness resolved, now developed bilateral blurry vision and slow to constrict L pupil. #Acute SLE flare with #Acute bilateral blurry vision #Acute RLE weakness #Acute R facial numbness Onset of slightly bilateral blurry vision and gritty eyes on 10/03, fluctuating blurry vision since R>L, EOMI intact New onset bilateral lower extremity weakness 10/05, L recovered, R still weak. Ddx blurry vision includes concussion from headstrike vs dry eyes 04/06 Sjogren vs increased intracranial pressure vs SLE cerebritis vs uvetitis as 10/13, eye is painful and with hx of SLE. CT head 09/30, 10/05, 10/06, 10/07 showed no acute hemorrhage, midline shift or mass effect. MRI brain w and wo con, C-spine, T-spine and L-spine all unremarkable CK <15, B12 and folate wnl. B12 injection x 1 given 10/04. 10/[address] Madera: consider MRI of thigh as could be myositis or edema, LP was done 04/2023 which was unremarkable, negative for monoclonal bands, no white blood cells or red blood cells. Rapid called 10/08 for acute bilateral blurry vision with L pupil fixed dilation, not constricting to light. Currently L pupil slightly sluggish to contriction 10/08 LP done, no WBC, glucose and protein wnl; Cocci IgM negative s/p IV methylprednisolone 1 g (10/09-10/11) Plan: - Mycophenolate 500 mg BID, hydroxychloroquinine 200 mg QD, prednisone 20 mg QD, Flexeril 10 mg BID and gabapentin 300 mg TID, arificial eye drops TID - Per teleneuro, recommended ophthalmology consult and outpatient EMG if LP findings unremarkable - Neuro consulted, pending recs - F/u APS, CSF (culture, gram stain, glucose, IgG, anti-dsDNA, myelin basic protein, oligoclonal bands, protein, anti-neuronal antibodies, anti MAP-2, NMDAR antibodies, anti-ribosomal, opening pressure) - Encouraged to work with PT #Bladder retention, improving #Hematuria, resolved Ddx includes autoimmune nephritis from SLE or Sjogren's vs kidney stone (has had R flank pain previously but resolved). Nephritis less likely as no protein loss or any creatinine increase. 10/05 CTAP: 3 mm nonobstructing right renal calculus, no hydronephrosis or renal calculi, absent appendix, no bowel obstruction Syphilis serology not reactive, HIV negative, Hep panel negative Heparin held 10/04 to 10/07, restarted 10/08 Plan: - F/u chlamydia, gonorrhea and trich PCR - Recommend outpatient urology follow-up #Lower GI bleed Patient had a bloody bowel movement in the morning of 10/11. The patient took a picture of her toilet paper that had bright red blood. This is likely due to extensive use of steroids. Plan: - IV Protonix 40 mg BID - Sucralfate 1gm ACHS - CTM H&H #Normocytic anemia, stable Hgb 10-11 throughout admission . 04/2024 peripheral smear showed likely SAHARA. Iron low 37, TIBC wnl. Plan: - Recommend iron supplements outpatient #SVT, resolved. #Presyncope 04/06 SVT #s/p unwitnessed fall History of SVTs per patient, has palpitations but only lasts no more than an hour. Likely secondary to lupus. S/p adenosine x3, rate now controlled on metoprolol XL 25mg. Echo 09/30 negative for pericarditis, EF 55 to 60%. No dysfunction noted. Plan: - Cardiology Dr. 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 DDX for former include teratoma vs calcified uterine fibroids vs osseous metaplasia. Patient complains of lower abdominal crampy pain with one episode of blood in urine on 10/02. No further bleeding noted on pads. LMP 08/24 with irregular cycles. Plan: - OBGYN Dr. Gould consulted, recs appreciated - Spoke to Dr. Gaona, likely incidental finding of Nabothian cyst, no inpatient intervention required - Recommend to follow up with outpatient OBGYN #Electrolyte Abnormalities #Hypokalemia #Hypomagnesemia, improved - recheck and replete as needed Health Maintenance Disposition: acute RLE weakness and b/l blurry vision, neuro consult DVT prophylaxis: Heparin q12 GI prophylaxis: Protonix Diet: Full liquid diet CODE STATUS: FULL Plan of care discussed with attending Dr. Hill, and PGY-2 Dr. Macario. Chantal Black, DO Internal Medicine PGY-1
[2024-10-13] MEDS: POTASSIUM CHLORIDE 10% 20 MEQ/15 ML UDC 40 MEQ PO (10:24)
--- NOTE | 2024-10-13 10:33 | PC.CM ---
I spoke to Dr. Macario and he states patient's transfer remains on hold. They will be speaking to Dr. Serrano today.
--- NOTE | 2024-10-13 10:36 | PC.NURSE ---
input output clerk Patty talked to [facility] in regards to pt's records, was informed that [facility] is only able to fax over records from last visit. They said they had already faxed it but was faxed to wrong number. Correct fax # given and records are coming. made aware.
[2024-10-13] MEDS: Magnesium Sulfate 2 GM Ivpb 2 GM/50 ML BAG IV (11:43)
[2024-10-13 13:50] LABS: Cardiolipin Ab IgA 3.4 APL-U/mL; Cardiolipin Ab IgG 6.2 GPL-U/mL
[2024-10-13 14:46] LABS: B2-Glycoprotein I Ab IgA 3.7 U/mL; B2-Glycoprotein I Ab IgG 7.7 U/mL; B2-Glycoprotein I Ab IgM 14.0 U/mL; Cardiolipin Ab IgM 7.6 MPL-U/mL; Phos.Serine Ab IgG 10 U (< OR = 30); Phos.Serine Ab IgM 68 U (< OR = 30)
--- NOTE | 2024-10-13 17:48 | PD.RESPRO ---
Documentation for date of: 10/13/24 Subjective Subjective Interval history: Patient is a 24 year old female with past medical history of Lupus, SVT-now rate controlled on metorplol, found to have cervical calcifided mass (outpatient follow up) who is now complaining of right lower extremtiy weakness and right face paresthesia with sharp stabbing pain. Patient examined at bedside. Patient continues to complain of sharp stabbing pain to right facial area. Continues to have full sensations. Blurry vision. Mydraysis improved. Right lower extremity weakness improved. Exam Vital Signs Temp Pulse Resp BP Pulse Ox O2 Del Method O2 Flow Rate 97.8 F 92 18 112/76 98 Room Air 0 10/13/24 16:00 10/13/24 16:00 10/13/24 16:00 10/13/24 16:00 10/13/24 16:00 10/13/24 12:00 10/13/24 08:00 Narrative Exam General Appearance: Alert & Oriented X3, well-nourished female who is lying in bed in no acute distress HEENT: Skull symmetrical and atraumatic. Conjunctivae pin and moist. Pupils: round, reactive to light and accommodation (PERRL). Asymmetrical (anisocoria) External ear without lesion or discharge. Straight, nares patient, mucosa pink, no discharge. Cardio: Normal Rate and Rhythm with S1 and S2 heart sounds. No murmurs or extra heart sounds auscultated. No bruits on carotid auscultation. No peripheral edema or cyanosis. Lungs: Symmetric with good expansion. Chest and back non-tender. Breath sounds vesicular without crackles, wheezing or rhonchi Abdomen: Non-tender, Non-distended, Normal Reactive Bowel Sounds Neuro: Alert, cooperative, oriented to person, place, and time. Speech clear. CN grossly intact. Upper motor strength 5/5 and Left Lower motor strength 5/5 & Right lower motor function 3/5. Sensation intact. Reflexes present Objective Labs 10/14/24 05:48 10/14/24 05:48 Labs: Laboratory Results - last 24 hr 10/08/24 10/08/24 10/13/24 08:23 12:01 06:21 WBC 7.3 RBC 3.58 L Hgb 9.6 L Hct 30.3 L MCV 85 MCH 26.8 MCHC 31.7 RDW Std Deviation 44.4 Plt Count 297 Neut % (Auto) 79 Lymph % (Auto) 11 Garvin % (Auto) 8 Eos % (Auto) 0 Baso % (Auto) 0 Neut # (Auto) 5.7 Lymph # (Auto) 0.8 L Garvin # (Auto) 0.6 Eos # (Auto) 0.0 Baso # (Auto) 0.0 Immature Gran # (Auto) 0.13 H Absolute Nucleated RBC 0.02 H Immature Gran % 2 H Nucleated RBC % 0 Sodium 140 Potassium 3.8 Chloride 103 Carbon Dioxide 27.8 Anion Gap 9 BUN 25 H Creatinine 0.7 Estim Creat Clear Calc 95.9 eGFR > 60 BUN/Creatinine Ratio 36 H Glucose 82 D Calculated Osmolality 282 Calcium 8.9 Corrected Calcium 9.4 Phosphorus 2.9 Magnesium 1.6 Total Bilirubin 0.2 L AST 11 ALT 17 Alkaline Phosphatase 55 Total Protein 5.5 L Albumin 3.4 L Globulin 2.1 L Albumin/Globulin Ratio 1.6 Beta-2 GPI IgG Ab 7.7 Beta-2 GPI IgM Ab 14.0 Beta-2-GPI IgA Ab 3.7 Phosphatidylserine IgM 68 H Anti-Phospholipid Intrp SEE NOTE Anti-Cardiolipin IgG Ab 6.2 Anti-Cardiolipin IgA Ab 3.4 Anti-Cardiolipin IgM Ab 7.6 Phospholip A2 Rec IgG 10 Misc Test Result See Sep Rpt Quality Measures Quality Measures VTE prophylaxis Assessment & Plan Assessment Current Active Medications: Generic Name Dose Route Start Last Admin Trade Name Freq PRN Reason Stop Dose Admin Acetaminophen 650 mg 09/30/24 17:59 10/05/24 00:39 Acetaminophen 325 Mg Tablet PO 10/30/24 17:58 650 mg Q6H PRN Administration Mild Pain 1-3 or Fever >100.3 Artificial Tears 0 drop 10/10/24 11:15 10/13/24 14:35 Artificial Tears 225 Drop/15 Ml Btl BOTH EYES 11/09/24 11:14 1 drop Q4H YADIRA Administration Cyclobenzaprine HCl 10 mg 10/03/24 10:15 10/13/24 08:14 Cyclobenzaprine 5 Mg Tablet PO 11/02/24 10:14 10 mg BID YADIRA Administration Gabapentin 300 mg 10/01/24 22:00 10/13/24 14:34 Gabapentin 300 Mg Capsule PO 10/31/24 21:59 300 mg TID YADIRA Administration Heparin Sodium (Porcine) 5,000 unit 09/30/24 21:00 10/13/24 08:13 Heparin Sod Inj 5000 Unit/Ml Vial SC 10/14/24 20:59 5,000 unit Q12HR YADIRA Administration Magnesium Oxide 400 mg 10/14/24 09:00 Magnesium Oxide 400 Mg Tablet PO 11/13/24 08:59 QDAY YADIRA Metoprolol Succinate 25 mg 10/02/24 09:00 10/13/24 08:14 Metoprolol Succinate Xl 25 Mg Tabcr PO 11/01/24 08:59 25 mg QDAY YADIRA Administration Morphine Sulfate 2 mg 10/09/24 16:22 10/13/24 08:37 Morphine Sulf Inj 10 Mg/Ml Vial IVP 10/14/24 13:02 2 mg Q8H PRN Administration BREAKTHROUGH PAIN (SEVERE)7-10 Mycophenolate Mofetil 500 mg 10/01/24 21:00 10/13/24 08:14 Mycophenolate 250 Mg Capsule (Non-Formulary) PO 10/31/24 20:59 500 mg BID YADIRA Administration Ondansetron HCl 4 mg 09/30/24 17:59 10/03/24 07:30 Ondansetron Inj 2 Mg/Ml Inj 2 Ml IVP 10/30/24 17:58 4 mg Q6H PRN Administration NAUSEA OR VOMITING Protocol Pantoprazole Sodium 40 mg 10/11/24 21:00 10/13/24 08:14 Pantoprazole 40 Mg Tablet PO 11/10/24 20:59 40 mg BID YADIRA Administration Polyethylene Glycol 34 gm 10/09/24 07:32 Polyethylene Glycol 17 Gm Packet PO 11/08/24 07:31 QDAY PRN CONSTIPATION Prednisone 20 mg 10/12/24 10:35 10/13/24 08:14 Prednisone 20 Mg Tablet PO 10/19/24 10:35 20 mg QDAY YADIRA Administration Sennosides 1 tab 09/30/24 18:15 10/13/24 08:14 Senna Tablet PO 10/30/24 18:14 1 tab QDAY YADIRA Administration Protocol Sucralfate 1 gm 10/11/24 11:30 10/13/24 11:43 Sucralfate Susp 1 Gm/10 Ml Udc PO 11/10/24 11:29 1 gm ACHS YADIRA Administration Tramadol HCl 50 mg 10/13/24 10:08 Tramadol Hcl 50 Mg Tablet PO 10/14/24 16:22 Q8H PRN moderate to severe pain 4-10 Plan Patient is a 24 year old female with past medical history of Lupus, SVT-now rate controlled on metorplol, found to have cervical clcifided mass (outpatient follow up) who is now complaining of right lower extremtiy weakness and right face paresthesia with shart stabing pain. #Right Lower Extremity Paresthesia #Right Facial Paresthesia & Pain #Blurry Vision # Left Mydriasis, improved #History of Stark's Palsy Initially concern for acute stroke give complains of facial and lower extremtiy paresthesia, MRI negative vs less likely secondary to abscess or lesion of lower back at lumar/thoracic MRI negative vs less likely secondary MS given no lesions noted on MRI vs trigeminal neuralgia of right facial area given sharp pain and around eyes vs functional syndrome CT Head (10/08/2024): Negative Thoracic & Lumar Spine Negative MRI (10/07/2024): Negative for acute infarct. No demyelinating disease, no cerebellar or cerebral lesions Syphilis Negative Utox negative Plan -Gabapentin 300 mg TID -Pending CSF specific studies -Continue to treat lupus flare #Lupus Flare #SVT, resolved. #Presyncope likely secondary to STV #Normocytic anemia #s/p unwitnessed fall #Electrolyte Abnormalities #Hypokalemia #Hypomagnesemia, improved #Cervical mass likely Nabothian cyst #Fibrotic cyst on left ovary #Bladder retention, improving #Hematuria, resolved - The patient's plan was discussed with attending Dr. Maggie Ness MD PGY2 Internal Medicine Attending Provider Attestation/Addendum I personally have seen and examined the patient at the bedside and I agreed with resident's findings, assessment and plan of care. Her current symptoms og subjective visual disturbances with anisocoria could be secondary to SLE/Hydroxychloroquine related which are rare. Advised her to check with her Front End Developer Designer as an outpatient as it has been going on for 1 month now. Right LE pain, give away weakness being inconsistent:most likely functional. FU with CSF analysis for MS panel when it becomes available. Stable for dc home tomorrow.
[2024-10-14] VITALS (7 sets, daily range): BP systolic 97–111; BP diastolic 66–76; PULSE 82–111; RESP 14–20; TEMP 36.2–36.4; O2SAT 97–99
[2024-10-14] MEDS: GABAPENTIN 300 MG CAPSULE PO ×2 (05:50→15:28)
[2024-10-14 06:48] LABS: Basophils # (Auto) 0.0 Thou/mm3 (0.0-0.2); Basophils % (Auto) 0 % (0-2.5); Eosinophils # (Auto) 0.1 Thou/mm3 (0.0-0.5); Eosinophils % (Auto) 1 % (0-10); Hematocrit 31.5 % (36.0-46.0); Hemoglobin 9.9 g/dL (12.0-16.0); Immature Granulocytes Auto 0.24 Thou/mm3 (0.00-0.00); Lymphocytes # (Auto) 0.9 Thou/mm3 (1.0-4.8); Lymphocytes % (Auto) 11 % (10-50); Mean Corpuscular HGB Conc 31.4 g/dl (31.0-37.0); Mean Corpuscular Hemoglobin 26.9 pg (25.0-35.0); Mean Corpuscular Volume 86 fL (80-100); Monocytes # (Auto) 0.6 Thou/mm3 (0.0-0.8); Monocytes % (Auto) 7 % (0-12); Neutrophils # (Auto) 6.5 Thou/mm3 (1.8-7.7); Neutrophils % (Auto) 78 % (37-80); Nucleated Red Blood Cell # 0.02 Thou/mm3 (0.00-0.00); Nucleated Red Blood Cell % 0 /100 WBC (0); Platelet Count 318 Thou/mm3 (140-440); RDW Standard Deviation 45.5 fL (36.4-46.3); Red Blood Count 3.68 Miln/mm3 (4.00-5.20); White Blood Count 8.3 Thou/mm3 (3.6-11.0)
[2024-10-14 06:53] LABS: Alanine Aminotransferase 17 U/L (10-49); Albumin, Serum 3.5 gm/dL (3.5-5.0); Albumin/Globulin Ratio 1.5 (1.2-2.2); Alkaline Phosphatase 57 U/L (46-116); Anion Gap 9 (7-16); Aspartate Amino Transferase 13 U/L (0-34); BUN/Creatinine Ratio 30 Ratio (12-20); Bilirubin,Total 0.2 mg/dL (0.3-1.2); Blood Urea Nitrogen 18 mg/dL (9-23); Calcium 8.6 mg/dL (8.3-10.6); Calcium (Corrected) 9.0 mg/dL (8.5-10.1); Carbon Dioxide 28.0 mMol/L (20.0-31.0); Chloride 103 mMol/L (98-107); Creatinine (Component) 0.6 mg/dL (0.6-1.3); Estimated Creatinine Clearance 111.7 mL/min (>60); Globulin 2.3 gm/dL (2.3-3.5); Glucose 91 mg/dL (74-106); Magnesium 1.9 mg/dL (1.6-2.6); Osmolality,Calculated 281 (275-295); Phosphorous 3.5 mg/dL (2.4-5.1); Potassium 4.0 mMol/L (3.4-5.1); Sodium 140 mMol/L (136-145); Total Protein 5.8 gm/dL (5.7-8.2); eGFR > 60 See Note
[2024-10-14] MEDS: HEPARIN SOD INJ 5000 UNIT/ML VIAL SC (08:23)
[2024-10-14] MEDS: SUCRALFATE SUSP 1 GM/10 ML UDC PO ×2 (08:24→12:12)
[2024-10-14] MEDS: MAGNESIUM OXIDE 400 MG TABLET PO (08:24)
[2024-10-14] MEDS: PANTOPRAZOLE 40 MG TABLET PO (08:24)
[2024-10-14] MEDS: MYCOPHENOLATE 250 MG CAPSULE (NON-FORMULARY) 500 MG PO (08:25)
[2024-10-14] MEDS: Artificial Tears 225 DROP/15 ML BTL BOTH EYES ×3 (08:25→15:28)
[2024-10-14] MEDS: METOPROLOL SUCCINATE XL 25 MG TABCR PO (08:28)
--- NOTE | 2024-10-14 09:35 | PD.RESPRO ---
Documentation for date of: 10/14/24 Subjective Subjective Interval history: [facility] records obtained. Patient presented 04/2023 for acute R sided weakness, R facial droop and R blurry vision found to have vaginal bleeding and was 30w at the time. Emergency performed. Extensive imaging workup including, MRI head w/wo contrast, MR venogram head wo contrast, MRA of head and neck w/wo contrast, which were all negative. LP was done, however records incomplete but per Dr. Madera, was unremarkable, negative for monoclonal bands, no WBC or RBC. Exam Vital Signs Temp Pulse Resp BP Pulse Ox O2 Del Method O2 Flow Rate 97.1 F 88 14 97/70 97 Room Air 0 10/14/24 04:00 10/14/24 08:28 10/14/24 04:00 10/14/24 08:28 10/14/24 04:00 10/14/24 04:00 10/13/24 08:00 Objective Labs 10/14/24 05:48 10/14/24 05:48 Labs: Laboratory Results - last 24 hr 10/08/24 10/08/24 10/14/24 08:23 12:01 05:48 WBC 8.3 RBC 3.68 L Hgb 9.9 L Hct 31.5 L MCV 86 MCH 26.9 MCHC 31.4 RDW Std Deviation 45.5 Plt Count 318 Neut % (Auto) 78 Lymph % (Auto) 11 Terrell % (Auto) 7 Eos % (Auto) 1 Baso % (Auto) 0 Neut # (Auto) 6.5 Lymph # (Auto) 0.9 L Terrell # (Auto) 0.6 Eos # (Auto) 0.1 Baso # (Auto) 0.0 Immature Gran # (Auto) 0.24 H Absolute Nucleated RBC 0.02 H Immature Gran % 3 H Nucleated RBC % 0 Sodium 140 Potassium 4.0 Chloride 103 Carbon Dioxide 28.0 Anion Gap 9 BUN 18 Creatinine 0.6 Estim Creat Clear Calc 111.7 eGFR > 60 BUN/Creatinine Ratio 30 H Glucose 91 Calculated Osmolality 281 Calcium 8.6 Corrected Calcium 9.0 Phosphorus 3.5 Magnesium 1.9 Total Bilirubin 0.2 L AST 13 ALT 17 Alkaline Phosphatase 57 Total Protein 5.8 Albumin 3.5 Globulin 2.3 Albumin/Globulin Ratio 1.5 Beta-2 GPI IgG Ab 7.7 Beta-2 GPI IgM Ab 14.0 Beta-2-GPI IgA Ab 3.7 Phosphatidylserine IgM 68 H Anti-Phospholipid Intrp SEE NOTE Anti-Cardiolipin IgG Ab 6.2 Anti-Cardiolipin IgA Ab 3.4 Anti-Cardiolipin IgM Ab 7.6 Phospholip A2 Rec IgG 10 Misc Test Result See Sep Rpt Quality Measures Quality Measures VTE prophylaxis Assessment & Plan Assessment Current Active Medications: Generic Name Dose Route Start Last Admin Trade Name Freq PRN Reason Stop Dose Admin Acetaminophen 650 mg 09/30/24 17:59 10/05/24 00:39 Acetaminophen 325 Mg Tablet PO 10/30/24 17:58 650 mg Q6H PRN Administration Mild Pain 1-3 or Fever >100.3 Artificial Tears 0 drop 10/10/24 11:15 10/14/24 08:25 Artificial Tears 225 Drop/15 Ml Btl BOTH EYES 11/09/24 11:14 2 drop Q4H YADIRA Administration Cyclobenzaprine HCl 10 mg 10/03/24 10:15 10/14/24 08:24 Cyclobenzaprine 5 Mg Tablet PO 11/02/24 10:14 10 mg BID YADIRA Administration Gabapentin 300 mg 10/01/24 22:00 10/14/24 05:50 Gabapentin 300 Mg Capsule PO 10/31/24 21:59 300 mg TID YADIRA Administration Heparin Sodium (Porcine) 5,000 unit 09/30/24 21:00 10/14/24 08:23 Heparin Sod Inj 5000 Unit/Ml Vial SC 10/14/24 20:59 5,000 unit Q12HR YADIRA Administration Magnesium Oxide 400 mg 10/14/24 09:00 10/14/24 08:24 Magnesium Oxide 400 Mg Tablet PO 11/13/24 08:59 400 mg QDAY YADIRA Administration Metoprolol Succinate 25 mg 10/02/24 09:00 10/14/24 08:28 Metoprolol Succinate Xl 25 Mg Tabcr PO 11/01/24 08:59 25 mg QDAY YADIRA Administration Morphine Sulfate 2 mg 10/09/24 16:22 10/13/24 08:37 Morphine Sulf Inj 10 Mg/Ml Vial IVP 10/14/24 13:02 2 mg Q8H PRN Administration BREAKTHROUGH PAIN (SEVERE)7-10 Mycophenolate Mofetil 500 mg 10/01/24 21:00 10/14/24 08:25 Mycophenolate 250 Mg Capsule (Non-Formulary) PO 10/31/24 20:59 500 mg BID YADIRA Administration Ondansetron HCl 4 mg 09/30/24 17:59 10/03/24 07:30 Ondansetron Inj 2 Mg/Ml Inj 2 Ml IVP 10/30/24 17:58 4 mg Q6H PRN Administration NAUSEA OR VOMITING Protocol Pantoprazole Sodium 40 mg 10/11/24 21:00 10/14/24 08:24 Pantoprazole 40 Mg Tablet PO 11/10/24 20:59 40 mg BID YADIRA Administration Polyethylene Glycol 34 gm 10/09/24 07:32 Polyethylene Glycol 17 Gm Packet PO 11/08/24 07:31 QDAY PRN CONSTIPATION Prednisone 20 mg 10/12/24 10:35 10/14/24 08:24 Prednisone 20 Mg Tablet PO 10/19/24 10:35 20 mg QDAY YADIRA Administration Sennosides 1 tab 09/30/24 18:15 10/14/24 08:24 Senna Tablet PO 10/30/24 18:14 1 tab QDAY YADIRA Administration Protocol Sucralfate 1 gm 10/11/24 11:30 10/14/24 08:24 Sucralfate Susp 1 Gm/10 Ml Udc PO 11/10/24 11:29 1 gm ACHS YADIRA Administration Tramadol HCl 50 mg 10/13/24 10:08 10/14/24 08:23 Tramadol Hcl 50 Mg Tablet PO 10/14/24 16:22 50 mg Q8H PRN Administration moderate to severe pain 4-10 Plan Susana Clark is a 24 year old female for past medical history of lupus and Sjrogen's who presented on 09/30 to [facility] ED for fever and palpitations, admitted for SVT, controlled on metoprolol, found to have cervical calcified mass, course complicated by developing hematuria and acute BLE weakness, LLE weakness resolved, now developed bilateral blurry vision and slow to constrict L pupil. #Acute SLE flare with #Acute bilateral blurry vision #Acute RLE weakness #Acute R facial numbness Onset of slightly bilateral blurry vision and gritty eyes on 10/03, fluctuating blurry vision since R>L, EOMI intact New onset bilateral lower extremity weakness 10/05, L recovered, R still weak, but currently per nursing patient is able to ambulate with walker to restroom on her own. Ddx blurry vision includes concussion from headstrike vs dry eyes 04/06 Sjogren vs increased intracranial pressure vs SLE cerebritis vs uvetitis as 10/13, eye is painful and with hx of SLE. CT head 09/30, 10/05, 10/06, 10/07 showed no acute hemorrhage, midline shift or mass effect. MRI brain w and wo con, C-spine, T-spine and L-spine all unremarkable CK <15, B12 and folate wnl. B12 injection x 1 given 10/04. dsDNA elevated, C3/4 low, APS wnl Per Dr. Madera LP was done 04/2023 which was unremarkable, negative for monoclonal bands, no white blood cells or red blood cells. 10/08 LP done, no WBC, glucose and protein wnl; Cocci IgM negative Rapid called 10/08 for acute bilateral blurry vision with L pupil fixed dilation, not constricting to light. Currently L pupil still slightly sluggish to contriction s/p IV methylprednisolone 1 g (10/09-10/11) Plan: - Mycophenolate 500 mg BID, hydroxychloroquinine 200 mg QD, prednisone 20 mg QD, Flexeril 10 mg BID and gabapentin 300 mg TID, arificial eye drops TID - Per teleneuro, recommended ophthalmology consult and outpatient EMG if LP findings unremarkable - Neuro consulted, pending recs - F/u CSF (culture, gram stain, glucose, IgG, anti-dsDNA, myelin basic protein, oligoclonal bands, protein, anti-neuronal antibodies, anti MAP-2, NMDAR antibodies, anti-ribosomal, opening pressure) - Encouraged to work with PT #Bladder retention, improving #Hematuria, resolved Ddx includes autoimmune nephritis from SLE or Sjogren's vs kidney stone (has had R flank pain previously but resolved). Nephritis less likely as no protein loss or any creatinine increase. 10/05 CTAP: 3 mm nonobstructing right renal calculus, no hydronephrosis or renal calculi, absent appendix, no bowel obstruction Syphilis serology not reactive, HIV negative, Hep panel negative Heparin held 10/04 to 10/07, restarted 10/08 Plan: - F/u chlamydia, gonorrhea and trich PCR - Recommend outpatient urology follow-up #Normocytic anemia, stable Hgb 10-11 throughout admission . 04/2024 peripheral smear showed likely SAHARA. Iron low 37, TIBC wnl. Plan: - Recommend iron supplements outpatient #SVT, resolved. #Presyncope 2/2 SVT #s/p unwitnessed fall History of SVTs per patient, has palpitations but only lasts no more than an hour. Likely secondary to lupus. S/p adenosine x3, rate now controlled on metoprolol XL 25mg. Echo 09/30 negative for pericarditis, EF 55 to 60%. No dysfunction noted. Plan: - Cardiology Dr. 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 DDX for former include teratoma vs calcified uterine fibroids vs osseous metaplasia. Patient complains of lower abdominal crampy pain with one episode of blood in urine on 10/02. No further bleeding noted on pads. LMP 08/24 with irregular cycles. Plan: - OBGYN Dr. Gould consulted, recs appreciated - Spoke to Dr. Gaona, likely incidental finding of Nabothian cyst, no inpatient intervention required - Recommend to follow up with outpatient OBGYN #Lower GI bleed, resolved Patient had a bloody bowel movement in the morning of 10/11. The patient took a picture of her toilet paper that had bright red blood. This is likely due to extensive use of steroids. Plan: - IV Protonix 40 mg BID - Sucralfate 1gm ACHS - CTM H&H #Electrolyte Abnormalities #Hypokalemia #Hypomagnesemia, improved - recheck and replete as needed Health Maintenance Disposition: acute RLE weakness and b/l blurry vision, neuro consult DVT prophylaxis: Heparin q12 GI prophylaxis: Protonix Diet: Full liquid diet CODE STATUS: FULL Plan of care discussed with attending Dr. Hill, and PGY-2 Dr. Macario. Chantal Black, DO Internal Medicine PGY-1
--- NOTE | 2024-10-14 10:20 | ESDS_ITS ---
<Statement entered by Shayna Hill MD - 10/27/24 07:42> I reviewed above note and agree with findings and plans. I have also personally examined the patient with medicine team and went over assessment and plan with medical team including financial services internship and resident physician. <Statement entered by Lyle Macario MD - 10/15/24 05:29> Patient was seen and examined by me personally. I have reviewed the below documentation by the team resident and agree with its findings. Discharge plan was discussed with the attending, Dr. Hill 24-year-old female with past medical history of lupus, Sjogren syndrome, SVT, chronic pain presented to [facility] 09/30 with chief complaint of fever and palpitations. Patient was noted to be in SVT, was admitted to the hospital, cardiology was consulted eventually rate and rhythm controlled patient transition back to sinus rhythm, was started on metoprolol per cardiology recommendations. Patient was noted to be in SLE flare, received high-dose pulse steroids for the hospitalization, patient had myriad of symptoms?neurological and ophthalmological requiring neurology consult, eventually per neurology patient's weakness likely functional as patient's extensive imaging including MRI brain, MRI thoracic spine, MRI cervical spine, MRI lumbar spine, lumbar puncture were negative. Patient's blurring of vision likely secondary to anisocoria due to underlying SLE flare which improved with steroids however not at baseline. Attempts were made to transfer patient to higher level of care for ophthalmology and rheumatology service however patient was denied from multiple facilities. Also patient complained of vaginal discharge and hematuria workup for which was unremarkable except for nabothian cyst for which patient to follow-up outpatient with [employer] INS[employer]. Further plan to discharge patient home, was cleared by neurology for discharge, patient to follow-up with primary care physician, ocular care aide, english language learner tutor, brass instrument repair technician and [employer]RO[employer] SHOP INSPECTOR. Patient does have underlying anxiety issues to be managed by PCP. Patient is stable for discharge, responded well to hospital treatment. Lyle Macario MD Internal Medicine, PGY-2 Planned Discharge Date 10/14/24 DS: Providers Provider Date of admission: 09/30/24 18:08 Primary care physician: Physician No Primary/Family Admitting Provider: Andra Cerda MD Attending Provider on Admission: Shayan Hill MD Consults: 09/30/24 19:01 Consult to Cardiology Routine Comment: Consulting Provider: Landry Pickard Instructions: SVT (history of Lupus) 10/03/24 10:01 Consult to Gynecology Routine Comment: Calcified mass in the cervix 16 x 6 x 7 mm Consulting Provider: Davi Gaona 10/05/24 10:42 Referral Physical Therapy Stat Comment: Physician Instructions: 10/05/24 11:41 Consult to Neurology / Tele-Neurology Stat Comment: Acute weakness Consulting Provider: Eladio Serrano 10/08/24 12:54 Referral - Religious Educator Urgent Service Needed for Transfer: Opthalmology Addl Comments:: Patient has been having possible SLE flare. Has been complaining of Rt. lower limb weakness, blurry vision for few days. Today, stated having severe blurry vision to the point she cannot count fingers, Also has Anisocoria with dilated left pupil and constricted right pupil, both are very slow to respond to light. Neurology has been following, extensive workup including multiple brain CT and Brain MRI w/wo contrast has been negative. LP done today, results pending. Neurology recommending opthalmology consult. She will also benefit with Urology for hematuria and Rheumatology for SLE flare but not as urgent as Opthalmology. 10/09/24 16:56 Referral - Religious Educator Stat Service Needed for Transfer: Rheumatology Addl Comments:: Patient has been having possible SLE flare. Has been complaining of Rt. lower limb weakness, blurry vision for few days. Today, stated having severe blurry vision to the point she cannot count fingers, Also has Anisocoria with dilated left pupil and constricted right pupil, both are very slow to respond to light. Neurology has been following, extensive workup including multiple brain CT and Brain MRI w/wo contrast has been negative. LP done today, results pending. Neurology recommending opthalmology consult. She will also benefit with Urology for hematuria and Rheumatology for SLE flare Attending Provider on DC: Shayan Hill MD Discharging Provider: Shayan Hill MD DS: Diagnosis Problem List Completed Was Problem List Reviewed/Reconciled?: Yes Hospital Course Hospital Course Hospital course: Summary: Susana Clark is a 24 year old female for past medical history of lupus and Sjrogen's who presented on 09/30 to [facility] ED for fever and palpitations, admitted for SVT, controlled on metoprolol, found to have cervical calcified mass, course complicated by developing hematuria and acute BLE weakness, LLE weakness resolved, now developed bilateral blurry vision and slow to constrict L pupil. Patient was treated with high-dose steroids and immunosuppressants per her rheumatology recommendations. Patient's palpitations were found to be SVT and controlled with metoprolol. Course complicated by discovery of cervical calcified mass on pelvic ultrasound, gynecology was consulted and she was diagnosed with an nabothian cyst which was benign and required no inpatient treatment. Patient also started to have hematuria, CTAP done showing no acute processes and hematuria resolved on its own. Course further complicated by acute blurry vision and right-sided weakness. Extensive imaging of head and spine were done, all of which were unremarkable. Lumbar puncture was also done on 10/08 showing no infection or bleeding. Neurology was consulted and patient was diagnosed to have blurry vision secondary to anisocoria secondary to her SLE flare. For patient's leg weakness neurology diagnosed functional disorder with no need of continued hospitalization. On discharge patient is stable and is ready to go home. [facility] records were also obtained. Patient presented to [facility] in 04/2023 for acute R sided weakness, R facial droop and R blurry vision found to have vaginal bleeding and was 30w at the time. Emergency performed. Extensive imaging workup including, MRI head w/wo contrast, MR venogram head wo contrast, MRA of head and neck w/wo contrast, which were all negative. LP was done, however records incomplete but per Dr. Madera, patient's rhemuatologist, was unremarkable, negative for monoclonal bands, no WBC or RBC. Imaging: CT head 09/30, 10/05, 10/06, 10/07 showed no acute hemorrhage, midline shift or mass effect. MRI brain w and wo con, MRI C-spine, T-spine and L-spine all unremarkable CTAP: 3 mm nonobstructing right renal calculus, no hydronephrosis or renal calculi, absent appendix, no bowel obstruction Pelvic ultrasound: calcifed mass in cervix 16x6x7 mm with 19mm L ovarian follicular cyst Echocardiogram ultrasound showed Normal LV size and function. Normal LV diastolic function. Estimated EF at 55-60 %The RV is normal in size and systolic function. Mild TR and TR. IVC not well visualized. No pericadfial effusion. Discharge Recommendations: - Please take all medications as prescribed - Please continue to take Metoprolol XL 25 mg once daily for SVT, take magnesium supplementation as prescribed. - Please follow up with your ocular care aide in [place] within one week of discharge - Please follow up with your english language learner tutor or primary care physician for your SLE Management - Please continue your 10 mg prednisone once daily as recommended by your english language learner tutor. - Please follow up with your english language learner tutor, Dr. Calabrese, on 10/16/2024 for your Lupus - Follow up with Ophthalmology outpatient regarding the blurring of vision. - Follow up withh OB-[facility] [employer]SC[employer] ARCHITECT for nabothian cyst. - Please have your primary physician order a DEXA scan given long standing history of steroid use. - Please follow up with your PCP within one week of discharge - If your symptoms worsen, please seek immediate medical attention and return to your nearest emergency room. - If you do not have a PCP, you may follow up at the [facility] [address], [facility] [address], Hospital Diagnoses: #Acute SLE flare with #Acute bilateral blurry vision #Acute RLE weakness #Acute R facial numbness #Bladder retention, improving #Hematuria, resolved #Lower GI bleed, likely hemorrhoids #Normocytic anemia, stable #SVT, resolved. #Presyncope 2/2 SVT #s/p unwitnessed fall #Cervical mass likely Nabothian cyst #Fibrotic cyst on left ovary #Electrolyte Abnormalities #Hypokalemia, improved #Hypomagnesemia, improved Chantal Black, DO Internal Medicine, PGY-1 Time Spent with Patient Time attestation: Total time spent providing and/or coordinating discharge services: Time spent: Greater than 30 minutes Exam Vital Signs Temp Pulse Resp BP Pulse Ox O2 Del Method O2 Flow Rate 97.1 F 88 14 97/70 97 Room Air 0 10/14/24 04:00 10/14/24 08:28 10/14/24 04:00 10/14/24 08:28 10/14/24 04:00 10/14/24 04:00 10/13/24 08:00 Narrative Exam GENERAL: no acute distress +alopecia HEENT: NC/AT, mucous membranes moist, bilateral sclera anicteric CARDIOVASCULAR: regular rate and rhythm, S1/S2 present, no murmurs appreciated PULMONARY: clear to auscultation bilaterally, no rales/rhonchi/wheezes ABDOMINAL: soft, non-distended, non-tender no rebound/guarding, bowel sounds present EXTREMITIES: no peripheral edema MSK: mild tenderness at axial joints SKIN: warm and dry, intact, no rashes, mild skin sensitivity to light touch NEURO: +numbness at Rt eyelid, able to track, +blurry vision, +anisocoria EOMI intact, peripheral vision intact Muscle strength: 5/5 in bilateral elbow flexion and extension 5/5 shoulder abduction 5/5 L hip flexion 5/5 L knee flexion 2/5 R hip flexion 2/5 R knee flexion +Johnson test on flexion of Rt hip Discharge Plan Plan Patient Disposition: HOME (Self Care) Patient condition on transfer: Stable Care Plan Goals: Instructions: -Please continue to take Metoprolol XL 25 mg once daily for SVT, take magnesium supplementation as prescribed. -Please follow up with your ocular care aide in [place] within one week of discharge -Please follow up with your english language learner tutor or primary care physician for your SLE Management -Please continue your 10 mg prednisone once daily as recommended by your english language learner tutor. -Please follow up with your english language learner tutor, Dr. Calabrese, on 10/16/2024 for your Lupus -Follow up with Ophthalmology outpatient regarding the blurring of vision. -Follow up withh OB-[employer]SC[employer] ARCHITECT for nabothian cyst. -Please have your primary physician order a DEXA scan given long standing history of steroid use. -Please follow up with your primary care provider within one week of discharge -If your symptoms worsen,please seek immediate medical attention and return to your nearest emergency room -Follow up with your primary care provider in 1-2 weeks. Prescriptions/Referrals Prescriptions/Med Rec: New mycophenolate mofetil 250 mg Capsule 500 mg PO BID 30 Days Qty: 120 0RF metoprolol succinate 25 mg Tablet Extended Release 24 Hr 25 mg PO QDAY 30 Days Qty: 30 0RF prednisone 10 mg tablet 10 mg PO QDAY 30 Days Qty: 30 0RF Artificial Tears (cmc) 1 % drops 2 drp ophthalmic (eye) BID PRN (Reason: dry eye(s)) Qty: 15 0RF cyclobenzaprine 10 mg tablet 10 mg PO BID PRN (Reason: Muscle Spasms) 30 Days Qty: 60 0RF magnesium oxide 400 mg (241.3 mg magnesium) Tablet 400 mg PO QDAY 10 Days Qty: 10 0RF pantoprazole 40 mg Tablet,Delayed Release (Dr/Ec) 40 mg PO BID 30 Days Qty: 60 0RF sucralfate [Carafate] 1 gram tablet 1 g PO QID 15 Days Qty: 60 0RF tramadol 25 mg tablet 25 mg PO BID 7 Days Qty: 14 0RF Continued Saphnelo 300 mg/2 mL (150 mg/mL) solution 300 mg IV .every 4 weeks hydroxychloroquine 200 mg tablet 200 mg PO .once daily Patient Comments: TAKE 1 TABLET BY MOUTH EVERY DAY gabapentin 300 mg capsule 300 mg PO TID Patient Comments: TAKE 1 CAPSULE BY MOUTH 3 TIMES A DAY. Discontinued prednisone 10 mg tablet 20 mg PO .once Patient Comments: TAKE 1 TABLET BY MOUTH EVERY DAY baclofen 10 mg tablet 10 mg PO TID Referrals: Landry Pickard MD [Physician] - Davi Gaona MD [Physician] - Patient/Caregiver Discharge Instructions Discharge Activity: activity as tolerated Education Materials: Lupus Symptomatic Erythematosus, Sj?gren Syndrome Print Language: Congolese Stand Alone Forms: [employer] Award Info., Patient Portal Info Letter Discharge Order Discharge Orders: Discharge (Routine); Ordered 10/14/24 Ordered By: Yuliet Noel Quality Discharge Quality Measures VTE prophylaxis
--- NOTE | 2024-10-14 12:06 | PC.SS ---
SS met with pt and provided her with choices for DME. Pt refused wheelchair. SS provided verbal choices for DME for walker or wheelchair. Patient is requesting crutches and walker. SS has spoken to Lesa from PT who is aware and will provide crutches. Pt is also requesting for out patient physical therapy.
--- NOTE | 2024-10-14 12:52 | PC.SS ---
Addendum entered by Rakel Enrique 10/14/24 14:24: [facility] has delivered 2 wheel walker to patient's room. Addendum entered by Rakel Enrique 10/14/24 14:17: SS has sent referral for the Out Patient Physical Therapy. SS has provided pt with [facility]. Original Note: VALERIANO has sent DME order for walker using [facility].
--- NOTE | 2024-10-14 14:17 | PC.NURSE ---
Received call from lab stating chlamydia results are inconclusive/error and can do send out. RN called and spoke with Dr. Sanches, states will let Dr. Macario know.
--- NOTE | 2024-10-14 14:23 | PC.NURSE ---
Received call from color television console monitor, patient's HR 150's. Patient A&Ox4, denies chest pain, denies SOB. HR down to 120's.
--- NOTE | 2024-10-14 14:26 | PC.NURSE ---
Informed Dr. Macario of HR 150's, EKG ordered.
--- NOTE | 2024-10-14 14:29 | EKG_ITS ---
[facility] (Formerly [facility]) Test Date: 2024-10-14 Pat Name: MEHUL ZAMAN Department: Room: S359A Gender: Female Train System Operator: GREGORIO : 2000 Requested By: Lyle Macario Order Number: [id number] Reading MD: Lyle Macario Measurements Intervals Roff Rate: 119 P: 47 SC: 146 QRS: 85 QRSD: 88 T: 34 QT: 287 QTc: 404 Interpretive Statements SINUS TACHYCARDIA WITH OCCASIONAL VENTRICULAR PREMATURE COMPLEXES INDETERMINATE AXIS POSSIBLE RIGHT VENTRICULAR CONDUCTION DELAY ST DEVIATION AND MODERATE T-WAVE ABNORMALITY, CONSIDER ANTERIOR ISCHEMIA Compared to ECG 09/30/2024 16:19:58 Ventricular premature complex(es) now present T-wave abnormality now present Possible ischemia now present Incomplete right bundle-branch block no longer present /store/S0/[id number]/ecg/[id number].pdf
--- NOTE | 2024-10-14 15:00 | ESPR_ITS ---
Documentation for date of: 10/14/24 Subjective Subjective Interval history: Patient is a 24 year old female with past medical history of Lupus, SVT-now rate controlled on metorplol, found to have cervical calcifided mass (outpatient follow up) who is now complaining of right lower extremtiy weakness and right face paresthesia with sharp stabbing pain. Patient examined at bedside this evening. Resolution of lower extremity weakness, continue PT outpatient. Resolved facial pain and paresthesia. Please follow up with your inside sales account executive as outpatient. Follow up with patient's financial risk manager as outpatient in [place]. Patient expected to be discharged. Exam Vital Signs Temp Pulse Resp BP Pulse Ox O2 Del Method O2 Flow Rate 97.5 F 96 16 97/70 99 Room Air 0 10/14/24 08:00 10/14/24 12:20 10/14/24 08:00 10/14/24 08:28 10/14/24 08:00 10/14/24 08:00 10/13/24 08:00 Narrative Exam General Appearance: Alert & Oriented X3, well-nourished female who is lying in bed in no acute distress HEENT: Skull symmetrical and atraumatic. Conjunctivae pin and moist. Pupils equal, round, reactive to light and accommodation (PERRL). Improved Mydriasis on left orbital. External ear without lesion or discharge. Straight, nares patient, mucosa pink, no discharge. Cardio: Normal Rate and Rhythm with S1 and S2 heart sounds. No murmurs or extra heart sounds auscultated. No bruits on carotid auscultation. No peripheral edema or cyanosis. Lungs: Symmetric with good expansion. Chest and back non-tender. Breath sounds vesicular without crackles, wheezing or rhonchi Abdomen: Non-tender, Non-distended, Normal Reactive Bowel Sounds Neuro: Alert, cooperative, oriented to person, place, and time. Speech clear. CN grossly intact. Upper motor strength 5/5 and Left Lower motor strength 5/5 & Right lower motor function 3/5. Sensation intact. Reflexes present Objective Labs 10/14/24 05:48 10/14/24 05:48 Labs: Laboratory Results - last 24 hr 10/08/24 10/12/24 10/14/24 12:01 14:00 05:48 WBC 8.3 RBC 3.68 L Hgb 9.9 L Hct 31.5 L MCV 86 MCH 26.9 MCHC 31.4 RDW Std Deviation 45.5 Plt Count 318 Neut % (Auto) 78 Lymph % (Auto) 11 Pine % (Auto) 7 Eos % (Auto) 1 Baso % (Auto) 0 Neut # (Auto) 6.5 Lymph # (Auto) 0.9 L Pine # (Auto) 0.6 Eos # (Auto) 0.1 Baso # (Auto) 0.0 Immature Gran # (Auto) 0.24 H Absolute Nucleated RBC 0.02 H Immature Gran % 3 H Nucleated RBC % 0 Sodium 140 Potassium 4.0 Chloride 103 Carbon Dioxide 28.0 Anion Gap 9 BUN 18 Creatinine 0.6 Estim Creat Clear Calc 111.7 eGFR > 60 BUN/Creatinine Ratio 30 H Glucose 91 Calculated Osmolality 281 Calcium 8.6 Corrected Calcium 9.0 Phosphorus 3.5 Magnesium 1.9 Total Bilirubin 0.2 L AST 13 ALT 17 Alkaline Phosphatase 57 Total Protein 5.8 Albumin 3.5 Globulin 2.3 Albumin/Globulin Ratio 1.5 Chlam trachomat DNA PCR Cancelled N.gonorrhoeae DNA (PCR) Cancelled Trichomonas DNA Probe Cancelled Misc Test Result See Sep Rpt Quality Measures Quality Measures VTE prophylaxis Assessment & Plan Plan Patient is a 24 year old female with past medical history of Lupus, SVT-now rate controlled on metorplol, found to have cervical clcifided mass (outpatient follow up) who is now complaining of right lower extremtiy weakness and right face paresthesia with shart stabing pain. #Right Lower Extremity Paresthesia #Right Facial Paresthesia & Pain #Blurry Vision # Left Mydriasis, improved #History of Stark's Palsy Initially concern for acute stroke give complains of facial and lower extremtiy paresthesia, MRI negative vs less likely secondary to abscess or lesion of lower back at lumar/thoracic MRI negative vs less likely secondary MS given no lesions noted on MRI vs trigeminal neuralgia of right facial area given sharp pain and around eyes vs functional syndrome CT Head (10/08/2024): Negative Thoracic & Lumar Spine Negative MRI (10/07/2024): Negative for acute infarct. No demyelinating disease, no cerebellar or cerebral lesions Syphilis Negative Utox negative Plan -Gabapentin 300 mg TID -Pending CSF specific studies -Continue to treat lupus flare per patient's inside sales account executive. #Lupus Flare #SVT, resolved. #Presyncope likely secondary to STV #Normocytic anemia #s/p unwitnessed fall #Electrolyte Abnormalities #Hypokalemia #Hypomagnesemia, improved #Cervical mass likely Nabothian cyst #Fibrotic cyst on left ovary #Bladder retention, improving #Hematuria, resolved - The patient's plan was discussed with attending Dr. Maggie Ness MD PGY2 Internal Medicine Attending Provider Attestation/Addendum I personally have seen and examined the patient at the bedside and I agreed with resident's findings, assessment and plan of care. Her current symptoms og subjective visual disturbances with anisocoria could be secondary to SLE/Hydroxychloroquine related which are rare. Advised her to check with her [employer] Crop Farmer/Rheumatologsit at [place] as an outpatient as it has been going on for 1 month now. Right LE pain, give away weakness being inconsistent:most likely functional. FU with CSF analysis for MS panel when it becomes available. Stable for dc home. Outpatient PT.
--- NOTE | 2024-10-14 15:35 | PC.NURSE ---
Okay to discharge per Dr. Macario/Dr. Noel.
--- NOTE | 2024-10-14 18:31 | PC.CM ---
1400 Patient's transfer cancelled and patient will be discharged home today.
[2024-10-16 06:25] LABS: Myelin Basic Protein, CSF* <2.0 mcg/L (< OR = 4.0); Oligoclonal Bands, CSF* ABSENT (ABSENT)
[2024-10-25 13:52] LABS: Albumin, CSF 11.5 mg/dL (8.0-42.0); IgG Index, CSF 0.60 (<0.70); IgG, CSF 2.7 mg/dL (0.8-7.7); IgG, Serum 1520 mg/dL (600-1640); Synthesis Rate IgG, CSF -2.5 mg/24 h (-9.9 TO +3.3)
[2024-10-27 06:57] LABS: Albumin, Serum 3.9 g/dL (3.6-5.1)
== END 2024-10-14 15:36 | disposition home or self-care (01) | DRG 201 ==
LOC: SERX 17:50 → SERHOLD 18:12 → S2NX 23:46 → S3NX 10-13 19:19
PROVIDERS: Psychiatry & Neurology Neurology; Admitting Provider Student in an Organized Health Care Education/Training Program; Emergency Provider Emergency Medicine; Visit Provider Internal Medicine
DX: I47.10 Supraventricular tachycardia, unspecified (principal); M32.9 Systemic lupus erythematosus, unspecified; R00.2 Palpitations; R73.03 Prediabetes; S06.9X9A Unspecified intracranial injury with loss of consciousness of unspecified duration, initial encounter; W18.2XXA Fall in (into) shower or empty bathtub, initial encounter; Y92.002 Bathroom of unspecified non-institutional (private) residence as the place of occurrence of the external cause; Y93.E1 Activity, personal bathing and showering; R52 Pain, unspecified; R50.9 Fever, unspecified; I95.9 Hypotension, unspecified; E87.6 Hypokalemia; E83.42 Hypomagnesemia; F41.9 Anxiety disorder, unspecified; H57.02 Anisocoria; H57.04 Mydriasis; E24.9 Cushing's syndrome, unspecified; I49.3 Ventricular premature depolarization; K59.00 Constipation, unspecified; M35.00 Sjogren syndrome, unspecified; N20.0 Calculus of kidney; N83.02 Follicular cyst of left ovary; N88.8 Other specified noninflammatory disorders of cervix uteri; R13.10 Dysphagia, unspecified; G89.29 Other chronic pain; R31.0 Gross hematuria; Z76.5 Malingerer [conscious simulation]; G51.0 Bell's palsy; Z79.52 Long term (current) use of systemic steroids; Z79.624 Long term (current) use of inhibitors of nucleotide synthesis; Z79.899 Other long term (current) drug therapy
CPT/HCPCS: 36415; 70450; 70553; 71045; 72156; 72157; 72158; 74176; 76700; 76856; 77002; 80048; 80053; 80061; 80074; 80307; 80320; 81001; 81025; 82040; 82042; 82550; 82570; 82607; 82746; 82784; 82945; 83516; 83540; 83550; 83605; 83735; 83873; 83880; 83916; 84100; 84145; 84157; 84443; 84484; 85025; 85652; 86140; 86146; 86147; 86148; 86160; 86225; 86331; 86635; 86703; 86780; 87040; 87070; 87086; 87205; 87400; 87491; 87591; 87661; 87811; 89051; 93005; 93225; 93306; 96365; 96366; 96375; 96376; 97162; 99284; A9577; J0131; J0153; J0696; J1644; J1885; J2270; J2405; J2470; J2919; J3420; J3475; J3480; J3490; J7030; J7050; J7120; J7512; J7517; A9270; G0480

== ENCOUNTER 2024-10-16 22:08 | Emergency (ER) | payer OTHER, SELFPAY ==
[2024-10-16 22:17] VITALS: BP 117/85; RESP 22; TEMP 39.2; O2SAT 100
[2024-10-16 22:20] VITALS: PULSE 146; PULSE 246
--- NOTE | 2024-10-16 22:28 | PD.EDCHEST ---
ED Chest Pain RME/HPI General Chief Complaint: Arrhythmia/Palpitations Stated Complaint: SVT Time Seen by Provider: 10/16/24 22:28 Arrival date/time: 10/16/24 22:08 RME / HPI RME / HPI narrative: DR. 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 Chest pain is 10 out of 10. Per EMS, patient was given Versed 6 mg IM en route s/p 100 joules for 244 SVT cardioaversion. Patient was discharged on Sunday from a different facility for SVT and is compliant with Metoprolol 25 mg. No other concerns or complainst expressed at this time. Patient was recently discharged from the hospital for SVT and lupus flare. Related Data Home Medications ?Medication ?Instructions ?Recorded ?Confirmed anifrolumab-fnia 300 mg/2 mL (150 300 mg IV .every 4 weeks 10/01/24 10/01/24 mg/mL) intravenous solution (Saphnelo) gabapentin 300 mg capsule 300 mg PO TID 10/01/24 10/01/24 hydroxychloroquine 200 mg tablet 200 mg PO .once daily 10/01/24 10/01/24 Previous Rx's ?Medication ?Instructions ?Recorded metoprolol succinate 25 mg 25 mg PO QDAY 1 month #30 tabs 10/02/24 tablet,extended release 24 hr mycophenolate mofetil 250 mg 500 mg (2 x 250 mg) PO BID 1 month 10/02/24 capsule #120 caps prednisone 10 mg tablet 10 mg PO QDAY 1 month #30 tabs 10/02/24 carboxymethylcellulose sodium 1 % 2 drp ophthalmic (eye) BID PRN dry 10/14/24 eye drops (Artificial Tears eye(s) #15 mL (carboxymethylcellulose)) cyclobenzaprine 10 mg tablet 10 mg PO BID PRN Muscle Spasms 30 10/14/24 days #60 tabs magnesium oxide 400 mg (241.3 mg 400 mg PO QDAY 10 days #10 tabs 10/14/24 magnesium) tablet pantoprazole 40 mg tablet,delayed 40 mg PO BID 30 days #60 tabs 10/14/24 release sucralfate 1 gram tablet (Carafate) 1 g PO QID 15 days #60 tabs 10/14/24 tramadol 25 mg tablet 25 mg PO BID Moderate to Severe 10/14/24 Pain 7 days #14 tabs Allergies Allergy/AdvReac Type Severity Reaction Status Date / Time No Known Allergies Allergy Verified 09/30/24 14:37 Review of Systems Review of Systems Systems Reviewed: All systems reviewed, normal except as documented Past Medical History Past Medical History CARDIAC: Positive Cardiac Arrhythmia and Angina REPRODUCTIVE: Positive Previous Pregnancies MUSCULOSKELETAL: Positive Musculoskeletal Disorders and Arthritis ENDOCRINE: Positive Systemic Lupus Erythematosus HEMATOLOGIC: Positive Blood Disorders, Anemia and Clotting Problems OTHER HISTORY: Positive Hospitalization, Autoimmune Disease and Chicken Pox Surgical History SURGICAL: Positive Section ED Exam Narrative Physical exam: Generally patient is alert chronically ill-appearing female, heart tachycardic rate with regular rhythm, lungs clear to auscultation bilaterally, abdomen soft bowel sounds present nondistended nontender extremities show muscle wasting without edema. Neurologic exam no focal motor or sensory deficits Course Course Course Narrative: CXR is ordered for determining the etiology of shortness of breath. Quality Measures none Orders Category Date Time Status Bedside Blood Glucose NOW Care 10/16/24 22:33 Active Bedside COVID-19 Antigen Test NOW Care 10/16/24 23:39 Active Bedside Influenza A&B Antigen Test NOW Care 10/16/24 23:39 Completed Scraper Meat Q4H START 00 Care 10/16/24 22:33 Active EKG (ED ONLY) *Do not use* NOW Care 10/16/24 22:30 Completed Insert IV NOW Care 10/16/24 22:33 Active Strict Intake and Output Routine Care 10/16/24 22:33 Ordered EKG (ED Only) Stat Exams 10/16/24 22:30 Ordered XR chest 1V portable Stat Exams 10/16/24 22:30 Completed Blood Culture (Lab) Stat Lab 10/16/24 22:30 Received CBC Stat Lab 10/16/24 22:15 Completed CMP [Comprehensive Metabolic Panel] Stat Lab 10/16/24 22:15 Completed Drug Screen,Urine Stat Lab 10/16/24 22:40 Ordered HCG,Qualitative Serum Stat Lab 10/16/24 22:15 Completed Lactate (Lactic Acid) Stat Lab 10/16/24 22:15 Results Partial Thromboplastin Time Stat Lab 10/16/24 22:15 Completed Procalcitonin Stat Lab 10/16/24 22:15 Completed Prothrombin Time with INR Stat Lab 10/16/24 22:15 Completed Troponin I Stat Lab 10/16/24 22:15 Completed Troponin I Stat Lab 10/16/24 23:40 Completed UA, C/S IF [Urinalysis, C/S if Indicated] Stat Lab 10/16/24 22:36 Ordered Metoprolol Tartrate [Lopressor] Med 10/17/24 01:26 Discontinued 50 mg PO X1 ONE Sodium Chloride 0.9% 1000 ml [Ns] 1,000 ml Med 10/16/24 22:40 Discontinued IV 999 mls/hr Oxygen Delivery NOW RT 10/16/24 22:33 Active Vital Signs Vital signs: Vital Signs Temperature 102.6 F H 10/16/24 22:17 Respiratory Rate 22 H 10/16/24 22:17 Blood Pressure 117/85 H 10/16/24 22:17 Pulse Oximetry (%) 100 10/16/24 22:17 Oxygen Delivery Method Nasal Cannula 10/16/24 22:17 Oxygen Flow Rate 2 10/16/24 22:17 Chest Pain MDM Narrative MDM Narrative:: Scribe Attestation: Taniya Morelos am scribing for and in the presence of Dr. Denis. Provider Notation: Although this document has been carefully reviewed, there may still be some phonetic and other typographical errors.? These errors are purely grammatical due to imperfections in the software program and should not be construed in any way to? compromise the substance of the patient's medical care during this visit. Patient was cardioverted by paramedics with 100 J synchronized cardioversion due to the fact that the patient was complaining of chest pain and feeling as if she was going to pass out. She did get premedicated with 5 mg of Versed IM. She was cardioverted back to sinus tachycardia. She is supposed to be on metoprolol 25 mg once a day but I do question compliance. She denies any chest pain pressure tightness or heaviness during my evaluation. She was hydrated with a liter normal saline. First troponin came back slightly elevated after the cardioversion of 0.099 and a second troponin 2 hours later was 0.095. Patient will receive metoprolol 50 mg p.o. She must continue the metoprolol at home. Her heart rate is approximately 100 at time of discharge. Patient was notified that she is stable for discharge. She is okay with being discharged home. She understands the importance of taking her metoprolol as prescribed. Follow-up with her doctor. Return to ER as needed or if condition worsens. EKG done upon presentation here in the emergency room at 10:14 PM shows sinus tachycardia at a rate of [address] segment change. During the ER stay the heart rate has gone down to approximately 100 after hydration and time. Patient will receive metoprolol 50 mg p.o. Critical care time spent in this patient excluding other billable procedures was 35 minutes Patient data External records reviewed:: [facility] previous records (Reviewed prior ED records from 09/30/24. Patient was seen for Fever.) and EMS form Clinical information provided by:: patient and EMS Social determinants that could affect healthcare access:: none Patient has the following chronic illnesses:: Cardiac Arrhythmia, Angina, Arthritis, Systemic Lupus Erythematosus, Anemia and Clotting Problems How is presenting disease/condition affected by chronic disease/condition?: exacerbated by Evaluation data The following diagnostics were reviewed and interpreted by me:: lab results, radiology exam(s) and EKG tracing(s) Lab and/or radiology exams considered but not ordered:: None Interpretation Summary: RADIOLOGY Chest X-Ray: FINDINGS: Minimal prominence of left ventricle No pneumonia or pulmonary edema. The osseous structures are intact IMPRESSION: No active disease Medications / Prescriptions Medications or Prescriptions considered but not ordered:: None Medication administrations:: Medication Administration History Discontinued Medications Sodium Chloride (Ns) 1,000 mls @ 999 mls/hr IV .Q1H1M ONE Stop: 10/16/24 23:40 Last Infusion: 10/16/24 23:41 Dose: Infused Documented By: Admin: 10/16/24 22:47 Dose: 999 mls/hr Documented By: CRISTINE Metoprolol Tartrate (Metoprolol Tartrate 25 Mg Tablet) 50 mg PO X1 ONE Stop: 10/17/24 01:27 See above. Consultations Consultation(s) initiated? (list below): No Diagnosis Chest Pain Differential Diagnosis: pneumothorax, stable angina, unstable angina pectoris, atypical chest pain, st elevation myocardial infarction, costochondritis, chest pain and other (SVT with RVR) Most likely diagnosis given after review of the tests above:: None Admission Indicated Admission indicated?: not indicated Admission Request Was there a request for admission?: No Disposition Plan Disposition Plan: Discharge Discharge Attestation Discharge Attestation: The patient and all family members were given an opportunity to ask questions and understood the discharge instructions. Discharge instructions specifically effects, indications for sooner follow up or return to the emergency department, and the expected course of current diagnosis. Patient condition: Stable Critical Care Time Critical Care Time Critical Care Time: Yes Total Critical Care Time (min.): 35 Attestation: Excluding other billable procedures Discharge Plan Plan Patient Disposition: HOME (Self Care) Prescriptions/Referrals Prescriptions/Med Rec: No Action Saphnelo 300 mg/2 mL (150 mg/mL) solution 300 mg IV .every 4 weeks hydroxychloroquine 200 mg tablet 200 mg PO .once daily Patient Comments: TAKE 1 TABLET BY MOUTH EVERY DAY gabapentin 300 mg capsule 300 mg PO TID Patient Comments: TAKE 1 CAPSULE BY MOUTH 3 TIMES A DAY. mycophenolate mofetil 250 mg Capsule 500 mg PO BID 30 Days Qty: 120 0RF metoprolol succinate 25 mg Tablet Extended Release 24 Hr 25 mg PO QDAY 30 Days Qty: 30 0RF prednisone 10 mg tablet 10 mg PO QDAY 30 Days Qty: 30 0RF Artificial Tears (cmc) 1 % drops 2 drp ophthalmic (eye) BID PRN (Reason: dry eye(s)) Qty: 15 0RF cyclobenzaprine 10 mg tablet 10 mg PO BID PRN (Reason: Muscle Spasms) 30 Days Qty: 60 0RF magnesium oxide 400 mg (241.3 mg magnesium) Tablet 400 mg PO QDAY 10 Days Qty: 10 0RF pantoprazole 40 mg Tablet,Delayed Release (Dr/Ec) 40 mg PO BID 30 Days Qty: 60 0RF sucralfate [Carafate] 1 gram tablet 1 g PO QID 15 Days Qty: 60 0RF tramadol 25 mg tablet 25 mg PO BID 7 Days Qty: 14 0RF Referrals: No Primary/Family,Physician [Primary Care Provider] - In 1 week Problem List Clinical Impression: Supraventricular tachycardia, Sjogrens syndrome, Lupus (systemic lupus erythematosus) Patient/Caregiver Discharge Instructions Education Materials: Sj?gren Syndrome, ED Systemic Lupus Erythematosis, Supraventricular Tachycardia Additional Instructions: You must take all of your medication as prescribed including your metoprolol. Follow-up with your doctor. Return to ER as needed or if condition worsens. Print Language: Argentine Stand Alone Forms: [employer] Award Info., Patient Portal Info Letter
--- NOTE | 2024-10-16 22:30 | XR_ITS ---
Examination: AP chest single view TECHNIQUE: AP portable upright chest single view Date and time: October 16, 2024 10:37 PM Comparison September 30, 2024 INDICATIONS: Chest pain and shortness of breath today FINDINGS: Minimal prominence of left ventricle No pneumonia or pulmonary edema. The osseous structures are intact IMPRESSION: No active disease
[2024-10-16 22:34] VITALS: BMI 22.8
[2024-10-16 22:42] LABS: Lactate (Lactic Acid) 2.1 mMol/L (0.4-2.0)
[2024-10-16 22:44] LABS: Basophils # (Auto) 0.0 Thou/mm3 (0.0-0.2); Basophils % (Auto) 0 % (0-2.5); Eosinophils # (Auto) 0.0 Thou/mm3 (0.0-0.5); Eosinophils % (Auto) 0 % (0-10); Hematocrit 39.0 % (36.0-46.0); Hemoglobin 12.2 g/dL (12.0-16.0); Immature Granulocytes Auto 0.07 Thou/mm3 (0.00-0.00); Lymphocytes # (Auto) 0.4 Thou/mm3 (1.0-4.8); Lymphocytes % (Auto) 4 % (10-50); Mean Corpuscular HGB Conc 31.3 g/dl (31.0-37.0); Mean Corpuscular Hemoglobin 26.0 pg (25.0-35.0); Mean Corpuscular Volume 83 fL (80-100); Monocytes # (Auto) 0.3 Thou/mm3 (0.0-0.8); Monocytes % (Auto) 3 % (0-12); Neutrophils # (Auto) 9.6 Thou/mm3 (1.8-7.7); Neutrophils % (Auto) 92 % (37-80); Nucleated Red Blood Cell # 0.00 Thou/mm3 (0.00-0.00); Nucleated Red Blood Cell % 0 /100 WBC (0); Platelet Count 344 Thou/mm3 (140-440); RDW Standard Deviation 43.6 fL (36.4-46.3); Red Blood Count 4.70 Miln/mm3 (4.00-5.20); White Blood Count 10.4 Thou/mm3 (3.6-11.0)
[2024-10-16] MEDS: SODIUM CHLORIDE 0.9% 1000 ML 1,000 ML 999 ML IV (22:47)
[2024-10-16 23:14] LABS: HCG,Qualitative Serum Negative
[2024-10-16 23:25] LABS: Alanine Aminotransferase 60 U/L (10-49); Albumin, Serum 4.5 gm/dL (3.5-5.0); Albumin/Globulin Ratio 1.6 (1.2-2.2); Alkaline Phosphatase 105 U/L (46-116); Anion Gap 10 (7-16); Aspartate Amino Transferase 50 U/L (0-34); BUN/Creatinine Ratio 13 Ratio (12-20); Bilirubin,Total 0.5 mg/dL (0.3-1.2); Blood Urea Nitrogen 10 mg/dL (9-23); Calcium 10.0 mg/dL (8.3-10.6); Calcium (Corrected) 10.0 mg/dL (8.5-10.1); Carbon Dioxide 24.9 mMol/L (20.0-31.0); Chloride 101 mMol/L (98-107); Creatinine (Component) 0.8 mg/dL (0.6-1.3); Estimated Creatinine Clearance 74.6 mL/min (>60); Globulin 2.8 gm/dL (2.3-3.5); Glucose 126 mg/dL (74-106); Osmolality,Calculated 272 (275-295); Potassium 4.1 mMol/L (3.4-5.1); Sodium 136 mMol/L (136-145); Total Protein 7.3 gm/dL (5.7-8.2); eGFR > 60 See Note
[2024-10-16 23:29] LABS: INR 1.1 (0.9-1.3); Partial Thromboplastin Time 26.4 Seconds (22.0-36.0); Prothrombin Time 11.5 Seconds (9.0-12.2); Troponin I 0.099 ng/mL (0.0-0.045)
[2024-10-16 23:30] LABS: Procalcitonin 0.14 ng/ml (0.0-0.49)
[2024-10-16 23:31] VITALS: BP 104/73; PULSE 116; RESP 20; TEMP 37.6
[2024-10-17 01:09] LABS: Troponin I 0.095 ng/mL (0.0-0.045)
[2024-10-17 01:40] LABS: Reflex Lactate? Y
[2024-10-17 01:42] VITALS: BP 102/70; PULSE 112
[2024-10-17] MEDS: METOPROLOL TARTRATE 25 MG TABLET 50 MG PO (01:42)
[2024-10-17 02:00] VITALS: BP 102/70; PULSE 105; RESP 17; TEMP 37; O2SAT 97
--- NOTE | 2024-10-17 02:05 | PC.NURSE ---
Per Dr. Palmer can cancel lactic lab order
--- NOTE | 2024-10-17 02:10 | PC.LAC ---
Pt wheeled to private vehicle tarah provided by [employer].
== END 2024-10-17 02:04 | disposition home or self-care (01) ==
PROVIDERS: Emergency Provider Emergency Medicine
DX: I47.10 Supraventricular tachycardia, unspecified (principal); M35.00 Sjogren syndrome, unspecified; M32.9 Systemic lupus erythematosus, unspecified
CPT/HCPCS: 36415; 71045; 80053; 80307; 81001; 83605; 84145; 84484; 84703; 85025; 85610; 85730; 87040; 87400; 87811; 93005; 99284; J7030; A9270

== ENCOUNTER 2024-11-16 09:13 | Emergency (ER) | payer OTHER, SELFPAY ==
[2024-11-16 10:13] VITALS: BP 136/84; PULSE 95; RESP 16; TEMP 36.9; O2SAT 100
[2024-11-16] MEDS: ONDANSETRON ODT 4 MG TABRAP PO (11:24)
[2024-11-16] MEDS: KETOROLAC INJ 30 MG/ML VIAL 15 MG IM (11:25)
[2024-11-16] MEDS: DEXAMETHASONE SOD PHOS INJ 4 MG/ML VIAL IM (11:25)
[2024-11-16] MEDS: MORPHINE SULF INJ 4 MG/ML VIAL IM (11:26)
--- NOTE | 2024-11-16 11:39 | EDNOTE_ITS ---
<Statement entered by Lyndsey Omer MD - 11/18/24 11:56> As co-signing physician, I was present and available for consult prn. I concur with the plan and care as documented by the midlevel provider. ED Back Injury Pain RME/HPI General Chief Complaint: Back Pain/Injury Stated Complaint: BACK/LE PAIN Time Seen by Provider: 11/16/24 09:29 Arrival date/time: 11/16/24 09:13 RME / HPI RME / HPI Narrative: 24-year-old patient with history of lupus presents emergency department with complaint of back pain radiating to bilateral lower legs X 2 days. Patient states her symptoms started after she ran out of prednisone. Patient states she takes 20 mg of prednisone daily and she has done so for the past 5 years. She states her PCP is out on vacation and hence she was unable to get her prescription. Duration: constant Similar Symptoms Previously: Yes Location: lumbar spine Severity: similar to previous episodes Quality: aching Radiation: left leg and right leg Severity scale (1-10): 10 Relieving factors: other (prednisone) Exacerbating factors: movement Related Data Home Medications ?Medication ?Instructions ?Recorded ?Confirmed anifrolumab-fnia 300 mg/2 mL (150 300 mg IV .every 4 w eeks 10/01/24 10/01/24 mg/mL) intravenous solution (Saphnelo) gabapentin 300 mg capsule 300 mg PO TID 10/01/2410/01 hydroxychloroquine 200 mg tablet 200 mg PO .once daily 10/01/24 10/01/24 Previous Rx's ?Medication ?Instructions ?Recorded carboxymethylcellulose sodium 1 % 2 drp ophthalmic (ey e) BID PRN dry 10/14/24 eye drops (Artificial Tears eye(s) #15 mL (carboxymethylcellulose)) ibuprofen 800 mg tablet 800 mg PO Q8H 10 days #30 ta bs 11/16/24 prednisone 20 mg tablet 20 mg PO QDAY 14 days #14 ta bs 11/16/24 tramadol 50 mg tablet 50 mg PO QDAY 10 days #10 ta bs 11/16/24 Allergies Allergy/AdvReac Type Severity Reaction Status Date / Time No Known Allergies Allergy Verified 11/16/24 09:15 Review of Systems Review of Systems Systems Reviewed: All systems reviewed, normal except as documented Constitutional Constitutional: Reports system reviewed and no additional complaints, except as documented Cardiovascular Cardiovascular: Reports system reviewed and no additional complaints, except as documented Musculoskeletal Musculoskeletal: Reports system reviewed and no additional complaints, except as documented ED Exam General General appearance: Present alert Head Head exam: Present atraumatic and normocephalic ENT ENT exam: Present normal exam and normal oropharynx Neck Neck exam: Present normal inspection and full ROM Respiratory Respiratory exam: Present normal lung sounds bilaterally Cardiovascular Cardiovascular exam: Present regular rate Extremities Exam Extremities exam: Present normal inspection and tenderness Back Exam Back exam: Present normal inspection and tenderness Neurological Exam Neurological exam: Present alert and oriented X3 Course Quality Measures none Orders Category Date Time Status Dexamethasone Inj [Decadron Inj] Med 11/16/24 10:27 Discontinued 4 mg IM X1 ONE Ketorolac Inj [Toradol Inj] Med 11/16/24 10:27 Discontinued 15 mg IM X1 ONE Morphine* Inj Med 11/16/24 10:27 Discontinued 4 mg IM X1 ONE Ondansetron Odt [Zofran Odt] Med 11/16/24 10:29 Discontinued 4 mg PO X1 ONE Vital Signs Vital signs: Vital Signs Temperature 98.4 F 11/16/24 10:13 Pulse Rate 95 11/16/24 10:13 Respiratory Rate 16 11/16/24 10:13 Blood Pressure 136/84 H 11/16/24 10:13 Pulse Oximetry (%) 100 11/16/24 10:13 Oxygen Delivery Method Room Air 11/16/24 10:13 Back Pain / Injury MDM Narrative MDM Narrative:: patient has a hx of LUPUS, her back and bilateral leg pain is as a result of her lupus flare up exacerbated by not taking her prednisone as her prescription has not been filled as her PCP is on vacation. Patient data External records reviewed:: [facility] previous records Clinical information provided by:: patient Social determinants that could affect healthcare access:: none Patient has the following chronic illnesses:: LUPUS How is presenting disease/condition affected by chronic disease/condition?: exacerbated by Evaluation data The following diagnostics were reviewed and interpreted by me:: other (specify) (n/a) Lab and/or radiology exams considered but not ordered:: na Interpretation Summary: na Medications / Prescriptions Medications or Prescriptions considered but not ordered:: medications/ prescription considered and ordered Medication administrations:: Medication Administration History Discontinued Medications Dexamethasone Sodium Phosphate (Dexamethasone Sod Phos Inj 4 Mg/Ml Vial) 4 mg IM X1 ONE; Protocol Stop: 11/16/24 10:28 Last Admin: 11/16/24 11:25 Dose: 4 mg Documented By: NITHIN Ketorolac Tromethamine (Ketorolac Inj 30 Mg/Ml Vial) 15 mg IM X1 ONE Stop: 11/16/24 10:28 Last Admin: 11/16/24 11:25 Dose: 15 mg Documented By: NITHIN Morphine Sulfate (Morphine Sulf Inj 4 Mg/Ml Vial) 4 mg IM X1 ONE Stop: 11/16/24 10:28 Last Admin: 11/16/24 11:26 Dose: 4 mg Documented By: NITHIN Ondansetron HCl (Ondansetron Odt 4 Mg Tabrap) 4 mg PO X1 ONE; Protocol Stop: 11/16/24 10:30 Last Admin: 11/16/24 11:24 Dose: 4 mg Documented By: NITHIN per above Consultations Consultation(s) initiated? (list below): No Diagnosis Differential diagnosis back pain/injury: lumbar radiculopathy, sciatica, strain of lumbar region, pyelonephritis, thoracic back pain and discitis Most likely diagnosis given after review of the tests above:: lupus exacerbation Admission Indicated Admission indicated?: not indicated Admission Request Was there a request for admission?: No Disposition Plan Disposition Plan: Discharge Discharge Attestation Discharge Attestation: The patient and all family members were given an opportunity to ask questions and understood the discharge instructions. Discharge instructions specifically effects, indications for sooner follow up or return to the emergency department, and the expected course of current diagnosis. Patient condition: Stable Discharge Plan Plan Patient Disposition: HOME (Self Care) Prescriptions/Referrals Prescriptions/Med Rec: New prednisone 20 mg tablet 20 mg PO QDAY 14 Days Qty: 14 0RF Taper: Prednisone Taper 20 mg DAILY for 2 Days and 0 Hour 10 mg DAILY for 2 Days and 0 Hour 5 mg DAILY for 7 Days and 0 Hour ibuprofen 800 mg tablet 800 mg PO Q8H 10 Days Qty: 30 0RF tramadol 50 mg tablet 50 mg PO QDAY 10 Days Qty: 10 0RF No Action Saphnelo 300 mg/2 mL (150 mg/mL) solution 300 mg IV .every 4 weeks hydroxychloroquine 200 mg tablet 200 mg PO .once daily Patient Comments: TAKE 1 TABLET BY MOUTH EVERY DAY gabapentin 300 mg capsule 300 mg PO TID Patient Comments: TAKE 1 CAPSULE BY MOUTH 3 TIMES A DAY. Artificial Tears (cmc) 1 % drops 2 drp ophthalmic (eye) BID PRN (Reason: dry eye(s)) Qty: 15 0RF Referrals: Narinder Montgomery MD [Primary Care Provider, Family Practice] - In 1 week Problem List Clinical Impression: Acute exacerbation of chronic low back pain, Exacerbation of systemic lupus Patient/Caregiver Discharge Instructions Education Materials: ED Systemic Lupus Erythematosis Print Language: Cape Verdean Stand Alone Forms: [employer] Award Info., Patient Portal Info Letter
== END 2024-11-16 11:51 | disposition home or self-care (01) ==
PROVIDERS: Emergency Provider Emergency Medicine; PCP Family Medicine
DX: M54.50 Low back pain, unspecified (principal); G89.29 Other chronic pain; M32.9 Systemic lupus erythematosus, unspecified; Z79.52 Long term (current) use of systemic steroids
CPT/HCPCS: 96372; 99283; J1100; J1885; J2270; Q0162

== ENCOUNTER 2024-12-02 09:06 | Emergency (ER) | payer OTHER, SELFPAY ==
[2024-12-02 09:28] VITALS: BP 119/83; PULSE 87; RESP 18; TEMP 36.9; O2SAT 99; BMI 24.4
--- NOTE | 2024-12-02 09:51 | PD.EDADULT ---
ED General RME/HPI General Chief complaint: General Adult/Misc Complain Stated complaint: BODY ACHES, NOT SWEATS Time Seen by Provider: 12/02/24 09:33 Source: patient Arrival date/time: 12/02/24 09:06 24-year-old female with a history of lupus presents to the emergency room with a chief complaint of bodyaches and generalized pain x 1 day Mode of arrival: ambulatory Limitations: no limitations Related Data Home Medications ?Medication ?Instructions ?Recorded ?Confirmed anifrolumab-fnia 300 mg/2 mL (150 300 mg IV .every 4 weeks 10/01/24 10/01/24 mg/mL) intravenous solution (Saphnelo) gabapentin 300 mg capsule 300 mg PO TID 10/01/24 10/01/24 hydroxychloroquine 200 mg tablet 200 mg PO .once daily 10/01/24 10/01/24 Previous Rx's ?Medication ?Instructions ?Recorded carboxymethylcellulose sodium 1 % 2 drp ophthalmic (eye) BID PRN dry 10/14/24 eye drops (Artificial Tears eye(s) #15 mL (carboxymethylcellulose)) ibuprofen 600 mg tablet 600 mg PO Q8H PRN fever or pain 12/02/24 #20 tabs Allergies Allergy/AdvReac Type Severity Reaction Status Date / Time No Known Allergies Allergy Verified 12/02/24 09:08 Review of Systems Review of Systems Systems Reviewed: All systems reviewed, normal except as documented Constitutional Constitutional: Reports system reviewed and no additional complaints, except as documented, Denies fatigue, Denies fever(s), Denies headache(s) and Denies weakness Eyes Eyes: Reports system reviewed and no additional complaints, except as documented, Denies blurry vision and Denies change in vision ENT Ears, Nose, Mouth, and Throat: Reports system reviewed and no additional complaints, except as documented, Denies otalgia, Denies headache(s), Denies nasal congestion, Denies throat swelling and Denies vertigo Cardiovascular Cardiovascular: Reports system reviewed and no additional complaints, except as documented, Denies chest pain, Denies dyspnea and Denies dyspnea on exertion Respiratory Respiratory: Reports system reviewed and no additional complaints, except as documented, Denies chest congestion, Denies cough, Denies dyspnea, Denies dyspnea on exertion and Denies wheezing Gastrointestinal Gastrointestinal: Reports system reviewed and no additional complaints, except as documented, Denies abdominal pain, Denies cramping, Denies nausea and Denies vomiting Genitourinary Genitourinary: Reports system reviewed and no additional complaints, except as documented Musculoskeletal Musculoskeletal: Reports system reviewed and no additional complaints, except as documented and Denies back pain Integumentary/Breasts Skin/Breast: Reports system reviewed and no additional complaints, except as documented and Denies wounds Neurologic Neurologic: Reports system reviewed and no additional complaints, except as documented, Denies confusion, Denies headache(s), Denies lack of coordination, Denies vertigo and Denies weakness Psychiatric Psychiatric: Reports system reviewed and no additional complaints, except as documented, Denies anxiety, Denies confusion, Denies depression, Denies paranoia, Denies suicidal ideation and Denies tactile hallucinations Endocrine Endocrine: Reports system reviewed and no additional complaints, except as documented and Denies fatigue Hematologic/Lymphatic Hematologic/Lymphatic: Reports system reviewed and no additional complaints, except as documented and Denies lymphadenopathy Allergic/Immunologic Allergic/Immunologic: Reports system reviewed and no additional complaints, except as documented, Denies throat swelling, Denies urticaria and Denies wheezing ED Exam General Limitations: Present no limitations General appearance: Present alert and in no apparent distress Head Head exam: Present atraumatic Eye Eye exam: Present normal appearance, PERRL and EOMI ENT ENT exam: Present normal exam, normal oropharynx and mucous membranes moist Neck Neck exam: Present normal inspection, full ROM and trachea midline Chest Chest inspection: Present normal inspection and symmetric chest wall rise Respiratory Respiratory exam: Present normal lung sounds bilaterally; Absent respiratory distress, wheezes, stridor, accessory muscle use or prolonged expiratory phase Cardiovascular Cardiovascular exam: Present regular rate, normal rhythm and normal heart sounds; Absent tachycardia Abdominal Exam Abdominal exam: Present soft and normal bowel sounds; Absent tenderness Extremities Exam Extremities exam: Present normal inspection and full ROM Back Exam Back exam: Present normal inspection and full ROM Neurological Exam Neurological exam: Present alert, oriented X3 and CN II-XII intact Psychiatric Psychiatric exam: Present normal affect and normal mood Skin Skin exam: Present warm, dry, intact and normal color Course Quality Measures none Orders Category Date Time Status Bedside COVID-19 Antigen Test NOW Care 12/02/24 09:31 Active Bedside Influenza A&B Antigen Test NOW Care 12/02/24 09:32 Completed CBC Stat Lab 12/02/24 09:40 Completed CMP [Comprehensive Metabolic Panel] Stat Lab 12/02/24 09:40 Completed Ketorolac Inj [Toradol Inj] Med 12/02/24 09:31 Discontinued 30 mg IM X1 ONE Vital Signs Vital signs: Vital Signs Temperature 98.4 F 12/02/24 09:28 Pulse Rate 87 12/02/24 09:28 Respiratory Rate 18 12/02/24 09:28 Blood Pressure 119/83 12/02/24 09:28 Pulse Oximetry (%) 99 12/02/24 09:28 Oxygen Delivery Method Room Air 12/02/24 09:28 Discharge Plan Plan Patient Disposition: HOME (Self Care) Discharge Disposition comment: Stable Prescriptions/Referrals Prescriptions/Med Rec: New ibuprofen 600 mg tablet 600 mg PO Q8H PRN (Reason: fever or pain) Qty: 20 0RF No Action Saphnelo 300 mg/2 mL (150 mg/mL) solution 300 mg IV .every 4 weeks hydroxychloroquine 200 mg tablet 200 mg PO .once daily Patient Comments: TAKE 1 TABLET BY MOUTH EVERY DAY gabapentin 300 mg capsule 300 mg PO TID Patient Comments: TAKE 1 CAPSULE BY MOUTH 3 TIMES A DAY. Artificial Tears (cmc) 1 % drops 2 drp ophthalmic (eye) BID PRN (Reason: dry eye(s)) Qty: 15 0RF Problem List Clinical Impression: Lupus arthritis Patient/Caregiver Discharge Instructions Education Materials: ED Fibromyalgia Additional Instructions: Please follow-up with your primary care provider in the next 24 to 48 hours Please follow-up with your OB specialist soon as you are able to get an appointment to see them. For any evidence of worsening signs or symptoms return to emergency room immediately Print Language: Uzbek Stand Alone Forms: [employer]izwana Award Info., Work/School Release, Patient Portal Info Letter PA/CORPORATE COMMUNICATIONS SPECIALIST Supervising Physician PA/CORPORATE COMMUNICATIONS SPECIALIST Supervising Physician: Dr. Zeng MDM Narrative MDM hospital course (for use when minimal MDM required): 24-year-old female with a history of lupus presents to the emergency room with a chief complaint of bodyaches and generalized pain x 1 day Patient is hemodynamically stable and in no apparent distress Physical examination shows clear bilateral lung sounds there is no wheezing or any abnormal breath. Patient has a soft nontender abdomen. Patient states she has been having some generalized bodyaches and believes this could be due to her arthritis related to her lupus. CBC CMP were negative for any acute findings. Toradol shot was given to the patient with significant improvement of her symptoms Patient was educated to follow-up with her lupus doctor and her primary care provider Patient was discharged and educated to follow-up with primary care provider in the next 24 to 48 hours and return to the emergency room for any evidence of worsening signs or symptoms Clinical Information Provided by: patient Medical Records reviewed None Meds/Rx considered, not ordered None Labs/Rad/Tests considered, not ordered None Chronic Illness/Social Conditions which may negatively complicate care or outcome(s)-explain: None or not applicable EKG EKG not done Labs Labs: none Imaging Imaging interpretation: none Medication Administration(s) Medication Administration History Discontinued Medications Ketorolac Tromethamine (Ketorolac Inj 60 Mg/2 Ml Vial) 30 mg IM X1 ONE Stop: 12/02/24 09:32 Last Admin: 12/02/24 10:03 Dose: 30 mg Documented By: Diagnosis Differential Diagnosis ED Complaint MDM: Lupus arthritis Diagnoses ruled out and/or further discussions: COVID-19/influenza
[2024-12-02 09:52] LABS: Basophils # (Auto) 0.0 Thou/mm3 (0.0-0.2); Basophils % (Auto) 0 % (0-2.5); Eosinophils # (Auto) 0.0 Thou/mm3 (0.0-0.5); Eosinophils % (Auto) 0 % (0-10); Hematocrit 37.6 % (36.0-46.0); Hemoglobin 11.5 g/dL (12.0-16.0); Immature Granulocytes Auto 0.08 Thou/mm3 (0.00-0.00); Lymphocytes # (Auto) 0.5 Thou/mm3 (1.0-4.8); Lymphocytes % (Auto) 5 % (10-50); Mean Corpuscular HGB Conc 30.6 g/dl (31.0-37.0); Mean Corpuscular Hemoglobin 24.4 pg (25.0-35.0); Mean Corpuscular Volume 80 fL (80-100); Monocytes # (Auto) 0.1 Thou/mm3 (0.0-0.8); Monocytes % (Auto) 1 % (0-12); Neutrophils # (Auto) 9.5 Thou/mm3 (1.8-7.7); Neutrophils % (Auto) 93 % (37-80); Nucleated Red Blood Cell # 0.00 Thou/mm3 (0.00-0.00); Nucleated Red Blood Cell % 0 /100 WBC (0); Platelet Count 359 Thou/mm3 (140-440); RDW Standard Deviation 42.5 fL (36.4-46.3); Red Blood Count 4.71 Miln/mm3 (4.00-5.20); White Blood Count 10.1 Thou/mm3 (3.6-11.0)
[2024-12-02] MEDS: KETOROLAC INJ 60 MG/2 ML VIAL 30 MG IM (10:03)
[2024-12-02 10:14] LABS: Alanine Aminotransferase 18 U/L (10-49); Albumin, Serum 4.7 gm/dL (3.5-5.0); Albumin/Globulin Ratio 1.5 (1.2-2.2); Alkaline Phosphatase 73 U/L (46-116); Anion Gap 8 (7-16); Aspartate Amino Transferase 20 U/L (0-34); BUN/Creatinine Ratio 17 Ratio (12-20); Bilirubin,Total 0.3 mg/dL (0.3-1.2); Blood Urea Nitrogen 10 mg/dL (9-23); Calcium 9.9 mg/dL (8.3-10.6); Calcium (Corrected) 9.9 mg/dL (8.5-10.1); Carbon Dioxide 26.6 mMol/L (20.0-31.0); Chloride 105 mMol/L (98-107); Creatinine (Component) 0.6 mg/dL (0.6-1.3); Estimated Creatinine Clearance 110.2 mL/min (>60); Globulin 3.2 gm/dL (2.3-3.5); Glucose 102 mg/dL (74-106); Osmolality,Calculated 278 (275-295); Potassium 3.9 mMol/L (3.4-5.1); Sodium 140 mMol/L (136-145); Total Protein 7.9 gm/dL (5.7-8.2); eGFR > 60 See Note
== END 2024-12-02 11:02 | disposition home or self-care (01) ==
LOC: SERX 11:05
PROVIDERS: Nurse Practitioner Family; Emergency Provider Family Medicine
DX: M13.89 Other specified arthritis, multiple sites (principal); Z11.52 Encounter for screening for COVID-19
CPT/HCPCS: 36415; 80053; 85025; 87400; 87811; 96372; 99283; J1885

== ENCOUNTER 2025-01-04 03:09 | Emergency (ER) | payer MEDICAID, SELFPAY ==
[2025-01-04 03:10] VITALS: BMI 22.4
[2025-01-04 03:33] VITALS: BP 117/84; PULSE 109; RESP 17; TEMP 37.4; O2SAT 98
--- NOTE | 2025-01-04 03:39 | XR_ITS ---
Examination: CT lumbar spine, without contrast. 2-D sagittal reconstructions. 2-D coronal reconstructions. 3-D reconstructions. Date and time of exam: January 04, 2025, 0512 hours INDICATIONS: Onset low back pain right flank pain beginning 2 days ago, lupus diagnosis CTDI: vol (mGy): 13.85 DLP: (mGycm): 483 Technique: Multiple 1.25 mm axial sections of the lumbar spine without intravenous contrast have been obtained. 2-D sagittal and coronal reconstructions have been obtained. 3-D reconstructions have been obtained. Low dose protocols were performed. One or more of the following dose reduction techniques were used; automated exposure control, adjustment of the mA and/or KV according to patient size, use of iterative reconstruction technique. Findings: Normal bone density. No lumbar vertebral body fracture. Satisfactory alignment posterior spinous processes. No significant lumbar disc narrowing. Lumbar pedicles and laminae appear intact Bilateral renal calculi 1 to 3 mm Axial images demonstrate no focal lumbar disc protrusion IMPRESSION: No lumbar fracture. No focal lumbar disc protrusion. Bilateral nonobstructing renal calculi, consider renal sonography follow-up
--- NOTE | 2025-01-04 03:39 | PD.EDRME ---
Rapid Medical Screening Exam RME Arrival date/time: 01/04/25 03:09 This is a case of 24-year-old female with history of arthritis and lupus came in in the emergency room due to lupus flareup patient also have chronic low back pain today patient is asking dexamethasone or steroid no shortness of breath no chest pain no palpitation Chief Complaint: General Adult/Misc Complain Time Seen by Provider: 01/04/25 03:30 Vital signs: Vital Signs Temperature 99.3 F 01/04/25 03:33 Pulse Rate 109 H 01/04/25 03:33 Respiratory Rate 17 01/04/25 03:33 Blood Pressure 117/84 01/04/25 03:33 Pulse Oximetry (%) 98 01/04/25 03:33 Oxygen Delivery Method Room Air 01/04/25 03:33 Exam: Abdomen soft no guarding no rebound no rigidity back exam mild to moderate tenderness L1 andL5 no paraspinal no paravertebral tenderness Clinical Impression: Low back pain Lupus flareup
[2025-01-04 04:02] LABS: Sed Rate (ESR) 42 mm/hr (0-20)
[2025-01-04 04:04] LABS: Basophils # (Auto) 0.0 Thou/mm3 (0.0-0.2); Basophils % (Auto) 0 % (0-2.5); Eosinophils # (Auto) 0.0 Thou/mm3 (0.0-0.5); Eosinophils % (Auto) 0 % (0-10); Hematocrit 35.1 % (36.0-46.0); Hemoglobin 10.9 g/dL (12.0-16.0); Immature Granulocytes Auto 0.06 Thou/mm3 (0.00-0.00); Lymphocytes # (Auto) 1.0 Thou/mm3 (1.0-4.8); Lymphocytes % (Auto) 13 % (10-50); Mean Corpuscular HGB Conc 31.1 g/dl (31.0-37.0); Mean Corpuscular Hemoglobin 23.6 pg (25.0-35.0); Mean Corpuscular Volume 76 fL (80-100); Monocytes # (Auto) 0.4 Thou/mm3 (0.0-0.8); Monocytes % (Auto) 6 % (0-12); Neutrophils # (Auto) 6.0 Thou/mm3 (1.8-7.7); Neutrophils % (Auto) 80 % (37-80); Nucleated Red Blood Cell # 0.00 Thou/mm3 (0.00-0.00); Nucleated Red Blood Cell % 0 /100 WBC (0); Platelet Count 319 Thou/mm3 (140-440); RDW Standard Deviation 43.9 fL (36.4-46.3); Red Blood Count 4.62 Miln/mm3 (4.00-5.20); White Blood Count 7.5 Thou/mm3 (3.6-11.0)
[2025-01-04] MEDS: DEXAMETHASONE SOD PHOS INJ 10 MG/ML VIAL PO (04:13)
[2025-01-04] MEDS: HYDROcodone/APAP 5/325 TABLET 1 TAB PO (04:13)
[2025-01-04 04:23] LABS: Alanine Aminotransferase 14 U/L (10-49); Albumin, Serum 4.3 gm/dL (3.5-5.0); Albumin/Globulin Ratio 1.8 (1.2-2.2); Alkaline Phosphatase 64 U/L (46-116); Anion Gap 11 (7-16); Aspartate Amino Transferase 18 U/L (0-34); BUN/Creatinine Ratio 17 Ratio (12-20); Bilirubin,Total 0.3 mg/dL (0.3-1.2); Blood Urea Nitrogen 12 mg/dL (9-23); Calcium 8.7 mg/dL (8.3-10.6); Calcium (Corrected) 8.7 mg/dL (8.5-10.1); Carbon Dioxide 24.2 mMol/L (20.0-31.0); Chloride 106 mMol/L (98-107); Creatinine (Component) 0.7 mg/dL (0.6-1.3); Estimated Creatinine Clearance 85.2 mL/min (>60); Globulin 2.4 gm/dL (2.3-3.5); Glucose 115 mg/dL (74-106); Osmolality,Calculated 281 (275-295); Potassium 3.5 mMol/L (3.4-5.1); Sodium 141 mMol/L (136-145); Total Protein 6.7 gm/dL (5.7-8.2); eGFR > 60 See Note
[2025-01-04 04:24] LABS: Collection Type, Urine Voided
[2025-01-04 04:30] LABS: Bilirubin,Urine Negative (Negative); Blood,Urine Negative (Negative); Clarity,Urine Clear (Clear/Hazy); Color,Urine Lt-Yellow (Lt Yel-Yel); Glucose, Urine Negative (Negative); Ketones,Urine Negative (Negative); Leukocyte Esterase,Urine Positive (Negative); Nitrite,Urine Negative (Negative); PH,Urine 6.5 (5.0-7.0); Protein,Urine Negative (Neg - Trace); RBC,Urine 5 /hpf (0-3); Specific Gravity,Urine 1.026 (1.001-1.035); Squamous Epithelial Cell,Urine 4 /hpf (0-5); Urobilinogen,Urine Negative mg/dL (0.0-1.0); WBC,Urine 2 /hpf (0-5)
[2025-01-04 04:36] LABS: HCG,Qualitative Serum Negative
--- NOTE | 2025-01-04 05:43 | PRELIM_ITS ---
CT SCAN OF THE LUMBAR SPINE. January 04, 2025 0512 hours Clinical History: back pain Technique: Axial sections with sagittal and coronal reformats through the lumbar spine are obtained without intravenous contrast. Radiation Dose: Total exam DLP 483 mGy/cm. Comparison: No prior study is available for comparison at the time of interpretation Findings: The alignment of the lumbosacral spine is maintained. The vertebral bodies and posterior elements are unremarkable. There is no fracture or subluxation. No destructive bony lesion. The pre and paravertebral soft tissues are unremarkable. The sacroiliac joints are unremarkable to the extent visualized. There is a 3 mm non-obstructing right renal calculus. There is a 3.4 x 3 cm cyst in the right ovary. T12-L1: The disc height is within normal limits. There is no significant disc herniation, central canal or neural foraminal narrowing. The facet joints and ligamentum flavum are within normal limits. L1-L2: The disc height is within normal limits. There is no disc herniation, central canal or neural foraminal narrowing. The facet joints and ligamentum flavum are within normal limits. L2-L3: The disc height is within normal limits. There is no disc herniation, central canal or neural foraminal narrowing. The facet joints and ligamentum flavum are within normal limits. L3-L4: The disc height is within normal limits. There is no disc herniation, central canal or neural foraminal narrowing. The facet joints and ligamentum flavum are within normal limits. L4-L5: The disc height is within normal limits. Small posterior disc bulge is noted. There is no significant central canal or neural foraminal narrowing. The facet joints and ligamentum flavum are within normal limits. L5-S1: The disc height is within normal limits. There is no disc herniation, central canal or neural foraminal narrowing. The facet joints and ligamentum flavum are within normal limits. IMPRESSION: No significant central canal or neural foraminal narrowing at any level. Other findings as described above. Report Electronically Signed By: Guerda Dave 01/04/2025 5:42:39 AM [EST]
--- NOTE | 2025-01-04 06:39 | EDNOTE_ITS ---
<Statement entered by Lyndsey Omer MD - 01/04/25 16:27> I, Lyndsey Omer MD, have reviewed the history, exam, and assessment of the patient. I have evaluated the patient independently and agree with the plan of care documented by [ ]. All diagnostic studies were reviewed and discussed. I confirm the diagnosis as documented by the Resident. I was present during the Medical Decision Making for this patient. The patient's plan of care was created between myself and the Resident and consistent with our discussion of the patient's case. ED Back Injury Pain RME/HPI General Chief Complaint: General Adult/Misc Complain Stated Complaint: BODY ACHES LUPUS FLAIR UP Time Seen by Provider: 01/04/25 03:30 Arrival date/time: 01/04/25 03:09 RME / HPI RME / HPI Narrative: 01/04/25 03:09 Patient is a 24 year old female with past medical history of Lupus, Sjrogen's syndrome, and history of SVT who presented to the emergency room with chief complain of generalized body aches that started 2 days ago after. Patient stated body aches are mild and ran out of steriod tablets recently. Patient tried to reach out to rheumatalogist but is out of town currently. Patient denied any recent sick contacts or fevers/ chills at home. Patient denied any falls or recent trauma. Patient complained of mild right sided flank pain. Related Data Home Medications ?Medication ?Instructions ?Recorded ?Confirmed anifrolumab-fnia 300 mg/2 mL (150 300 mg IV .every 4 w eeks 10/01/24 10/01/24 mg/mL) intravenous solution (Saphnelo) gabapentin 300 mg capsule 300 mg PO TID 10/01/2410/01 hydroxychloroquine 200 mg tablet 200 mg PO .once daily 10/01/24 10/01/24 Previous Rx's ?Medication ?Instructions ?Recorded carboxymethylcellulose sodium 1 % 2 drp ophthalmic (ey e) BID PRN dry 10/14/24 eye drops (Artificial Tears eye(s) #15 mL (carboxymethylcellulose)) ibuprofen 600 mg tablet 600 mg PO Q8H PRN fever or p ain 12/02/24 #20 tabs Allergies Allergy/AdvReac Type Severity Reaction Status Date / Time No Known Allergies Allergy Verified 01/04/25 03:15 Review of Systems Review of Systems Narrative Review of Systems: General appearance: Generalized body aches, NO weight change, NO fatigue, NO weakness, NO fever, NO chills, NO night sweats, No cough Skin: NO rash, NO itching, NO sores, NO moles HEENT: NO Trauma, NO nausea, NO vomiting, NO visual changes, NO blurry vision, NO double vision, NO tinnitus, NO vertigo, NO ear discharge, NO rhinorrhea, NO stuffiness, NO sneezing, NO allergy, NO epistaxis. NO Hoarseness, NO sore throat, NO swollen neck. Cardiac: NO Palpitations, NO dyspnea on exertion, NO orthopnea, NO paroxysmal nocturnal dyspnea, NO edema Respiratory: NO Shortness of Breath, NO Wheezing, NO Cough, NO Sputum, NO hemoptysis GI:NO appetite, NO nausea, NO vomiting, NO dysphagia, NO changes in bowel frequency, NO stool color, NO diarrhea, NO constipation, NO hemetemesis, NO hemorrhoids, NO melena, NO hematechezia, NO abdominal pain, NO jaundice Renal: Right Flank pain, NO frequency, NO hesitancy, NO urgency, NO hematuria, NO nocturia, NO incontinence MSK: NO muscle weakness, NO gout, NO arthritis, NO muscle stiffness Neuro: NO headaches, NO tremors, NO weakness, NO paralysis, NO seizures, NO loss of consciousness, NO numbness. Hem: NO anemia, NO easy bruising/bleeding, NO petechiae, NO purpura Endo: NO heat/cold intolerance, NO excessive sweating, NO polyuria, NO polydipsia, NO polyphagia, NO thyroid problems, NO diabetes Pysch: NO mood, NO anxiety, NO depression ED Exam Narrative Physical exam: General Appearance: Alert & Oriented X3, well-nourished female who is lying in bed in NO acute distress, NORASHES on Flank HEENT: Skull symmetrical and atraumatic. Conjunctivae pink and moist. Pupils equal, round, reactive to light and accommodation (PERRL). External ear without lesion or discharge. Straight, nares patient, mucosa pink, no discharge. No thyroid nodule appreciated. No cervical lymphadenopathy. Cardio: Normal Rate and Rhythm with S1 and S2 heart sounds. No murmurs or extra heart sounds auscultated. No bruits on carotid auscultation. No peripheral edema or cyanosis. Lungs: Symmetric with good expansion. Chest and back non-tender. Breath sounds vesicular without crackles, wheezing or rhonchi Abdomen: Non-tender, Non-distended, Normal Reactive Bowel Sounds, MILD right sided flank pain Neuro: Alert, cooperative, oriented to person, place, and time. Speech clear. CN grossly intact. Upper motor strength 5/5 and Lower motor strength 5/5. Sensation intact. Course Quality Measures none Orders Category Date Time Status CT lumbar spine wo con Stat Exams 01/04/25 03:39 Taken CBC Stat Lab 01/04/25 03:47 Completed CMP [Comprehensive Metabolic Panel] Stat Lab 01/04/25 03:47 Completed HCG,Qualitative Serum Stat Lab 01/04/25 03:47 Completed Sed Rate (ESR) Stat Lab 01/04/25 03:47 Completed Urinalysis Stat Lab 01/04/25 04:00 Completed Dexamethasone Inj [Decadron Inj] Med 01/04/25 03:31 Discontinued 10 mg PO X1 ONE HYDROcodone*/APAP 5/325 [[place] 5/325] Med 01/04/25 03:31 Discontinued 1 tab PO X1 ONE Vital Signs Vital signs: Vital Signs Temperature 99.3 F 01/04/25 03:33 Pulse Rate 109 H 01/04/25 03:33 Respiratory Rate 17 01/04/25 03:33 Blood Pressure 117/84 01/04/25 03:33 Pulse Oximetry (%) 98 01/04/25 03:33 Oxygen Delivery Method Room Air 01/04/25 03:33 Back Pain / Injury Patient data External records reviewed:: [facility] previous records Clinical information provided by:: patient Social determinants that could affect healthcare access:: housing Patient has the following chronic illnesses:: Lupus, Sjoren's Syndrome, and History of SVT How is presenting disease/condition affected by chronic disease/condition?: caused by Evaluation data The following diagnostics were reviewed and interpreted by me:: lab results, radiology exam(s) and EKG tracing(s) Lab and/or radiology exams considered but not ordered:: None Interpretation Summary: Lumbar Spine: No significant central canal or neural foraminal narrowing at any level. Other findings as described above. CT Abdomen (10/2024): 3 mm nonobstructing right renal calculus, no hydronephrosis or ureteral calculi Absent appendix No bowel obstruction diverticulitis or free air NO Leukocytosis Anemia: Hgb 10.9 and Hct 35.1 Negative HCG UA: Negative only Esterase NO Bacteria. Medications / Prescriptions Medications or Prescriptions considered but not ordered:: None Medication administrations:: Medication Administration History Discontinued Medications Hydrocodone Bitart/Acetaminophen (Hydrocodone/Apap 5/325 Tablet) 1 tab PO X1 ONE Stop: 01/04/25 03:32 Last Admin: 01/04/25 04:13 Dose: 1 tab Documented By: MAINOR Dexamethasone Sodium Phosphate (Dexamethasone Sod Phos Inj 10 Mg/Ml Vial) 10 mg PO X1 ONE Stop: 01/04/25 03:32 Last Admin: 01/04/25 04:13 Dose: 10 mg Documented By: MAINOR Comments: PO See above Consultations Consultation(s) initiated? (list below): No Diagnosis Differential diagnosis back pain/injury: strain of lumbar region, pyelonephritis and other (Lupus Flare ) Most likely diagnosis given after review of the tests above:: Lupus Flare Admission Indicated Admission indicated?: not indicated Admission Request Was there a request for admission?: No Disposition Plan Disposition Plan: Discharge Discharge Attestation Discharge Attestation: The patient and all family members were given an opportunity to ask questions and understood the discharge instructions. Discharge instructions specifically effects, indications for sooner follow up or return to the emergency department, and the expected course of current diagnosis. Patient condition: Stable Discharge Plan Plan Patient Disposition: HOME (Self Care) Patient condition on transfer: Stable Health Concerns: Instructions: -Please take tylenol for any generalized pain over the counter. -You have been given Dexamethasone 10 mg IV once time which has side effects for 2-3 days. -Please follow up with your applications instructor. Prescriptions/Referrals Prescriptions/Med Rec: Continued ibuprofen 600 mg tablet 600 mg PO Q8H PRN (Reason: fever or pain) Qty: 20 0RF Saphnelo 300 mg/2 mL (150 mg/mL) solution 300 mg IV .every 4 weeks hydroxychloroquine 200 mg tablet 200 mg PO .once daily Patient Comments: TAKE 1 TABLET BY MOUTH EVERY DAY gabapentin 300 mg capsule 300 mg PO TID Patient Comments: TAKE 1 CAPSULE BY MOUTH 3 TIMES A DAY. Artificial Tears (cmc) 1 % drops 2 drp ophthalmic (eye) BID PRN (Reason: dry eye(s)) Qty: 15 0RF Referrals: No Primary/Family,Physician [Primary Care Provider] - In 1 week Problem List Clinical Impression: Lupus (systemic lupus erythematosus) Patient/Caregiver Discharge Instructions Education Materials: ED Systemic Lupus Erythematosis Print Language: Serbian Stand Alone Forms: [employer] Award Info., Patient Portal Info Letter
[2025-01-04 06:52] VITALS: BP 112/72; PULSE 76; RESP 16; TEMP 36.7; O2SAT 98
== END 2025-01-04 06:53 | disposition home or self-care (01) ==
PROVIDERS: Nurse Practitioner Family; Emergency Provider Emergency Medicine
DX: M32.9 Systemic lupus erythematosus, unspecified (principal); D64.9 Anemia, unspecified; N20.0 Calculus of kidney
CPT/HCPCS: 36415; 72131; 80053; 81001; 84703; 85025; 85652; 99283; J1100; A9270

== ENCOUNTER 2025-01-06 19:42 | Emergency (ER) | payer MEDICAID, SELFPAY ==
[2025-01-06 19:44] VITALS: BMI 22.4
--- NOTE | 2025-01-06 19:46 | EKG_ITS ---
[facility] Test Date: 2025-01-06 Pat Name: MEHUL ZAMAN Department: Room: - Gender: Female Orthotist Or Prosthetist: : 2000 Requested By: ED Temporary Provider Order Number: [id number] Reading MD: ED Temporary Provider Measurements Intervals [place] Rate: 124 P: 49 DC: 140 QRS: 100 QRSD: 79 T: 34 QT: 292 QTc: 421 Interpretive Statements SINUS TACHYCARDIA WITH FREQUENT VENTRICULAR PREMATURE COMPLEXES INDETERMINATE AXIS POSSIBLE RIGHT VENTRICULAR CONDUCTION DELAY [RSR (QR) IN V1/V2] ABNORMAL RHYTHM ECG Compared to ECG 10/14/2024 14:34:15 T-wave abnormality no longer present Possible ischemia no longer present /store/S0/[id number]/ecg/[id number].pdf
[2025-01-06 19:56] VITALS: BP 112/78; PULSE 122; RESP 18; TEMP 37.1; O2SAT 98
--- NOTE | 2025-01-06 19:56 | PD.EDRME ---
Rapid Medical Screening Exam RME Arrival date/time: 01/06/25 19:42 Chief Complaint: Arrhythmia/Palpitations Vital signs: Vital Signs Temperature 98.7 F 01/06/25 19:56 Pulse Rate 122 H 01/06/25 19:56 Respiratory Rate 18 01/06/25 19:56 Blood Pressure 112/78 01/06/25 19:56 Pulse Oximetry (%) 98 01/06/25 19:56 Oxygen Delivery Method Room Air 01/06/25 19:56 RME Narrative: Generalized bodyaches, heart palpitations started today. Hx lupus Exam: No acute distress Clinical Impression: Generalized myalgias, palpitations
--- NOTE | 2025-01-06 19:57 | XR_ITS ---
EXAMINATION: AP chest single view TECHNIQUE: Upright AP chest single view Date and time: January 06, 2025, 2017 hours, comparison October 16, 2024 INDICATIONS: Generalized body aches cardiac palpitations beginning today. FINDINGS: Mild enlargement left ventricle. Mild vascular congestion. No pneumonia or pulmonary edema IMPRESSION: Mild enlargement left ventricle Mild vascular congestion
[2025-01-06 20:26] LABS: Basophils # (Auto) 0.0 Thou/mm3 (0.0-0.2); Basophils % (Auto) 0 % (0-2.5); Eosinophils # (Auto) 0.0 Thou/mm3 (0.0-0.5); Eosinophils % (Auto) 0 % (0-10); Hematocrit 35.8 % (36.0-46.0); Hemoglobin 11.1 g/dL (12.0-16.0); Immature Granulocytes Auto 0.05 Thou/mm3 (0.00-0.00); Lymphocytes # (Auto) 0.5 Thou/mm3 (1.0-4.8); Lymphocytes % (Auto) 6 % (10-50); Mean Corpuscular HGB Conc 31.0 g/dl (31.0-37.0); Mean Corpuscular Hemoglobin 23.4 pg (25.0-35.0); Mean Corpuscular Volume 76 fL (80-100); Monocytes # (Auto) 0.3 Thou/mm3 (0.0-0.8); Monocytes % (Auto) 4 % (0-12); Neutrophils # (Auto) 8.0 Thou/mm3 (1.8-7.7); Neutrophils % (Auto) 90 % (37-80); Nucleated Red Blood Cell # 0.00 Thou/mm3 (0.00-0.00); Nucleated Red Blood Cell % 0 /100 WBC (0); Platelet Count 321 Thou/mm3 (140-440); RDW Standard Deviation 43.3 fL (36.4-46.3); Red Blood Count 4.74 Miln/mm3 (4.00-5.20); White Blood Count 8.9 Thou/mm3 (3.6-11.0)
[2025-01-06 20:47] LABS: Alanine Aminotransferase 15 U/L (10-49); Albumin, Serum 4.2 gm/dL (3.5-5.0); Albumin/Globulin Ratio 1.6 (1.2-2.2); Alkaline Phosphatase 61 U/L (46-116); Anion Gap 9 (7-16); Aspartate Amino Transferase 17 U/L (0-34); BUN/Creatinine Ratio 14 Ratio (12-20); Bilirubin,Total 0.4 mg/dL (0.3-1.2); Blood Urea Nitrogen 11 mg/dL (9-23); C-Reactive Protein 1.9 mg/dL (0.0-0.9); Calcium 9.0 mg/dL (8.3-10.6); Calcium (Corrected) 9.0 mg/dL (8.5-10.1); Carbon Dioxide 25.7 mMol/L (20.0-31.0); Chloride 104 mMol/L (98-107); Creatinine (Component) 0.8 mg/dL (0.6-1.3); Estimated Creatinine Clearance 74.6 mL/min (>60); Free T4 (Free Thyroxine) 1.26 ng/dL (0.89-1.76); Globulin 2.7 gm/dL (2.3-3.5); Glucose 102 mg/dL (74-106); Magnesium 1.7 mg/dL (1.6-2.6); Osmolality,Calculated 276 (275-295); Potassium 3.3 mMol/L (3.4-5.1); Sodium 139 mMol/L (136-145); Thyroid Stimulating Hormone 6.07 uIU/mL (0.55-4.78); Total Protein 6.9 gm/dL (5.7-8.2); Troponin I < 0.020 ng/mL (0.0-0.045); eGFR > 60 See Note
[2025-01-06 20:57] LABS: Sed Rate (ESR) 50 mm/hr (0-20)
[2025-01-06 21:07] LABS: HCG,Qualitative Serum Negative
[2025-01-06] MEDS: HYDROcodone/APAP 7.5/325 TABLET 1 TAB PO (22:15)
[2025-01-06] MEDS: IBUPROFEN TAB 600 MG TABLET PO (22:16)
[2025-01-06 23:52] VITALS: BP 97/65; PULSE 104; RESP 16; TEMP 37.2; O2SAT 95
[2025-01-07 02:22] VITALS: BP 103/74; PULSE 108; RESP 18; TEMP 37.2; O2SAT 100
--- NOTE | 2025-01-07 03:11 | PD.EDARRY ---
ED Arrhythmia Palp. RME/HPI General Chief Complaint: Arrhythmia/Palpitations Stated Complaint: HEART BEATING FAST, HX SVT, BODY ACHES Arrival date/time: 01/06/25 19:42 RME / HPI RME / HPI narrative: Generalized bodyaches, heart palpitations started today. Hx lupus ------- Dr. Palmer?s Main ED Evaluation: 24yo female with a history of SLE presents to the ED for complaints of generalized body aches and palpitations x 3 days. Patient states she ran out of her Prednisone 20mg 3 days ago and was seen here 3 days ago for the same complaint, but endorses her pharmacy did not receive the medication refill. Patient was unable to see her light industrial due to them being out of the office for the next two weeks, so she came in for re-evaluation. Patient denies any other associated symptoms. NKA. Related Data Home Medications ?Medication ?Instructions ?Recorded ?Confirmed anifrolumab-fnia 300 mg/2 mL (150 300 mg IV .every 4 weeks 10/01/24 10/01/24 mg/mL) intravenous solution (Saphnelo) gabapentin 300 mg capsule 300 mg PO TID 10/01/24 10/01/24 hydroxychloroquine 200 mg tablet 200 mg PO .once daily 10/01/24 10/01/24 Previous Rx's ?Medication ?Instructions ?Recorded carboxymethylcellulose sodium 1 % 2 drp ophthalmic (eye) BID PRN dry 10/14/24 eye drops (Artificial Tears eye(s) #15 mL (carboxymethylcellulose)) ibuprofen 600 mg tablet 600 mg PO Q8H PRN fever or pain 12/02/24 #20 tabs prednisone 20 mg tablet 20 mg PO QDAY #30 tabs 01/07/25 Allergies Allergy/AdvReac Type Severity Reaction Status Date / Time No Known Allergies Allergy Verified 01/06/25 19:43 Review of Systems Review of Systems Systems Reviewed: All systems reviewed, normal except as documented Past Medical History Past Medical History NEUROLOGIC: Negative Neurological Disorders or Seizures CARDIAC: Positive Cardiac Arrhythmia and Angina; Negative Congestive Heart Failure RESPIRATORY: Negative Chronic Obstructive Pulmonary Disease (COPD), Asthma, Tuberculosis or Sleep Apnea GASTROINTESTINAL: Negative Gastrointestinal Disorders or Hepatitis GENITOURINARY: Negative Genitourinary Disorders or Renal Disease REPRODUCTIVE: Positive Previous Pregnancies MUSCULOSKELETAL: Positive Musculoskeletal Disorders and Arthritis ENDOCRINE: Positive Endocrine Disorders (lupus and sjogren) and Systemic Lupus Erythematosus; Negative Diabetes Mellitus Type 1 or Diabetes Mellitus Type 2 HEMATOLOGIC: Positive Blood Disorders, Anemia and Clotting Problems; Negative Sickle Cell Disease OTHER HISTORY: Positive Hospitalization, Autoimmune Disease and Chicken Pox; Negative Shingles, Falls, Blood Transfusions, Blood Transfusion Reaction, Anesthesia Reactions, Chemotherapy, Radiation Therapy, MRSA, Measles, Mumps or Cancer Family History FAMILY HISTORY: Negative Family Neurologic Problems, Family Psychiatric Problems, Family Respiratory Disorders, Family Cardiac Disorders, Family Gastrointestinal Problems, Family Cancer, Family Surgery or Family Anesthesia Reaction Surgical History SURGICAL: Positive Section Social History SMOKING STATUS: Never smoker SUBSTANCE USE: does not use ED Exam Narrative Physical exam: Generally patient is alert and chronically ill-appearing, heart regular rate and rhythm, lungs clear to auscultation equal bilaterally, abdomen soft bowel sounds present also nontender, extremities show no edema, Barbi Coma Scale of 15 Course Course Course Narrative: CXR is ordered for determining the etiology of palpitations. Quality Measures none Orders Category Date Time Status EKG (ED ONLY) *Do not use* NOW Care 01/06/25 19:46 Completed CXR [XR chest 1V] Stat Exams 01/06/25 19:57 Completed EKG (ED Only) Stat Exams 01/06/25 19:46 Draft CBC Stat Lab 01/06/25 20:10 Completed CMP [Comprehensive Metabolic Panel] Stat Lab 01/06/25 20:10 Completed CRP [C-Reactive Protein] Stat Lab 01/06/25 20:10 Completed ESR [Sed Rate (ESR)] Stat Lab 01/06/25 20:10 Completed Free T4 (Free Thyroxine) Stat Lab 01/06/25 20:10 Completed HCG,Qualitative Serum Stat Lab 01/06/25 20:10 Completed Magnesium Stat Lab 01/06/25 20:10 Completed TSH [Thyroid Stimulating Hormone] Stat Lab 01/06/25 20:10 Completed Troponin I Stat Lab 01/06/25 20:10 Completed HYDROcodone*/APAP 7.5/325 [[place] 7.5/325] Med 01/06/25 19:59 Discontinued 1 tab PO X1 ONE Ibuprofen Tab [Motrin Tab] Med 01/06/25 19:59 Discontinued 600 mg PO X1 ONE Vital Signs Vital signs: Vital Signs Temperature 98.7 F 01/06/25 19:56 Pulse Rate 122 H 01/06/25 19:56 Respiratory Rate 18 01/06/25 19:56 Blood Pressure 112/78 01/06/25 19:56 Pulse Oximetry (%) 98 01/06/25 19:56 Oxygen Delivery Method Room Air 01/06/25 19:56 Arrhythmia/Palpitations MDM Narrative MDM Narrative:: Scribe Attestation: 01/07/25 - Idalia Morelos am scribing for and in the presence of Dr. Palmer. Patient states that she ran out of her prednisone several days ago. She was seen here and evaluated in the emergency room and told that they would send in prednisone to her pharmacy which she is normally on 20 mg once a day. She states that the prednisone was never sent in so presents here with continued body pain and asking if her normal dose of prednisone can be sent into the pharmacy. I interpreted all labs. EKG shows sinus tachycardia at a rate of 124 with unifocal PVCs. At the time my exam the patient's heart rate is in the 90s. She does not appear to be acutely in pain. She will be given prednisone 20 mg p.o. and a prescription for prednisone will be sent into the pharmacy which the patient normally takes 20 mg once a day. She is to follow-up with her light industrial who is recently been out of town. Return to ER as needed or if condition worsens. Continue all other current medications. Patient states that her heart rate always gets high whenever she has a lupus flareup. Patient data External records reviewed:: [facility] previous records (Per chart review, patient was seen here on 01/04/25 for lupus.) Clinical information provided by:: patient Social determinants that could affect healthcare access:: none Patient has the following chronic illnesses:: SLE How is presenting disease/condition affected by chronic disease/condition?: caused by Evaluation data The following diagnostics were reviewed and interpreted by me:: lab results, radiology exam(s) and EKG tracing(s) Lab and/or radiology exams considered but not ordered:: none Interpretation Summary: [facility] Report Signed Patient: MEHUL ZAMAN. Record#: [id number] Birthdate: 2000 Age/Sex: 24 / F Location: [facility] Attending Dr: Ordering Physician: Carlos Jaquez PA-C Date of Service: 01/06/25 Procedure(s): XR chest 1V Accession Number(s): [id number] cc: Bj Rebolledo MD; NO PRIMARY/FAMILY,PHYSICIAN; Carlos Jaquez PA-C~ EXAMINATION: AP chest single view TECHNIQUE: Upright AP chest single view Date and time: January 06, 2025, 2018 hours, comparison October 16, 2024 INDICATIONS: Generalized body aches cardiac palpitations beginning today. FINDINGS: Mild enlargement left ventricle. Mild vascular congestion. No pneumonia or pulmonary edema IMPRESSION: Mild enlargement left ventricle Mild vascular congestion Dictated By: Bj Rebolledo MD Signed By: <Electronically signed by Bj Rebolledo MD in OV> 01/06/252028 Medications / Prescriptions Medications or Prescriptions considered but not ordered:: none Medication administrations:: Medication Administration History Discontinued Medications Hydrocodone Bitart/Acetaminophen (Hydrocodone/Apap 7.5/325 Tablet) 1 tab PO X1 ONE Stop: 01/06/25 20:00 Last Admin: 01/06/25 22:15 Dose: 1 tab Documented By: YUKI Ibuprofen (Ibuprofen Tab 600 Mg Tablet) 600 mg PO X1 ONE Stop: 01/06/25 20:00 Last Admin: 01/06/25 22:16 Dose: 600 mg Documented By: YUKI see above Consultations Consultation(s) initiated? (list below): No Diagnosis Differential diagnosis arrhythmia/palpitations: other (See MDM) Most likely diagnosis given after review of the tests above:: see clinical impression below Admission Indicated Admission indicated?: not indicated Admission Request Was there a request for admission?: No Disposition Plan Disposition Plan: Discharge Discharge Attestation Discharge Attestation: The patient and all family members were given an opportunity to ask questions and understood the discharge instructions. Discharge instructions specifically effects, indications for sooner follow up or return to the emergency department, and the expected course of current diagnosis. Patient condition: Stable Discharge Plan Plan Patient Disposition: HOME (Self Care) Prescriptions/Referrals Prescriptions/Med Rec: New prednisone 20 mg tablet 20 mg PO QDAY Qty: 30 0RF Taper: Prednisone Taper 20 mg DAILY for 2 Days and 0 Hour 10 mg DAILY for 2 Days and 0 Hour 5 mg DAILY for 7 Days and 0 Hour No Action ibuprofen 600 mg tablet 600 mg PO Q8H PRN (Reason: fever or pain) Qty: 20 0RF Saphnelo 300 mg/2 mL (150 mg/mL) solution 300 mg IV .every 4 weeks hydroxychloroquine 200 mg tablet 200 mg PO .once daily Patient Comments: TAKE 1 TABLET BY MOUTH EVERY DAY gabapentin 300 mg capsule 300 mg PO TID Patient Comments: TAKE 1 CAPSULE BY MOUTH 3 TIMES A DAY. Artificial Tears (cmc) 1 % drops 2 drp ophthalmic (eye) BID PRN (Reason: dry eye(s)) Qty: 15 0RF Referrals: No Primary/Family,Physician [Primary Care Provider] - In 1 week Problem List Clinical Impression: Myalgia, Palpitations, Lupus Patient/Caregiver Discharge Instructions Additional Instructions: Prednisone as prescribed. Follow-up with your light industrial. Return to ER as needed or if condition worsens. Print Language: Kenyan Stand Alone Forms: [employer]izwana Award Info., Patient Portal Info Letter
[2025-01-07 04:00] VITALS: RESP 14
== END 2025-01-07 04:01 | disposition home or self-care (01) ==
PROVIDERS: Physician Assistant; Emergency Provider Emergency Medicine
DX: I49.9 Cardiac arrhythmia, unspecified (principal); T38.0X6A Underdosing of glucocorticoids and synthetic analogues, initial encounter
CPT/HCPCS: 36415; 71045; 80053; 83735; 84439; 84443; 84484; 84703; 85025; 85652; 86140; 93005; 99283; J7512; A9270